=== PATIENT | male | born 1955 | race Caucasian/White ===

== ENCOUNTER 2016-02-25 13:13 | Outpatient (RCR) | payer MEDICARE ==
--- OUTSIDE RECORDS SUMMARY | 2016-01-15 11:14 | XMS REPORT | Continuity of Care Document ---
Author Author [facility] Organization [facility] Address Unknown Phone Unavailable Care Team Providers Care Php Mysql Developer Name Role Phone Génesis Bg PCP [phone] Source Comments Some departments are not documenting in the electronic medical record. If you do not see the information that you expected, contact Release of Information in the Health Information Management department at [phone] for further assistance in locating additional records.[facility] Active Allergies and Adverse Reactions Allergen Noted Date Severity Reactions Comments Adhesive 09/19/2007 Medium RASH Allergic to adhesive from transdermal pain patches Pcn 09/19/2007 Medium HIVES Current Medications Prescription Sig. Disp. Refills Start End Date Status Date NORVASC 10 mg tablet Take 10 mg by mouth Active Daily. atenolol (TENORMIN) 100 Take 100 mg by mouth Active mg tablet Twice Daily. lisinopril (PRINIVIL, Take 40 mg by mouth twice Active ZESTRIL) 40 mg tablet daily. LASIX 20 mg tablet Take 20 mg by mouth daily Active as needed. glimepiride (AMARYL) 4 mg Take 4 mg by mouth twice Active tablet daily. lenalidomide (REVLIMID) Take 2.5 mg by mouth Active 2.5 mg capsule daily. Take at the same time every day. cyanocobalamin(+) Take 500 mcg by mouth Active (VITAMIN B-12) 500 mcg daily. tablet pyridoxine (vitamin B6) Take 100 mg by mouth Active (VITAMIN B-6) 50 mg daily. tablet atorvastatin (LIPITOR) 20 Take 20 mg by mouth at Active mg tablet bedtime daily. duloxetine DR (CYMBALTA) Take 30 mg by mouth at Active 30 mg capsule bedtime daily. duloxetine DR (CYMBALTA) Take 60 mg by mouth Active 60 mg capsule daily. allopurinol (ZYLOPRIM) Take 300 mg by mouth at Active 300 mg tablet bedtime daily. Take with food. pregabalin (LYRICA) 150 Take 150 mg by mouth Active mg capsule three times daily. liraglutide(+) (VICTOZA Inject 1.8 mg into Active 2-PAVITHRA) 0.6 mg/0.1 mL (18 area(s) as directed mg/3 mL) pnij daily. traMADol (ULTRAM) 50 mg Take 50 mg by mouth every Active tablet 6 hours as needed for Pain. buPROPion XL (WELLBUTRIN Take 150 mg by mouth at Active XL) 150 mg tablet bedtime daily. Do not crush or chew. cetirizine (ZYRTEC) 10 mg Take 10 mg by mouth every Active tablet morning. vitamins, multiple tablet Take 1 Tab by mouth Active daily. Lactobacillus rhamnosus Take 1 Cap by mouth as Active GG (LACTOBACILLUS directed daily. RHAMNOSUS (GG)) 15 billion cell cpSP oxyCODONE/acetaminophen Take 1-2 Tabs by mouth 40 Tab 0 11/26/19 Active (PERCOCET; ENDOCET; every 4 hours as needed 16 ROXICET) 5/325 mg tablet for Pain Earliest Fill Date: 11/26/15 milk of magnesia (CONC) Take 10 mL by mouth twice 400 mL 0 11/26/19 Active 2,400 mg/10 mL oral daily. Indications: 16 suspension CONSTIPATION senna/docusate Take 1 Tab by mouth twice 60 Tab 0 11/26/19 Active (SENOKOT-S) 8.6/50 mg daily. Indications: 16 tablet CONSTIPATION ciprofloxacin HCl (CIPRO) Take 1 Tab by mouth twice 6 Tab 0 12/02/19 Active 500 mg tablet daily. Start taking on 16 12/02/2015 ondansetron hcl (ZOFRAN) Take 1 Tab by mouth every 30 Tab 0 11/26/19 Active 8 mg tablet 8 hours as needed for 16 Nausea or Vomiting. cephalexin (KEFLEX) 500 Take 1 Cap by mouth twice 42 Cap 0 11/26/19 12/17/19 mg capsule daily for 21 days. 16 16 enoxaparin (LOVENOX) 40 Inject 0.4 mL under the 12 mL 0 11/26/19 mg injection syringe skin daily for 30 days. 16 16 Active Problems Problem Noted Date S/P ileal conduit (HCC) 12/03/2015 Overview: Robotic Radical Cystoprostatectomy w/ Ileal Conduit -- 11/18/2015; Dr. Bruno. Bladder cancer 05/11/2015 Overview: TURBT -- 05/11/2015; cT1, high grade; muscle not involved; Dr. Montgomery. Bladder bx -- 06/29/2015; No evidence of malignancy; Dr. Montgomery. BCG x 6; 07/21/2015 -- 09/01/2015. TURBT -- 10/05/2015; cT1, high grade; muscle not involved; Dr. Montgomery. Robotic Radical Cystoprostatectomy w/ Ileal Conduit -- 11/18/2015; Dr. Bruno. pyTa N0 Mx, Margins Negative. L ast Assessment & Plan: Stents removed today w/o difficulty. RTC 1 mo w/ BMP prior. History of CVA (cerebrovascular accident) 10/23/2007 Overview: Hemorrhagic strokes x 7; 2004 - 2009. Multiple myeloma (HCC) 09/21/2007 Overview: Managed by Tyler Ortega MD (Oncology; [place], [place]). Tobacco use Last Assessment & Plan: Provided tobacco cessation info on AVS. 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 No prior kidney stone surgery. Most Recent Encounters Date Type Specialty Providers Description 12/10/2015 Telephone Urology Yesy Mendez APRN-NP Home Health Nurse Orders 12/04/2015 Telephone Urology Yesy Mendez APRN-NP General Question 12/03/2015 Office Visit Urology Zhao Jean PA-C Bladder cancer ( Primary Dx); S/P ileal conduit (HCC) 12/03/2015 [facility] Greyson Bruno, Malignant neoplasm of Encounter bladder, unspecified 11/26/2015 Documentation Oncology Jessica Abrams 11/18/2015 [facility] Greyson Bruno, Bladder cancer (HCC) - Encounter 11/26/2015 11/18/2015 Surgery Greyson Bruno, ROBOTIC ASSISTED MD CYSTECTOMY WITH ILEAL CONDUIT AND PELVIC LYMPH NODE DISSECTION 11/11/2015 Telephone Urology Greyson Bruno, Follow-up Phone Call 10/30/2015 Telephone Urology Greyson Bruno, Follow-up Phone Call 10/29/2015 PAC Office Anesthesiology Greyson Bruno, Bladder mass (Primary Visit MD Dx); Encounter for preadmission testing 10/29/2015 [facility] Zhao Jean PA-C Malignant neoplasm of Encounter overlapping sites of bladder 10/29/2015 [facility] Radiology Zhao Jean PA-C Encounter 10/29/2015 Clinical Oncology Tito Rasheed, MD Support Jessica Abrams 10/29/2015 Office Visit Urology Greyson Bruno, Bladder cancer (Primary MD Dx); History of CVA (cerebrovascular accident); Type 2 diabetes mellitus with diabetic polyneuropathy, without long-term current use of insulin (HCC); 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); Essential hypertension; Hyperlipidemia, unspecified hyperlipidemia type; Tobacco use 10/29/2015 Anesthesia Blossom Stallworth APRN-FACILITY SECURITY OFFICER Event 10/29/2015 Prep for Case Urology Zhao Jean PA-C 10/29/2015 Screening Form 10/29/2015 Ancillary Urology Greyson Bruno, Bladder cancer (Primary Orders MD Dx); Tobacco use 10/26/2015 Documentation Oncology Jessica Abrams 10/21/2015 Telephone Oncology Greyson Bruno, Navigation Assessment 10/20/2015 Documentation Oncology Jessica Abrams Social History Tobacco Use Types Packs/Day Years Used Date Current Every Day Smoker 1 50 Started: 03/13/1965 Smokeless Tobacco: Former User Comments: quit at least15 years ago (chewing tobacco) Alcohol Use Drinks/Week oz/Week Comments No 0 Standard 0.0 drinks or equivalent Last Filed Vital Signs Vital Sign Reading Time Taken Blood Pressure 113/58 12/03/2015 9:26 AM CDT Pulse 66 12/03/2015 9:26 AM CDT Temperature 36.6 C (97.9 F) 11/26/2015 7:52 AM CDT Respiratory Rate - - Height 1.829 m (6') 12/03/2015 9:26 AM CDT Weight 96.798 kg (213 lb 6.4 oz) 12/03/2015 9:26 AM CDT Body Mass Index 28.94 12/03/2015 9:26 AM CDT Oxygen Saturation 98% 11/26/2015 7:52 AM CDT Plan of Care Health Maintenance Due Date Last Done Comments Hepatitis C Screening 1955 Physical (Comprehensive) 1960 Exam Pertussis Vaccine 1964 Tetanus Vaccine 1970 Dilated Eye Exam 08/27/1971 Foot Exam 08/27/1971 Hba1c 08/27/1971 Microalbumin 08/27/1971 Pneumonia Vaccine (Dm) 08/27/1971 Colorectal Cancer 08/27/2003 Screening Shingles Vaccine 2013 Influenza Vaccine 11/12/2015 Procedures from Last 3 Months Procedure Name Priority Date/Time Associated Diagnosis Comments PROCEDURES-SCAN 11/27/2015 Results for this 2:01 PM CDT procedure are in the results section. PROCEDURES-SCAN 11/27/2015 Results for this 2:01 PM CDT procedure are in the results section. CONSULT IV THERAPY TEAM Routine 11/25/2015 5:30 PM CDT CONSULT IV THERAPY TEAM Routine 11/23/2015 11:42 AM CDT ANESTHESIA ARTERIAL LINE Routine 11/18/2015 Results for this INSERTION 8:36 AM CDT procedure are in the results section. ROBOTIC ASSISTED 11/18/2015 Bladder cancer (HCC) CYSTECTOMY WITH ILEAL 7:45 AM CDT CONDUIT AND PELVIC LYMPH NODE DISSECTION Results from Last 3 Months BASIC METABOLIC PANEL (12/03/2015 9:08 AM)Only the most recent of 11 results within the time period is included. Component Value Range Sodium 137 137-147 MMOL/L Potassium 4.1 3.5-5.1 MMOL/L Chloride 107 98-110 MMOL/L CO2 24 21-30 MMOL/L Anion Gap 6 3-12 Glucose 128 (H) 70-100 MG/DL Blood Urea Nitrogen 7 7-25 MG/DL Creatinine 1.35 (H) 0.4-1.24 MG/DL Calcium 8.2 (L) 8.5-10.6 MG/DL eGFR Non 54 (L)Comment: >60 mL/min The eGFR is not validated for use in drug dosing adjustments. Continue to use estimated creatinine clearance per dosing reference text. Please contact the Clinical Pharmacist for questions. eGFR >60Comment: >60 mL/min The eGFR is not validated for use in drug dosing adjustments. Continue to use estimated creatinine clearance per dosing reference text. Please contact the Clinical Pharmacist for questions. Specimen Blood PROCEDURES-SCAN (11/27/2015 2:01 PM) Narrative Ordered by an unspecified provider. PROCEDURES-SCAN (11/27/2015 2:01 PM) Narrative Ordered by an unspecified provider. POC GLUCOSE (11/26/2015 8:03 AM)Only the most recent of 33 results within the time period is included. Component Value Range Glucose, POC 163 (H) 70-100 MG/DL CBC (11/26/2015 4:37 AM)Only the most recent of 10 results within the time period is included. Component Value Range White Blood Cells 6.6 4.5-11.0 K/UL RBC 3.26 (L) 4.4-5.5 M/UL Hemoglobin 10.9 (L) 13.5-16.5 GM/DL Hematocrit 32.6 (L) 40-50 % MCV 100.0 80-100 FL MCH 33.4 26-34 PG MCHC 33.4 32.0-36.0 G/DL RDW 16.6 (H) 11-15 % Platelet Count 180 150-400 K/UL MPV 8.6 7-11 FL Specimen Blood C DIFFICILE BY PCR (11/24/2015 7:35 PM) Component Value Range Battery Name C DIFFICILE PCR Specimen Description FECES Special Requests NONE C. Difficile Toxin B PCR POSITIVE-wait 14 days to repeat test Notified Phong/[id number] Report Status FINAL 11/25/2015 Specimen Feces CREATININE-FLUID (11/24/2015 12:18 PM)Only the most recent of 2 results within the time period is included. Component Value Range Creatinine,Fluid 1.27 MG/DL Specimen Fluid - Waldemar Drainage ABDOMEN AP ONLY (11/24/2015 8:54 AM)Only the most recent of 3 results within the time period is included. Impressions Persistent gaseous distention of large and small bowel loops. Approved by Courtney Burgos M.D. on 11/24/2015 10:33 AM By my electronic signature, I attest that I have personally reviewed the images for this examination and formulated the interpretations and opinions expressed in this report Finalized by Ofelia Davis M.D. on 11/24/2015 10:38 AM. Dictated by Courtney Burgos M.D. on 11/24/2015 8:56 AM. Narrative ABDOMEN AP ONLY CLINICAL HISTORY: 60-year-old male. Evaluate for ileus COMPARISON: Abdomen AP from prior day FINDINGS: Two AP supine views of the abdomen were obtained for interpretation. Surgical clips overlie the right upper quadrant. Ureteral stents remain in similar position. Surgical sutures are seen overlying the right hemiabdomen. Surgical drain is seen overlying the left pelvis. Persistent gaseous dilation of multiple loops of large and small bowel. Procedure Note Interface, Radiant Results - Tue Nov 24, 2015 10:41 AM CDT ABDOMEN AP ONLY CLINICAL HISTORY: 60-year-old male. Evaluate for ileus COMPARISON: Abdomen AP from prior day FINDINGS: Two AP supine views of the abdomen were obtained for interpretation. Surgical clips overlie the right upper quadrant. Ureteral stents remain in similar position. Surgical sutures are seen overlying the right hemiabdomen. Surgical drain is seen overlying the left pelvis. Persistent gaseous dilation of multiple loops of large and small bowel. IMPRESSION Persistent gaseous distention of large and small bowel loops. Approved by Courtney Burgos M.D. on 11/24/2015 10:33 AM By my electronic signature, I attest that I have personally reviewed the images for this examination and formulated the interpretations and opinions expressed in this report Finalized by Ofelia Davis M.D. on 11/24/2015 10:38 AM. Dictated by Courtney Burgos M.D. on 11/24/2015 8:56 AM. MAGNESIUM (11/23/2015 4:27 AM)Only the most recent of 2 results within the time period is included. Component Value Range Magnesium 2.0 1.6-2.6 MG/DL PATHOLOGY INTEROPERATIVE REPORT SCAN (11/19/2015 3:05 PM) Narrative Ordered by an unspecified provider. BLOOD GASES, ARTERIAL (11/18/2015 4:55 PM)Only the most recent of 4 results within the time period is included. Component Value Range pH-Arterial 7.32 (L) 7.35-7.45 pCO2-Arterial 43 35-45 MMHG pO2-Arterial 81 80-100 MMHG Base Deficit-Arterial 3.8 MMOL/L O2 Sat-Arterial 95.9 95-99 % Utkudyighjs-ZFK-Cca 21.2 21-28 MMOL/L Specimen Blood, arterial - Blood COMPREHENSIVE METABOLIC PANEL (11/18/2015 4:30 PM) Component Value Range Sodium 143 137-147 MMOL/L Potassium 4.0 3.5-5.1 MMOL/L Chloride 114 (H) 98-110 MMOL/L Glucose 136 (H) 70-100 MG/DL Blood Urea Nitrogen 19 7-25 MG/DL Creatinine 1.44 (H) 0.4-1.24 MG/DL Calcium 7.5 (L) 8.5-10.6 MG/DL Total Protein 5.8 (L) 6.0-8.0 G/DL Total Bilirubin 0.9 0.3-1.2 MG/DL Albumin 4.3 3.5-5.0 G/DL Alk Phosphatase 24 (L) 25-110 U/L AST (SGOT) 44 (H) 7-40 U/L CO2 23 21-30 MMOL/L ALT (SGPT) 47 7-56 U/L Anion Gap 6 3-12 eGFR Non 50 (L)Comment: >60 mL/min The eGFR is not validated for use in drug dosing adjustments. Continue to use estimated creatinine clearance per dosing reference text. Please contact the Clinical Pharmacist for questions. eGFR >60Comment: >60 mL/min The eGFR is not validated for use in drug dosing adjustments. Continue to use estimated creatinine clearance per dosing reference text. Please contact the Clinical Pharmacist for questions. Specimen Blood POC IONIZED CALCIUM (11/18/2015 12:49 PM)Only the most recent of 4 results within the time period is included. Component Value Range Ionized Calcium-POC 0.89 (L) 1.0-1.3 MMOL/L POC SODIUM (11/18/2015 12:49 PM)Only the most recent of 4 results within the time period is included. Component Value Range Sodium-POC 141 137-147 MMOL/L POC POTASSIUM (11/18/2015 12:49 PM)Only the most recent of 4 results within the time period is included. Component Value Range Potassium-POC 6.3 (HH) 3.5-5.1 MMOL/L POC HEMATOCRIT (11/18/2015 12:49 PM)Only the most recent of 4 results within the time period is included. Component Value Range Hemoglobin POC 9.9 (L) 13.5-16.5 GM/DL Hematocrit POC 29.0 (L) 40-50 % POC BLOOD GAS ARTERIAL (11/18/2015 12:49 PM)Only the most recent of 4 results within the time period is included. Component Value Range PH-ART-POC 7.27 (L) 7.35-7.45 OVO4-BWV-VTS 38 35-45 MMHG PO2-ART-POC 77 (L) 80-100 MMHG Base Def-ART-POC 9.0 MMOL/L O2 Sat-ART-POC 93.0 (L) 95-99 % Arlvnqiiidz-JTY-XNZ 17.6 (L) 21-28 MMOL/L HEMOGLOBIN & HEMATOCRIT (11/18/2015 12:16 PM) Component Value Range Hemoglobin 9.6 (L) 13.5-16.5 GM/DL Hematocrit 28.5 (L) 40-50 % SURGICAL PATHOLOGY (11/18/2015 9:09 AM) Component Value Range PATHOLOGY REPORT [facility] [email or web address] Joselito Adair MD, PhD, Director of Anatomic Pathology Department of Pathology and Laboratory Medicine [address] [place] [id number] Surgical Pathology Office: [phone] SURGICAL PATHOLOGY REPORT NAME: CATA BEE SURG PATH #: [id number] MR #: [id number] SPECIMEN CLASS: SR BILLING #: [id number] ALT ID #: LOCATION: DATE OF PROCEDURE: 11/18/2015 AGE: 60 SEX: M DATE RECEIVED: 11/18/2015 : 1955 TIME RECEIVED: 09:09 PHYSICIAN: GREYSON BRUNO MD DATE OF REPORT: 11/23/2015 COPY TO: DATE OF PRINTIN11/23/2015 ################################################## ###################### Final Diagnosis: A. Ureter, "left distal ureter", excision: There is no evidence of malignancy. B. Ureter, "right distal ureter", excision There is no evidence of malignancy. C. Bladder and prostate, radical cystoprostatectomy: Bladder: Non-invasive high-grade papillary urothelial carcinoma. See checklist. Focal ulceration, chronic inflammation, fibrosis, and foreign body giant cell reaction, consistent with therapy-related changes. Prostate: Focal foreign body giant cell reaction, chronic inflammation and necrosis, consisten t with therapy-related changes. There is no evidence of malignancy. D. Lymph nodes (1), "right external iliac lymph nodes", excision: There is no evidence of malignancy in one lymph node. (0/1) E. Lymph nodes (1), "right internal iliac lymph nodes", excision: There is no evidence of malignancy in one lymph node. (0/1) F. Lymph nodes (5), "right obturator lymph nodes", dissection: There is no evidence of malignancy in five lymph nodes. (0/5) G. Lymph nodes (1), "right common lymph nodes", excision: There is no evidence of malignancy in one lymph node. (0/1) H. Lymph nodes (6), "left external lymph nodes", dissection: There is no evidence of malignancy in six lymph nodes. (0/6) I. Fibroadipose tissue, "left internal lymph nodes", excision: No lymphoid tissue present. There is no evidence of malignancy. J. Lymph nodes (2), "left obturator lymph nodes", excision: There is no evidence of malignancy in two lymph nodes. (0/2) K. Lymph nodes (1), "left common lymph nodes", excision: There is no evidence of malignancy in one lymph node. (0/1) Comment: URINARY BLADDER: Radical cystoprostatectomy Specimen: Bladder, prostate Procedure: Radical cystoprostatectomy Tumor Site: Dome Tumor Size: 2.8 x 2.1 x 0.6 cm Tumor Type: Non invasive high grade papillary urothelial carcinoma Histologic Type: Urothelial (transitional cell) carcinoma Associated Epithelial Lesions: None identified Histologic Grade Urothelial carcinoma: High-grade Tumor Configuration: Papillary Microscopic Tumor Extension: Noninvasive papillary carcinoma Margins Margins uninvolved by invasive carcinoma/carcinoma in situ/noninvasive high-grade urothelial carcinom a Distance of carcinoma from closest margin: 8.4 cm Specify margin: Right ureteral margin Lymph-Vascular Invasion: Not identified Pathologic Staging (pTNM) pyTa N0 Mn/a 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 Pursuant to the Sponsorship Coordinator Program at the [facility] Pathology Department, selected slides from this case have been concurrently reviewed by the following pathologist: Dr. Abarca who agrees with the final diagnosis. Attestation: By this signature, I attest that I have personally formulated the final interpretation expressed in this report and that the above diagnosis is based upon my examination of the slides and/or other material indicated in this report. +++Electronically Signed Out By+++ ksw/11/19/2015 Interpreted by: Kieran Brewer MD Resident 11/23/2015 ################################################## ###################### Material Received: A: left distal ureter B: right distal ureter C: bladder and biopsy D: right external iliac lymph nodes E: right internal iliac lymph nodes F: right obturator lymph nodes G: right common lymph nodes H: left external lymph nodes I: left internal lymph nodes J: left obturator lymph nodes K: left common lymph nodes History: 60-year-old male with a clinical history of bladder cancer. Gross Description: A. Received fresh, labeled with the patient's name and "left distal ureter" is an unoriented, sauceda-white annular portion of soft tissue measuring 0.6 x 0.3 x 0.3 cm. The specimen is entirely submitted for frozen consultation with the remnant being placed in cassette [id number]. ([facility]) B. Received fresh, labeled with the patient's name and "right distal ureter" is an unoriented, sauceda-white, annular portion of soft tissue measuring 0.6 x 0.5 x 0.5 cm. The specimen is entirely submitted for frozen consultation with the remnant being placed in cassette [id number]. ([facility]) C. Fixative: Fresh Labeled: "Bladder and prostate" Bladder measurement of 10.2 x 8.7 x 2.8 cm Right ureter: 4.8 cm in length by 0.4 cm in diameter Left ureter: 4.3 cm in length by 0.3 cm in diameter External surface of bladder: Smooth Bladder tumor measurement: dome: Sauceda-pink and polypoid 2.8 x 2.1 x 0.6 cm in aggregate. Left posterior lateral wall: Red-pink and ulcerated 2.1 x 1.8 cm. Right posterior lateral: Sauced[place]-white and irregular 2.9 x 2.2 cm Bladder tumor location: There are three separate possible tumor areas located as follows: dome, right posterior lateral wall, and left posterior-lateral Bladder tumor depth of invasion: Dome grossly superficial. Left posterior lateral wall: Grossly appears superficial. Right posterior Lateral wall: Grossly appears superficial Bladder tumor: Dome mass does not Involve the right and left ureter. Left posterior lateral wall lesion: does not involve the right and left ureters. Right posterior lateral wall lesion: Does not involve the right and left ureter Bladder tumor dome mass: 4.8 cm from the left ureteral orifice and 4.1 cm from the right ureteral orifice. Left posterior lateral wall lesion: 1.6 cm from left ureteral orifice and 3.9 cm from right ureteral orifice. Right posterior lateral wall lesion: 1.6 cm from the left ureteral orifice and abuts the right ureteral orifice. Uninvolved bladder mucosa: Sauceda-pink and edematous The external surface deep to the mass is inked black. Prostate weight: 47 grams Prostate measurement: 4.8 x 4.1 x 3.7 cm Right seminal vesicle measurement: 4.4 x 1.5 x 1.1 cm Right vas deferens measurement: 6.8 cm in length and 0.6 cm in diameter Left seminal vesicle measurement: 4.4 x 0.9 x 0.9 cm Left vas deferens measurement: 8.9 cm in length and 0.6 cm in diameter External surface of prostate: [place]-sauceda and smooth. Prostate cut surface: Sauceda-white and gritty with an irregular area measuring 1.6 x 1.4 x 0.6 cm located in the left posterior lobe. The anterior prostate has multiple nodules ranging from 0.2 x 0.2 x 0.2 up to 0.4 x 0.4 x 0.3cm. The right lobe of the prostate is inked black and the left lobe is inked blue. A commercial representative section of the specimen is submitted for the Biospecimen Repository Core Facility. Safety Belt Installer sections of the specimen are submitted as follows: C1 Right and left ureteral margin (right ureter is inked black). C2 Right and left distal urethral margin (serially sectioned). C3 Right seminal vesicle and vas deferens margins. C4 Left seminal vesicle and vas deferens margins. C5-C6 Safety Belt Installer sections from right posterior prostate. C7-C8 Safety Belt Installer sections from left posterior prostate. C9 Safety Belt Installer sections from right anterior prostate. C10 Section from left anterior prostate. C11 Anterior bladder wall. C12 Left lateral bladder wall. C13 Right lateral bladder wall. C14 Bladder dome. C15 Posterior bladder wall. C16 Bladder trigone. C17 Right ureter to bladder mucosa. C18 Left ureter to bladder mucosa. [id number] sections of mass at dome. [id number] sections of right posterior lateral wall lesion. [id number] posterior lateral wall lesion, blocked out and entirely submitted. (ads) D. Received in formalin labeled patient's name and "right external iliac lymph nodes" is a 6.8 x 3.0 x 2.0 cm yellow-sauceda, irregular portion of adipose tissue. The specimen is palpated to reveal one possible lymph node measuring 2.0 x 1.0 x 0.6 cm. The entire specimen is submitted as follows: D1 One lymph node. D2-D5 Fibrous tissue with possible lymph nodes. (sld) E. Received in formalin labeled patient's name and "right internal iliac lymph nodes" is a 5.9 x 3.1 x 0.9 cm yellow-sauceda, irregular portion of adipose tissue. The specimen is palpated to reveal multiple possible lymph nodes ranging from 0.2 x 0.2 x 0.2 cm to 2.3 x 1.0 x 0.6 cm. The entire specimen is submitted in cassettes E1-E5. (sld) F. Received in formalin labeled with the patient's name and "right obturator lymph nodes" is a 5.5 x 4.0 x 1.9 cm yellow-sauceda, irregular portion of adipose tissue. The specimen is palpated to reveal multiple possible lymph nodes ranging from 0.2 x 0.2 x 0.2 cm to 1.0 x 0.6 x 0.4 cm. The entire specimen is submitted in cassettes F1-F5. (sld) G. Received in formalin labeled with the patient's name and "right common lymph nodes" is a 3.0 x 2.8 x 0.9 cm yellow-sauceda, irregular portion of adipose tissue. The specimen is palpated to reveal one possible lymph node measuring 0.3 x 0.3 x 0.3 cm. The entire specimen is submitted as follows: G1 One possible lymph node G2 Fibrous tissue with possible lymph nodes (sld) H. Received in formalin labeled with the patient's name and "left external iliac lymph nodes" is a 4.2 x 3.8 x 1.5 cm yellow-sauceda, irregular portion of adipose tissue. The specimen is palpated to reveal three possible lymph nodes measuring 0.3 x 0.3 x 0.2 cm each. The entire specimen is submitted as follows: H1 Three possible whole lymph nodes. H2-H4 Fibrous tissue with possible lymph nodes. (sld) I. Received in formalin labeled with the patient's name and "left internal iliac lymph nodes" is a 3.5 x 2.2 x 0.9 cm yellow-sauceda, irregular portion of adipose tissue. The specimen is palpated to reveal one possible lymph node measuring 0.4 x 0.4 x 0.3 cm. The entire specimen is submitted in cassette I1. (sld) J. Received in formalin labeled with the patient's name and "left obturator lymph nodes" is a 3.8 x 3.0 x 1.0 cm yellow-sauceda, irregular portion of adipose tissue. The specimen is palpated to reveal two possible lymph nodes measuring 1.2 x 1.0 x 0.3 cm and 2.0 x 0.8 x 0.4 cm. The entire specimen is submitted in cassettes J1 and J2. (sld) K. Received in formalin labeled with the patient's name and "left common lymph nodes" is a 2.5 x 1.2 x 0.4 cm yellow-sauceda, irregular portion of adipose tissue. The specimen is palpated to reveal one possible lymph node measuring 0.3 x 0.3 x 0.3 cm. The entire specimen is submitted in cassette K1. (d) paj/11/18/2015 Tai Montana MD Resident Intraoperative Consultation: A1FS, ureter, "left distal ureter", biopsy: Negative for malignancy. B1FS, ureter, "right distal ureter", biopsy: Negative for malignancy. Marquita Da Silva M.D. ANESTHESIA ARTERIAL LINE INSERTION (11/18/2015 8:36 AM) Rayshawn Hedrick MD 11/18/20158:36 AM Anesthesia Procedure: Arterial Line Placement A-LINE INSERTION Date/Time: 11/18/2015 8:00 AM Patient location: OR Indications: multiple ABGs and hemodynamic monitoring Staff Anesthesiologist: LISANDRO HEDRICK Arterial Line Procedure Patient sedated: yes (see MAR) Sedation type: general; Artery prepped with chlorhexidine; skin prep agent completely dried prior to procedure. Location: radial artery Technique: palpation and anatomical landmarks Needle gauge: 20 G Number of attempts: 1 Procedure Outcome Catheter secured with chlorhexidine patch applied Events: no complications noted during insertion Observation: pt tolerated well TYPE & CROSSMATCH (11/18/2015 7:00 AM) Component Value Range Units Ordered 4 Crossmatch Expires 11/21/2015 Record Check FOUND ABO/RH(D) O POS Antibody Screen NEG Electronic Crossmatch YES Unit Number [id number] Blood Component Type RBC,ADSOL,LEUKO REDUCED,IRRADIATED Unit Division 0 Status OF Unit REL FROM ALLOC Transfusion Status OK TO TRANSFUSE Crossmatch Result COMPATIBLE,ELECTRONIC Unit Number [id number] Blood Component Type RBC,ADSOL,LEUKO REDUCED,IRRADIATED Unit Division 0 Status OF Unit REL FROM ALLOC Transfusion Status OK TO TRANSFUSE Crossmatch Result COMPATIBLE,ELECTRONIC Unit Number [id number] Blood Component Type RBC,ADSOL,LEUKO REDUCED,IRRADIATED Unit Division 0 Status OF Unit REL FROM ALLOC Transfusion Status OK TO TRANSFUSE Crossmatch Result COMPATIBLE,ELECTRONIC Unit Number [id number] Blood Component Type RBC,ADSOL,LEUKO REDUCED,IRRADIATED Unit Division 0 Status OF Unit TRANSFUSED Transfusion Status OK TO TRANSFUSE Crossmatch Result COMPATIBLE,ELECTRONIC TYPE & SCREEN (NOT CROSSMATCH ELIGIBLE) (10/29/2015 12:46 PM) Component Value Range ABO/RH(D) O POS Antibody Screen NEG Blood Component Type RED CELL GROUP Specimen Blood, venous - Blood CT ABD/PELV W CONTRAST (10/29/2015 12:26 PM) Impressions CHEST: 1. Upper lobe predominant emphysema. 2. No significant change in prominent posterior mediastinal lymph nodes and scattered pulmonary nodules since remote study in 2007. No suspicious pulmonary nodules to suggest pulmonary metastatic disease. ABDOMEN AND PELVIS: 1. Smooth, focal thickening of the right posterolateral bladder wall following transurethral resection of bladder tumor. Additional mild sites of smooth bladder wall thickening are noted at the left lateral bladder wall and dome. Recommend correlation with cystoscopy to evaluate for residual mass. 2. No abdominopelvic metastatic disease or adenopathy. 3. Small left renal hypodensity, which appears to de-enhance on delayed phase imaging. This is unchanged since 05/08/2015 though is concerning for small renal cell carcinoma.Continued attention on follow-up imaging is recommended. Approved by Parvez Marrero MD on 10/29/2015 4:21 PM By my electronic signature, I attest that I have personally reviewed the images for this examination and formulated the interpretations and opinions expressed in this report Finalized by Evelina Collazo M.D. on 10/29/2015 5:21 PM. Dictated by Parvez Marrero MD on 10/29/2015 1:[address] CHEST, ABDOMEN AND PELVIS Clinical Indication:Male, 60 years old. Bladder cancer Technique: Multiple contiguous axial images were obtained through the chest, abd omen and pelvis following the administration of IV contrast material. Post processing coronal and sagittal reconstruction images were made from the axial images. IV contrast: 65 mL Isovue 370. Bowel contrast:30 mL Gastroview Comparison: CT chest from September 17, [address] abdomen/pelvis from May 08, 2015. CHEST FINDINGS: Lower Neck: Unremarkable Axilla, Mediastinum and Jenifer: No axillary or hilar adenopathy identified. Mild mediastinal adenopathy unchanged from 2008. A commercial representative posterior mediastinal lymph node measures 1.7 x 1.3 cm (series 5, image 26). Heart and Great Vessels: The heart is normal in size with three-vessel coronary artery calcification. The thoracic aorta is normal in caliber. Airway, Lungs and Pleura: Central airways are patent. There is upper lobe predominant paraseptal emphysema. A few scattered small subcentimeter pulmonary nodules in both lungs are unchanged since prior remote study in 2007. A calcified granuloma is noted in the right upper lobe. No suspicious pulmonary nodules identified. No pleural effusion or pneumothorax. Chest Wall and Osseous Structures: No destructive osseous lesions identified. ABDOMEN AND PELVIS FINDINGS: Liver and Biliary system: The liver is normal in size. A few small hypodensities in both hepatic lobes are stable to minimally increased in size since 2008, likely representing small hepatic cysts. An additional 1 cm hypodensity in segment 6 (series 7, image 28) is stable since 05/08/2015 and likely represents an additional small cyst. Prior cholecystectomy. Hepatic and portal veins are patent. No bile duct dilatation. Spleen: The spleen is normal in size. Adrenal Glands and Kidneys: Adrenal glands are unremarkable. The kidneys are symmetric in size. No hydronephrosis. A small 1.0 cm hypodensity in the anterior left kidney is unchanged since 05/08/2015. This lesion appears to de- enhance on delayed phase imaging. Opacified portions of both renal collecting systems and ureters show no filling defect or mass. Pancreas and Retroperitoneum: Pancreas is unremarkable. No retroperitoneal lymphadenopathy identified. Aorta and Major Vessels: Abdominal aorta is normal in caliber with mild atherosclerotic plaque of the aortoiliac vessels. Bowel, Mesentery and Peritoneal space: Large and small loops of bowel are normal in caliber. No evidence of bowel obstruction. The appendix is normal. There is unchanged submucosal fatty deposition in the rectum. No free air or ascites. Pelvis: The bladder soft tissue mass noted on outside CT is no longer evident. There is asymmetric smooth thickening of the right posterolateral bladder wall ( series 11, image 83) with additional areas of smooth bladder wall thickening elsewhere, including the left lateral bladder and dome. The prostate and seminal vesicles are unremarkable. No pelvic adenopathy identified. Abdominal wall and Osseous Structures: Small bilateral fat-containing inguinal hernias are noted. No destructive osseous lesions identified. Procedure Note Interface, Radiant Results - [facility] Oct 29, 2015 5:[address] CHEST, ABDOMEN AND PELVIS Clinical Indication: Male, 60 years old. Bladder cancer Technique: Multiple contiguous axial images were obtained through the chest, abdomen and pelvis following the administration of IV contrast material. Post processing coronal and sagittal reconstruction images were made from the axial images. IV contrast: 65 mL Isovue 370. Bowel contrast: 30 mL Gastroview Comparison: CT chest from September 17, [address] abdomen/pelvis from May 08, 2015. CHEST FINDINGS: Lower Neck: Unremarkable Axilla, Mediastinum and Jenifer: No axillary or hilar adenopathy identified. Mild mediastinal adenopathy unchanged from 2007. A commercial representative posterior mediastinal lymph node measures 1.7 x 1.3 cm (series 5, image 26). Heart and Great Vessels: The heart is normal in size with three-vessel coronary artery calcification. The thoracic aorta is normal in caliber. Airway, Lungs and Pleura: Central airways are patent. There is upper lobe predominant paraseptal emphysema. A few scattered small subcentimeter pulmonary nodules in both lungs are unchanged since prior remote study in 2007. A calcified granuloma is noted in the right upper lobe. No suspicious pulmonary nodules identified. No pleural effusion or pneumothorax. Chest Wall and Osseous Structures: No destructive osseous lesions identified. ABDOMEN AND PELVIS FINDINGS: Liver and Biliary system: The liver is normal in size. A few small hypodensities in both hepatic lobes are stable to minimally increased in size since 2007, likely representing small hepatic cysts. An additional 1 cm hypodensity in segment 6 (series 7, image 28) is stable since 05/08/2015 and likely represents an additional small cyst. Prior cholecystectomy. Hepatic and portal veins are patent. No bile duct dilatation. Spleen: The spleen is normal in size. Adrenal Glands and Kidneys: Adrenal glands are unremarkable. The kidneys are symmetric in size. No hydronephrosis. A small 1.0 cm hypodensity in the anterior left kidney is unchanged since 05/08/2015. This lesion appears to de- enhance on delayed phase imaging. Opacified portions of both renal collecting systems and ureters show no filling defect or mass. Pancreas and Retroperitoneum: Pancreas is unremarkable. No retroperitoneal lymphadenopathy identified. Aorta and Major Vessels: Abdominal aorta is normal in caliber with mild atherosclerotic plaque of the aortoiliac vessels. Bowel, Mesentery and Peritoneal space: Large and small loops of bowel are normal in caliber. No evidence of bowel obstruction. The appendix is normal. There is unchanged submucosal fatty deposition in the rectum. No free air or ascites. Pelvis: The bladder soft tissue mass noted on outside CT is no longer evident. There is asymmetric smooth thickening of the right posterolateral bladder wall ( series 11, image 83) with additional areas of smooth bladder wall thickening elsewhere, including the left lateral bladder and dome. The prostate and seminal vesicles are unremarkable. No pelvic adenopathy identified. Abdominal wall and Osseous Structures: Small bilateral fat-containing inguinal hernias are noted. No destructive osseous lesions identified. IMPRESSION CHEST: 1. Upper lobe predominant emphysema. 2. No significant change in prominent posterior mediastinal lymph nodes and scattered pulmonary nodules since remote study in 2007. No suspicious pulmonary nodules to suggest pulmonary metastatic disease. ABDOMEN AND PELVIS: 1. Smooth, focal thickening of the right posterolateral bladder wall following transurethral resection of bladder tumor. Additional mild sites of smooth bladder wall thickening are noted at the left lateral bladder wall and dome. Recommend correlation with cystoscopy to evaluate for residual mass. 2. No abdominopelvic metastatic disease or adenopathy. 3. Small left renal hypodensity, which appears to de-enhance on delayed phase imaging. This is unchanged since 05/08/2015 though is concerning for small renal cell carcinoma. Continued attention on follow-up imaging is recommended. Approved by Parvez Marrero MD on 10/29/2015 4:21 PM By my electronic signature, I attest that I have personally reviewed the images for this examination and formulated the interpretations and opinions expressed in this report Finalized by Evelina Collazo M.D. on 10/29/2015 5:21 PM. Dictated by Parvez Marrero MD on 10/29/2015 1:[address] CHEST W CONTRAST (10/29/2015 12:26 PM) Impressions CHEST: 1. Upper lobe predominant emphysema. 2. No significant change in prominent posterior mediastinal lymph nodes and scattered pulmonary nodules since remote study in 2007. No suspicious pulmonary nodules to suggest pulmonary metastatic disease. ABDOMEN AND PELVIS: 1. Smooth, focal thickening of the right posterolateral bladder wall following transurethral resection of bladder tumor. Additional mild sites of smooth bladder wall thickening are noted at the left lateral bladder wall and dome. Recommend correlation with cystoscopy to evaluate for residual mass. 2. No abdominopelvic metastatic disease or adenopathy. 3. Small left renal hypodensity, which appears to de-enhance on delayed phase imaging. This is unchanged since 05/08/2015 though is concerning for small renal cell carcinoma.Continued attention on follow-up imaging is recommended. Approved by Parvez Marrero MD on 10/29/2015 4:21 PM By my electronic signature, I attest that I have personally reviewed the images for this examination and formulated the interpretations and opinions expressed in this report Finalized by Evelina Collazo M.D. on 10/29/2015 5:21 PM. Dictated by Parvez Marrero MD on 10/29/2015 1:[address] CHEST, ABDOMEN AND PELVIS Clinical Indication:Male, 60 years old. Bladder cancer Technique: Multiple contiguous axial images were obtained through the chest, abd omen and pelvis following the administration of IV contrast material. Post processing coronal and sagittal reconstruction images were made from the axial images. IV contrast: 65 mL Isovue 370. Bowel contrast:30 mL Gastroview Comparison: CT chest from September 17, [address] abdomen/pelvis from May 08, 2015. CHEST FINDINGS: Lower Neck: Unremarkable Axilla, Mediastinum and Jenifer: No axillary or hilar adenopathy identified. Mild mediastinal adenopathy unchanged from 2008. A commercial representative posterior mediastinal lymph node measures 1.7 x 1.3 cm (series 5, image 26). Heart and Great Vessels: The heart is normal in size with three-vessel coronary artery calcification. The thoracic aorta is normal in caliber. Airway, Lungs and Pleura: Central airways are patent. There is upper lobe predominant paraseptal emphysema. A few scattered small subcentimeter pulmonary nodules in both lungs are unchanged since prior remote study in 2007. A calcified granuloma is noted in the right upper lobe. No suspicious pulmonary nodules identified. No pleural effusion or pneumothorax. Chest Wall and Osseous Structures: No destructive osseous lesions identified. ABDOMEN AND PELVIS FINDINGS: Liver and Biliary system: The liver is normal in size. A few small hypodensities in both hepatic lobes are stable to minimally increased in size since 2008, likely representing small hepatic cysts. An additional 1 cm hypodensity in segment 6 (series 7, image 28) is stable since 05/08/2015 and likely represents an additional small cyst. Prior cholecystectomy. Hepatic and portal veins are patent. No bile duct dilatation. Spleen: The spleen is normal in size. Adrenal Glands and Kidneys: Adrenal glands are unremarkable. The kidneys are symmetric in size. No hydronephrosis. A small 1.0 cm hypodensity in the anterior left kidney is unchanged since 05/08/2015. This lesion appears to de- enhance on delayed phase imaging. Opacified portions of both renal collecting systems and ureters show no filling defect or mass. Pancreas and Retroperitoneum: Pancreas is unremarkable. No retroperitoneal lymphadenopathy identified. Aorta and Major Vessels: Abdominal aorta is normal in caliber with mild atherosclerotic plaque of the aortoiliac vessels. Bowel, Mesentery and Peritoneal space: Large and small loops of bowel are normal in caliber. No evidence of bowel obstruction. The appendix is normal. There is unchanged submucosal fatty deposition in the rectum. No free air or ascites. Pelvis: The bladder soft tissue mass noted on outside CT is no longer evident. There is asymmetric smooth thickening of the right posterolateral bladder wall ( series 11, image 83) with additional areas of smooth bladder wall thickening elsewhere, including the left lateral bladder and dome. The prostate and seminal vesicles are unremarkable. No pelvic adenopathy identified. Abdominal wall and Osseous Structures: Small bilateral fat-containing inguinal hernias are noted. No destructive osseous lesions identified. Procedure Note Interface, Radiant Results - [facility] Oct 29, 2015 5:[address] CHEST, ABDOMEN AND PELVIS Clinical Indication: Male, 60 years old. Bladder cancer Technique: Multiple contiguous axial images were obtained through the chest, abdomen and pelvis following the administration of IV contrast material. Post processing coronal and sagittal reconstruction images were made from the axial images. IV contrast: 65 mL Isovue 370. Bowel contrast: 30 mL Gastroview Comparison: CT chest from September 17, [address] abdomen/pelvis from May 08, 2015. CHEST FINDINGS: Lower Neck: Unremarkable Axilla, Mediastinum and Jenifer: No axillary or hilar adenopathy identified. Mild mediastinal adenopathy unchanged from 2008. A commercial representative posterior mediastinal lymph node measures 1.7 x 1.3 cm (series 5, image 26). Heart and Great Vessels: The heart is normal in size with three-vessel coronary artery calcification. The thoracic aorta is normal in caliber. Airway, Lungs and Pleura: Central airways are patent. There is upper lobe predominant paraseptal emphysema. A few scattered small subcentimeter pulmonary nodules in both lungs are unchanged since prior remote study in 2007. A calcified granuloma is noted in the right upper lobe. No suspicious pulmonary nodules identified. No pleural effusion or pneumothorax. Chest Wall and Osseous Structures: No destructive osseous lesions identified. ABDOMEN AND PELVIS FINDINGS: Liver and Biliary system: The liver is normal in size. A few small hypodensities in both hepatic lobes are stable to minimally increased in size since 2007, likely representing small hepatic cysts. An additional 1 cm hypodensity in segment 6 (series 7, image 28) is stable since 05/08/2015 and likely represents an additional small cyst. Prior cholecystectomy. Hepatic and portal veins are patent. No bile duct dilatation. Spleen: The spleen is normal in size. Adrenal Glands and Kidneys: Adrenal glands are unremarkable. The kidneys are symmetric in size. No hydronephrosis. A small 1.0 cm hypodensity in the anterior left kidney is unchanged since 05/08/2015. This lesion appears to de- enhance on delayed phase imaging. Opacified portions of both renal collecting systems and ureters show no filling defect or mass. Pancreas and Retroperitoneum: Pancreas is unremarkable. No retroperitoneal lymphadenopathy identified. Aorta and Major Vessels: Abdominal aorta is normal in caliber with mild atherosclerotic plaque of the aortoiliac vessels. Bowel, Mesentery and Peritoneal space: Large and small loops of bowel are normal in caliber. No evidence of bowel obstruction. The appendix is normal. There is unchanged submucosal fatty deposition in the rectum. No free air or ascites. Pelvis: The bladder soft tissue mass noted on outside CT is no longer evident. There is asymmetric smooth thickening of the right posterolateral bladder wall ( series 11, image 83) with additional areas of smooth bladder wall thickening elsewhere, including the left lateral bladder and dome. The prostate and seminal vesicles are unremarkable. No pelvic adenopathy identified. Abdominal wall and Osseous Structures: Small bilateral fat-containing inguinal hernias are noted. No destructive osseous lesions identified. IMPRESSION CHEST: 1. Upper lobe predominant emphysema. 2. No significant change in prominent posterior mediastinal lymph nodes and scattered pulmonary nodules since remote study in 2007. No suspicious pulmonary nodules to suggest pulmonary metastatic disease. ABDOMEN AND PELVIS: 1. Smooth, focal thickening of the right posterolateral bladder wall following transurethral resection of bladder tumor. Additional mild sites of smooth bladder wall thickening are noted at the left lateral bladder wall and dome. Recommend correlation with cystoscopy to evaluate for residual mass. 2. No abdominopelvic metastatic disease or adenopathy. 3. Small left renal hypodensity, which appears to de-enhance on delayed phase imaging. This is unchanged since 05/08/2015 though is concerning for small renal cell carcinoma. Continued attention on follow-up imaging is recommended. Approved by Parvez Marrero MD on 10/29/2015 4:21 PM By my electronic signature, I attest that I have personally reviewed the images for this examination and formulated the interpretations and opinions expressed in this report Finalized by Evelina Collazo M.D. on 10/29/2015 5:21 PM. Dictated by Parvez Marrero MD on 10/29/2015 1:07 PM. POC CREATININE, RAD (10/29/2015 11:16 AM) Component Value Range Creatinine, POC 1.8 (H) 0.4-1.24 MG/DL
[2016-01-15 11:31] LABS: BASOPHILS # (AUTO) 0.1 10^3/uL (0.0-0.1); BASOPHILS % (AUTO) 1 % (0-10); EOSINOPHILS # (AUTO) 0.4 10^3/uL (0.0-0.3); EOSINOPHILS % (AUTO) 5 % (0-10); LYMPHOCYTES # (AUTO) 2.2 X 10^3 (1.0-4.0); LYMPHOCYTES % (AUTO) 28 % (12-44); MEAN CORPUSCULAR HEMOGLOBIN 33 PG (25-34); MEAN CORPUSCULAR HGB CONC 33 G/DL (32-36); MEAN CORPUSCULAR VOLUME 101 FL (80-99); MONOCYTES # (AUTO) 1.2 X 10^3 (0.0-1.0); MONOCYTES % (AUTO) 15 % (0-12); NEUTROPHILS % (AUTO) 51 % (42-75); PLATELET COUNT 260 10^3/uL (130-400); RED BLOOD COUNT 3.83 10^6/uL (4.35-5.85); RED CELL DISTRIBUTION WIDTH 14.7 % (10.0-14.5); WHITE BLOOD COUNT 7.9 10^3/uL (4.3-11.0)
[2016-01-15 11:49] LABS: ALBUMIN 4.2 G/DL (3.2-4.5); BILIRUBIN,TOTAL 0.5 MG/DL (0.1-1.0); CALCIUM 8.9 MG/DL (8.5-10.1); CREATININE SERUM 2.23 MG/DL (0.60-1.30); POTASSIUM 4.4 MMOL/L (3.6-5.0); TOTAL PROTEIN 7.1 G/DL (6.4-8.2)
[~2016-02-25 13:13] MED LIST: ALLO300T2 PO; ALLP100T PO; AML5T PO; AMLO10TA2 PO; AMT50T PO; ASP81CT; ASP81CT PO; ATEN100T PO; ATN50T PO; ATOR20TA66 PO; BUPR100T6 PO; CLOP75TA PO; CYAN50008 PO; DULO30CA48 PO; DULO60CA58 PO; DULO60CA6 PO; FURO40TA4 PO; GBPN600T; GLIM4TAB PO; LENA2.5C PO; LIRA0.6P3 SQ; LISI40TA PO; LRT10T; LRT10T PO; LSNP20T PO; MNTL10T PO; MTF500T PO; MULT1CAP27 PO; NS IV 1000 ML (CANCER CTR) 1,000 ML ONE; ONDA8TAB13 PO; PREG100C22 PO; PREG150C PO; PRV20T PO; PYRI100T2 PO; SERT100T8 PO; SERT50TA PO; TRAM50TA2 PO; WRF5T
[2016-02-25 13:42] LABS: BASOPHILS # (AUTO) 0.1 10^3/uL (0.0-0.1); BASOPHILS % (AUTO) 1 % (0-10); EOSINOPHILS # (AUTO) 0.2 10^3/uL (0.0-0.3); EOSINOPHILS % (AUTO) 3 % (0-10); LYMPHOCYTES # (AUTO) 1.5 X 10^3 (1.0-4.0); LYMPHOCYTES % (AUTO) 30 % (12-44); MEAN CORPUSCULAR HEMOGLOBIN 33 PG (25-34); MEAN CORPUSCULAR HGB CONC 33 G/DL (32-36); MEAN CORPUSCULAR VOLUME 100 FL (80-99); MEAN PLATELET VOLUME 9.6 FL (7.4-10.4); MONOCYTES # (AUTO) 0.8 X 10^3 (0.0-1.0); MONOCYTES % (AUTO) 16 % (0-12); NEUTROPHILS # (AUTO) 2.5 X 10^3 (1.8-7.8); NEUTROPHILS % (AUTO) 50 % (42-75); PLATELET COUNT 218 10^3/uL (130-400); RED BLOOD COUNT 3.91 10^6/uL (4.35-5.85); RED CELL DISTRIBUTION WIDTH 15.1 % (10.0-14.5); WHITE BLOOD COUNT 4.9 10^3/uL (4.3-11.0)
[2016-02-25 14:17] LABS: ALBUMIN 4.1 G/DL (3.2-4.5); BILIRUBIN,TOTAL 0.6 MG/DL (0.1-1.0); CALCIUM 9.2 MG/DL (8.5-10.1); CREATININE SERUM 1.66 MG/DL (0.60-1.30); POTASSIUM 4.2 MMOL/L (3.6-5.0); TOTAL PROTEIN 7.1 G/DL (6.4-8.2)
[2016-02-25 22:45] LABS: LIGHT CHAIN KAPPA SERUM QUANT 59.43 mg/L (3.30-19.40); LIGHT CHAIN LAMBDA SERUM QUANT 25.24 mg/L (5.71-26.30)
== END 2016-04-14 | disposition home or self-care (01) ==
LOC: ONC 13:13
PROVIDERS: ATTEND Internal Medicine Hematology & Oncology
DX: C90.00 Multiple myeloma not having achieved remission (principal); E11.9 Type 2 diabetes mellitus without complications; Z79.899 Other long term (current) drug therapy; Z79.82 Long term (current) use of aspirin
CPT/HCPCS: 36415; 80053; 82232; 82784; 83615; 83883; 85025; 96360; 96361; 99213

== ENCOUNTER 2016-05-16 10:03 | Outpatient (RCR) | payer MEDICARE ==
[~2016-05-16 10:03] MED LIST changes: -NS IV 1000 ML (CANCER CTR) 1,000 ML ONE
--- OUTSIDE RECORDS SUMMARY | 2016-05-16 10:07 | XMS REPORT | Continuity of Care Document ---
Author Author [facility] Organization [facility] Address Unknown Phone Unavailable Care Team Providers Care [place] Worker Name Role Phone Génesis Bg PCP [phone] Source Comments Some departments are not documenting in the electronic medical record. If you do not see the information that you expected, contact Release of Information in the Health Information Management department at [phone] for further assistance in locating additional records.[facility] Active Allergies and Adverse Reactions Allergen Noted [...] as needed for 16 Nausea or Vomiting. Active Problems Problem Noted Date S/P ileal [...] Overview: Managed by Tyler Ortega MD (Oncology; [place], [place]). Tobacco use Last Assessment & Plan: Provided tobacco cessation info on AVS. 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 No prior kidney stone surgery. Social History Tobacco Use Types Packs/Day Years [...] 08/27/2003 Screening Shingles Vaccine 2013 Influenza Vaccine 11/11/2016 Results from Last 3 Months Not on file
[2016-05-16 10:26] LABS: BASOPHILS # (AUTO) 0.1 10^3/uL (0.0-0.1); BASOPHILS % (AUTO) 1 % (0-10); EOSINOPHILS # (AUTO) 0.3 10^3/uL (0.0-0.3); EOSINOPHILS % (AUTO) 4 % (0-10); LYMPHOCYTES # (AUTO) 1.7 X 10^3 (1.0-4.0); LYMPHOCYTES % (AUTO) 25 % (12-44); MEAN CORPUSCULAR HEMOGLOBIN 33 PG (25-34); MEAN CORPUSCULAR HGB CONC 33 G/DL (32-36); MEAN CORPUSCULAR VOLUME 101 FL (80-99); MEAN PLATELET VOLUME 9.1 FL (7.4-10.4); MONOCYTES # (AUTO) 0.8 X 10^3 (0.0-1.0); MONOCYTES % (AUTO) 11 % (0-12); NEUTROPHILS % (AUTO) 59 % (42-75); PLATELET COUNT 285 10^3/uL (130-400); RED CELL DISTRIBUTION WIDTH 14.7 % (10.0-14.5); WHITE BLOOD COUNT 6.8 10^3/uL (4.3-11.0)
[2016-05-16 11:13] LABS: ALBUMIN 3.6 G/DL (3.2-4.5); BILIRUBIN,TOTAL 0.5 MG/DL (0.1-1.0); CALCIUM 9.1 MG/DL (8.5-10.1); CREATININE SERUM 1.96 MG/DL (0.60-1.30); POTASSIUM 4.5 MMOL/L (3.6-5.0); TOTAL PROTEIN 6.6 G/DL (6.4-8.2)
[2016-05-17 02:54] LABS: LIGHT CHAIN KAPPA SERUM QUANT 70.41 mg/L (3.30-19.40); LIGHT CHAIN LAMBDA SERUM QUANT 29.76 mg/L (5.71-26.30)
== END 2016-08-14 | disposition home or self-care (01) ==
LOC: ONC 10:03
PROVIDERS: ATTEND Internal Medicine Hematology & Oncology
DX: C90.00 Multiple myeloma not having achieved remission (principal); E11.9 Type 2 diabetes mellitus without complications; Z79.899 Other long term (current) drug therapy; Z79.82 Long term (current) use of aspirin
CPT/HCPCS: 36415; 80053; 82784; 83883; 85025; 99213

== ENCOUNTER 2016-09-30 09:17 | Outpatient (RCR) | payer MEDICARE ==
[2016-09-14 13:40] LABS: BASOPHILS # (AUTO) 0.1 10^3/uL (0.0-0.1); BASOPHILS % (AUTO) 2 % (0-10); EOSINOPHILS # (AUTO) 0.2 10^3/uL (0.0-0.3); EOSINOPHILS % (AUTO) 3 % (0-10); LYMPHOCYTES # (AUTO) 1.4 X 10^3 (1.0-4.0); LYMPHOCYTES % (AUTO) 27 % (12-44); MEAN CORPUSCULAR HEMOGLOBIN 34 PG (25-34); MEAN CORPUSCULAR HGB CONC 32 G/DL (32-36); MEAN CORPUSCULAR VOLUME 105 FL (80-99); MEAN PLATELET VOLUME 9.1 FL (7.4-10.4); MONOCYTES # (AUTO) 0.8 X 10^3 (0.0-1.0); MONOCYTES % (AUTO) 15 % (0-12); NEUTROPHILS # (AUTO) 2.8 X 10^3 (1.8-7.8); NEUTROPHILS % (AUTO) 53 % (42-75); PLATELET COUNT 211 10^3/uL (130-400); RED BLOOD COUNT 3.01 10^6/uL (4.35-5.85); RED CELL DISTRIBUTION WIDTH 15.9 % (10.0-14.5); RETICULOCYTE % 1.96 % (0.50-2.40); WHITE BLOOD COUNT 5.3 10^3/uL (4.3-11.0)
[2016-09-14 14:10] LABS: ALBUMIN 3.7 GM/DL (3.2-4.5); BILIRUBIN,TOTAL 0.5 MG/DL (0.1-1.0); CALCIUM 8.8 MG/DL (8.5-10.1); CREATININE SERUM 2.61 MG/DL (0.60-1.30); POTASSIUM 4.3 MMOL/L (3.6-5.0); TOTAL PROTEIN 6.7 GM/DL (6.4-8.2)
[2016-09-14 14:30] LABS: BAND NEUTROPHILS 3 %; LYMPHOCYTES % (MANUAL) 27 %; NEUTROPHILS % (MANUAL) 49 %
[2016-09-14 14:31] LABS: ANISOCYTOSIS SLIGHT; BASOPHILS % (MANUAL) 2 %; EOSINOPHILS % (MANUAL) 6 %
[2016-09-15 03:28] LABS: LIGHT CHAIN KAPPA SERUM QUANT 77.15 mg/L (3.30-19.40); LIGHT CHAIN LAMBDA SERUM QUANT 33.67 mg/L (5.71-26.30)
== END 2016-12-10 | disposition home or self-care (01) ==
LOC: ONC 09:17
PROVIDERS: ATTEND Internal Medicine Hematology & Oncology
DX: C90.00 Multiple myeloma not having achieved remission (principal); E11.9 Type 2 diabetes mellitus without complications; Z79.899 Other long term (current) drug therapy; Z79.82 Long term (current) use of aspirin
CPT/HCPCS: 36415; 38221; 80053; 82232; 82784; 83883; 85007; 85027; 85045; 88184; 88185; 88305; 88311; 88313; 99213

== ENCOUNTER 2016-12-21 13:05 | Outpatient (RCR) | payer MEDICARE ==
[2016-12-21 13:28] LABS: PEP REPORT SEE PATH REPORT
[2016-12-21 13:29] LABS: BASOPHILS # (AUTO) 0.1 10^3/uL (0.0-0.1); BASOPHILS % (AUTO) 1 % (0-10); EOSINOPHILS # (AUTO) 0.2 10^3/uL (0.0-0.3); EOSINOPHILS % (AUTO) 3 % (0-10); LYMPHOCYTES # (AUTO) 1.6 X 10^3 (1.0-4.0); LYMPHOCYTES % (AUTO) 24 % (12-44); MEAN CORPUSCULAR HEMOGLOBIN 33 PG (25-34); MEAN CORPUSCULAR HGB CONC 32 G/DL (32-36); MEAN CORPUSCULAR VOLUME 102 FL (80-99); MEAN PLATELET VOLUME 9.7 FL (7.4-10.4); MONOCYTES # (AUTO) 0.7 X 10^3 (0.0-1.0); MONOCYTES % (AUTO) 11 % (0-12); NEUTROPHILS # (AUTO) 4.2 X 10^3 (1.8-7.8); NEUTROPHILS % (AUTO) 61 % (42-75); PLATELET COUNT 233 10^3/uL (130-400); RED BLOOD COUNT 3.75 10^6/uL (4.35-5.85); RED CELL DISTRIBUTION WIDTH 14.9 % (10.0-14.5); WHITE BLOOD COUNT 6.8 10^3/uL (4.3-11.0)
[2016-12-21 14:03] LABS: BILIRUBIN,TOTAL 0.5 MG/DL (0.1-1.0); CALCIUM 9.2 MG/DL (8.5-10.1); CREATININE SERUM 2.17 MG/DL (0.60-1.30); POTASSIUM 3.9 MMOL/L (3.6-5.0); TOTAL PROTEIN 7.9 GM/DL (6.4-8.2)
[2016-12-22 02:14] LABS: IMMUNOGLOBULIN IGA 184 mg/dL (71-263); IMMUNOGLOBULIN IGG 1142 mg/dL (672-1680)
[2016-12-22 03:05] LABS: LIGHT CHAIN KAPPA SERUM QUANT 102.49 mg/L (3.30-19.40)
[2016-12-22 16:54] LABS: IMMUNOGLOBULIN IGM 44 mg/dL (47-209)
[2016-12-26 08:17] LABS: CLIN PATHOLOGY REPORT FOOTNOTE
[2016-12-26 08:18] LABS: SERUM PROTEIN ELEC DETAIL L-17-0013618
[2016-12-26 08:22] LABS: IMMUNOFIX PATH REPORT NUMBER Complete (Complete)
[2017-01-19] MEDS ORDERED: PREG75CA PO (08:01)
[2017-01-19] MEDS ORDERED: BUPR150T7 PO (08:01)
[2017-01-19] MEDS ORDERED: AMLO5TAB2 PO (08:01)
[2017-01-19] MEDS ORDERED: ONDA8TAB12 PO (08:08)
[2017-01-19] MEDS ORDERED: MULT-35 PO (08:08)
[2017-01-19] MEDS ORDERED: HYDR-3812 PO (08:08)
[2017-01-19] MEDS ORDERED: ASPI-999 PO (17:49)
[2017-01-25] MEDS ORDERED: ASPI-999 PO (14:02)
[2017-01-25] MEDS ORDERED: CETI10TA20 PO (14:02)
[2017-01-25] MEDS ORDERED: [UNRECOGNIZED DRUG - CODE] PO (14:02)
[2017-01-25] MEDS ORDERED: POTA10CA43 PO (14:02)
[2017-01-25] MEDS ORDERED: FURO20TA4 PO (14:02)
[2017-01-27] MEDS ORDERED: TICA90TA PO (10:50)
[2017-01-27] MEDS ORDERED: LISI10TA2 PO (10:50)
[2017-01-27] MEDS ORDERED: ATOR80TA76 PO (10:50)
== END 2017-02-23 15:14 | disposition home or self-care (01) ==
LOC: ONC 13:05
PROVIDERS: ATTEND Internal Medicine Hematology & Oncology
DX: C90.00 Multiple myeloma not having achieved remission (principal); C67.8 Malignant neoplasm of overlapping sites of bladder; E11.22 Type 2 diabetes mellitus with diabetic chronic kidney disease; I12.9 Hypertensive chronic kidney disease with stage 1 through stage 4 chronic kidney disease, or unspecified chronic kidney disease; N18.3 Chronic kidney disease, stage 3 (moderate); E78.00 Pure hypercholesterolemia, unspecified; Z79.899 Other long term (current) drug therapy; Z79.82 Long term (current) use of aspirin; Z72.0 Tobacco use
CPT/HCPCS: 36415; 80053; 82232; 82784; 83883; 84155; 84165; 85025; 86334; 99213

== ENCOUNTER → 2016-12-21 | Outpatient (CLI) | payer MEDICARE | LOC: LAB 13:25 | PROVIDERS: ATTEND Internal Medicine | DX: R73.01 Impaired fasting glucose (principal) | CPT/HCPCS: 36415; 83036 ==

== ENCOUNTER → 2017-02-22 | Outpatient (CLI) | payer MEDICARE ==
[~2017-02-22] MED LIST changes: +AMLO5TAB2 PO; +ASPI-999 PO; +ATOR80TA76 PO; +BUPR150T7 PO; +CETI10TA20 PO; +FURO20TA4 PO; +HYDR-3812 PO; +LISI10TA2 PO; +MULT-35 PO; +ONDA8TAB12 PO; +POTA10CA43 PO; +PREG75CA PO; +TICA90TA PO; +[UNRECOGNIZED DRUG - CODE] PO
--- NOTE | 2017-02-22 09:41 | Diagnostic Imaging Report ---
PROCEDURE: US Carotid Duplex Bilateral. TECHNIQUE: Multiple real-time grayscale images were obtained over the carotid arteries in various projections bilaterally. Additional duplex Doppler and color Doppler images were also obtained. INDICATION: Diabetes. [place]. CVA. FINDINGS: There is atherosclerotic plaque seen at the carotid bifurcation bilaterally. The internal, external and common carotid arteries on both sides are patent with color flow demonstrated. The vertebral artery on both sides is patent with antegrade flow. Peak systolic velocities in the right ICA are 63, 71 and 57 cm/s and on the left 116, 119 and 81 cm/s. ICA/CCA ratios are up to 0.9 on the right and 1.1 on the left. IMPRESSION: Atherosclerotic plaque of the carotid bifurcation is seen bilaterally with estimated underlying stenosis less than 50% bilaterally. Dictated by: Dictated on workstation # [id number]
--- NOTE | 2017-02-22 09:54 | Diagnostic Imaging Report ---
EXAMINATION: Ultrasound of the abdominal aorta. INDICATION: Screening for abdominal aortic aneurysm. History of peripheral artery disease and coronary artery disease. FINDINGS: The proximal abdominal aorta is 2.8 cm, mid abdominal aorta is 1.8 cm, and distally is 1.7 cm. The right common iliac artery is 1.1 and the left common iliac artery is 1.1 cm. Color flow is demonstrated. IMPRESSION: Mild ectasia of the proximal abdominal aorta with no significant aneurysmal dilatation. Dictated by: Dictated on workstation # [id number]
--- NOTE | 2017-02-22 15:01 | Diagnostic Imaging Report ---
EXAMINATION: Upper and lower extremity pressure measurements of ankle/brachial index and pulse volume recording at the ankle. INDICATION: Claudication FINDINGS: The ankle/brachial index on the right side is 1.1, (1.1 PT, and .97 DP) and on the left is 1.2 (1.2 PT, and 1.1 DP). Pulse volume recording waveforms no significant abnormality. IMPRESSION: Normal JC, bilaterally. Dictated by: Dictated on workstation # [id number]
--- NOTE | 2017-02-22 16:17 | Diagnostic Imaging Report ---
PROCEDURE: US Bilateral lower extremity arterial. TECHNIQUE: Multiple real-time grayscale images are obtained through both lower extremity arterial systems with color Doppler imaging and color Doppler spectral analysis. INDICATION: Diabetes. Smoker. CVA. FINDINGS: In the left lower extremity, the grayscale images demonstrate minimal plaque with patency and color flow demonstrated in the common femoral, superficial femoral, popliteal, and dorsalis pedis and posterior tibial arteries bilaterally. There is predominantly triphasic waveforms in the left lower extremity with biphasic waveform and slightly diminished flow velocity of 28 cm/s in the dorsalis pedis artery. Right lower extremity demonstrates no significant plaque burden on grayscale images. Color Doppler demonstrates patency of the vessels from the common femoral to the dorsalis pedis and posterior tibial arteries with normal range of velocities and triphasic waveforms seen throughout except biphasic waveform in the dorsalis pedis. IMPRESSION: Mild to moderate disease is suggested in the dorsalis pedis and/or anterior tibial arteries bilaterally. No ultrasound evidence of high-grade stenosis seen. Dictated by: Dictated on workstation # [id number]
== END ==
LOC: RAD 08:35
PROVIDERS: ATTEND Internal Medicine Interventional Cardiology
DX: I65.23 Occlusion and stenosis of bilateral carotid arteries (principal); I77.811 Abdominal aortic ectasia; I25.10 Atherosclerotic heart disease of native coronary artery without angina pectoris; E11.9 Type 2 diabetes mellitus without complications; I25.2 Old myocardial infarction; Z86.73 Personal history of transient ischemic attack (TIA), and cerebral infarction without residual deficits; F17.200 Nicotine dependence, unspecified, uncomplicated
CPT/HCPCS: 76775; 93880; 93922; 93925

== ENCOUNTER 2017-02-27 10:34 | Emergency (ER) | payer MEDICARE ==
[~2017-02-27] VITALS: Ht 182.9 cm; Wt 92.8 kg
--- OUTSIDE RECORDS SUMMARY | 2017-02-27 10:43 | XMS REPORT | Clinical Summary ---
Author Author [facility] Organization [facility] Address Unknown Phone Unavailable Care Team Providers Care Funeral Planning Counselor Name Role Phone PCP Unavailable Source Comments Some departments are not documenting in the electronic medical record. If you do not see the information that you expected, contact Release of Information in the Health Information Management department at [phone] for further assistance in locating additional records.[facility] Allergies Active Allergy Reactions Severity Noted Date Comments Adhesive RASH Medium 09/19/2007 Allergic to adhesive from transdermal pain patches Penicillins HIVES Medium 09/19/2007 Current Medications Prescription Sig. Disp. Refills Start [...] 2,400 mg/10 mL oral daily. Indications: 16 suspensionIndications: CONSTIPATION CONSTIPATION senna/docusate Take 1 Tab by mouth twice 60 Tab 0 11/26/19 Active (SENOKOT-S) 8.6/50 mg daily. Indications: 16 tabletIndications: CONSTIPATION CONSTIPATION ciprofloxacin HCl (CIPRO) Take 1 Tab [...] Overview: Managed by Tyler Ortega MD (Oncology; [place], [place]). Tobacco use Last Assessment & Plan: Provided tobacco cessation info on AVS. 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 No prior kidney stone surgery. Family History Relation Name Status Comments Social History Tobacco Use Types Packs/Day Years Used Date Current Every Day Smoker 1 50 Started: 03/13/1965 Smokeless Tobacco: Former User Comments: quit at least15 years ago (chewing tobacco) Alcohol Use Drinks/Week oz/Week Comments No 0 Standard 0.0 drinks or equivalent Sex Assigned at Date Recorded Not on file Last Filed Vital Signs Vital Sign Reading Time Taken Blood Pressure 113/58 12/03/2015 9:26 AM CDT Pulse 66 12/03/2015 9:26 AM CDT Temperature 36.6 C (97.9 F) 11/26/2015 7:52 AM CDT Respiratory Rate - - Oxygen Saturation 98% 11/26/2015 7:52 AM CDT Inhaled Oxygen - - Concentration Weight 96.8 kg (213 lb 6.4 oz) 12/03/2015 9:26 AM CDT Height 182.9 cm (6') 12/03/2015 9:26 AM CDT Body Mass Index 28.94 12/03/2015 9:26 AM CDT Plan of Treatment Health Maintenance Due Date Last Done Comments HEPATITIS C SCREENING 1953 PHYSICAL (COMPREHENSIVE) 1960 EXAM PERTUSSIS VACCINE 1964 TETANUS VACCINE 1970 DILATED EYE EXAM 08/27/1971 FOOT EXAM 08/27/1971 HBA1C 08/27/1971 MICROALBUMIN 08/27/1971 PNEUMONIA VACCINE (DM) 08/27/1971 COLORECTAL CANCER 08/27/2003 SCREENING SHINGLES VACCINE 2013 INFLUENZA VACCINE 10/11/2016 Implants Implanted Type Area Public Safety Officer Device Expiration Model / Identifier Date Serial / Lot Set Stent 75cm 7fr Manager Image .038in COOK:DIAG and [id number] / 5mm Pigtail Curve Ureteral INTERV:UROLOGIC NA / Implanted: Qty: 1 on 11/18/2015 by [id number] Frantz Bruno MD Barrier Adhesion 3x5in Procedure [id number] 02/09/2018 0 / Pack Bioresorbable Membrane NA / Implanted: Qty: 1 on 11/18/2015 by [id number] Frantz Bruno MD Results Not on filefrom Last 3 Months
--- OUTSIDE RECORDS SUMMARY | 2017-02-27 10:46 | XMS REPORT ---
Author Author Yady Capps Organization [facility] Address [address] [place], [place] [id number] Care Team Providers Care Consumer Services Consultant Name Role Phone Yady Capps PCP Yady Capps PreferredProvider Allergies and Adverse Reactions Name Reaction Notes PENICILLINS swelling tramadol large hives Plan of Treatment Planned Activity Comments Planned Date Planned Time Plan/Goal Flu Vaccine, 3yrs & older, Quadrivalent - [facility] 02/03/2015 12:00 AM .Lipid Panel 05/19/2015 12:00 AM Hemoglobin A1C 05/19/2015 12:00 AM Culture + susceptibility 05/28/2015 12:00 AM URINALYSIS ROUTINE C&S IF IND 05/25/2015 12:00 AM Lipid profile 08/14/2015 12:00 AM TESTOSTERONE FREE & TOTAL 09/23/2015 12:00 AM BMP 07/20/2016 12:00 AM Hemoglobin A1c measurement 12/20/2016 12:00 AM Hemoglobin A1C 12/20/2016 12:00 AM Chest x-ray, PA and lateral 01/18/2017 12:00 AM Stool culture 01/18/2017 12:00 AM Clostridium difficile 01/18/2017 12:00 AM Hematuria 05/08/2015 12:00 AM Ehrlichia Panel 04/05/2013 12:00 AM Lyme Antibody Total 04/05/2013 12:00 AM Injection,Subcutaneous/Intramuscul 10/22/2014 12:00 AM Hemoglobin A1C 10/22/2014 12:00 AM Microalbumin measurement 10/22/2014 12:00 AM Medications Active Name Start Date Estimated Completion Date SIG Comments Vitamin B-6 100 mg oral tablet take 1 tablet by oral route 2 times a day Revlimid 5 mg oral capsule take 1 capsule (5 mg) by oral route once daily hydrochlorothiazide 12.5 mg oral tablet 10/24/2013 take 1 tablet (12.5 mg) by oral route once daily Cymbalta 30 mg oral capsule,delayed release(DR/EC) 10/24/2013 take 1 capsule by oral route daily glimepiride 2 mg oral tablet 10/24/2013 take 1 tablet by oral route 2 times a day promethazine 25 mg oral tablet 11/19/2013 1 UP TO FOUR TIMES A DAY NEEDED FOR NAUSEA TABLET(S) PO Zoloft 100 mg oral tablet 01/09/2014 1 (ONE) TABLET AT BED TIME atorvastatin 20 mg oral tablet 02/03/2014 TAKE 1 TABLET BY MOUTH EVERY NIGHT AT BEDTIME hydrochlorothiazide 12.5 mg oral tablet 02/09/2014 TAKE 1 TABLET (12.5 MG ) BY ORAL ROUTE ONCE DAILY hydrochlorothiazide 12.5 mg oral tablet 03/19/2014 TAKE 1 TABLET (12.5 MG) BY ORAL ROUTE ONCE DAILY duloxetine 30 mg oral capsule,delayed release(DR/EC) 03/24/2014 TAKE 1 CAPSULE BY MOUTH EVERY DAY EMLA 2.5-2.5 % topical cream 04/28/2014 APPLY TO AFFECTED AREA(S) BY TOPICAL ROUTE 2 TIMES A DAY NEEDED FOR 30 DAYS EMLA 2.5-2.5 % topical cream 05/14/2014 APPLY TO AFFECTED AREA(S) BY TOPICAL ROUTE 2 TIMES A DAY NEEDED FOR 30 DAYS glimepiride 2 mg oral tablet 05/26/2014 TAKE 1 TABLET BY ORAL ROUTE 2 TIMES A DAY EMLA 2.5-2.5 % topical cream 05/26/2014 APPLY TO AFFECTED AREA(S) BY TOPICAL ROUTE 2 TIMES A DAY NEEDED FOR 30 DAYS vitamin B99-nunmc acid 500-400 mcg oral tablet take 1 tablet by oral route 2 times a day promethazine 25 mg oral tablet 10/27/2014 1 UP TO FOUR TIMES A DAY NEEDED FOR NAUSEA TABLET(S) PO albuterol sulfate 2.5 mg /3 mL (0.083 %) inhalation solution for nebulization 03/26/2015 inhale 3 milliliters (2.5 mg) by nebulization route 4 times per day EMLA 2.5-2.5 % topical cream 06/24/2015 APPLY TO AFFECTED AREA(S) BY TOPICAL ROUTE 2 TIMES A DAY NEEDED FOR 30 DAYS lisinopril 40 mg oral tablet 10/15/2015 TAKE 2 TABLETS BY MOUTH DAILY duloxetine 30 mg oral capsule,delayed release(DR/EC) 11/30/2015 TAKE 1 CAPSULE BY MOUTH EVERY MORNING WITH 60MG CAPSULE oxycodone-acetaminophen 5-325 mg oral tablet take 1 - 2 tablets by oral route every 4-6 hours as needed cephalexin 500 mg oral capsule take 1 capsule (500 mg) by oral route every 12 hours metronidazole 500 mg oral tablet take 1 tablet (500 mg) by oral route 3 times per day senna 8.6 mg oral tablet take 1 tablets by oral route once daily as needed for constipation cetirizine 10 mg oral tablet take 1 tablet (10 mg) by oral route once daily enoxaparin 40 mg/0.4 mL subcutaneous syringe inject 0.4 milliliter (40 mg) by subcutaneous route once daily Probiotic Acidophilus Beads 2 billion cell oral capsule take 1 capsule by oral route daily multivitamin oral tablet take 1 tablet by oral route daily Ultra-Light Rollator miscellaneous misc 12/15/2015 use as directed, DX: multiplemyloma triamcinolone acetonide 0.1 % topical cream 05/12/2016 apply a thin layer to the affected area(s) by topical route 2 times per day Zyrtec 10 mg oral tablet 09/14/2016 03/13/2017 take 1 tablet (10 mg) by oral route once daily for 30 days atorvastatin 20 mg oral tablet 10/10/2016 TAKE 1 TABLET BY MOUTH EVERY NIGHT AT BEDTIME allopurinol 300 mg oral tablet 10/17/2016 TAKE 1 TABLET BY MOUTH EVERY NIGHT AT BEDTIME bupropion HCl 150 mg oral tablet extended release 12 hr 10/18/2016 04/16/2017 take 1 tablet (150 mg) by oral route once daily for 30 days Lasix 20 mg oral tablet 10/24/2016 02/21/2017 take 1 tablet (20 mg) by oral route once daily PRN potassium chloride 10 mEq oral capsule, extended release 10/24/20162016 take 1 capsule (10 meq) by oral route once daily when taking lasix atenolol 100 mg oral tablet 11/16/2016 TAKE 1 TABLET BY MOUTH TWICE DAILY Lidocaine-Prilocaine Cream 11/28/2016 Apply to the feet twice daily as needed Lyrica 75 mg oral capsule 12/05/2016 04/04/2017 take 1 capsule by oral route 2 times a day for 30 days duloxetine 60 mg oral capsule,delayed release(/EC) 01/09/2017 TAKE 1 CAPSULE BY MOUTH EVERY DAY amlodipine 5 mg oral tablet 01/16/2017 take 1 tablet (5 mg) by oral route once daily for 30 days Cipro 500 mg oral tablet 02/09/2017 take 1 tablet (500 mg) by oral route every 12 hours for 10 days Name Start Date Expiration Date SIG Comments Norvasc 10 mg oral tablet 12/01/2009 11/26/2010 take 1 tablet (10 mg) by oral route daily for 30 days Zithromax Z-Desean 250 mg oral tablet 02/02/2010 02/07/2010 Take 2 tablets the first day (500 mg) followed by 1 tablet (250 mg) days 2-5. for 5 days furosemide 20 mg oral tablet 07/12/2010 08/11/2010 TAKE 1 TABLET BY MOUTH DAILY NEEDED doxycycline hyclate 100 mg oral tablet 10/07/2010 10/14/2010 take 1 tablet ( 100 mg) by oral route 2 times per day for 7 days Levaquin 750 mg oral tablet 02/01/2011 02/11/2011 take 1 tablet (750 mg) by oral route once daily for 10 days metformin 500 mg oral tablet 04/07/2011 05/07/2011 TAKE 1 TABLET BY MOUTH TWICE DAILY Levaquin 750 mg oral tablet 04/26/2011 05/03/2011 take 1 tablet (750 mg) by oral route once daily for 7 days amlodipine 10 mg oral tablet 06/13/2011 07/13/2011 TAKE 1 TABLET BY MOUTH DAILY Plavix 75 mg oral tablet 06/13/2011 07/13/2011 TAKE 1 TABLET BY MOUTH DAILY clopidogrel 75 mg oral tablet 08/15/2011 09/14/2011 TAKE 1 TABLET BY MOUTH DAILY doxycycline hyclate 100 mg oral tablet 09/16/2011 09/23/2011 take 1 tablet ( 100 mg) by oral route 2 times per day for 7 days Singulair 10 mg oral tablet 10/13/2011 11/12/2011 TAKE 1 TABLET BY MOUTH EVERY DAY amitriptyline 50 mg oral tablet 12/07/2011 01/06/2012 TAKE 1 TABLET BY MOUTH DAILY Cipro 500 mg oral tablet 03/20/2013 03/27/2013 take 1 tablet (500 mg) by oral route 2 times per day for 7 days Levaquin 750 mg oral tablet 03/26/2013 04/02/2013 take 1 tablet (750 mg) by oral route once daily for 7 days Lomotil 2.5-0.025 mg oral tablet 06/25/2013 07/25/2013 take 2 tablets by oral route 2 times per week as needed Zithromax Z-Desean 250 mg oral tablet 06/26/2013 07/01/2013 take 2 tablets (500 mg) by oral route once daily for 1 day then 1 tablet (250 mg) by oral route once daily for 4 days lisinopril 40 mg oral tablet 07/20/2013 07/15/2014 TAKE 2 TABLETS BY MOUTH DAILY Zithromax Z-Desean 250 mg oral tablet 08/01/2013 08/06/2013 take 2 tablets (500 mg) by oral route once daily for 1 day then 1 tablet (250 mg) by oral route once daily for 4 days nystatin 100,000 unit/mL oral suspension 08/01/2013 08/08/2013 take 4 milliliters (400,000 unit) by oral route 4 times per day for 7 days Cymbalta 60 mg oral capsule,delayed release(DR/EC) 10/24/2013 01/22/2014 take 1 capsule (60 mg) by oral route once daily for 30 days cyclobenzaprine 10 mg oral tablet 10/24/2013 take 1/2 tablet at HS Lipitor 20 mg oral tablet 11/05/2013 02/03/2014 take 1 tablet (20 mg) by oral route once daily at bedtime for 30 days EMLA 2.5-2.5 % topical cream 04/03/2014 06/02/2014 apply to affected area(s) by topical route 2 times a day as needed for 30 days Flonase 50 mcg/actuation nasal spray,suspension 04/03/2014 08/01/2014 inhale 1 spray (50 mcg) in each nostril by intranasal route 2 times per day for 30 days Lasix 40 mg oral tablet 10/22/2014 02/19/2015 take 1 tablet by oral route daily as needed for 30 days Cipro 250 mg oral tablet 10/29/2014 11/05/2014 take 1 tablet (250 mg) by oral route every 12 hours for 7 days Bactrim DS 800-160 mg oral tablet 01/01/2015 01/08/2015 take 1 tablet by oral route every 12 hours for 7 days promethazine 25 mg oral tablet 02/04/2015 04/05/2015 1 UP TO FOUR TIMES A DAY NEEDED FOR NAUSEA TABLET(S) PO for 10 days Zithromax Z-Desean 250 mg oral tablet 03/17/2015 03/22/2015 take 2 tablets (500 mg ) by oral route once daily for 1 day then 1 tablet (250 mg) by oral route once daily for 4 days BD Ultra-Fine Birgit Pen [place] 32 gauge x 32" miscellaneous needle 201510/03/2016 use as directed for 90 days glimepiride 4 mg oral tablet 10/26/2015 07/22/2016 TAKE 1 TABLET BY MOUTH TWICE DAILY erythromycin 500 mg oral tablet 04/06/2016 04/13/2016 take 1 tablet (500 mg) by oral route every 12 hours for 7 days Zofran (as hydrochloride) 8 mg oral tablet 06/01/2016 09/29/2016 take 1 tablet (8 mg) by oral route every 8 hours PRN for 30 days indomethacin 50 mg oral capsule 09/19/2016 10/03/2016 take 1 capsule (50 mg) by oral route 2 times per day with food for 7 days erythromycin 500 mg oral tablet 10/25/2016 11/01/2016 take 1 tablet (500 mg) by oral route every 12 hours for 7 days levofloxacin 750 mg oral tablet 01/18/2017 01/23/2017 take 1 tablet (750 mg) by oral route once daily for 5 days Discontinued Name Start Date Discontinued Date SIG Comments Zoloft 50 mg oral tablet 07/01/2010 take 1 tablet (50 mg) by oral route once daily On cymbalta aspirin 81 mg oral tablet 04/26/2013 take 1 tablet (81 mg) by oral route once daily Multivitamin Oral Tablet 07/21/2015 take 1 tablet by oral route once daily with food loratadine 10 mg oral tablet 06/30/2009 04/26/2013 take 1 tablet (10 mg) by oral route once daily for 30 days meloxicam 15 mg oral tablet 09/10/2009 06/27/2011 take 1 tablet (15 mg) by oral route once daily Norvasc 2.5 mg oral tablet 10/22/2009 11/18/2009 take 1 tablet (2.5 mg) by oral route once daily for 30 days niacin 500 mg oral tablet 01/01/2010 06/27/2011 take 1 tablet by oral route once a day (at bedtime) Colace 100 mg oral capsule 05/04/2010 05/22/2012 take 1 capsule (100 mg) by oral route 2 times per day as needed mupirocin 2 % topical ointment 08/24/2010 06/27/2011 apply a small amount to the affected area by topical route 3 times per day triamcinolone acetonide 0.1 % topical cream 09/23/2010 04/26/2013 apply a thin layer to the affected area(s) by topical route 2 times per day morphine 15 mg oral tablet 04/26/2013 Tessalon 200 mg oral capsule 06/22/2011 05/22/2012 take 1 capsule (200 mg) by oral route 3 times per day as needed Zithromax Z-Desean 250 mg oral tablet 06/22/2011 06/27/2011 take 2 tablets (500 mg) by oral route once daily for 1 day then 1 tablet (250 mg) by oral route once daily for 4 days Flexeril 10 mg oral tablet 04/26/2013 take 1 tablet (10 mg) by oral route 3 times per day Tessalon Perles 100 mg oral capsule 03/21/2013 04/26/2013 take 1 capsule (100 mg) by oral route 3 times per day pravastatin 20 mg oral tablet 07/20/2013 09/13/2013 TAKE 1 TABLET BY MOUTH EVERY EVENING allopurinol 100 mg oral tablet 07/20/2013 07/02/2014 TAKE 1 TABLET BY MOUTH DAILY Vitamin B-12 1,000 mcg oral tablet extended release 07/02/2014 take 1 tablet by oral route 2 times a day Levaquin 500 mg oral tablet 09/13/2013 10/24/2013 take 1 tablet by oral route once a day for 7 days meloxicam 15 mg oral tablet 09/17/2013 10/02/2013 take 1 tablet (15 mg) by oral route once daily Zorvolex 35 mg oral capsule 10/01/2013 10/10/2013 take 1 capsule (35 mg) by oral route 3 times per day diclofenac sodium 75 mg oral tablet,delayed release (DR/EC) 10/24/20132014 take 1 tablet (75 mg) by oral route 2 times per day Cymbalta 60 mg oral capsule,delayed release(DR/EC) 11/18/2013 10/22/2014 TAKE 1 CAPSULE (60 MG) BY ORAL ROUTE ONCE DAILY FOR 30 DAYS Zithromax Z-Desean 250 mg oral tablet 11/19/2013 12/09/2013 Take 2 tablets the first day (500 mg) followed by 1 tablet (250 mg) days 2-5. for 5 days Sudafed 12 Hour 120 mg oral tablet extended release 11/29/2013 10/22/2014 take 1 tablet (120 mg) by oral route every 12 hours as needed Lomotil 2.5-0.025 mg oral tablet 11/29/2013 07/02/2014 2 tablets after 1st loose stool then 1 tablet after each loose stool Viagra 100 mg oral tablet 12/09/2013 12/09/2013 take 1 tablet (100 mg) by oral route once daily as needed approximately 1 hour before sexual activity voucher for free trial offer Cialis 20 mg oral tablet 12/09/2013 12/09/2013 take 1 tablet (20 mg) by oral route once daily Viagra 100 mg oral tablet 12/09/2013 10/22/2014 take 1 tablet (100 mg) by oral route once daily as needed approximately 1 hour before sexual activity baclofen 20 mg oral tablet 12/31/2013 07/02/2014 take 1 tablet (20 mg) by oral route 4 times per day aspirin 325 mg oral tablet 07/21/2015 take 1 tablet (325 mg) by oral route once daily off from bladder cancer Lyrica 100 mg oral capsule 04/03/2014 02/03/2015 take 1 capsule by oral route 3 times a day Zoloft 100 mg oral tablet 04/08/2014 07/02/2014 1 (ONE) TABLET AT BED TIME hydrochlorothiazide 12.5 mg oral tablet 04/16/2014 10/22/2014 TAKE 1 TABLET ( 12.5 MG) BY ORAL ROUTE ONCE DAILY hydrochlorothiazide 12.5 mg oral capsule 04/17/2014 10/22/2014 TAKE 1 CAPSULE BY MOUTH EVERY DAY Cymbalta 30 mg oral capsule,delayed release(DR/EC) 05/12/2014 02/03/2015 1 ( ONE) CAPSULE IN THE MORNING WITH THE 60MG CAPSULE duloxetine 30 mg oral capsule,delayed release(DR/EC) 06/10/2014 07/02/2014 TAKE 1 CAPSULE BY MOUTH EVERY MORNING WITH 60MG CAPSULE promethazine 25 mg oral tablet 06/26/2014 10/22/2014 1 UP TO FOUR TIMES A DAY NEEDED FOR NAUSEA TABLET(S) PO Sudafed 12 Hour 120 mg oral tablet extended release 10/29/2014 12/04/2015 take 1 tablet (120 mg) by oral route every 12 hours Symbicort 160-4.5 mcg/actuation inhalation HFA aerosol inhaler 01/01/201512/2015 inhale 1 puff by inhalation route 2 times a day sertraline 100 mg oral tablet 04/07/2015 07/21/2015 take 1 tablet (100 mg) by oral route once daily for 30 days Singulair 10 mg oral tablet 07/17/2015 12/04/2015 take 1 tablet (10 mg) by oral route once daily in the evening Tylenol-Codeine #3 300-30 mg oral tablet 12/04/2015 take 1 tablet by oral route every 6 hours as needed Victoza 3-Desean 0.6 mg/0.1 mL (18 mg/3 mL) subcutaneous pen injector 12/07/2015 12/20/2016 start with 0.6mg daily x7 days, then 1.2mg daily x7 days, then inject 0.3 milliliter (1.8 mg) by subcutaneous route once daily Victoza 3-Desean 0.6 mg/0.1 mL (18 mg/3 mL) subcutaneous pen injector 12/07/2015 12/20/2016 start with 0.6mg daily x7 days, then 1.2mg daily x7 days, then inject 0.3 milliliter (1.8 mg) by subcutaneous route once daily A1C improved with multiple myeloma treatment and removed Victoza therapy. Restart if needed. 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 Depression Active 05/19/2015 Malignant neoplasm of urinary bladder, unspecified site Active 05/19/2015 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 07/02/2015 Urgency of micturition Active 07/21/2015 Bladder cancer Active 07/21/2015 Bladder carcinoma Active 08/04/2015 Bladder carcinoma Active 08/04/2015 Bladder carcinoma Active 08/04/2015 Benign fibroma of prostate Active 08/25/2015 Bladder malignancy Active 09/01/2015 Carcinoma of bladder Active 10/15/2015 Multiple myeloma Active 01/04/2016 Vital Signs Date Time BP-Sys(mm[Hg] BP-Afua(mm[Hg]) HR(bpm) RR(rpm) Temp WT HT HC BMI BSA BMI Percentile O2 Sat(%) 02/08/2017 11:19:00 AM 122 mmHg 74 mmHg 75 bpm 18 rpm 96.5 F 213.5 lbs 72 in 28.96 kg/m2 2.22 m2 98 % 01/18/2017 2:44:00 PM 138 mmHg 86 mmHg 71 bpm 18 rpm 98.3 F 219.25 lbs 72 in 29.7353 kg/m 2.2477 m 100 % 12/20/2016 2:24:00 PM 142 mmHg 80 mmHg 68 bpm 16 rpm 97.1 F 218.375 lbs 72 in 29.62 kg/m2 2.24 m2 100 % 10/25/2016 3:40:00 PM 130 mmHg 70 mmHg 70 bpm 16 rpm 97.1 F 216.125 lbs 72 in 29.3115 kg/m 2.2316 m 98 % 09/19/2016 3:33:00 PM 118 mmHg 70 mmHg 73 bpm 16 rpm 98 F 212.25 lbs 72 in 28.79 kg/m2 2.21 m2 99 % 06/01/2016 9:08:00 AM 100 mmHg 66 mmHg 65 bpm 16 rpm 97.2 F 209.5 lbs 72 in 28.413 kg/m 2.1971 m 99 % 05/12/2016 1:12:00 PM 132 mmHg 74 mmHg 92 bpm 18 rpm 96.9 F 204.25 lbs 72 in 27.70 kg/m2 2.17 m2 99 % 04/20/2016 1:49:00 PM 142 mmHg 82 mmHg 114 bpm 18 rpm 97.9 F 204.25 lbs 72 in 27.701 kg/m 2.1694 m 96 % 04/06/2016 9:13:00 AM 148 mmHg 98 mmHg 120 bpm 18 rpm 97.6 F 204.375 lbs 72 in 27.72 kg/m2 2.17 m2 100 % 02/08/2016 1:41:00 PM 130 mmHg 76 mmHg 70 bpm 16 rpm 97.9 F 203.5 lbs 72 in 27.5993 kg/m 2.1654 m 100 % 01/07/2016 1:52:00 PM 102 mmHg 68 mmHg 138 bpm 18 rpm 97.6 F 201.125 lbs 72 in 27.28 kg/m2 2.15 m2 100 % 12/04/2015 11:27:00 AM 110 mmHg 60 mmHg 72 bpm 16 rpm 97.7 F 217.25 lbs 72 in 29.4641 kg/m 2.2374 m 99 % 10/15/2015 11:32:00 AM 136 mmHg 90 mmHg 76 bpm 17 rpm 97.4 F 223 lbs 72 in 30.24 kg/m2 2.27 m2 98 % 09/23/2015 9:32:00 AM 128 mmHg 80 mmHg 76 bpm 16 rpm 97.6 F 223.375 lbs 72 in 30.2948 kg/m 2.2687 m 97 % 08/25/2015 11:15:00 AM 128 mmHg 78 mmHg 60 bpm 18 rpm 97.8 F 222 lbs 72 in 30.11 kg/m2 2.26 m2 99 % 08/04/2015 10:28:00 AM 148 mmHg 82 mmHg 77 bpm 18 rpm 96.6 F 222.375 lbs 72 in 30.1592 kg/m 2.2636 m 98 % 07/21/2015 9:08:00 AM 138 mmHg 70 mmHg 66 bpm 16 rpm 97 F 226.375 lbs 72 in 30.70 kg/m2 2.28 m2 98 % 07/17/2015 9:50:00 AM 128 mmHg 76 mmHg 66 bpm 96.7 F 224 lbs 72 in 30.3795 kg/m 2.2719 m 95 % 07/02/2015 10:03:00 AM 120 mmHg 68 mmHg 63 bpm 18 rpm 97.8 F 229 lbs 72 in 31.06 kg/m2 2.30 m2 96 % 05/28/2015 9:48:00 AM 222 lbs 72 in 30.1083 kg/m 2.2617 m 05/19/2015 10:41:00 AM 134 mmHg 72 mmHg 85 bpm 18 rpm 97.4 F 222 lbs 72 in 30.11 kg/m2 2.26 m2 100 % 05/08/2015 11:16:00 AM 225 lbs 72 in 30.5152 kg/m 2.277 m 05/08/2015 8:30:00 AM 120 mmHg 60 mmHg 76 bpm 16 rpm 96.7 F 225 lbs 72 in 30.52 kg/m2 2.28 m2 98 % 03/23/2015 2:12:00 PM 132 mmHg 64 mmHg 78 bpm 18 rpm 96.2 F 225 lbs 72 in 30.5152 kg/m 2.277 m 99 % 03/17/2015 10:59:00 AM 126 mmHg 68 mmHg 81 bpm 18 rpm 97.4 F 228 lbs 72 in 30.92 kg/m2 2.29 m2 96 % 03/04/2015 1:09:00 PM 138 mmHg 86 mmHg 67 bpm 98 F 229.375 lbs 72 in 31.1085 kg/m 2.299 m 99 % 02/03/2015 1:47:00 PM 126 mmHg 86 mmHg 90 bpm 97.9 F 226.375 lbs 72 in 30.70 kg/m2 2.28 m2 99 % 01/01/2015 3:08:00 PM 134 mmHg 74 mmHg 77 bpm 18 rpm 97.4 F 230.25 lbs 72 in 31.2272 kg/m 2.3034 m 97 % 12/19/2014 9:46:00 AM 138 mmHg 82 mmHg 67 bpm 16 rpm 97.3 F 232 lbs 72 in 31.46 kg/m2 2.31 m2 11/11/2014 11:18:00 AM 138 mmHg 74 mmHg 60 bpm 20 rpm 98 F 235.312 lbs 72 in 31.9138 kg/m 2.3286 m 10/29/2014 2:31:00 PM 128 mmHg 82 mmHg 73 bpm 20 rpm 98.2 F 234 lbs 72 in 31.74 kg/m2 2.32 m2 96 % 10/22/2014 3:29:00 PM 130 mmHg 78 mmHg 115 bpm 98.1 F 233.5 lbs 72 in 31.668 kg/m 2.3196 m 96 % 07/02/2014 11:09:00 AM 120 mmHg 80 mmHg 67 bpm 97 F 225.25 lbs 72 in 30.55 kg/m2 2.28 m2 99 % 04/03/2014 1:48:00 PM 110 mmHg 60 mmHg 73 bpm 18 rpm 98.3 F 234 lbs 72 in 31.7358 kg/m 2.3221 m 98 % 01/02/2014 3:23:00 PM 138 mmHg 82 mmHg 72 bpm 18 rpm 97.7 F 234.375 lbs 72 in 31.79 kg/m2 2.32 m2 100 % 12/31/2013 10:07:00 AM 130 mmHg 80 mmHg 67 bpm 22 rpm 96.7 F 248 lbs 72 in 33.6345 kg/m 2.3905 m 96 % 12/18/2013 1:57:00 PM 100 mmHg 70 mmHg 73 bpm 16 rpm 97.1 F 227 lbs 72 in 30.79 kg/m2 2.29 m2 98 % 12/09/2013 11:31:00 AM 126 mmHg 66 mmHg 69 bpm 18 rpm 97.1 F 227.5 lbs 72 in 30.8542 kg/m 2.2896 m 98 % 11/29/2013 9:30:00 AM 132 mmHg 72 mmHg 69 bpm 18 rpm 97.3 F 223.375 lbs 72 in 30.29 kg/m2 2.27 m2 99 % 11/19/2013 11:34:00 AM 100 mmHg 68 mmHg 64 bpm 18 rpm 96.9 F 227 lbs 72 in 30.7864 kg/m 2.2871 m 98 % 10/24/2013 10:10:00 AM 132 mmHg 66 mmHg 64 bpm 18 rpm 96.2 F 225.375 lbs 72 in 30.57 kg/m2 2.28 m2 100 % 10/01/2013 3:58:00 PM 124 mmHg 66 mmHg 62 bpm 18 rpm 98.6 F 229.5 lbs 72 in 31.1255 kg/m 2.2996 m 98 % 09/17/2013 10:50:00 AM 132 mmHg 68 mmHg 70 bpm 18 rpm 97.3 F 227 lbs 72 in 30.79 kg/m2 2.29 m2 100 % 09/13/2013 1:58:00 PM 130 mmHg 76 mmHg 80 bpm 20 rpm 98 F 228 lbs 72 in 30.922 kg/m 2.2921 m 96 % 09/11/2013 2:23:00 PM 143 mmHg 80 mmHg 65 bpm 20 rpm 97.8 F 228 lbs 72 in 30.92 kg/m2 2.29 m2 08/28/2013 2:19:00 PM 128 mmHg 72 mmHg 69 bpm 18 rpm 98.2 F 225 lbs 72 in 30.5152 kg/m 2.277 m 08/01/2013 1:52:00 PM 128 mmHg 68 mmHg 68 bpm 18 rpm 98.7 F 227.125 lbs 72 in 30.80 kg/m2 2.29 m2 98 % 07/24/2013 10:37:00 AM 160 mmHg 80 mmHg 123 bpm 18 rpm 97 F 227 lbs 72 in 30.7864 kg/m 2.2871 m 98 % 06/26/2013 11:15:00 AM 118 mmHg 70 mmHg 69 bpm 20 rpm 97 F 226.2 lbs 72 in 30.68 kg/m2 2.28 m2 97 % 04/26/2013 9:51:00 AM 140 mmHg 75 mmHg 89 bpm 18 rpm 97.8 F 226 lbs 72 in 30.6508 kg/m 2.282 m 97 % 03/26/2013 2:28:00 PM 138 mmHg 78 mmHg 66 bpm 18 rpm 96.8 F 226.25 lbs 72 in 30.68 kg/m2 2.28 m2 99 % 03/20/2013 6:41:00 PM 112 mmHg 74 mmHg 71 bpm 20 rpm 96.7 F 226.5 lbs 72 in 30.7186 kg/m 2.2845 m 97 % 05/29/2012 10:17:00 AM 130 mmHg 80 mmHg 65 bpm 18 rpm 96 F 220 lbs 72 in 29.84 kg/m2 2.25 m2 100 % 05/22/2012 10:15:00 AM 140 mmHg 80 mmHg 68 bpm 18 rpm 97 F 220.375 lbs 72 in 29.8879 kg/m 2.2534 m 100 % 09/16/2011 10:41:00 AM 138 mmHg 70 mmHg 93 bpm 18 rpm 100.7 F 227.125 lbs 96 % 06/27/2011 2:04:00 PM 122 mmHg 82 mmHg 75 bpm 16 rpm 97.2 F 231 lbs 94 % 06/22/2011 2:26:00 PM 132 mmHg 68 mmHg 77 bpm 18 rpm 96.9 F 229.125 lbs 72 in 31.07 kg/m2 2.30 m2 04/26/2011 11:10:00 AM 128 mmHg 77 mmHg 76 bpm 18 rpm 96.8 F 232.5 lbs 72 in 31.5323 kg/m 2.3146 m 04/05/2011 8:48:00 AM 130 mmHg 70 mmHg 84 bpm 16 rpm 96.6 F 226.375 lbs 97 % 03/23/2011 9:56:00 AM 130 mmHg 82 mmHg 76 bpm 16 rpm 96.6 F 229 lbs 97 % 02/01/2011 8:39:00 AM 132 mmHg 80 mmHg 72 bpm 16 rpm 97.3 F 228.25 lbs 98 % 12/15/2010 10:18:00 AM 128 mmHg 80 mmHg 67 bpm 16 rpm 97.7 F 229.125 lbs 72 in 31.0746 kg/m 2.2977 m 98 % 11/10/2010 10:33:00 AM 122 mmHg 80 mmHg 78 bpm 16 rpm 97.5 F 225 lbs 98 % 10/07/2010 3:00:00 PM 112 mmHg 78 mmHg 73 bpm 97.3 F 228.125 lbs 98 % 09/23/2010 9:55:00 AM 124 mmHg 76 mmHg 76 bpm 16 rpm 96.5 F 229 lbs 72 in 31.06 kg/m2 2.30 m2 97 % 09/09/2010 8:21:00 AM 130 mmHg 80 mmHg 72 bpm 16 rpm 96.4 F 228 lbs 99 % 09/01/2010 8:13:00 AM 128 mmHg 74 mmHg 72 bpm 16 rpm 96.3 F 224.375 lbs 08/24/2010 11:23:00 AM 138 mmHg 84 mmHg 68 bpm 20 rpm 97.4 F 230.125 lbs 07/01/2010 10:02:00 AM 148 mmHg 88 mmHg 72 bpm 18 rpm 97.8 F 226.5 lbs 05/04/2010 9:31:00 AM 130 mmHg 80 mmHg 88 bpm 16 rpm 97.6 F 226 lbs 04/05/2010 11:08:00 AM 130 mmHg 84 mmHg 134 bpm 20 rpm 98.7 F 222.125 lbs 96 % 02/02/2010 2:50:00 PM 128 mmHg 84 mmHg 74 bpm 16 rpm 97.1 F 01/12/2010 9:03:00 AM 122 mmHg 78 mmHg 01/01/2010 8:46:00 AM 110 mmHg 65 mmHg 73 bpm 97.2 F 217 lbs 99 % 12/15/2009 8:46:00 AM 135 mmHg 80 mmHg 78 bpm 96.1 F 224.375 lbs 12/10/2009 3:20:00 PM 135 mmHg 80 mmHg 12/01/2009 1:50:00 PM 144 mmHg 94 mmHg 11/18/2009 3:29:00 PM 168 mmHg 88 mmHg 80 bpm 16 rpm 97.3 F 219.5 lbs 10/22/2009 9:07:00 AM 122 mmHg 80 mmHg 80 bpm 16 rpm 96.9 F 220.5 lbs 09/10/2009 9:19:00 AM 140 mmHg 90 mmHg 80 bpm 16 rpm 218.25 lbs 07/28/2009 2:23:00 PM 134 mmHg 82 mmHg 80 bpm 16 rpm 97.5 F 06/30/2009 9:45:00 AM 144 mmHg 82 mmHg 80 bpm 18 rpm 97.5 F 226 lbs 72 in 30.65 kg/m2 2.28 m2 Social History Name Description Comments associates degree Denies illicit substance abuse Active but no formal exercise disabeled Did not serve in [employer] Lives with spouse Tobacco Current every day smoker History of Procedures Date Ordered Description Order Status 01/01/2015 12:00 AM GLYCOSYLATED HEMOGLOBIN TEST Reviewed 01/01/2015 12:00 AM ASSAY OF TOTAL TESTOSTERONE Reviewed 01/01/2015 12:00 AM Depo-Testosterone, Up to 100 Mg [facility]# 0023-7339-26 Reviewed 12/19/2014 12:00 AM MRI JOINT UPR EXTREM W/O DYE Reviewed 02/03/2015 12:00 AM THER/PROPH/DIAG INJ SC/IM Reviewed 02/03/2015 12:00 AM Depo-Testosterone 200 Mg [facility]#2079-1416-06 [facility] Medicare Reviewed 02/03/2015 12:00 AM IM ADM PRQ ID SUBQ/IM NJXS 1 VACCINE Reviewed 03/04/2015 12:00 AM THER/PROPH/DIAG INJ SC/IM Reviewed 03/04/2015 12:00 AM Depo-Testosterone 200 Mg [facility]#[id number] [facility] Medicare Reviewed 03/17/2015 12:00 AM Decadron, Per 1 Mg [facility]# [address]-26 Reviewed 03/17/2015 12:00 AM Depo-Medrol 40mg Reviewed 03/23/2015 12:00 AM COMPLETE CBC W/AUTO DIFF WBC Reviewed 03/23/2015 12:00 AM COMPREHEN METABOLIC PANEL Reviewed 03/23/2015 12:00 AM INFLUENZA A/B AG EIA Reviewed 03/23/2015 12:00 AM HETEROPHILE ANTIBODY SCREEN Reviewed 03/23/2015 12:00 AM CHEST X-RAY 2VW FRONTAL&LATL Reviewed 05/08/2015 12:00 AM ASSAY OF PSA TOTAL Reviewed 05/08/2015 12:00 AM URNLS DIP STICK/TABLET RGNT AUTO W/O MICROSCOPY Reviewed 05/08/2015 12:00 AM COMPLETE CBC W/AUTO DIFF WBC Reviewed 05/08/2015 12:00 AM COMPREHEN METABOLIC PANEL Reviewed 05/08/2015 12:[address] ABD & PELV 1/> REGNS Reviewed 05/19/2015 12:00 AM Depo-Testosterone, Up to 100 Mg [place]# 0400-1127-27 Reviewed 05/25/2015 12:00 AM URNLS DIP STICK/TABLET RGNT AUTO W/O MICROSCOPY Reviewed 06/18/2015 12:00 AM Depo-Testosterone, Up to 100 Mg ND# 0601-8296-05 Reviewed 07/17/2015 12:00 AM Depo-Testosterone, Up to 100 Mg [facility]# 4513-2214-07 Reviewed 08/14/2015 12:00 AM COMPLETE CBC W/AUTO DIFF WBC Returned 08/14/2015 12:00 AM COMPREHEN METABOLIC PANEL Returned 08/14/2015 12:00 AM GLYCOSYLATED HEMOGLOBIN TEST Returned 03/21/2011 12:00 AM COMPLETE CBC W/AUTO DIFF WBC Reviewed 03/21/2011 12:00 AM COMPREHEN METABOLIC PANEL Reviewed 03/21/2011 12:00 AM LIPID PANEL Reviewed 03/21/2011 12:00 AM GLYCOSYLATED HEMOGLOBIN TEST Reviewed 03/23/2011 12:00 AM COMPREHEN METABOLIC PANEL Reviewed 03/23/2011 12:00 AM LIPID PANEL Reviewed 03/23/2011 12:00 AM GLYCOSYLATED HEMOGLOBIN TEST Reviewed 03/23/2011 12:00 AM COMPLETE CBC W/AUTO DIFF WBC Reviewed 03/23/2011 12:00 AM ASSAY OF BLOOD/URIC ACID Reviewed 09/15/2015 12:00 AM COMPLETE CBC W/AUTO DIFF WBC Returned 09/15/2015 12:00 AM COMPREHEN METABOLIC PANEL Returned 09/15/2015 12:00 AM GLYCOSYLATED HEMOGLOBIN TEST Returned 09/15/2015 12:00 AM LIPID PANEL Returned 01/15/2016 12:00 AM PNEUMOCOCCAL VACC 23 JONI IM Reviewed 01/15/2016 12:00 AM [facility] MEDICARE - flu vaccine administration Reviewed 01/15/2016 12:00 AM [facility] MEDIC[facility] - pneumonia vaccine administration Reviewed 01/15/2016 12:00 AM INFLUENZA VACCINE QUADRIVALENT 3 YRS PLUS IM Reviewed 06/27/2011 12:00 AM LIPID PANEL Reviewed 06/27/2011 12:00 AM GLYCOSYLATED HEMOGLOBIN TEST Reviewed 04/20/2016 12:00 AM METABOLIC PANEL TOTAL CA Reviewed 04/20/2016 12:00 AM COMPLETE CBC W/AUTO DIFF WBC Reviewed 04/20/2016 12:00 AM GLYCOSYLATED HEMOGLOBIN TEST Reviewed 04/20/2016 12:00 AM ELECTROCARDIOGRAM TRACING Reviewed 04/21/2016 12:00 AM MRI BRAIN STEM W/O & W/DYE Reviewed 09/16/2011 12:00 AM LIPID PANEL Reviewed 09/16/2011 12:00 AM GLYCOSYLATED HEMOGLOBIN TEST Reviewed 09/19/2016 12:00 AM X-RAY EXAM L-S SPINE 2/3 VWS Returned 02/08/2017 12:00 AM COMPLETE CBC W/AUTO DIFF WBC Returned 02/08/2017 12:00 AM COMPREHEN METABOLIC PANEL Returned 02/08/2017 12:00 AM URINALYSIS AUTO W/SCOPE Returned 01/18/2017 12:00 AM COMPLETE CBC W/AUTO DIFF WBC Returned 01/18/2017 12:00 AM COMPREHEN METABOLIC PANEL Returned 01/18/2017 12:00 AM ELECTROCARDIOGRAM COMPLETE Reviewed 01/18/2017 12:00 AM ASSAY OF TROPONIN QUANT Returned 01/18/2017 12:00 AM C-REACTIVE PROTEIN Returned 01/18/2017 12:00 AM DETECT AGENT NOS DNA AMP Returned 05/22/2012 12:00 AM EXC TR-EXT B9+SABINA 0.6-1 CM Reviewed 05/22/2012 12:00 AM EXC FACE-MM B9+SABINA 0.6-1 CM Reviewed 05/22/2012 12:00 AM EXC F/E/E/N/L MAL+MRG 0.6-1 Reviewed 03/20/2013 12:00 AM THER/PROPH/DIAG INJ SC/IM Reviewed 03/20/2013 12:00 AM Decadron, Per 1 Mg [facility]# [address]-49 Reviewed 03/20/2013 12:00 AM Depo-Medrol, Per 80 Mg [facility]#6741-4465-38 Reviewed 04/05/2013 12:00 AM RMSF Ab IgG Reviewed 04/05/2013 12:00 AM RICKETTSIA ANTIBODY Reviewed 04/05/2013 12:00 AM Invalid Code Reviewed 04/05/2013 12:00 AM Invalid Code Reviewed 04/26/2013 12:00 AM COMPLETE CBC W/AUTO DIFF WBC Reviewed 04/26/2013 12:00 AM COMPREHEN METABOLIC PANEL Reviewed 04/26/2013 12:00 AM LIPID PANEL Reviewed 04/26/2013 12:00 AM GLYCOSYLATED HEMOGLOBIN TEST Reviewed 04/26/2013 12:00 AM VITAMIN B-12 Reviewed 04/26/2013 12:00 AM ASSAY THYROID STIM HORMONE Reviewed 09/10/2009 12:00 AM COMPREHEN METABOLIC PANEL Reviewed 09/10/2009 12:00 AM LIPID PANEL Reviewed 09/10/2009 12:00 AM GLYCOSYLATED HEMOGLOBIN TEST Reviewed 09/10/2009 12:00 AM ASSAY THYROID STIM HORMONE Reviewed 09/10/2009 12:00 AM COMPLETE CBC W/AUTO DIFF WBC Reviewed 09/29/2009 12:00 AM IMMUNOTHERAPY INJECTIONS Reviewed 10/08/2009 12:00 AM IMMUNOTHERAPY INJECTIONS Reviewed 10/13/2009 12:00 AM IMMUNOTHERAPY INJECTIONS Reviewed 10/22/2009 12:00 AM IMMUNOTHERAPY INJECTIONS Reviewed 11/13/2009 12:00 AM IMMUNOTHERAPY INJECTIONS Reviewed 11/18/2009 12:00 AM IMMUNOTHERAPY INJECTIONS Reviewed 11/26/2009 12:00 AM IMMUNOTHERAPY INJECTIONS Reviewed 12/01/2009 12:00 AM Blood Pressure Check-no charge Reviewed 12/01/2009 12:00 AM IMMUNOTHERAPY INJECTIONS Reviewed 12/10/2009 12:00 AM Blood Pressure Check-no charge Reviewed 12/10/2009 12:00 AM IMMUNOTHERAPY INJECTIONS Reviewed 12/15/2009 12:00 AM COMPREHEN METABOLIC PANEL Reviewed 12/15/2009 12:00 AM LIPID PANEL Reviewed 12/15/2009 12:00 AM GLYCOSYLATED HEMOGLOBIN TEST Reviewed 12/15/2009 12:00 AM COMPLETE CBC W/AUTO DIFF WBC Reviewed 12/15/2009 12:00 AM ASSAY OF BLOOD/URIC ACID Reviewed 12/15/2009 12:00 AM IMMUNOTHERAPY ONE INJECTION Reviewed 12/29/2009 12:00 AM IMMUNOTHERAPY INJECTIONS Reviewed 01/05/2010 12:00 AM IMMUNOTHERAPY 2/> INJECTIONS Reviewed 01/12/2010 12:00 AM IMMUNOTHERAPY ONE INJECTION Reviewed 02/02/2010 12:00 AM IMMUNOTHERAPY INJECTIONS Reviewed 01/26/2010 12:00 AM IMMUNOTHERAPY INJECTIONS Reviewed 01/21/2010 12:00 AM IMMUNOTHERAPY INJECTIONS Reviewed 02/11/2010 12:00 AM IMMUNOTHERAPY INJECTIONS Reviewed 12/22/2009 12:00 AM IMMUNOTHERAPY INJECTIONS Reviewed 02/16/2010 12:00 AM IMMUNOTHERAPY INJECTIONS Reviewed 03/02/2010 12:00 AM IMMUNOTHERAPY INJECTIONS Reviewed 09/17/2013 12:00 AM RADIOLOGIC EXAMINATION KNEE 1/2 VIEWS Reviewed 03/24/2010 12:00 AM IMMUNOTHERAPY 2/> INJECTIONS Reviewed 10/24/2013 12:00 AM COMPLETE CBC W/AUTO DIFF WBC Reviewed 10/24/2013 12:00 AM COMPREHEN METABOLIC PANEL Reviewed 10/24/2013 12:00 AM LIPID PANEL Reviewed 10/24/2013 12:00 AM GLYCOSYLATED HEMOGLOBIN TEST Reviewed 10/24/2013 12:00 AM ASSAY OF PSA TOTAL Reviewed 10/24/2013 12:00 AM MICROALBUMIN QUANTITATIVE Reviewed 12/23/2013 12:00 AM LIPID PANEL Reviewed 12/23/2013 12:00 AM HEPATIC FUNCTION PANEL Reviewed 12/09/2013 12:00 AM ASSAY OF TOTAL TESTOSTERONE Reviewed 12/18/2013 12:00 AM Depo-Testosterone 200 Mg [facility]#7627-6482-35 [facility] Medicare Reviewed 12/31/2013 12:00 AM THER/PROPH/DIAG INJ SC/IM Reviewed 12/31/2013 12:00 AM Toradol 60 Mg [facility]#4515-3266-10 Reviewed 01/17/2014 12:00 AM THER/PROPH/DIAG INJ SC/IM Reviewed 01/17/2014 12:00 AM IMMUNIZATION ADMIN Reviewed 01/17/2014 12:00 AM Depo-Testosterone 200 Mg [facility]#6937-2675-03 Reviewed 04/03/2014 12:00 AM LIPID PANEL Reviewed 04/03/2014 12:00 AM GLYCOSYLATED HEMOGLOBIN TEST Reviewed 04/03/2014 12:00 AM ASSAY THYROID STIM HORMONE Reviewed 07/01/2010 12:00 AM COMPREHEN METABOLIC PANEL Reviewed 07/01/2010 12:00 AM LIPID PANEL Reviewed 07/01/2010 12:00 AM GLYCOSYLATED HEMOGLOBIN TEST Reviewed 07/01/2010 12:00 AM COMPLETE CBC W/AUTO DIFF WBC Reviewed 03/26/2014 12:00 AM Depo-Testosterone 200 Mg [facility]#2499-6127-34 [facility] Medicare Reviewed 09/09/2010 12:00 AM ASSAY OF BLOOD/URIC ACID Reviewed 09/17/2010 12:00 AM COMPLETE CBC W/AUTO DIFF WBC Reviewed 09/17/2010 12:00 AM COMPREHEN METABOLIC PANEL Reviewed 09/17/2010 12:00 AM LIPID PANEL Reviewed 09/17/2010 12:00 AM GLYCOSYLATED HEMOGLOBIN TEST Reviewed 09/23/2010 12:00 AM ASSAY OF BLOOD/URIC ACID Reviewed 09/23/2010 12:00 AM COMPREHEN METABOLIC PANEL Reviewed 09/23/2010 12:00 AM LIPID PANEL Reviewed 09/23/2010 12:00 AM GLYCOSYLATED HEMOGLOBIN TEST Reviewed 09/23/2010 12:00 AM COMPLETE CBC W/AUTO DIFF WBC Reviewed 10/22/2014 12:00 AM Depo-Testosterone 200 Mg [facility]#2646-7149-40 [facility] Medicare Reviewed Results Summary Date and Description Results 09/11/2009 9:36 AM TRIGLYCERIDES 200.0 mg/dLCHOLESTEROL 221.0 mg/dLHDL 32.0 mg/ dLTOT CHOL/HDL 6.9 LDL (CALC) 149.0 mg/dLTSH 0.930 uIU/mLGLYCOHEMOGLOBIN A1C 6.50 %WBC 10.5 RBC 4.92 HGB 16.40 g/dLHCT 48.30 %MCV 98.0 fLMCH 33.30 pgMCHC 34.0 g/dLRDW SD 49 RDW CV 13.70 %MPV 10.20 fLPLT 194 NRBC# 0.00 NRBC% 0.0 %NEUT 71.30 %%LYMP 16.40 %%MONO 11.0 %%EOS 1.0 %%BASO 0.30 %#NEUT 7.51 #LYMP 1.73 # MONO 1.16 #EOS 0.11 #BASO 0.03 MANUAL DIFF NOT IND GLUCOSE 133.0 mg/dLSODIUM 137.0 mmol/LPOTASSIUM 4.30 mmol/LCHLORIDE 107.0 mmol/LCO2 22.0 mmol/LBUN 12.0 mg /dLCREATININE 1.10 mg/dLSGOT/AST 34.0 IU/LSGPT/ALT 53.0 IU/LALK PHOS 66.0 IU/ LTOTAL PROTEIN 7.60 g/dLALBUMIN 4.50 g/dLTOTAL BILI 0.60 mg/dLCALCIUM 9.0 mg/ dLAGE 54 GFR NonAA 69 GFR AA 84 eGFR >60 mL/min/1.73 m2eGFR AA* >60 12/18/2009 9:15 AM TRIGLYCERIDES 237.0 mg/dLCHOLESTEROL 160.0 mg/dLHDL 32.0 mg/ dLTOT CHOL/HDL 5.0 LDL (CALC) 81.0 mg/dLURIC ACID 6.1 mg/dLGLYCOHEMOGLOBIN A1C 6.30 %WBC 9.6 RBC 4.74 HGB 15.50 g/dLHCT 46.10 %MCV 97.0 fLMCH 32.70 pgMCHC 33.60 g/dLRDW SD 48 RDW CV 13.30 %MPV 10.40 fLPLT 179 NRBC# 0.00 NRBC% 0.0 % NEUT 68.90 %%LYMP 20.60 %%MONO 8.90 %%EOS 1.30 %%BASO 0.30 %#NEUT 6.58 #LYMP 1.97 #MONO 0.85 #EOS 0.12 #BASO 0.03 MANUAL DIFF NOT IND GLUCOSE 129.0 mg/ dLSODIUM 137.0 mmol/LPOTASSIUM 4.60 mmol/LCHLORIDE 107.0 mmol/LCO2 22.0 mmol/ LBUN 10.0 mg/dLCREATININE 1.0 mg/dLSGOT/AST 28.0 IU/LSGPT/ALT 35.0 IU/LALK PHOS 55.0 IU/LTOTAL PROTEIN 6.90 g/dLALBUMIN 4.30 g/dLTOTAL BILI 0.40 mg/dLCALCIUM 8.90 mg/dLAGE 54 GFR NonAA 77 GFR AA 93 eGFR >60 mL/min/1.73 m2eGFR AA* >60 07/02/2010 8:26 AM TRIGLYCERIDES 182.0 mg/dLCHOLESTEROL 147.0 mg/dLHDL 35.0 mg/ dLTOT CHOL/HDL 4.2 LDL (CALC) 76.0 mg/dLGLYCOHEMOGLOBIN A1C 6.90 %WBC 5.9 RBC 4.48 HGB 14.90 g/dLHCT 44.0 %MCV 98.0 [facility] 33.30 [facility] g/dLRDW SD 53 RDW CV 14.90 %MPV 10.60 fLPLT 203 NRBC# 0.00 NRBC% 0.0 %NEUT 57.20 %%LYMP 22.80 %%MONO 14.30 %%EOS 4.20 %%BASO 1.50 %#NEUT 3.39 #LYMP 1.35 #MONO 0.85 #EOS 0.25 #BASO 0.09 MANUAL DIFF NOT IND GLUCOSE 116.0 mg/dLSODIUM 135.0 mmol/LPOTASSIUM 4.0 mmol/LCHLORIDE 103.0 mmol/LCO2 22.0 mmol/LBUN 10.0 mg/dLCREATININE 0.90 mg/ dLSGOT/AST 30.0 IU/LSGPT/ALT 52.0 IU/LALK PHOS 60.0 IU/LTOTAL PROTEIN 6.70 g/ dLALBUMIN 4.40 g/dLTOTAL BILI 0.50 mg/dLCALCIUM 8.90 mg/dLAGE 54 GFR NonAA 87 GFR AA 105 eGFR >60 mL/min/1.73 m2eGFR AA* >60 09/09/2010 8:47 AM URIC ACID 4.4 mg/dL 09/17/2010 8:00 AM TRIGLYCERIDES 272.0 mg/dLCHOLESTEROL 147.0 mg/dLHDL 36.0 mg/ dLTOT CHOL/HDL 4.1 LDL (CALC) 57.0 mg/dLGLYCOHEMOGLOBIN A1C 6.0 %WBC 6.5 RBC 4.28 HGB 14.60 g/dLHCT 44.0 %MCV 103.0 fLMCH 34.10 pgMCHC 33.20 g/dLRDW SD 51 RDW CV 13.50 %MPV 10.50 fLPLT 172 NRBC# 0.00 NRBC% 0.0 %NEUT 58.0 %%LYMP 25.40 % %MONO 13.50 %%EOS 2.50 %%BASO 0.60 %#NEUT 3.79 #LYMP 1.66 #MONO 0.88 #EOS 0.16 # BASO 0.04 MANUAL DIFF NOT IND GLUCOSE 126.0 mg/dLSODIUM 136.0 mmol/LPOTASSIUM 4.40 mmol/LCHLORIDE 104.0 mmol/LCO2 23.0 mmol/LBUN 11.0 mg/dLCREATININE 1.0 mg/ dLSGOT/AST 32.0 IU/LSGPT/ALT 58.0 IU/LALK PHOS 51.0 IU/LTOTAL PROTEIN 7.10 g/ dLALBUMIN 4.20 g/dLTOTAL BILI 0.40 mg/dLCALCIUM 9.50 mg/dLAGE 55 GFR NonAA 77 GFR AA 93 eGFR >60 mL/min/1.73 m2eGFR AA* >60 03/22/2011 9:15 AM TRIGLYCERIDES 204.0 mg/dLCHOLESTEROL 130.0 mg/dLHDL 33.0 mg/ dLTOT CHOL/HDL 3.9 LDL (CALC) 56.0 mg/dLGLUCOSE 130.0 mg/dLSODIUM 139.0 mmol/ LPOTASSIUM 4.20 mmol/LCHLORIDE 107.0 mmol/LCO2 25.0 mmol/LBUN 12.0 mg/ dLCREATININE 1.10 mg/dLSGOT/AST 34.0 IU/LSGPT/ALT 67.0 IU/LALK PHOS 49.0 IU/ LTOTAL PROTEIN 6.80 g/dLALBUMIN 4.40 g/dLTOTAL BILI 0.40 mg/dLCALCIUM 8.60 mg/ dLAGE 55 GFR NonAA 69 GFR AA 84 eGFR >60 mL/min/1.73 m2eGFR AA* >60 WBC 4.9 RBC 4.35 HGB 14.80 g/dLHCT 43.90 %MCV 101.0 fLMCH 34.0 pgMCHC 33.70 g/dLRDW SD 51 RDW CV 13.60 %MPV 10.10 fLPLT 160 NRBC# 0.00 NRBC% 0.0 %NEUT 55.70 %%LYMP 31.30 %%MONO 9.60 %%EOS 2.40 %%BASO 1.0 %#NEUT 2.74 #LYMP 1.54 #MONO 0.47 #EOS 0.12 # BASO 0.05 MANUAL DIFF NOT IND GLYCOHEMOGLOBIN A1C 6.80 % 11/01/2013 8:40 AM WBC 4.7 RBC 3.76 HGB 13.80 g/dLHCT 40.70 %MCV 108.0 fLMCH 36.70 pgMCHC 33.90 g/dLRDW SD 62 RDW CV 15.60 %MPV 11.0 fLPLT 157 NRBC# 0.00 NRBC% 0.0 %NEUT 51.80 %%LYMP 32.90 %%MONO 11.20 %%EOS 3.0 %%BASO 1.10 %#NEUT 2.41 #LYMP 1.53 #MONO 0.52 #EOS 0.14 #BASO 0.05 MANUAL DIFF NOT IND PSA TOTAL 0.690 ng/mLHGB A1C 6.10 %Est Avg Glucose 128.4 mg/dLMICROALBUMIN UR 35.0 ug/ mLGLUCOSE 110.0 mg/dLSODIUM 143.0 mmol/LPOTASSIUM 4.70 mmol/LCHLORIDE 108.0 mmol /LCO2 23.0 mmol/LBUN 16.0 mg/dLCREATININE 1.50 mg/dLSGOT/AST 32.0 IU/LSGPT/ALT 49.0 IU/LALK PHOS 45.0 IU/LTOTAL PROTEIN 7.40 g/dLALBUMIN 4.20 g/dLTOTAL BILI 0.50 mg/dLCALCIUM 9.20 mg/dLAGE 58 GFR NonAA 48 GFR AA 58 eGFR 48 eGFR AA* 58 TRIGLYCERIDES 194.0 mg/dLCHOLESTEROL 145.0 mg/dLHDL 31.0 mg/dLTOT CHOL/HDL 4.7 LDL (CALC) 75.0 mg/dL 12/09/2013 12:22 PM TESTOSTERONE 287.0 ng/dL 01/01/2015 4:20 PM TESTOSTERONE 432.0 ng/dLHemoglobin A1c 8.20 %Estim. Avg Glu (eAG) 189 03/23/2015 2:36 PM MONO TEST NEGATIVE INFLUENZA A & B NO INFLUENZA A OR B DETECTED GLUCOSE 179.0 mg/dLSODIUM 141.0 mmol/LPOTASSIUM 3.30 mmol/LCHLORIDE 106.0 mmol/LCO2 25.0 mmol/LBUN 13.0 mg/dLCREATININE 1.40 mg/dLSGOT/AST 26.0 IU/ LSGPT/ALT 51.0 IU/LALK PHOS 62.0 IU/LTOTAL PROTEIN 7.0 g/dLALBUMIN 4.10 g/ dLTOTAL BILI 0.50 mg/dLCALCIUM 9.30 mg/dLAGE 59 GFR NonAA 52 GFR AA 63 eGFR 52 eGFR AA* >60 WBC 8.3 RBC 4.58 HGB 15.90 g/dLHCT 46.80 %MCV 102.0 fLMCH 34.70 pgMCHC 34.0 g/dLRDW SD 55 RDW CV 14.80 %MPV 10.30 fLPLT 226 NRBC# 0.00 NRBC% 0.0 %NEUT 69.30 %%LYMP 15.60 %%MONO 12.20 %%EOS 2.30 %%BASO 0.60 %#NEUT 5.76 # LYMP 1.30 #MONO 1.01 #EOS 0.19 #BASO 0.05 MANUAL DIFF NOT IND 05/08/2015 9:16 AM WBC 9.0 RBC 4.05 HGB 14.0 g/dLHCT 42.20 %MCV 104.0 fLMCH 34.60 pgMCHC 33.20 g/dLRDW SD 56 RDW CV 14.70 %MPV 10.10 fLPLT 215 NRBC# 0.00 NRBC% 0.0 %NEUT 62.80 %%LYMP 23.20 %%MONO 11.30 %%EOS 2.0 %%BASO 0.70 %#NEUT 5.64 #LYMP 2.09 #MONO 1.02 #EOS 0.18 #BASO 0.06 MANUAL DIFF NOT IND GLUCOSE 140.0 mg/dLSODIUM 138.0 mmol/LPOTASSIUM 4.10 mmol/LCHLORIDE 108.0 mmol/LCO2 20.0 mmol/LBUN 14.0 mg/dLCREATININE 1.40 mg/dLSGOT/AST 33.0 IU/LSGPT/ALT 52.0 IU /LALK PHOS 59.0 IU/LTOTAL PROTEIN 6.70 g/dLALBUMIN 4.40 g/dLTOTAL BILI 0.50 mg/ dLCALCIUM 9.0 mg/dLAGE 59 GFR NonAA 52 GFR AA 63 eGFR 52 eGFR AA* >60 COLOR DARK RED APPEARANCE TURBID SPEC GRAV 1.025 pH 6.0 PROTEIN >=300 GLUCOSE NEGATIVE mg/dLKETONE NEGATIVE BILIRUBIN NEGATIVE BLOOD LARGE NITRITE NEGATIVE [place]UK SCREEN TRACE MICRO INDICATED? SEE BELOW WBC/HPF 5-10 RBC/HPF TNTC CASTS/ LPF NEGATIVE /LPFCRYSTALS NEGATIVE MUCOUS THRDS NEGATIVE BACTERIA NEGATIVE EPITH CELLS NEGATIVE /HPFTRICHOMONAS NEGATIVE YEAST NEGATIVE CULT SET UP? YES 05/08/2015 12:35 PM PSA TOTAL 0.70 ng/mL 04/20/2016 3:10 PM WBC 6.0 RBC 3.70 HGB 12.40 g/dLHCT 37.80 %MCV 102.0 fLMCH 33.50 pgMCHC 32.80 g/dLRDW SD 54 RDW CV 14.40 %MPV 9.0 fLPLT 192 NRBC# 0.00 NRBC % 0.0 %NEUT 60.60 %%LYMP 19.80 %%MONO 12.10 %%EOS 5.50 %%BASO 1.70 %#NEUT 3.65 # LYMP 1.19 #MONO 0.73 #EOS 0.33 #BASO 0.10 MANUAL DIFF NOT IND HGB A1C 5.60 %Est Avg Glucose 114.0 mg/dLGLUCOSE 134.0 mg/dLSODIUM 140.0 mmol/LPOTASSIUM 3.50 mmol /LCHLORIDE 110.0 mmol/LCO2 21.0 mmol/LBUN 12.0 mg/dLCREATININE 1.60 mg/ dLCALCIUM 9.20 mg/dLAGE 60 GFR NonAA 44 GFR AA 53 eGFR 44 eGFR AA* 53 History Of Immunizations Name Date Admin Mfg Name Mf Code Trade Name Lot# Route Inj Vis Given Vis Pub CVX Influenza 01/15/2016 sanofi pasteur PMC Fluzone [id number] Intramuscular Right Deltoid 01/15/2016 10/17/2014 141 Pneumococcal 01/15/2016 [employer] MSD Pneumovax 23 [id number] Intramuscular Left Deltoid 01/15/2016 07/04/2014 33 History of Past Illness Name Date of Onset Comments Hypertension Diabetes Mellitus, Type II stroke Multiple Myeloma, in remission Arthritis unspecified Essential Hypertension Jun 30 2009 9:57AM Diabetes Mellitus, Type II Jun 30 2009 9:57AM Osteoarthritis Jun 30 2009 9:57AM Low Back Pain Jun 30 2009 9:57AM Multiple Myeloma Jun 30 2009 9:57AM Hyperlipidemia Essential Hypertension Jul 29 2009 11:38AM Diabetes Mellitus, Type II Jul 29 2009 11:38AM Osteoarthritis Jul 29 2009 11:38AM Multiple Myeloma Jul 29 2009 11:38AM Rhinitis, Allergic Jul 29 2009 11:38AM Essential Hypertension Sep 10 2009 9:20AM Diabetes Mellitus, Type II Sep 10 2009 9:20AM Osteoarthritis Sep 10 2009 9:20AM Multiple Myeloma Sep 10 2009 9:20AM Rhinitis, Allergic Sep 10 2009 9:20AM Allergic rhinitis; due to pollen Sep 29 2009 11:23AM Allergic rhinitis; due to other allergen Sep 29 2009 11:23AM Allergic rhinitis; due to pollen Oct 08 2009 3:55PM Allergic rhinitis; due to other allergen Oct 08 2009 3:55PM Allergic rhinitis; due to pollen Oct 13 2009 11:38AM Allergic rhinitis; due to other allergen Oct 13 2009 11:38AM History of CVA or TIA Oct 22 2009 9:10AM Allergic rhinitis; due to pollen Oct 22 2009 9:10AM Allergic rhinitis; due to other allergen Oct 22 2009 9:10AM Allergic rhinitis; due to pollen Nov 13 2009 10:14AM Allergic rhinitis; due to other allergen Nov 13 2009 10:14AM Essential Hypertension Nov 18 2009 3:31PM Diabetes Mellitus, Type II Nov 18 2009 3:31PM Osteoarthritis Nov 18 2009 3:31PM Multiple Myeloma Nov 18 2009 3:31PM Rhinitis, Allergic Nov 18 2009 3:31PM Allergic rhinitis; due to pollen Nov 18 2009 4:26PM Allergic rhinitis; due to other allergen Nov 18 2009 4:26PM Edema Nov 18 2009 3:31PM Allergic rhinitis; due to pollen Nov 26 2009 3:43PM Allergic rhinitis; due to other allergen Nov 26 2009 3:43PM Actinic keratoses 09/01/2013 Nevus 09/01/2013 Hypertension, Benign Essential Dec 01 2009 1:51PM Allergic rhinitis; due to pollen Dec 01 2009 1:54PM Allergic rhinitis; due to other allergen Dec 01 2009 1:54PM Osteoarthritis 10/24/2013 Hypertension, Benign Essential Dec 10 2009 3:27PM Allergic rhinitis; due to pollen Dec 10 2009 3:27PM Allergic rhinitis; due to other allergen Dec 10 2009 3:27PM Depression 10/24/2013 Leg swelling 10/24/2013 Essential Hypertension Dec 15 2009 8:52AM Diabetes Mellitus, Type II Dec 15 2009 8:52AM Osteoarthritis Dec 15 2009 8:52AM Multiple Myeloma Dec 15 2009 8:52AM Rhinitis, Allergic Dec 15 2009 8:52AM Edema Dec 15 2009 8:52AM Gout Dec 15 2009 8:52AM Hypotestosteronemia 12/20/2013 Allergic rhinitis; due to pollen Dec 29 2009 10:23AM Allergic rhinitis; due to other allergen Dec 29 2009 10:23AM Essential Hypertension Jan 01 2010 8:49AM Diabetes Mellitus, Type II Jan 01 2010 8:49AM Osteoarthritis Jan 01 2010 8:49AM Multiple Myeloma Jan 01 2010 8:49AM Rhinitis, Allergic Jan 01 2010 8:49AM Edema Jan 01 2010 8:49AM Gout Jan 01 2010 8:49AM Ingrown Nail Jan 01 2010 8:49AM Allergic rhinitis; due to pollen Jan 05 2010 1:18PM Allergic rhinitis; due to other allergen Jan 05 2010 1:18PM Allergic rhinitis; due to pollen Jan 12 2010 9:05AM Allergic rhinitis; due to other allergen Jan 12 2010 9:05AM Hypertension, Benign Essential Jan 12 2010 9:05AM Allergic rhinitis; due to other allergen Feb 02 2010 2:50PM Upper Respiratory Infections Feb 02 2010 2:50PM Allergic rhinitis; due to pollen Feb 08 2010 4:16PM Allergic rhinitis; due to other allergen Feb 08 2010 4:16PM Allergic rhinitis; due to pollen Feb 08 2010 4:20PM Allergic rhinitis; due to other allergen Feb 08 2010 4:20PM Allergic rhinitis; due to pollen Feb 11 2010 8:56AM Allergic rhinitis; due to other allergen Feb 11 2010 8:56AM Allergic rhinitis; due to pollen Feb 11 2010 10:24AM Allergic rhinitis; due to other allergen Feb 11 2010 10:24AM Allergic rhinitis; due to pollen Feb 16 2010 9:48AM Allergic rhinitis; due to other allergen Feb 16 2010 9:48AM Allergic rhinitis; due to pollen Mar 02 2010 9:04AM Allergic rhinitis; due to other allergen Mar 02 2010 9:04AM Allergic rhinitis; due to pollen Mar 24 2010 1:13PM Allergic rhinitis; due to other allergen Mar 24 2010 1:13PM Colon cancer screening 11/12/2014 Allergic rhinitis; due to other allergen Apr 05 2010 11:08AM Sinusitis, Acute Apr 05 2010 11:08AM Diabetic peripheral neuropathy 01/05/2015 Hypertension 01/05/2015 Osteoarthritis 01/05/2015 Allergic rhinitis; due to other allergen May 04 2010 9:33AM Multiple Myeloma May 04 2010 9:33AM Adenofibromatous hypertrophy of prostate 05/14/2015 Depression 05/19/2015 Malignant neoplasm of urinary bladder, unspecified site 05/19/2015 Malignant neoplasm of dome of urinary bladder 07/02/2015 Urgency of micturition 07/21/2015 Bladder cancer 07/21/2015 Bladder carcinoma 08/04/2015 Benign fibroma of prostate 08/25/2015 Bladder malignancy 09/01/2015 Carcinoma of bladder 10/15/2015 Essential Hypertension Jul 01 2010 10:06AM Diabetes Mellitus, Type II Jul 01 2010 10:06AM Osteoarthritis Jul 01 2010 10:06AM Multiple Myeloma Jul 01 2010 10:06AM Rhinitis, Allergic Jul 01 2010 10:06AM Edema Jul 01 2010 10:06AM Gout Jul 01 2010 10:06AM Multiple myeloma 01/04/2016 Rash of Skin Aug 24 2010 11:24AM Maxillary Sinusitis, Acute Sep 01 2010 8:12AM Essential Hypertension Sep 09 2010 8:20AM Diabetes Mellitus, Type II Sep 09 2010 8:20AM Osteoarthritis Sep 09 2010 8:20AM Multiple Myeloma Sep 09 2010 8:20AM Rhinitis, Allergic Sep 09 2010 8:20AM Edema Sep 09 2010 8:20AM Gout Sep 09 2010 8:20AM Hypertension Sep 17 2010 9:00AM Diabetes Mellitus, Type II Sep 17 2010 9:00AM Hyperlipidemia Sep 17 2010 9:00AM Essential Hypertension Sep 23 2010 9:54AM Diabetes Mellitus, Type II Sep 23 2010 9:54AM Osteoarthritis Sep 23 2010 9:54AM Multiple Myeloma Sep 23 2010 9:54AM Rhinitis, Allergic Sep 23 2010 9:54AM Edema Sep 23 2010 9:54AM Gout Sep 23 2010 9:54AM Hyperlipidemia Sep 23 2010 9:54AM Allergic rhinitis; due to other allergen Oct 07 2010 3:02PM Sinusitis, Acute Oct 07 2010 3:02PM Essential Hypertension Nov 10 2010 10:32AM Diabetes Mellitus, Type II Nov 10 2010 10:32AM Hyperlipidemia Nov 10 2010 10:32AM Osteoarthritis Nov 10 2010 10:32AM Multiple Myeloma Nov 10 2010 10:32AM Rhinitis, Allergic Nov 10 2010 10:32AM Edema Nov 10 2010 10:32AM Gout Nov 10 2010 10:32AM Essential Hypertension Dec 15 2010 10:16AM Diabetes Mellitus, Type II Dec 15 2010 10:16AM Hyperlipidemia Dec 15 2010 10:16AM Osteoarthritis Dec 15 2010 10:16AM Multiple Myeloma Dec 15 2010 10:16AM Rhinitis, Allergic Dec 15 2010 10:16AM Edema Dec 15 2010 10:16AM Gout Dec 15 2010 10:16AM Allergic rhinitis; due to other allergen Feb 01 2011 8:36AM Sinusitis, Acute Feb 01 2011 8:36AM Hypertension Mar 21 2011 4:30PM Diabetes Mellitus, Type II Mar 21 2011 4:30PM Hyperlipidemia Mar 21 2011 4:30PM Essential Hypertension Mar 23 2011 10:00AM Diabetes Mellitus, Type II Mar 23 2011 10:00AM Hyperlipidemia Mar 23 2011 10:00AM Osteoarthritis Mar 23 2011 10:00AM Multiple Myeloma Mar 23 2011 10:00AM Rhinitis, Allergic Mar 23 2011 10:00AM Edema Mar 23 2011 10:00AM Gout Mar 23 2011 10:00AM Essential Hypertension Apr 05 2011 8:50AM Diabetes Mellitus, Type II Apr 05 2011 8:50AM Hyperlipidemia Apr 05 2011 8:50AM Osteoarthritis Apr 05 2011 8:50AM Multiple Myeloma Apr 05 2011 8:50AM Rhinitis, Allergic Apr 05 2011 8:50AM Edema Apr 05 2011 8:50AM Gout Apr 05 2011 8:50AM Allergic rhinitis; due to other allergen Apr 26 2011 11:15AM Sinusitis, Acute Apr 26 2011 11:15AM Upper Respiratory Infections Jun 22 2011 2:29PM Essential Hypertension Jun 27 2011 2:08PM Diabetes Mellitus, Type II Jun 27 2011 2:08PM Hyperlipidemia Jun 27 2011 2:08PM Osteoarthritis Jun 27 2011 2:08PM Multiple Myeloma Jun 27 2011 2:08PM Rhinitis, Allergic Jun 27 2011 2:08PM Edema Jun 27 2011 2:08PM Gout Jun 27 2011 2:08PM Essential Hypertension Sep 16 2011 10:43AM Diabetes Mellitus, Type II Sep 16 2011 10:43AM Hyperlipidemia Sep 16 2011 10:43AM Osteoarthritis Sep 16 2011 10:43AM Multiple Myeloma Sep 16 2011 10:43AM Rhinitis, Allergic Sep 16 2011 10:43AM Edema Sep 16 2011 10:43AM Gout Sep 16 2011 10:43AM Bronchitis, Acute Sep 16 2011 10:43AM Postoperative Follow-up May 29 2012 10:22AM Benign Neoplasm Of Skin Of Face May 22 2012 10:22AM Benign Neoplasm Of Skin Of Trunk May 22 2012 10:22AM Basal Cell Carcinoma of Skin May 22 2012 10:22AM Sinusitis Mar 20 2013 6:44PM Upper Respiratory Infections Mar 26 2013 2:30PM Fatigue Apr 05 2013 1:04PM Diabetes Mellitus, Type II Apr 26 2013 10:04AM Hypertension Apr 26 2013 10:04AM Hyperlipidemia Apr 26 2013 10:04AM Polyneuropathy Apr 26 2013 10:04AM Tinnitus Apr 26 2013 10:04AM Malignant Neoplasm, Personal History of Apr 26 2013 10:04AM Sinusitis, Acute Jun 26 2013 11:18AM Gastroenteritis, Viral Jun 26 2013 11:18AM Upper Respiratory Infections Aug 01 2013 1:54PM Candidiasis Of Mouth Aug 01 2013 1:54PM Actinic keratoses Aug 30 2013 12:55PM Nevus Aug 30 2013 12:55PM Bronchitis, Acute Sep 13 2013 2:00PM Acute maxillary sinusitis Sep 13 2013 2:00PM Knee pain, acute, right Sep 17 2013 10:52AM Osteoarthritis Sep 17 2013 10:52AM Osteoarthritis Oct 01 2013 4:01PM Knee pain, right Oct 01 2013 4:01PM Prostate cancer screening Oct 24 2013 10:12AM Diabetes Mellitus, Type II Oct 24 2013 10:12AM Hypertension Oct 24 2013 10:12AM Osteoarthritis Oct 24 2013 10:12AM Hyperlipidemia Oct 24 2013 10:12AM Muscle pain Oct 24 2013 10:12AM Depression Oct 24 2013 10:12AM Leg swelling Oct 24 2013 10:12AM Hyperlipidemia Nov 19 2013 11:50AM [facility] medication use Nov 19 2013 11:50AM Sinusitis, Acute Nov 19 2013 11:39AM Abdominal Pain Nov 29 2013 9:33AM Upper Respiratory Infections Nov 29 2013 9:33AM Diarrhea Nov 29 2013 9:33AM Fatigue Dec 09 2013 11:34AM Erectile dysfunction Dec 09 2013 11:34AM Hypotestosteronemia Dec 18 2013 2:00PM Diabetes Mellitus, Type II Jul 24 2013 10:42AM Hypertension Jul 24 2013 10:42AM Hyperlipidemia Jul 24 2013 10:42AM Cerebrovascular disease Jul 24 2013 10:42AM Back Pain Jan 02 2014 3:27PM Actinic keratoses Jan 02 2014 3:27PM Depression Jan 02 2014 3:27PM Hypotestosteronemia Jan 02 2014 3:27PM Leg swelling Jan 02 2014 3:27PM stroke Jan 02 2014 3:27PM Hyperlipidemia Jan 02 2014 3:27PM Disturbance, sleep Jan 02 2014 3:27PM Hand paresthesia Jan 02 2014 3:27PM Lumbar pain Dec 31 2013 10:09AM Low testosterone Feb 04 2014 10:42AM Diabetes Mellitus, Type II Apr 03 2014 1:50PM Fatigue Apr 03 2014 1:50PM Hypotestosteronemia Apr 03 2014 1:50PM stroke Apr 03 2014 1:50PM Hyperlipidemia Apr 03 2014 1:50PM Multiple myeloma Apr 03 2014 1:50PM Neuropathy Apr 03 2014 1:50PM Hypotestosteronemia May 01 2014 11:35AM Diabetes Mellitus, Type II Oct 22 2014 3:33PM Hypotestosteronemia Oct 22 2014 4:07PM Lymphedema Oct 22 2014 3:33PM Actinic keratoses Oct 22 2014 3:33PM Depression Oct 22 2014 3:33PM Hypotestosteronemia Oct 22 2014 3:33PM Leg swelling Oct 22 2014 3:33PM Nevus Oct 22 2014 3:33PM Osteoarthritis Oct 22 2014 3:33PM stroke Oct 22 2014 3:33PM Hypertension Oct 22 2014 3:33PM Hyperlipidemia Oct 22 2014 3:33PM Diabetes Mellitus, Type II Oct 22 2014 3:33PM Abdominal Pain Oct 29 2014 2:33PM Upper Respiratory Infections Oct 29 2014 2:33PM Headache Oct 29 2014 2:33PM Colon Cancer Screening Nov 11 2014 12:14PM Left shoulder pain Dec 19 2014 9:52AM Impingement syndrome of left shoulder Dec 19 2014 9:52AM Rotator cuff impingement syndrome, left Dec 19 2014 9:52AM Diabetes Mellitus, Type II Jan 01 2015 3:10PM Androgen deficiency Jan 01 2015 3:10PM Diabetic peripheral neuropathy Jan 01 2015 3:10PM Depression Jan 01 2015 3:10PM Osteoarthritis Jan 01 2015 3:10PM Hypertension Jan 01 2015 3:10PM Acute URI Jan 01 2015 3:10PM Hypotestosteronemia Feb 03 2015 2:32PM Flu Vaccine Feb 03 2015 2:35PM Hypotestosteronemia Mar 04 2015 2:04PM Diabetes Mellitus, Type II Feb 03 2015 1:51PM Fatigue Feb 03 2015 1:51PM Mood disturbance Feb 03 2015 1:51PM Grief reaction Feb 03 2015 1:51PM Acute bronchitis, unspecified organism Mar 17 2015 11:01AM Acute bronchitis, unspecified organism Mar 23 2015 2:14PM Cough Mar 23 2015 2:14PM Weakness Mar 23 2015 2:14PM Recurrent and persistent hematuria May 08 2015 8:32AM Hematuria May 08 2015 11:04AM BPH (benign prostatic hypertrophy) May 08 2015 11:04AM Screening for prostate cancer May 08 2015 11:04AM Diabetes Mellitus, Type II Mar 04 2015 1:10PM Hypertension Mar 04 2015 1:10PM Bladder mass May 08 2015 8:32AM Bladder malignancy May 14 2015 8:56AM Adenofibromatous hypertrophy of prostate May 14 2015 8:56AM Hypertension May 19 2015 10:47AM Hyperlipidemia May 19 2015 10:47AM Type 2 diabetes mellitus with other specified complication May 19 2015 10: 47AM Depression May 19 2015 10:47AM Osteoarthritis May 19 2015 10:47AM Malignant neoplasm of urinary bladder, unspecified site May 19 2015 10:47AM UTI (urinary tract infection) May 25 2015 1:25PM UTI (urinary tract infection) May 28 2015 10:52AM Testosterone deficiency Jun 18 2015 11:13AM Malignant neoplasm of dome of urinary bladder Jul 02 2015 1:36PM Adenofibromatous hypertrophy of prostate Jul 02 2015 1:36PM Allergic rhinitis, unspecified allergic rhinitis type Jul 17 2015 9:55AM Testosterone deficiency Jul 17 2015 9:55AM Bladder cancer Jul 21 2015 11:56AM Urgency of micturition Jul 21 2015 11:56AM Diabetes Mellitus, Type II Jul 21 2015 9:14AM Recurrent major depressive disorder, in partial remission Jul 21 2015 9:14AM Medication monitoring encounter Jul 21 2015 9:14AM Malignant neoplasm of urinary bladder, unspecified site Jul 21 2015 9:14AM Skin cancer Jul 21 2015 9:14AM Bladder cancer Jul 29 2015 3:51PM Adenofibromatous hypertrophy of prostate Jul 29 2015 3:51PM Bladder carcinoma Aug 04 2015 11:13AM Adenofibromatous hypertrophy of prostate Aug 04 2015 11:13AM Bladder carcinoma Aug 12 2015 9:40AM Adenofibromatous hypertrophy of prostate Aug 12 2015 9:40AM Diabetes Mellitus, Type II Aug 14 2015 8:47AM Hypertension Aug 14 2015 8:47AM Hyperlipidemia, unspecified Aug 14 2015 8:47AM Bladder cancer Aug 25 2015 11:55AM Benign fibroma of prostate Aug 25 2015 11:55AM Bladder malignancy Sep 01 2015 12:41PM Adenofibromatous hypertrophy of prostate Sep 01 2015 12:41PM Diabetes Mellitus, Type II Sep 15 2015 8:22AM Hypertension Sep 15 2015 8:22AM Hyperlipidemia, unspecified Sep 15 2015 8:22AM Testosterone deficiency Sep 23 2015 9:38AM Carcinoma of bladder Oct 15 2015 11:35AM Adenofibromatous hypertrophy of prostate Oct 15 2015 11:35AM Diabetes Mellitus, Type II Sep 23 2015 9:38AM Fatigue Sep 23 2015 9:38AM Bladder cancer Sep 23 2015 9:38AM Skin cancer Sep 23 2015 9:38AM Multiple myeloma Sep 23 2015 9:38AM Hyperlipidemia, Mixed Dec 04 2015 11:29AM Hypertension Dec 04 2015 11:29AM Bladder cancer Dec 04 2015 11:29AM Diabetic peripheral neuropathy Dec 04 2015 11:29AM Hypotestosteronemia Dec 04 2015 11:29AM Leg swelling Dec 04 2015 11:29AM Hyperlipidemia Dec 04 2015 11:29AM Multiple myeloma Dec 04 2015 11:29AM Flu Vaccine Jan 15 2016 8:58AM Pneumonia vaccine Jan 15 2016 8:58AM Diabetes Mellitus, Type II Jan 07 2016 1:59PM Multiple myeloma Jan 07 2016 1:59PM Bladder cancer Jan 07 2016 1:59PM SVT (supraventricular tachycardia) Jan 07 2016 1:59PM Type 2 diabetes mellitus with diabetic neuropathy, unspecified Jan 07 2016 1: 59PM Bladder carcinoma Feb 08 2016 1:45PM Multiple myeloma Feb 08 2016 1:45PM Generalized weakness Feb 08 2016 1:45PM Skin lesion Feb 08 2016 1:45PM Type 2 diabetes mellitus with diabetic nephropathy Apr 20 2016 1:52PM Acute intractable headache, unspecified headache type Apr 20 2016 1:52PM Dizziness Apr 20 2016 1:52PM Visual changes Apr 20 2016 1:52PM Osteoarthritis Apr 06 2016 9:17AM Sinusitis, Acute Apr 06 2016 9:17AM Multiple myeloma Apr 06 2016 9:17AM Sinus tachycardia Apr 06 2016 9:17AM Dermatitis May 12 2016 1:14PM Viral gastritis Jun 01 2016 9:12AM Generalized weakness Jun 01 2016 9:12AM Hypertension Jul 20 2016 11:32AM Degenerative disc disease, lumbar Sep 19 2016 3:38PM Diabetes Mellitus, Type II Sep 19 2016 3:38PM Sinus infection Oct 25 2016 3:42PM Hypertension Dec 20 2016 2:28PM Elevated fasting glucose Dec 20 2016 2:28PM Multiple myeloma Dec 20 2016 2:28PM Diabetes Mellitus, Type II Dec 20 2016 4:15PM Diarrhea Jan 18 2017 2:46PM Chills Jan 18 2017 2:46PM Chest pain Jan 18 2017 2:46PM DEBRA (acute kidney injury) Feb 08 2017 11:22AM Polyuria Feb 08 2017 11:22AM Payers Insurance Name Company Name Plan Name Plan Number Policy Number Policy Group Number Start Date Medicare RHC Medicare RHC [id number] N/A Medicare Part A Medicare - Lab/Xray [id number] N/A Medicare Part B Medicare [place] [id number] January2006 [place] [facility] Medical Assistance Prog [id number] Tuesday, June 30, 2009 Medicare Part A Medicare Part A [id number] N/A History of Encounters Visit Date Visit Type Provider 02/08/2017 Office visit Yady Capps MD 01/18/2017 Office visit Yady Capps MD 12/20/2016 Office visit Yady Capps MD 10/25/2016 Office visit aYdy Capps MD 09/19/2016 Office visit Yady Capps MD 06/01/2016 Office visit Yady Capps MD 05/12/2016 Office visit Ewa Gan APRN 04/20/2016 Office visit Ewa Gan APRN 04/20/2016 [facility] Lamont Hannon MD 04/06/2016 Office visit Yady Capps MD 02/08/2016 Office visit Yady Capps MD 01/15/2016 Nurse visit Yady Capps MD 01/07/2016 Office visit Yady Capps MD 12/23/2015 [facility] Pablo Vergara MD 12/04/2015 Office visit Yady Capps MD 10/15/2015 Office visit Davion Montgomery MD 10/05/2015 Hospital V Jennifer Montgomery MD 09/23/2015 Office visit Yady Capps MD 09/01/2015 Procedures V Jennifer Montgomery MD 08/25/2015 Procedures Davion Montgomery MD 08/12/2015 Procedures V Jennifer Montgomery MD 08/04/2015 Procedures V Jennifer Montgomery MD 07/29/2015 Procedures V Jennifer Montgomery MD 07/21/2015 Procedures V Jennifer Montgomery MD 07/21/2015 Office visit Yady Capps MD 07/17/2015 Office visit Ewa Gan SCIENT[employer] A[employer]AIRS MANAGER 07/02/2015 Office visit Davion Montgomery MD 06/29/2015 Hospital Davion Montgomery MD 06/18/2015 Nurse visit Ewa Gan SCIENTIFIC AFFAIRS MANAGER 05/28/2015 Office visit Davion Montgomery MD 05/19/2015 Office visit Ewa Gan SCIENTIFIC AFFAIRS MANAGER 05/14/2015 Office visit Davion Montgomery MD 05/11/2015 [facility] Davion Montgomery MD 05/08/2015 Office visit Davion Montgomery MD 05/08/2015 Office visit Martir Stout SCIENTIFIC AFFAIRS MANAGER 05/08/2015 [facility] Davion Montgomery MD 05/07/2015 [facility] Lamont Hannon MD 03/23/2015 Office visit Ewa Gan SCIENTIFIC AFFAIRS MANAGER 03/17/2015 Office visit Ewa Gan SCIENTIFIC AFFAIRS MANAGER 03/04/2015 Office visit Yady Capps MD 02/03/2015 Office visit Yady Capps MD 01/01/2015 Office visit Ewa Gan SCIENTIFIC AFFAIRS MANAGER 12/19/2014 Office visit William Melgoza DO 11/24/2014 [facility] William Melgoza DO 11/11/2014 Office visit William Melgoza DO 10/29/2014 Office visit Ewa Gan SCIENTIFIC AFFAIRS MANAGER 10/22/2014 Office visit Yady Capps MD 07/02/2014 Voided Yady Capps MD 04/03/2014 Office visit Yady Capps MD 03/26/2014 Nurse visit Ewa Gan SCIENTIFIC AFFAIRS MANAGER 02/21/2014 Hospital Lamont Hannon MD 01/17/2014 Nurse visit Martir Stout SCIENTIFIC AFFAIRS MANAGER 01/02/2014 Office visit Yady Capps MD 12/31/2013 Office visit Martir Stout SCIENTIFIC AFFAIRS MANAGER 12/18/2013 Office visit Martir Stout SCIENTIFIC AFFAIRS MANAGER 12/09/2013 Office visit Ewa Gan SCIENTIFIC AFFAIRS MANAGER 11/29/2013 Office visit Ewa Gan SCIENTIFIC AFFAIRS MANAGER 11/19/2013 Office visit Yady Capps MD 10/24/2013 Office visit Ewa Gan SCIENTIFIC AFFAIRS MANAGER 10/01/2013 Office visit Ewa Gan SCIENTIFIC AFFAIRS MANAGER 09/17/2013 Office visit Ewa Gan SCIENTIFIC AFFAIRS MANAGER 09/13/2013 Office visit Irma Pérez SCIENTIFIC AFFAIRS MANAGER 09/11/2013 Procedures William Bouman DO 08/28/2013 Procedures William Bouman DO 08/01/2013 Office visit Ewa Gan SCIENTIFIC AFFAIRS MANAGER 07/24/2013 Office visit Yady Capps MD 06/26/2013 Office visit Alana Hernandez SCIENTIFIC AFFAIRS MANAGER 04/26/2013 Office visit Yady Capps MD 03/26/2013 Office visit Ewa Malik SCIENTIFIC AFFAIRS MANAGER 03/20/2013 Office visit Martir Argelia SCIENTIFIC AFFAIRS MANAGER 05/29/2012 Office visit Familia Spence MD 05/22/2012 Office visit Familia Spence MD 09/16/2011 Office visit Virginie Shane MD 06/27/2011 Office visit Virginie Shane MD 06/22/2011 Office visit Ewa Gan SCIENTIFIC AFFAIRS MANAGER 04/26/2011 Office visit Virginie Shane MD 04/05/2011 Office visit Virginie Shane MD 03/23/2011 Office visit Virginie Shane MD 02/01/2011 Office visit Virginie Shane MD 12/15/2010 Office visit Virginie Shane MD 11/10/2010 Office visit Virginie Shane MD 11/08/2010 [facility] Lamont Hannon MD 10/07/2010 Office visit Virginie Shane MD 09/23/2010 Office visit Virginie Shane MD 09/09/2010 Office visit Virginie Shane MD 09/01/2010 Office visit Evelina DICKEY 08/24/2010 Office visit Virginie Shane MD 07/01/2010 Office visit Virginie Shane MD 05/04/2010 Office visit Virginie Shane MD 04/05/2010 Office visit Virginie Shane MD 03/24/2010 Nurse visit Leonor Dudley RN 03/02/2010 Nurse visit Virginie Shane MD 02/23/2010 Voided Virginie Shane MD 02/16/2010 Nurse visit Virginie Shane MD 02/11/2010 Nurse visit Virginie Shane MD 02/02/2010 Office visit Virginie Shane MD 01/26/2010 Nurse visit Virginie Shane MD 01/21/2010 Nurse visit Virginie Shane MD 01/12/2010 Nurse visit Virginie Shane MD 01/05/2010 Nurse visit Virginie Shane MD 01/01/2010 Office visit Virginie Shane MD 12/29/2009 Nurse visit Virginie Shane MD 12/22/2009 Nurse visit Virginie Shane MD 12/15/2009 Office visit Virginie Shane MD 12/10/2009 Nurse visit Austin Kingsley MD 12/01/2009 Nurse visit Virginie Shane MD 11/26/2009 Nurse visit Virginie Shane MD 11/18/2009 Office visit Virginie Shane MD 11/13/2009 Nurse visit Virginie Shane MD 10/22/2009 Office visit Nedra ZACARIAS 10/13/2009 Nurse visit Virginie Shane MD 10/08/2009 Nurse visit Virginie Shane MD 10/08/2009 [facility] Jhony French MD 10/07/2009 [facility] Eddie Lewis PA-C 10/06/2009 Laboratory Jhony French MD 09/29/2009 Nurse visit Virginie Shane MD 09/10/2009 Office visit Virginie Shane MD 07/28/2009 Office visit Virginie Shane MD 06/30/2009 Office visit Virginie Shane MD
--- NOTE | 2017-02-27 11:14 | ED GU-Male ---
General Chief Complaint: -Male Stated Complaint: URINATING BLOOD Source: patient Exam Limitations: no limitations History of Present Illness Time seen by provider: 11:12 Initial Comments To ER with reports of blood from the penis. He noticed this upon awakening this morning. He had a complete cystectomy and prostatectomy at the [facility] about a year ago for bladder cancer. He now has a urostomy bag. He does not urinate through the penis. He did have a STEMI here last month and is now on several anticoagulants. He is also wearing a life vest. He denies pain fevers or chills. Timing/Duration: this morning Associated Symptoms: dysuria Allergies and Home Medications Allergies Coded Allergies: Penicillins (Verified Allergy, Severe, THROAT SWELLS SHUT, 01/19/17) codeine (Verified Allergy, Intermediate, ITCHING, 01/19/17) tramadol (Verified Allergy, Intermediate, HIVES, 01/19/17) adhesive (Unverified Allergy, Unknown, RASH, 01/19/17) Home Medications Allopurinol 300 Mg Tablet, 300 MG PO HS, (Reported) Aspirin 81 Mg Tab.chew, 81 MG PO DAILY, (Reported) Atenolol 100 Mg Tablet, 100 MG PO BID, (Reported) Atorvastatin Calcium 80 Mg Tablet, 80 MG PO HS for 90 Days, #90 Ref 3 Prescribed by: Bg PEREZ on 01/27/17 1050 Bupropion HCl 150 Mg Tab.er.24h, 150 MG PO HS, (Reported) Cetirizine HCl 10 Mg Tablet, 10 MG PO DAILY, (Reported) Cyanocobalamin (Vitamin B-12) 2,000 Mcg Tablet.er, 2,000 MCG PO DAILY, (Reported ) Duloxetine HCl 60 Mg Capsule.dr, 60 MG PO DAILY, (Reported) Furosemide 20 Mg Tablet, 20 MG PO DAILY PRN for SWELLING, (Reported) Glimepiride 4 Mg Tablet, 4 MG PO BID, (Reported) Hydrocodone/Acetaminophen 1 Each Tablet, 1 TAB PO Q6H PRN for PAIN-MODERATE, ( Reported) Lenalidomide 2.5 Mg Capsule, 2.5 MG PO DAILY, (Reported) Lisinopril 10 Mg Tablet, 10 MG PO DAILY for 90 Days, #90 Ref 3 Prescribed by: Bg PEREZ on 01/27/17 1050 Multivitamin 1 Each Tablet, 1 TAB PO DAILY, (Reported) Ondansetron HCl 8 Mg Tablet, 8 MG PO TID PRN for NAUSEA/VOMITING-1ST LINE, ( Reported) Potassium Chloride 10 Meq Capsule.er, 10 MEQ PO DAILY PRN for WHEN TAKING FUROSEMIDE, (Reported) Pregabalin 75 Mg Capsule, 75 MG PO BID, (Reported) Pyridoxine HCl 100 Mg Tablet, 100 MG PO BID, (Reported) Ticagrelor 90 Mg Tablet, 90 MG PO BID for 90 Days, #180 Ref 3 Prescribed by: Bg PEREZ on 01/27/17 1050 Constitutional: see HPI EENTM: see HPI Respiratory: no symptoms reported Cardiovascular: no symptoms reported Genitourinary: see HPI, hematuria Skin: no symptoms reported Psychiatric/Neurological: No Symptoms Reported Endocrine: No Symptoms Reported Past Ffriias-Gjsfrq-Ceoxlh Hx Patient Social History Type Used: Cigarettes 2nd Hand Smoke Exposure: Yes Recent Foreign Travel: No Contact w/Someone Who Travel: No Recent Hopitalizations: Yes (LAST WEEK) Immunizations Up To Date Date of Pneumonia Vaccine: Dec 20, 2010 Date of Influenza Vaccine: Dec 20, 2016 Seasonal Allergies Seasonal Allergies: Yes Surgeries History of Surgeries: Yes (lap lillian, collarbone fx, neuroma's removed from both feet, knee scop) Surgeries: Orthopedic, Renal Respiratory History of Respiratory Disorde: Yes Cardiovascular History of Cardiac Disorders: Yes Cardiac Disorders: Coronary Artery Disease, High Cholesterol, Hypertension Neurological History of Neurological Disord: Yes Neurological Disorders: Stroke Reproductive System Hx Reproductive Disorders: No Sexually Transmitted Disease: No Genitourinary History of Genitourinary Disor: Yes (bladder cancer s/p resection with anteior bladder bag) Genitourinary Disorders: Renal Failure Gastrointestinal History of Gastrointestinal Di: No Musculoskeletal History of Musculoskeletal Dis: Yes Musculoskeletal Disorders: Arthritis Endocrine History of Endocrine Disorders: Yes Endocrine Disorders: Diabetes, Non-Insulin dep HEENT History of HEENT Disorders: No Cancer History of Cancer: Yes (multiple myeloma) Cancer: Bladder, Skin Psychosocial History of Psychiatric Problem: No Integumentary History of Skin or Integumenta: Yes (skin lesion) Blood Transfusions History of Blood Disorders: Yes Family Medical History Significant Family History: Heart Disease, CAD Over 55 Years Old Physical Exam Vital Signs Vital Sign - Last 12Hours 02/27/17 11:08 Temp 96.8 Pulse 66 Resp 20 B/P (MAP) 103/61 (75) Pulse Ox 100 O2 Delivery Room Air Capillary Refill : General Appearance: WD/WN, no apparent distress HEENT: PERRL/EOMI, normal ENT inspection Neck: non-tender, full range of motion Respiratory: normal breath sounds, no respiratory distress, no accessory muscle use Gastrointestinal: normal bowel sounds, non tender, soft Male: normal genitalia (left knee), other (there is dark blood coming from the urethral meatus. There is no evidence of injury to the penile shaft. He denies tenderness to palpation or any pain in the genitals.) Extremities: normal range of motion, non-tender Neurologic/Psychiatric: alert, normal mood/affect, oriented x 3 Skin: normal color, warm/dry Progress/Results/Core Measures Suspected Sepsis SIRS Temperature: Pulse: Respiratory Rate: Laboratory Tests 02/27/17 11:20: White Blood Count 6.7 Blood Pressure / Mean: Laboratory Tests 02/27/17 11:20: Creatinine 3.54H, Platelet Count 253, Total Bilirubin 0.9 Results/Orders Lab Results Laboratory Tests Test 02/27/17 11:20 Range/Units White Blood Count 6.7 4.3-11.0 10^3/uL Red Blood Count 3.69 L 4.35-5.85 10^6/uL Hemoglobin 12.4 L 13.3-17.7 G/DL Hematocrit 37 L 40-54 % Mean Corpuscular Volume 100 H 80-99 FL Mean Corpuscular Hemoglobin 34 25-34 PG Mean Corpuscular Hemoglobin Concent 34 32-36 G/DL Red Cell Distribution Width 16.0 H 10.0-14.5 % Platelet Count 253 130-400 10^3/uL Mean Platelet Volume 10.4 7.4-10.4 FL Neutrophils (%) (Auto) 57 42-75 % Lymphocytes (%) (Auto) 28 12-44 % Monocytes (%) (Auto) 10 0-12 % Eosinophils (%) (Auto) 4 0-10 % Basophils (%) (Auto) 2 0-10 % Neutrophils # (Auto) 3.8 1.8-7.8 X 10^3 Lymphocytes # (Auto) 1.8 1.0-4.0 X 10^3 Monocytes # (Auto) 0.7 0.0-1.0 X 10^3 Eosinophils # (Auto) 0.2 0.0-0.3 10^3/uL Basophils # (Auto) 0.1 0.0-0.1 10^3/uL Sodium Level 139 135-145 MMOL/L Potassium Level 4.0 3.6-5.0 MMOL/L Chloride Level 104 98-107 MMOL/L Carbon Dioxide Level 26 21-32 MMOL/L Anion Gap 9 5-14 MMOL/L Blood Urea Nitrogen 35 H 7-18 MG/DL Creatinine 3.54 H 0.60-1.30 MG/DL Estimat Glomerular Filtration Rate 18 BUN/Creatinine Ratio 10 Glucose Level 84 70-105 MG/DL Calcium Level 9.4 8.5-10.1 MG/DL Total Bilirubin 0.9 0.1-1.0 MG/DL Aspartate Amino Transf (AST/SGOT) 22 5-34 U/L Alanine Aminotransferase (ALT/SGPT) 31 0-55 U/L Alkaline Phosphatase 73 40-136 U/L Total Protein 8.4 H 6.4-8.2 GM/DL Albumin 4.4 3.2-4.5 GM/DL My Orders Orders - RACHEL ROMAN APRN Comprehensive Metabolic Panel (02/27/17 11:11) Saline Lock/Iv-Start (02/27/17 11:11) Ct Abdomen/Pelvis Wo (02/27/17 11:22) Cbc With Automated Diff (02/27/17 11:31) Ns Iv 500 Ml (Sodium Chloride 0.9%) (02/27/17 12:00) Vital Signs/I&O Vital Sign - Last 12Hours 02/27/17 11:08 Temp 96.8 Pulse 66 Resp 20 B/P (MAP) 103/61 (75) Pulse Ox 100 O2 Delivery Room Air Capillary Refill : Diagnostic Imaging Diagonstic Imaging: Xray Comments NAME: CATA SNELL [facility] REC#: [id number] PT STATUS: REG ER : 1955 PHYSICIAN: RACHEL ROMAN APRN ADMIT DATE: 02/27/17/ER Draft Date of Exam:02/27/17 CT ABDOMEN/PELVIS WO PROCEDURE: CT abdomen and pelvis without contrast. TECHNIQUE: Multiple contiguous axial images were obtained through the abdomen and pelvis without the use of intravenous contrast. INDICATION: Hematuria. History of bladder cancer. FINDINGS: The lung bases appear clear. The liver demonstrates hypodense lesions up to 1.6 cm in the dome and up to 1.1 cm in the inferior aspect of the right hepatic lobe presumably related to cysts. Cholecystectomy clips are seen. The spleen, the pancreas, and the adrenal glands appear unremarkable. There is moderate renal parenchymal atrophy on the left side and moderate hydroureteronephrosis on the left. 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 There is no obstructive stone identified. The abdominal aorta is normal in caliber. No para-aortic significantly enlarged lymph node is seen. No significant free fluid or fluid collection in the abdomen or pelvis is noted. Surgical clips and sutures are seen related to the ileostomy and anastomosis in the ileum. Moderate amounts of fecal material in the colon are noted. In the pelvis, there is evidence of prior radical cystectomy with no soft tissue mass identified. The osseous structures appear grossly unremarkable. IMPRESSION: 1. There is moderate hydroureteronephrosis on the left side and moderate renal parenchymal atrophy. No obstructive stone is seen. The findings could relate to stricture near the ureteric anastomosis with the ileal conduit. 2. Hypodense lesions in the liver are probably related to cysts. Dictated on workstation # [id number] Dict: 02/27/17 1210 Trans: 02/27/17 1223 [id number] Interpreted by: SERGIO BECK MD Electronically signed by: Departure Communication (Admissions) Progress Notes I spoke with Dr. Hamilton. He recommends antibiotics. He will see the patient in follow-up. He recommends the patient go up to [facility] to make sure there is no cancer in the urethra. Impression Impression: Primary Impression: Blood per penis Additional Impression: CKD (chronic kidney disease) stage 4, GFR 15-29 ml/min Disposition: 01 HOME, SELF-CARE Condition: Stable Departure-Patient Inst. Decision time for Depature: 12:34 Referrals: BRIANA RHODES MD (PCP) Primary Care Physician DOMENICO HAMILTON MD Patient Instructions: NO INSTRUCTIONS GIVEN Add. Discharge Instructions: 1. You should make a follow-up appointment with the [facility] urology department to make sure that there is no cancer in the urethra that could be causing this blood coming from the penis. Take the antibiotics as directed. Return to ER for any concerns. All discharge instructions reviewed with patient and/or family. Voiced understanding. Scripts Cefdinir (Cefdinir) 300 Mg Capsule 300 MG PO DAILY, #7 CAP Prov: RACHEL ROMAN APRN 02/27/17 Copy Copies To 1: DOMENICO HAMILTON MD, PETER J APRN Feb 27, 2017 11:14
[2017-02-27 11:36] LABS: BASOPHILS # (AUTO) 0.1 10^3/uL (0.0-0.1); BASOPHILS % (AUTO) 2 % (0-10); EOSINOPHILS # (AUTO) 0.2 10^3/uL (0.0-0.3); EOSINOPHILS % (AUTO) 4 % (0-10); LYMPHOCYTES # (AUTO) 1.8 X 10^3 (1.0-4.0); LYMPHOCYTES % (AUTO) 28 % (12-44); MEAN CORPUSCULAR HEMOGLOBIN 34 PG (25-34); MEAN CORPUSCULAR HGB CONC 34 G/DL (32-36); MEAN CORPUSCULAR VOLUME 100 FL (80-99); MEAN PLATELET VOLUME 10.4 FL (7.4-10.4); MONOCYTES # (AUTO) 0.7 X 10^3 (0.0-1.0); MONOCYTES % (AUTO) 10 % (0-12); NEUTROPHILS # (AUTO) 3.8 X 10^3 (1.8-7.8); NEUTROPHILS % (AUTO) 57 % (42-75); PLATELET COUNT 253 10^3/uL (130-400); RED BLOOD COUNT 3.69 10^6/uL (4.35-5.85); WHITE BLOOD COUNT 6.7 10^3/uL (4.3-11.0)
[2017-02-27 11:48] LABS: ALBUMIN 4.4 GM/DL (3.2-4.5); BILIRUBIN,TOTAL 0.9 MG/DL (0.1-1.0); CALCIUM 9.4 MG/DL (8.5-10.1); CREATININE SERUM 3.54 MG/DL (0.60-1.30); TOTAL PROTEIN 8.4 GM/DL (6.4-8.2)
[2017-02-27] MEDS ORDERED: NS IV 500 ML 500 ML IV SCH (12:00)
--- NOTE | 2017-02-27 12:23 | Diagnostic Imaging Report ---
PROCEDURE: CT abdomen and pelvis without contrast. TECHNIQUE: Multiple contiguous axial images were obtained through the abdomen and pelvis without the use of intravenous contrast. INDICATION: Hematuria. History of bladder cancer. FINDINGS: The lung bases appear clear. The liver demonstrates hypodense lesions up to 1.6 cm in the dome and up to 1.1 cm in the inferior aspect of the right hepatic lobe presumably related to cysts. Cholecystectomy clips are seen. The spleen, the pancreas, and the adrenal glands appear unremarkable. There is moderate renal parenchymal atrophy on the left side and moderate hydroureteronephrosis on the left. 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 There is no obstructive stone identified. The abdominal aorta is normal in caliber. No para-aortic significantly enlarged lymph node is seen. No significant free fluid or fluid collection in the abdomen or pelvis is noted. Surgical clips and sutures are seen related to the ileostomy and anastomosis in the ileum. Moderate amounts of fecal material in the colon are noted. In the pelvis, there is evidence of prior radical cystectomy with no soft tissue mass identified. The osseous structures appear grossly unremarkable. IMPRESSION: 1. There is moderate hydroureteronephrosis on the left side and moderate renal parenchymal atrophy. No obstructive stone is seen. The findings could relate to stricture near the ureteric anastomosis with the ileal conduit. 2. Hypodense lesions in the liver are probably related to cysts. Dictated by: Dictated on workstation # [id number]
[2017-02-27] MEDS ORDERED: CEFD300C3 PO (12:35)
[2017-02-27 12:46] VITALS: BP 105/61
--- OUTSIDE RECORDS SUMMARY | 2017-02-27 12:54 | XMS REPORT | Continuity of Care Document ---
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 (mass/volume) < ng/ mL <0.30 Myoglobin, serum - 01/18/17 22:05 Myoglobin, serum 106.1 ng/mL 10.0-92.0 Serum or plasma troponin i.cardiac measurement (mass/volume) - 01/19/17 04:05 Serum or plasma troponin i.cardiac measurement (mass/volume) < ng/ mL <0.30 Lipid 1996 panel - 01/19/17 04:05 Serum or plasma triglyceride measurement (mass/volume) 160 mg/dL <150 Serum or plasma cholesterol measurement (mass/volume) 94 mg/dL < 200 Serum or plasma cholesterol in HDL measurement (mass/volume) 30 mg/ dL 40-60 Cholesterol in LDL [mass/volume] in serum or plasma by direct assay 38 mg/dL 1-129 Serum or plasma cholesterol in VLDL measurement (mass/volume) 32 mg/ dL 5-40 Whole blood basic metabolic panel - 01/19/17 04:05 Serum or plasma sodium measurement (moles/volume) 138 mmol/L 135-145 Serum or plasma potassium measurement (moles/volume) 4.2 mmol/L 3.6-5.0 Serum or plasma chloride measurement (moles/volume) 108 mmol/L 98-107 Carbon dioxide 20 mmol/L 21-32 Serum or plasma anion gap determination (moles/volume) 10 mmol/L 5-14 Serum or plasma urea nitrogen measurement (mass/volume) 19 mg/dL 7-18 Serum or plasma creatinine measurement (mass/volume) 2.14 mg/dL 0.60-1.30 Serum or plasma urea nitrogen/creatinine mass ratio 9 NRG Serum or plasma creatinine measurement with calculation of estimated glomerular filtration rate 31 NRG Serum or plasma glucose measurement (mass/volume) 114 mg/dL 70-105 Serum or plasma calcium measurement (mass/volume) 8.7 mg/dL 8.5-10.1 PT panel in platelet poor plasma by coagulation assay - 01/24/17 18:06 Prothrombin time (PT) in platelet poor plasma by coagulation assay 13.0 s 12.2-14.7 INR in platelet poor plasma or blood by coagulation assay 1.0 0.8-1.4 Activated partial thromboplastin time (aPTT) in platelet poor plasma bycoagulation assay - 01/24/17 18:06 Activated partial thromboplastin time (aPTT) in platelet poor plasma bycoagulation assay 26 s 24-35 Comprehensive metabolic panel - 01/24/17 18:06 Serum or plasma sodium measurement (moles/volume) 137 mmol/L 135-145 Serum or plasma potassium measurement (moles/volume) 4.6 mmol/L 3.6-5.0 Serum or plasma chloride measurement (moles/volume) 108 mmol/L 98-107 Carbon dioxide 22 mmol/L -32 Serum or plasma anion gap determination (moles/volume) 7 mmol/L 5-14 Serum or plasma urea nitrogen measurement (mass/volume) 18 mg/dL 7-18 Serum or plasma creatinine measurement (mass/volume) 2.10 mg/dL 0.60-1.30 Serum or plasma urea nitrogen/creatinine mass ratio 9 NRG Serum or plasma creatinine measurement with calculation of estimated glomerular filtration rate 32 NRG Serum or plasma glucose measurement (mass/volume) 142 mg/dL 70-105 Serum or plasma calcium measurement (mass/volume) 9.1 mg/dL 8.5-10.1 Serum or plasma total bilirubin measurement (mass/volume) 0.5 mg/dL 0.1-1.0 Serum or plasma alkaline phosphatase measurement (enzymatic activity/volume) 67 U/L 40-136 Serum or plasma aspartate aminotransferase measurement (enzymatic activity/ volume) 22 U/L 5-34 Serum or plasma alanine aminotransferase measurement (enzymatic activity/volume ) 31 U/L 0-55 Serum or plasma protein measurement (mass/volume) 7.0 g/dL 6.4-8.2 Serum or plasma albumin measurement (mass/volume) 3.7 g/dL 3.2-4.5 Magnesium - 01/24/17 18:06 Magnesium 1.9 mg/dL 1.8-2.4 Serum or plasma troponin i.cardiac measurement (mass/volume) - 01/24/17 18:06 Serum or plasma troponin i.cardiac measurement (mass/volume) < ng/ mL <0.30 Myoglobin, serum - 01/24/17 18:06 Myoglobin, serum 94.6 ng/mL 10.0-92.0 Complete blood count (CBC) with automated white blood cell (WBC) differential - 01/24/17 18:06 Blood leukocytes automated count (number/volume) 8.5 10*3/uL 4.3-11.0 Blood erythrocytes automated count (number/volume) 3.66 10*6/uL 4.35-5.85 Venous blood hemoglobin measurement (mass/volume) 12.1 g/dL 13.3-17.7 Blood hematocrit (volume fraction) 37 % 40-54 Automated erythrocyte mean corpuscular volume 102 [foz_us] 80-99 Automated erythrocyte mean corpuscular hemoglobin (mass per erythrocyte) 33 pg 25-34 Automated erythrocyte mean corpuscular hemoglobin concentration measurement ( mass/volume) 33 g/dL 32-36 Automated erythrocyte distribution width ratio 15.2 % 10.0-14.5 Automated blood platelet count (count/volume) 255 10*3/uL 130-400 Automated blood platelet mean volume measurement 10.0 [foz_us] 7.4-10.4 Automated blood neutrophils/100 leukocytes 54 % 42-75 Automated blood lymphocytes/100 leukocytes 28 % 12-44 Blood monocytes/100 leukocytes 15 % 0-12 Automated blood eosinophils/100 leukocytes 3 % 0-10 Automated blood basophils/100 leukocytes 1 % 0-10 Blood neutrophils automated count (number/volume) 4.6 10*3 1.8-7.8 Blood lymphocytes automated count (number/volume) 2.4 10*3 1.0-4.0 Blood monocytes automated count (number/volume) 1.3 10*3 0.0-1.0 Automated eosinophil count 0.2 10*3/uL 0.0-0.3 Automated blood basophil count (count/volume) 0.1 10*3/uL 0.0-0.1 Complete blood count (CBC) with automated white blood cell (WBC) differential - 01/25/17 04:45 Blood leukocytes automated count (number/volume) 7.6 10*3/uL 4.3-11.0 Blood erythrocytes automated count (number/volume) 3.66 10*6/uL 4.35-5.85 Venous blood hemoglobin measurement (mass/volume) 11.5 g/dL 13.3-17.7 Blood hematocrit (volume fraction) 34 % 40-54 Automated erythrocyte mean corpuscular volume 94 [foz_us] 80-99 Automated erythrocyte mean corpuscular hemoglobin (mass per erythrocyte) 31 pg 25-34 Automated erythrocyte mean corpuscular hemoglobin concentration measurement ( mass/volume) 33 g/dL 32-36 Automated erythrocyte distribution width ratio 15.1 % 10.0-14.5 Automated blood platelet count (count/volume) 280 10*3/uL 130-400 Automated blood platelet mean volume measurement 9.6 [foz_us] 7.4-10.4 Automated blood neutrophils/100 leukocytes 68 % 42-75 Automated blood lymphocytes/100 leukocytes 22 % 12-44 Blood monocytes/100 leukocytes 10 % 0-12 Automated blood eosinophils/100 leukocytes 0 % 0-10 Automated blood basophils/100 leukocytes 0 % 0-10 Blood neutrophils automated count (number/volume) 5.2 10*3 1.8-7.8 Blood lymphocytes automated count (number/volume) 1.7 10*3 1.0-4.0 Blood monocytes automated count (number/volume) 0.7 10*3 0.0-1.0 Automated eosinophil count 0.0 10*3/uL 0.0-0.3 Automated blood basophil count (count/volume) 0.0 10*3/uL 0.0-0.1 Whole blood basic metabolic panel - 01/25/17 04:45 Serum or plasma sodium measurement (moles/volume) 138 mmol/L 135-145 Serum or plasma potassium measurement (moles/volume) 3.3 mmol/L 3.6-5.0 Serum or plasma chloride measurement (moles/volume) 107 mmol/L 98-107 Carbon dioxide 23 mmol/L 21-32 Serum or plasma anion gap determination (moles/volume) 8 mmol/L 5-14 Serum or plasma urea nitrogen measurement (mass/volume) 7 mg/dL 7-18 Serum or plasma creatinine measurement (mass/volume) 0.63 mg/dL 0.60-1.30 Serum or plasma urea nitrogen/creatinine mass ratio 11 NRG Serum or plasma creatinine measurement with calculation of estimated glomerular filtration rate > NRG Serum or plasma glucose measurement (mass/volume) 92 mg/dL 70-105 Serum or plasma calcium measurement (mass/volume) 8.0 mg/dL 8.5-10.1 Serum or plasma phosphate measurement (mass/volume) - 01/25/17 04:45 Serum or plasma phosphate measurement (mass/volume) 2.1 mg/dL 2.3-4.7 Magnesium - 01/25/17 04:45 Magnesium 1.7 mg/dL 1.8-2.4 Serum or plasma troponin i.cardiac measurement (mass/volume) - 01/25/17 04:45 Serum or plasma troponin i.cardiac measurement (mass/volume) < ng/ mL <0.30 Lipid 1996 panel - 01/25/17 04:45 Serum or plasma triglyceride measurement (mass/volume) 88 mg/dL <150 Serum or plasma cholesterol measurement (mass/volume) 95 mg/dL < 200 Serum or plasma cholesterol in HDL measurement (mass/volume) 34 mg/ dL 40-60 Cholesterol in LDL [mass/volume] in serum or plasma by direct assay 33 mg/dL 1-129 Serum or plasma cholesterol in VLDL measurement (mass/volume) 18 mg/ dL 5-40 Serum or plasma troponin i.cardiac measurement (mass/volume) - 01/25/17 13:48 Serum or plasma troponin i.cardiac measurement (mass/volume) 376.78 ng/mL <0.30 Complete blood count (CBC) with automated white blood cell (WBC) differential - 01/26/17 04:15 Blood leukocytes automated count (number/volume) 7.2 10*3/uL 4.3-11.0 Blood erythrocytes automated count (number/volume) 3.32 10*6/uL 4.35-5.85 Venous blood hemoglobin measurement (mass/volume) 11.1 g/dL 13.3-17.7 Blood hematocrit (volume fraction) 34 % 40-54 Automated erythrocyte mean corpuscular volume 102 [foz_us] 80-99 Automated erythrocyte mean corpuscular hemoglobin (mass per erythrocyte) 33 pg 25-34 Automated erythrocyte mean corpuscular hemoglobin concentration measurement ( mass/volume) 33 g/dL 32-36 Automated erythrocyte distribution width ratio 16.0 % 10.0-14.5 Automated blood platelet count (count/volume) 181 10*3/uL 130-400 Automated blood platelet mean volume measurement 10.3 [foz_us] 7.4-10.4 Automated blood neutrophils/100 leukocytes 60 % 42-75 Automated blood lymphocytes/100 leukocytes 23 % 12-44 Blood monocytes/100 leukocytes 15 % 0-12 Automated blood eosinophils/100 leukocytes 1 % 0-10 Automated blood basophils/100 leukocytes 1 % 0-10 Blood neutrophils automated count (number/volume) 4.3 10*3 1.8-7.8 Blood lymphocytes automated count (number/volume) 1.7 10*3 1.0-4.0 Blood monocytes automated count (number/volume) 1.1 10*3 0.0-1.0 Automated eosinophil count 0.1 10*3/uL 0.0-0.3 Automated blood basophil count (count/volume) 0.1 10*3/uL 0.0-0.1 Whole blood basic metabolic panel - 01/26/17 04:15 Serum or plasma sodium measurement (moles/volume) 138 mmol/L 135-145 Serum or plasma potassium measurement (moles/volume) 4.5 mmol/L 3.6-5.0 Serum or plasma chloride measurement (moles/volume) 109 mmol/L 98-107 Carbon dioxide 20 mmol/L 21-32 Serum or plasma anion gap determination (moles/volume) 9 mmol/L 5-14 Serum or plasma urea nitrogen measurement (mass/volume) 24 mg/dL 7-18 Serum or plasma creatinine measurement (mass/volume) 2.18 mg/dL 0.60-1.30 Serum or plasma urea nitrogen/creatinine mass ratio 11 NRG Serum or plasma creatinine measurement with calculation of estimated glomerular filtration rate 31 NRG Serum or plasma glucose measurement (mass/volume) 110 mg/dL 70-105 Serum or plasma calcium measurement (mass/volume) 8.5 mg/dL 8.5-10.1 Serum or plasma phosphate measurement (mass/volume) - 01/26/17 04:15 Serum or plasma phosphate measurement (mass/volume) 2.2 mg/dL 2.3-4.7 Magnesium - 01/26/17 04:15 Magnesium 1.8 mg/dL 1.8-2.4 Serum or plasma lithium measurement (moles/volume) - 01/26/17 04:15 BNP level 437.5 pg/mL <100.0 Complete blood count (CBC) with automated white blood cell (WBC) differential - 01/27/17 04:35 Blood leukocytes automated count (number/volume) 6.1 10*3/uL 4.3-11.0 Blood erythrocytes automated count (number/volume) 3.09 10*6/uL 4.35-5.85 Venous blood hemoglobin measurement (mass/volume) 10.3 g/dL 13.3-17.7 Blood hematocrit (volume fraction) 32 % 40-54 Automated erythrocyte mean corpuscular volume 104 [foz_us] 80-99 Automated erythrocyte mean corpuscular hemoglobin (mass per erythrocyte) 33 pg 25-34 Automated erythrocyte mean corpuscular hemoglobin concentration measurement ( mass/volume) 32 g/dL 32-36 Automated erythrocyte distribution width ratio 16.1 % 10.0-14.5 Automated blood platelet count (count/volume) 194 10*3/uL 130-400 Automated blood platelet mean volume measurement 10.4 [foz_us] 7.4-10.4 Automated blood neutrophils/100 leukocytes 62 % 42-75 Automated blood lymphocytes/100 leukocytes 18 % 12-44 Blood monocytes/100 leukocytes 18 % 0-12 Automated blood eosinophils/100 leukocytes 2 % 0-10 Automated blood basophils/100 leukocytes 1 % 0-10 Blood neutrophils automated count (number/volume) 3.8 10*3 1.8-7.8 Blood lymphocytes automated count (number/volume) 1.1 10*3 1.0-4.0 Blood monocytes automated count (number/volume) 1.1 10*3 0.0-1.0 Automated eosinophil count 0.1 10*3/uL 0.0-0.3 Automated blood basophil count (count/volume) 0.0 10*3/uL 0.0-0.1 Whole blood basic metabolic panel - 11/17/17 04:35 Serum or plasma sodium measurement (moles/volume) 138 mmol/L 135-145 Serum or plasma potassium measurement (moles/volume) 3.8 mmol/L 3.6-5.0 Serum or plasma chloride measurement (moles/volume) 110 mmol/L 98-107 Carbon dioxide 18 mmol/L 21-32 Serum or plasma anion gap determination (moles/volume) 10 mmol/L 5-14 Serum or plasma urea nitrogen measurement (mass/volume) 21 mg/dL 7-18 Serum or plasma creatinine measurement (mass/volume) 2.09 mg/dL 0.60-1.30 Serum or plasma urea nitrogen/creatinine mass ratio 10 NRG Serum or plasma creatinine measurement with calculation of estimated glomerular filtration rate 32 NRG Serum or plasma glucose measurement (mass/volume) 111 mg/dL 70-105 Serum or plasma calcium measurement (mass/volume) 8.3 mg/dL 8.5-10.1 Serum or plasma phosphate measurement (mass/volume) - 01/27/17 04:35 Serum or plasma phosphate measurement (mass/volume) 2.3 mg/dL 2.3-4.7 Magnesium - 01/27/17 04:35 Magnesium 1.8 mg/dL 1.8-2.4 Blood manual differential performed detection - 01/27/17 04:35 Blood monocytes/100 leukocytes 19 % NRG Manual blood segmented neutrophils/100 leukocytes 57 % NRG Blood band neutrophils/100 leukocytes 4 % NRG Manual blood lymphocytes/100 leukocytes 17 % NRG Manual eosinophils/100 leukocytes in nose 2 % NRG Manual blood basophils/100 leukocytes 1 % NRG Blood anisocytosis detection by light microscopy SLIGHT NRG Blood macrocytes detection by light microscopy SLIGHT NRG Encounters ACCT No. Visit Date/Time Discharge Status Pt. Type Provider Facility Loc./Unit Complaint [id number] 09/02/2011 14:26:00 09/02/2011 23:59:59 CLS Outpatient [id number] 09/02/2011 14:26:00 09/02/2011 23:59:59 CLS Outpatient [id number] 12/21/2016 13:05:00 02/23/2017 15:14:00 DIS Outpatient CHRISTIANE GARCIA [facility] [id number] 02/22/2017 08:35:00 02/22/2017 23:59:59 CLS Outpatient Bg PEREZ MD [facility] RAD E11.9 DIABETES MELLITUS [id number] 01/24/2017 18:26:00 01/27/2017 13:09:00 DIS Outpatient Bg PEREZ MD [facility] ICU STEMI [id number] 01/18/2017 23:00:00 01/19/2017 18:41:00 DIS Inpatient ASAEL OLIVEIRA DO [facility] ICU CHEST PAIN,NAUSEA [id number] 12/21/2016 13:25:00 12/21/2016 23:59:59 CLS Outpatient BRIANA RHODES MD [facility] LAB R73.01 [id number] 09/30/2016 09:17:00 12/10/2016 00:01:00 DIS Outpatient CHRISTIANE GARCIA N [facility] ONC [id number] 05/16/2016 10:03:00 08/14/2016 00:01:00 DIS Outpatient JOSE, BOBAN N [facility] ONC [id number] 02/25/2016 13:13:00 04/14/2016 00:01:00 DIS Outpatient JOSE, BOBAN N [facility] ONC [id number] 02/09/2016 14:41:00 02/09/2016 23:59:59 CLS Outpatient JOSE BOBAN N [facility] HH BLADDER CANCER [id number] 02/02/2016 15:00:00 02/02/2016 23:59:59 CLS Outpatient JOSE, BOBAN N [facility] HH BLADDER CANCER [id number] 01/26/2016 17:19:00 01/26/2016 23:59:59 CLS Outpatient JOSE, BOBAN N [facility] BLADDER CANCER [id number] 01/20/2016 14:54:00 01/20/2016 23:59:59 CLS Outpatient CHRISTIANE GARCIA N [facility] BLADDER CANCER [id number] 01/05/2016 12:52:00 01/05/2016 23:59:59 CLS Outpatient BRIANA RHODES MD [facility] BLADDER CANCER, UTI, PANCYTOPENIA [id number] 11/30/2015 11:03:00 12/18/2015 16:05:00 DIS Outpatient CHRISTIANE GARCIA [facility] ONC [id number] 08/17/2015 13:17:00 11/15/2015 00:01:00 DIS Outpatient CHRISTIANE GARCIA [facility] ONC [id number] 11/03/2015 11:13:00 11/03/2015 23:59:59 CLS Outpatient ALESHIA MINER FACC, DEVIKA MONREAL CCDS [facility] CARD SHORTNESS OF BREATH, HYPERTENSION [id number] 2015 05:50:00 2015 10:55:00 DIS Outpatient PEPPER CHRISTIAN MD [facility] MULTIPLE LESIONS [id number] 08/24/2015 05:54:00 08/24/2015 08:41:00 DIS Outpatient PEPPER CHRISTIAN MD [facility] PREOP MULTIPLE LESIONS [id number] 08/17/2015 09:59:00 08/17/2015 23:59:59 CLS Outpatient BRIANA RHODES MD [facility] LAB [id number] 08/17/2015 09:56:00 08/17/2015 23:59:59 CLS Outpatient BLESSING NOLAN [facility] ONC [id number] 07/06/2015 10:00:00 07/06/2015 15:15:00 [facility] [id number] 06/26/2015 12:12:00 06/26/2015 12:40:00 DIS Outpatient PEPPER CHRISTIAN MD [facility] PREOP SKIN LESION RIGHT HAND [id number] 06/01/2015 10:05:00 06/01/2015 23:59:59 CLS Outpatient LBESSING NOLAN [facility] ONC [id number] 12/29/2014 12:57:00 03/29/2015 00:01:00 DIS Outpatient CHRISTIANE GARCIA [facility] ONC [id number] 11/10/2014 13:00:00 12/10/2014 00:01:00 DIS Outpatient CHRISTIANE GARCIA [facility] ONC OV [id number] 09/17/2014 10:09:00 10/19/2014 00:01:00 DIS Outpatient CHRISTIANE GARCIA [facility] ONC OV [id number] 10/02/2014 14:07:00 10/02/2014 23:59:59 CLS Outpatient NOLANBLESSING Judd S [employer] [facility] ONC [id number] 04/22/2014 14:05:00 04/28/2014 00:01:00 DIS Outpatient CHRISTIANE GARCIA Hao [facility] ONC OV [id number] 04/22/2014 13:00:00 04/22/2014 23:59:59 CLS Outpatient NOLANBLESSING S [employer] [facility] ONC [id number] 01/28/2014 14:30:00 01/28/2014 23:59:59 CLS Outpatient MARLY NOLANAH S [employer] [facility] ONC [id number] 10/28/2013 13:50:00 12/29/2013 00:01:00 DIS Outpatient CHRISTIANE GARCIA [facility] ONC OV [id number] 07/15/2013 09:48:00 07/15/2013 00:01:00 DIS Outpatient CHRISTIANE GARCIA [facility] ONC OV [id number] 04/16/2013 12:33:00 04/16/2013 23:59:59 CLS Outpatient NOLAN, HILAH S [employer] [facility] ONC [id number] 01/22/2013 13:04:00 01/22/2013 23:59:59 CLS Outpatient NOLAN, HILAH S [employer] [facility] ONC [id number] 12/17/2012 14:30:00 12/30/2012 00:01:00 DIS Outpatient CHRISTIANE GARCIA Hao [facility] PAR PORT FLUSH/LABS/TX [id number] 10/15/2012 13:04:00 11/14/2012 00:01:00 DIS Outpatient CHRISTIANE GARCIA [facility] ONC OV [id number] 08/16/2012 13:13:00 08/16/2012 23:59:59 CLS Outpatient BLESSING NOLAN [facility] ONC [id number] 02/24/2017 15:15:00 PEN Preadmit MARC HUSTON MD [facility] ONC [id number] 12/12/2013 00:00:00 Document Registration [id number] 06/21/2012 13:21:00 Document Registration [id number] 05/17/2012 12:46:00 Document Registration [id number] 03/08/2012 12:59:00 Document Registration [id number] 02/13/2012 13:57:00 Document Registration [id number] 01/12/2012 13:26:00 Document Registration [id number] 12/21/2011 05:57:00 Document Registration [id number] 12/15/2011 15:00:00 Document Registration [id number] 12/12/2011 13:31:00 Document Registration [id number] 11/28/2011 12:28:00 Document Registration [id number] 10/13/2011 10:52:00 Document Registration [id number] 08/18/2011 11:04:00 Document Registration [id number] 06/02/2011 12:57:00 Document Registration [id number] 05/02/2011 12:17:00 Document Registration [id number] 03/03/2011 10:45:00 Document Registration [id number] 02/11/2011 13:46:00 Document Registration [id number] 11/01/2010 12:54:00 Document Registration [id number] 07/08/2010 10:55:00 Document Registration [id number] 06/03/2010 13:09:00 Document Registration [id number] 02/18/2010 13:14:00 Document Registration [id number] 02/15/2010 10:55:00 Document Registration [id number] 01/20/2010 09:05:00 Document Registration [id number] 10/13/2009 10:47:00 Document Registration [id number] 09/28/2009 13:02:00 Document Registration [id number] 08/13/2009 13:02:00 Document Registration [id number] 07/13/2009 10:16:00 Document Registration [id number] 04/01/2009 10:03:00 Document Registration [id number] 12/31/2008 08:59:00 Document Registration [id number] 10/20/2008 09:54:00 Document Registration [id number] 07/03/2007 10:19:00 Document Registration [id number] 06/26/2007 09:06:00 Document Registration [id number] 02/08/2017 12:09:19 02/08/2017 23:59:59 CLS Outpatient RiddelBriana [id number] 01/18/2017 15:37:46 01/18/2017 23:59:59 CLS Outpatient RiddelBriana [id number] 12/20/2016 15:20:04 12/20/2016 23:59:59 CLS Outpatient Riddel Briana [id number] 10/25/2016 16:25:27 10/25/2016 23:59:59 CLS Outpatient Riddel Briana [id number] 09/19/2016 16:00:20 09/19/2016 23:59:59 CLS Outpatient RidBriana wallace [id number] 06/14/2016 11:03:14 06/14/2016 23:59:59 CLS Outpatient ParvezLamont judd [id number] 06/01/2016 09:59:13 06/01/2016 23:59:59 CLS Outpatient Riddel Briana [id number] 05/12/2016 13:55:22 05/12/2016 23:59:59 CLS Outpatient Malik Ewa [id number] 04/20/2016 14:39:17 04/20/2016 23:59:59 CLS Outpatient Malik Ewa [id number] 04/06/2016 09:45:26 04/06/2016 23:59:59 CLS Outpatient RiddelMichaelBriana [id number] 02/08/2016 14:14:06 02/08/2016 23:59:59 CLS Outpatient RiddelMichaelBriana [id number] 01/07/2016 14:21:15 01/07/2016 23:59:59 CLS Outpatient Riddel, Briana [id number] 01/06/2016 12:53:44 01/06/2016 23:59:59 CLS Outpatient Pablo Vergara [id number] 12/04/2015 12:00:37 12/04/2015 23:59:59 CLS Outpatient Briana Rhodes [id number] 10/21/2015 17:59:41 10/21/2015 23:59:59 CLS Outpatient Valentina, V S [id number] 10/15/2015 12:22:18 10/15/2015 23:59:59 CLS Outpatient Valentina, V S [id number] 09/23/2015 10:14:47 09/23/2015 23:59:59 CLS Outpatient Carmelo Briana [id number] 06/10/2015 15:29:09 06/10/2015 23:59:59 CLS Outpatient Lamont Hannon [id number] 05/28/2015 10:32:34 05/28/2015 23:59:59 CLS Outpatient Valentina, V S [id number] 05/19/2015 14:23:44 05/19/2015 23:59:59 CLS Outpatient Valentina, V S [id number] 05/19/2015 11:38:25 05/19/2015 23:59:59 CLS Outpatient WalkerEwa [id number] 05/14/2015 09:27:40 05/14/2015 23:59:59 CLS Outpatient Valentina, V S [id number] 05/12/2015 02:44:43 05/12/2015 23:59:59 CLS Outpatient Valentina, V S [id number] 05/08/2015 12:02:08 05/08/2015 23:59:59 CLS Outpatient Valentina, V S [id number] 05/08/2015 09:08:38 05/08/2015 23:59:59 CLS Outpatient Martir Stout [id number] 03/23/2015 15:08:10 03/23/2015 23:59:59 CLS Outpatient Ewa Gan [id number] 03/17/2015 11:53:01 03/17/2015 23:59:59 CLS Outpatient Ewa Gan [id number] 03/04/2015 13:53:23 03/04/2015 23:59:59 CLS Outpatient Carmelo Briana [id number] 02/03/2015 14:32:53 02/03/2015 23:59:59 CLS Outpatient Ridrodrigo Briana [id number] 01/01/2015 16:01:52 01/01/2015 23:59:59 CLS Outpatient Ewa Gan [id number] 12/19/2014 10:29:11 12/19/2014 23:59:59 CLS Outpatient William Melgoza [id number] 11/26/2014 06:35:32 11/26/2014 23:59:59 CLS Outpatient William Melgoza [id number] 11/11/2014 11:33:43 11/11/2014 23:59:59 CLS Outpatient BoWilliam thomas [id number] 10/29/2014 15:11:22 10/29/2014 23:59:59 CLS Outpatient WalkerEwa [id number] 10/22/2014 16:06:42 10/22/2014 23:59:59 CLS Outpatient RiddelBriana [id number] 07/02/2014 12:00:24 07/02/2014 23:59:59 CLS Outpatient RiddelBriana [id number] 04/15/2014 17:17:40 04/15/2014 23:59:59 CLS Outpatient Lamont Hannon [id number] 03/26/2014 10:27:43 03/26/2014 23:59:59 CLS Outpatient Malik Ewa [id number] 01/17/2014 11:01:07 01/17/2014 23:59:59 CLS Outpatient Martir Stout [id number] 01/02/2014 16:19:39 01/02/2014 23:59:59 CLS Outpatient Ridrodrigo Briana [id number] 12/31/2013 10:50:43 12/31/2013 23:59:59 CLS Outpatient Martir Stout [id number] 12/18/2013 14:26:57 12/18/2013 23:59:59 CLS Outpatient Martir Stout [id number] 12/09/2013 12:26:10 12/09/2013 23:59:59 CLS Outpatient Walker, Ewa [id number] 11/29/2013 10:27:29 11/29/2013 23:59:59 CLS Outpatient Walker, Ewa [id number] 11/19/2013 12:29:00 11/19/2013 23:59:59 CLS Outpatient Riddel Briana [id number] 10/24/2013 10:50:59 10/24/2013 23:59:59 CLS Outpatient Walker, Ewa [id number] 10/01/2013 16:50:01 10/01/2013 23:59:59 CLS Outpatient Ewa Gan [id number] 09/17/2013 11:43:02 09/17/2013 23:59:59 CLS Outpatient Ewa Gan [id number] 09/13/2013 14:54:03 09/13/2013 23:59:59 CLS Outpatient Irma Pérez [id number] 09/11/2013 14:51:56 09/11/2013 23:59:59 CLS Outpatient William Melgoza [id number] 08/28/2013 14:28:32 08/28/2013 23:59:59 CLS Outpatient William Melgoza [id number] 08/01/2013 14:47:21 08/01/2013 23:59:59 CLS Outpatient Ewa Gan [id number] 07/24/2013 11:11:19 07/24/2013 23:59:59 CLS Outpatient Briana Rhodes [id number] 06/26/2013 12:05:23 06/26/2013 23:59:59 CLS Outpatient Alana Hernandez [id number] 04/26/2013 10:03:06 04/26/2013 23:59:59 CLS Outpatient Briana Rhodes [id number] 03/26/2013 15:19:22 03/26/2013 23:59:59 CLS Outpatient Ewa Gan [id number] 03/20/2013 19:35:38 03/20/2013 23:59:59 CLS Outpatient Martir Stout
== END 2017-02-27 12:46 | disposition home or self-care (01) ==
LOC: EDUNIT# 10:34 → ER 10:36
DX: R31.9 Hematuria, unspecified (principal); E11.22 Type 2 diabetes mellitus with diabetic chronic kidney disease; N18.4 Chronic kidney disease, stage 4 (severe); I10 Essential (primary) hypertension; E78.00 Pure hypercholesterolemia, unspecified; I25.10 Atherosclerotic heart disease of native coronary artery without angina pectoris; I25.2 Old myocardial infarction; Z86.73 Personal history of transient ischemic attack (TIA), and cerebral infarction without residual deficits; Z85.51 Personal history of malignant neoplasm of bladder; Z85.828 Personal history of other malignant neoplasm of skin; Z77.22 Contact with and (suspected) exposure to environmental tobacco smoke (acute) (chronic); Z79.82 Long term (current) use of aspirin; Z79.01 Long term (current) use of anticoagulants; Z90.6 Acquired absence of other parts of urinary tract; Z90.79 Acquired absence of other genital organ(s); Z93.6 Other artificial openings of urinary tract status; Z82.49 Family history of ischemic heart disease and other diseases of the circulatory system
CPT/HCPCS: 36415; 74176; 80053; 85025; 96360

== ENCOUNTER 2017-03-21 13:43 | Outpatient (RCR) | payer MEDICARE ==
[~2017-03-21 13:43] MED LIST changes: +ACHD5005 PO; +CEFD300C3 PO; -HYDR-3812 PO
[2017-03-21 13:55] LABS: BASOPHILS # (AUTO) 0.1 10^3/uL (0.0-0.1); BASOPHILS % (AUTO) 1 % (0-10); EOSINOPHILS # (AUTO) 0.2 10^3/uL (0.0-0.3); EOSINOPHILS % (AUTO) 4 % (0-10); HEMATOCRIT 33 % (40-54); LYMPHOCYTES # (AUTO) 0.9 X 10^3 (1.0-4.0); LYMPHOCYTES % (AUTO) 23 % (12-44); MEAN CORPUSCULAR HEMOGLOBIN 34 PG (25-34); MEAN CORPUSCULAR HGB CONC 33 G/DL (32-36); MEAN CORPUSCULAR VOLUME 103 FL (80-99); MEAN PLATELET VOLUME 10.2 FL (7.4-10.4); MONOCYTES # (AUTO) 0.4 X 10^3 (0.0-1.0); MONOCYTES % (AUTO) 10 % (0-12); NEUTROPHILS # (AUTO) 2.4 X 10^3 (1.8-7.8); NEUTROPHILS % (AUTO) 62 % (42-75); PLATELET COUNT 165 10^3/uL (130-400); RED BLOOD COUNT 3.21 10^6/uL (4.35-5.85); RED CELL DISTRIBUTION WIDTH 16.3 % (10.0-14.5); WHITE BLOOD COUNT 3.9 10^3/uL (4.3-11.0)
[2017-03-21 14:20] LABS: ALBUMIN 3.9 GM/DL (3.2-4.5); BILIRUBIN,TOTAL 0.8 MG/DL (0.1-1.0); CALCIUM 8.8 MG/DL (8.5-10.1); CREATININE SERUM 2.81 MG/DL (0.60-1.30); POTASSIUM 4.3 MMOL/L (3.6-5.0)
== END 2017-06-19 | disposition home or self-care (01) ==
LOC: ONC 13:43
PROVIDERS: ATTEND Internal Medicine Hematology & Oncology
DX: C90.00 Multiple myeloma not having achieved remission (principal); C67.8 Malignant neoplasm of overlapping sites of bladder; E11.22 Type 2 diabetes mellitus with diabetic chronic kidney disease; I12.9 Hypertensive chronic kidney disease with stage 1 through stage 4 chronic kidney disease, or unspecified chronic kidney disease; N18.3 Chronic kidney disease, stage 3 (moderate); E78.00 Pure hypercholesterolemia, unspecified; Z79.899 Other long term (current) drug therapy; Z79.82 Long term (current) use of aspirin; Z72.0 Tobacco use
CPT/HCPCS: 36415; 80053; 82232; 82784; 83883; 85025; 99213

== ENCOUNTER → 2017-04-18 | Outpatient (CLI) | payer MEDICARE ==
--- NOTE | 2017-04-18 13:17 | Diagnostic Imaging Report ---
EXAMINATION: Bilateral renal ultrasound. INDICATION: Chronic kidney disease. FINDINGS: There are no previous renal ultrasound examinations available for comparison. The recent CT abdomen/pelvis exam performed on 02/27/2017 did note moderate hydroureteronephrosis of the left collecting system and moderate left renal parenchymal atrophy. There is no obstructive calculus identified to account for the dilatation of the left collecting system, but the possibility that there was a stricture near the ureteric anastomosis with the ileal conduit was raised. On this study, there is persistent dilatation of the left collecting system and left ureter. The left kidney itself is small measuring 6.3 x 3.9 x 3.9 cm. There is no evidence for a solid or cystic mass associated with the left kidney. The renal cortex is normal in echogenicity but somewhat thinned. The right kidney measures 10.7 x 4.8 x 4.7 cm. There is no evidence for a solid renal mass or hydronephrosis of the right kidney. The renal cortex is normal in thickness and echogenicity. The CT exam did reveal that the urinary bladder was surgically absent. IMPRESSION: 1. There is persistent dilatation of the left ureter and left renal pelvis. The left kidney is also atrophic. 2. The right kidney is normal in size and there is no evidence for a solid renal mass or for an acute abnormality of the right kidney. 3. The urinary bladder is surgically absent. Dictated by: Dictated on workstation # [id number]
== END ==
LOC: RAD 11:43
PROVIDERS: ATTEND Internal Medicine Nephrology
DX: N18.4 Chronic kidney disease, stage 4 (severe) (principal); N28.82 Megaloureter; N26.1 Atrophy of kidney (terminal); Z90.6 Acquired absence of other parts of urinary tract
CPT/HCPCS: 76770

== ENCOUNTER → 2017-07-18 | Outpatient (CLI) | payer MEDICARE ==
[2017-07-18 12:56] LABS: BILIRUBIN,URINE NEGATIVE (NEGATIVE); COLOR,URINE YELLOW; GLUCOSE, URINE (UA) NEGATIVE (NEGATIVE); KETONES,URINE NEGATIVE (NEGATIVE); LEUKOCYTE ESTERASE ,URINE 3+ (NEGATIVE); NITRITE,URINE POSITIVE (NEGATIVE); PH,URINE 7 (5-9); PROTEIN,URINE 1+ (NEGATIVE); UROBILINOGEN,URINE NORMAL (NORMAL)
[2017-07-18 12:58] LABS: BASOPHILS % (AUTO) 1 % (0-10); EOSINOPHILS # (AUTO) 0.2 10^3/uL (0.0-0.3); EOSINOPHILS % (AUTO) 4 % (0-10); HEMATOCRIT 35 % (40-54); HEMOGLOBIN 11.2 G/DL (13.3-17.7); LYMPHOCYTES % (AUTO) 23 % (12-44); MEAN CORPUSCULAR HEMOGLOBIN 35 PG (25-34); MEAN CORPUSCULAR HGB CONC 33 G/DL (32-36); MEAN CORPUSCULAR VOLUME 107 FL (80-99); MEAN PLATELET VOLUME 10.2 FL (7.4-10.4); MONOCYTES # (AUTO) 0.6 X 10^3 (0.0-1.0); MONOCYTES % (AUTO) 14 % (0-12); NEUTROPHILS # (AUTO) 2.3 X 10^3 (1.8-7.8); NEUTROPHILS % (AUTO) 57 % (42-75); PLATELET COUNT 208 10^3/uL (130-400); RED BLOOD COUNT 3.22 10^6/uL (4.35-5.85); RED CELL DISTRIBUTION WIDTH 15.1 % (10.0-14.5); WHITE BLOOD COUNT 4.1 10^3/uL (4.3-11.0)
[2017-07-18 13:14] LABS: BACTERIA,URINE LARGE /HPF; CLARITY,URINE SLIGHTLY CLOUDY; WBC,URINE TNTC /HPF
[2017-07-18 13:18] LABS: ALBUMIN 3.8 GM/DL (3.2-4.5); CALCIUM 8.4 MG/DL (8.5-10.1); CREATININE SERUM 2.06 MG/DL (0.60-1.30); MAGNESIUM 1.8 MG/DL (1.8-2.4); PHOSPHORUS 2.3 MG/DL (2.3-4.7); POTASSIUM 3.4 MMOL/L (3.6-5.0); URIC ACID 6.4 MG/DL (2.6-7.2)
== END ==
LOC: LAB 12:12
PROVIDERS: ATTEND Internal Medicine Nephrology
DX: D64.9 Anemia, unspecified (principal); N18.3 Chronic kidney disease, stage 3 (moderate); M10.9 Gout, unspecified; R82.90 Unspecified abnormal findings in urine
CPT/HCPCS: 36415; 80069; 81000; 82306; 82570; 82607; 82728; 82746; 83540; 83735; 83970; 84156; 84550; 85025; 87077; 87088; 87186

== ENCOUNTER 2017-09-21 09:01 | Outpatient (RCR) | payer MEDICARE ==
[~2017-09-21 09:01] MED LIST changes: -AMLO10TA2 PO; +AMLO10TA6 PO; -AMLO5TAB2 PO; +AMLO5TAB7 PO
[2017-09-21 09:21] LABS: BASOPHILS % (AUTO) 0 % (0-10); EOSINOPHILS # (AUTO) 0.1 10^3/uL (0.0-0.3); EOSINOPHILS % (AUTO) 2 % (0-10); HEMATOCRIT 32 % (40-54); HEMOGLOBIN 10.2 G/DL (13.3-17.7); LYMPHOCYTES # (AUTO) 0.9 X 10^3 (1.0-4.0); LYMPHOCYTES % (AUTO) 19 % (12-44); MEAN CORPUSCULAR HEMOGLOBIN 34 PG (25-34); MEAN CORPUSCULAR HGB CONC 32 G/DL (32-36); MEAN CORPUSCULAR VOLUME 107 FL (80-99); MEAN PLATELET VOLUME 10.7 FL (7.4-10.4); MONOCYTES # (AUTO) 0.5 X 10^3 (0.0-1.0); MONOCYTES % (AUTO) 11 % (0-12); NEUTROPHILS # (AUTO) 3.1 X 10^3 (1.8-7.8); NEUTROPHILS % (AUTO) 67 % (42-75); PLATELET COUNT 162 10^3/uL (130-400); RED BLOOD COUNT 2.99 10^6/uL (4.35-5.85); RED CELL DISTRIBUTION WIDTH 16.9 % (10.0-14.5); WHITE BLOOD COUNT 4.6 10^3/uL (4.3-11.0)
[2017-09-21 09:47] LABS: ALBUMIN 3.5 GM/DL (3.2-4.5); BILIRUBIN,TOTAL 0.7 MG/DL (0.1-1.0); CALCIUM 8.3 MG/DL (8.5-10.1); CREATININE SERUM 2.03 MG/DL (0.60-1.30); POTASSIUM 3.9 MMOL/L (3.6-5.0); TOTAL PROTEIN 6.6 GM/DL (6.4-8.2)
[2017-09-26 11:07] LABS: IMMUNOFIX PATH REPORT NUMBER Complete (Complete)
[2017-11-17] MEDS ORDERED: CLIN300C11 PO (11:19)
== END 2017-10-10 | disposition home or self-care (01) ==
LOC: ONC 09:01
PROVIDERS: ATTEND Internal Medicine Hematology & Oncology
DX: C90.00 Multiple myeloma not having achieved remission (principal); C67.8 Malignant neoplasm of overlapping sites of bladder; E11.22 Type 2 diabetes mellitus with diabetic chronic kidney disease; I12.9 Hypertensive chronic kidney disease with stage 1 through stage 4 chronic kidney disease, or unspecified chronic kidney disease; N18.3 Chronic kidney disease, stage 3 (moderate); E78.00 Pure hypercholesterolemia, unspecified; Z79.899 Other long term (current) drug therapy; Z79.82 Long term (current) use of aspirin; Z72.0 Tobacco use
CPT/HCPCS: 36415; 80053; 82232; 82607; 82746; 82784; 83883; 84155; 84165; 85025; 86334; 99213

== ENCOUNTER → 2017-10-17 | Outpatient (CLI) | payer MEDICARE ==
[~2017-10-17] MED LIST changes: +AMLO10TA2 PO; -AMLO10TA6 PO; +AMLO5TAB2 PO; -AMLO5TAB7 PO
== END ==
LOC: CARD 12:07
PROVIDERS: ATTEND Internal Medicine Interventional Cardiology
DX: I25.10 Atherosclerotic heart disease of native coronary artery without angina pectoris (principal); I50.22 Chronic systolic (congestive) heart failure; I42.9 Cardiomyopathy, unspecified; N18.3 Chronic kidney disease, stage 3 (moderate); E11.22 Type 2 diabetes mellitus with diabetic chronic kidney disease; E66.9 Obesity, unspecified

== ENCOUNTER 2017-11-16 08:15 | Day surgery (SDC) | payer MEDICARE ==
[~2017-11-16] VITALS: Ht 182.9 cm; Wt 89.8 kg
[2017-11-16] VITALS (12 sets, daily range): BP systolic 122–147; BP diastolic 70–89
[~2017-11-16 08:15] MED LIST changes: -AMLO10TA2 PO; +AMLO10TA6 PO; -AMLO5TAB2 PO; +AMLO5TAB7 PO
[2017-11-16] MEDS ORDERED: VANCOMYCIN 1000 MG/VIAL ONE (08:20)
[2017-11-16] MEDS ORDERED: NS IV 1000 ML 2,000 ML ONE (08:20)
[2017-11-16] MEDS ORDERED: LIDOCAINE 1% INJ 20 ML 20 ML VIAL ONE (08:20)
[2017-11-16] MEDS ORDERED: NS (IVPB) 250 ML ONE (08:20)
[2017-11-16] MEDS ORDERED: HEParin 1000 UNIT/ML (10ML VIAL) FOR BOLUS ONE (08:21)
[2017-11-16] MEDS ORDERED: NS IV 1000 ML 1,000 ML IV SCH ×2 (08:27→12:09)
[2017-11-16 08:50] LABS: HEMOGLOBIN 11.9 G/DL (13.3-17.7); RED BLOOD COUNT 3.39 10^6/uL (4.35-5.85); RED CELL DISTRIBUTION WIDTH 15.9 % (10.0-14.5); WHITE BLOOD COUNT 4.8 10^3/uL (4.3-11.0)
[2017-11-16] MEDS ORDERED: MIDAZOLAM 5 MG/5 ML (VERSED) VIAL ONE ×2 (09:02→10:57)
[2017-11-16] MEDS ORDERED: fentaNYL INJECTION 100 MCG/2 ML AMP ONE (09:02)
[2017-11-16] MEDS ORDERED: TICA90TA PO (09:05)
[2017-11-16] MEDS ORDERED: FURO40TA4 PO (09:05)
[2017-11-16] MEDS ORDERED: ATOR80TA64 PO (09:05)
[2017-11-16] MEDS ORDERED: LENA2.5C PO (09:05)
[2017-11-16] MEDS ORDERED: CYAN100088 PO (09:05)
[2017-11-16] MEDS ORDERED: ATEN50TA PO (09:05)
[2017-11-16 09:09] LABS: ALBUMIN 4.1 GM/DL (3.2-4.5); BILIRUBIN,TOTAL 0.9 MG/DL (0.1-1.0); CALCIUM 9.1 MG/DL (8.5-10.1); CREATININE SERUM 2.06 MG/DL (0.60-1.30); POTASSIUM 4.2 MMOL/L (3.6-5.0); TOTAL PROTEIN 7.6 GM/DL (6.4-8.2)
--- OUTSIDE RECORDS SUMMARY | 2017-11-16 10:05 | XMS REPORT | Clinical Summary ---
Author Author [facility] Organization [facility] Address Unknown Phone Unavailable Care Team Providers Care Logistics Analytics Manager Name Role Phone MireilleBryan monahan Unavailable Osvaldo Daigle MD Unavailable Ian Martins MD Unavailable Radu Devine MD Unavailable Luis Montgomery MD Unavailable Jessica Abrams Unavailable Unavailable Frantz Bruno MD Unavailable Zhao Jean PA-C Unavailable Yady Capps MD PCP Jordyn Allen RN Unavailable Unavailable Source Comments Some departments are not documenting in the electronic medical record. If you do not see the information that you expected, contact Release of Information in the Health Information Management department at [phone] for further assistance in locating additional records.[facility] Allergies Active Allergy Reactions Severity Noted [...] mL oral daily. Indications: 16 suspensionIndications: CONSTIPATION constipation senna/docusate Take 1 Tab by mouth twice 60 Tab 0 11/26/19 Active (SENOKOT-S) 8.6/50 mg daily. Indications: 16 tabletIndications: CONSTIPATION constipation ciprofloxacin HCl (CIPRO) Take 1 Tab by [...] Overview: Managed by Tyler Ortega MD (Oncology; [place], [place]). Tobacco use Last Assessment & Plan: Provided tobacco cessation info on AVS. 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 No prior kidney stone surgery. Encounters Date Type Specialty Care Team Description 09/20/2017 Telephone Oncology Elana Mejia BMT Follow-up (10 year (10/10)) from Last 3 Months Family History Relation Name Status Comments Social [...] PHYSICAL (COMPREHENSIVE) 1960 EXAM PERTUSSIS VACCINE 1964 HIV SCREENING 1968 TETANUS VACCINE 1970 DILATED EYE EXAM 08/27/1971 FOOT EXAM 08/27/1971 HBA1C 08/27/1971 PNEUMONIA VACCINE (DM) 08/27/1971 COLORECTAL CANCER 08/27/2003 SCREENING SHINGLES RECOMBINANT 08/27/2003 VACCINE (1 of 2) INFLUENZA VACCINE 12/11/2017 Implants Implanted Type Area Anchor Operator Device Expiration Model / Identifier Date Serial / Lot Set Stent 75cm 7fr Tile Molder .038in COOK:DIAG and [id number] / 5mm Pigtail Curve Ureteral INTERV:UROLOGIC NA / Implanted: Qty: 1 on 11/18/2015 by [id number] Frantz Bruno MD Barrier Adhesion 3x5in Procedure [id number] 02/09/2018 0 / Pack Bioresorbable Membrane NA / Implanted: Qty: 1 on 11/18/2015 by [id number] Frantz Bruno MD Results Not on filefrom Last 3 Months
--- OUTSIDE RECORDS SUMMARY | 2017-11-16 10:05 | XMS REPORT | Encounter Summary ---
Author Author [facility] Organization [facility] Address Unknown Phone Unavailable Care Team Providers Care High Pressure Firer Name Role Phone MireilleBryan monahan Unavailable Osvaldo Daigle MD Unavailable Ian Martins MD Unavailable Radu Devine MD Unavailable Luis Montgomery MD Unavailable Jessica Abrams Unavailable Unavailable Frantz Bruno MD Unavailable Zhao Jean PA-C Unavailable Yady Capps MD PCP Jordyn Allen RN Unavailable Unavailable Reason for Visit * Reason Comments BMT Follow-up 10 year (10/10) Encounter Details Date Type Department Care Team Description 09/20/2017 Telephone [facility] Elana Mejia BMT Follow-up (10 year [facility] - BMT Exam (10/10)) [facility] [id number] [place] [id number] Social History Tobacco Use Types Packs/Day Years Used Date Current Every Day Smoker 1 50 Started: 03/13/1965 Smokeless Tobacco: Former User Comments: quit at least15 years ago (chewing tobacco) Alcohol Use Drinks/Week oz/Week Comments No 0 Standard 0.0 drinks or equivalent Sex Assigned at Date Recorded Not on file as of this encounter Functional Status Functional Status Response Date of Assessment Does the patient have a hearing impairment: No 11/19/2015 as of this encounter Miscellaneous Notes * Telephone Encounter - Elana Mejia - 09/20/2017 3:51 PM CDT 09/20/2017 3:51 PM FARRUKH - [phone] per recording # no longer in service 09/20/2017 3:52 PM FARRUKH - [phone] per recording # no longer in service no obit 09/20/2017 3:54 PM FARRUKH - [phone] - gentleman said his name is David he does not know Woody or Lázaro 09/20/2017 3:56 PM FARRUKH - mailed letter 11/08/2017 3:53 PM JAM - records requested in this encounter Plan of Treatment Not on fileas of this encounter Visit Diagnoses Not on filein this encounter
[2017-11-16] MEDS ORDERED: BACITRACIN INJECTION 50,000 UNIT, SODIUM CHLORIDE 0.9% IRRIGATIO 500 ML IR ONE ×2 (10:15)
--- NOTE | 2017-11-16 10:18 | Cardiac Procedure Note-CS/ASA ---
Pre-Procedure Note Pre-Op Procedure Note H&P Reviewed The H&P was reviewed, patient examined and no changes noted. Date H&P Reviewed: Nov 16, 2017 Time H&P Reviewed: 10:17 Conscious Sedation Pre-Proced Time Reviewed: 10:17 ASA Class: 3 Airway Mallampati Classification: (chitina appropriate class) I. II. III, IV Lungs Heart ASA score ASA 1: a normal healthy patient ASA 2: a patient with a mild systemic disease (mid diabetes, controlled hypertension, obesity ASA 3: a patient with a severe systemic disease that limits activity (angina , COPD, prior Myocardial infarction) ASA 4: a patient with an incapacitating disease that is a constant threat to life (CHF, renal failure) ASA 5: a moribund patient not expected to survive 24 hrs. (ruptured aneurysm) ASA 6: a declared brain patient whose organs are being harvested. For emergent operations, add the letter E after the classification Grade 1 Sedation Plan: Analgesia, Amnesia, Plan communicated to team members, Discussed options with patient/fam, Discussed risks with patient/fam Note The patient is an appropriate candidate to undergo the planned procedure, sedation, and anesthesia. The patient immediately re-assessed prior to indication. Bg PEREZ MD Nov 16, 2017 10:18 am
[2017-11-16] MEDS ORDERED: FURO20TA4 PO (10:20)
[2017-11-16] MEDS ORDERED: NF-GLIP2.5 PO (10:20)
[2017-11-16] MEDS ORDERED: POTA-51 PO (10:20)
--- OUTSIDE RECORDS SUMMARY | 2017-11-16 10:31 | XMS REPORT ---
Author Author Ewa Gan Organization [facility] Address [address] [place], [place] [id number] Care Team Providers Care Core Inspector Name Role Phone Ewa Gan PCP Yady Capps PreferredProvider Allergies and Adverse Reactions Name Reaction Notes PENICILLINS swelling tramadol large hives Plan of Treatment Planned Activity Comments Planned Date Planned Time Plan/Goal Flu Vaccine, 3yrs & older, Quadrivalent - C Medicare 02/03/2015 12:00 AM .Lipid Panel 05/19/2015 [...] take 1 capsule by oral route daily promethazine 25 mg oral tablet 11/19/2013 1 [...] (12.5 MG) BY ORAL ROUTE ONCE DAILY EMLA 2.5-2.5 % topical cream 04/28/2014 APPLY TO AFFECTED AREA(S) BY TOPICAL ROUTE 2 TIMES A DAY NEEDED FOR 30 DAYS EMLA 2.5-2.5 % topical cream 05/14/2014 APPLY TO AFFECTED AREA(S) BY TOPICAL ROUTE 2 TIMES A DAY NEEDED FOR 30 DAYS EMLA 2.5-2.5 % topical cream 05/26/2014 APPLY TO AFFECTED AREA(S) BY TOPICAL ROUTE 2 TIMES A DAY NEEDED FOR 30 DAYS vitamin D69-rjpmb acid 500-400 mcg oral tablet take 1 [...] 10/15/2015 TAKE 2 TABLETS BY MOUTH DAILY oxycodone-acetaminophen 5-325 mg oral tablet take 1 [...] route once daily as needed for constipation enoxaparin 40 mg/0.4 mL subcutaneous syringe inject [...] by topical route 2 times per day atorvastatin 20 mg oral tablet 10/10/2016 TAKE 1 TABLET BY MOUTH EVERY NIGHT AT BEDTIME allopurinol 300 mg oral tablet 10/17/2016 TAKE 1 TABLET BY MOUTH EVERY NIGHT AT BEDTIME atenolol 100 mg oral tablet 11/16/2016 TAKE 1 TABLET BY MOUTH TWICE DAILY Lidocaine-Prilocaine Cream 11/28/2016 Apply to the feet twice daily as needed duloxetine 60 mg oral capsule,delayed release(DR/EC) 01/09/2017 TAKE 1 CAPSULE BY MOUTH EVERY DAY amlodipine 5 mg oral tablet 01/16/2017 take 1 tablet (5 mg) by oral route once daily for 30 days glimepiride 4 mg oral tablet 03/30/2017 TAKE 1 TABLET BY MOUTH TWICE DAILY Trueresult Blood Glucose Strips 04/05/2017 03/31/2018 test 1x daily, Dx: E11.9 cetirizine 10 mg oral tablet 04/18/2017 take 1 tablet (10 mg) by oral route once daily for 30 days bupropion HCl 150 mg oral tablet extended release 12 hr 05/16/2017 take 1 tablet (150 mg) by oral route once daily for 30 days Name Start Date Expiration Date SIG [...] for 4 days BD Ultra-Fine Birgit Pen [place] 32 gauge x 5/32" miscellaneous needle 201510/03/2016 use as directed for 90 days erythromycin 500 mg oral tablet 04/06/2016 04/13/2016 take 1 tablet (500 mg) by oral route every 12 hours for 7 days Zofran (as hydrochloride) 8 mg oral tablet 06/01/2016 09/29/2016 take 1 tablet (8 mg) by oral route every 8 hours PRN for 30 days Zyrtec 10 mg oral tablet 09/14/2016 03/13/2017 take 1 tablet (10 mg) by oral route once daily for 30 days indomethacin 50 mg oral capsule 09/19/2016 10/03/2016 take 1 capsule (50 mg) by oral route 2 times per day with food for 7 days Lasix 20 mg oral tablet 10/24/2016 02/21/2017 take 1 tablet (20 mg) by oral route once daily PRN potassium chloride 10 mEq oral capsule, extended release 10/24/20162016 take 1 capsule (10 meq) by oral route once daily when taking lasix erythromycin 500 mg oral tablet 10/25/2016 11/01/2016 take 1 tablet (500 mg) by oral route every 12 hours for 7 days Lyrica 75 mg oral capsule 12/05/2016 04/04/2017 take 1 capsule by oral route 2 times a day for 30 days levofloxacin 750 mg oral tablet 01/18/2017 [...] route once daily off from bladder cancer duloxetine 30 mg oral capsule,delayed release(DR/EC) 03/24/2014 TAKE 1 CAPSULE BY MOUTH EVERY DAY Lyrica 100 mg oral capsule 04/03/2014 02/03/2015 [...] oral route every 6 hours as needed duloxetine 30 mg oral capsule,delayed release(DR/EC) 11/30/2015 05/16/2017 TAKE 1 CAPSULE BY MOUTH EVERY MORNING WITH 60MG CAPSULE Victoza 3-Desean 0.6 mg/0.1 mL (18 mg/3 [...] and removed Victoza therapy. Restart if needed. Cipro 500 mg oral tablet 02/09/2017 05/16/2017 take 1 tablet (500 mg) by oral route every 12 hours for 10 days Problem List Description Status Onset Multiple Myeloma, [...] HC BMI BSA BMI Percentile O2 Sat(%) 05/16/2017 1:06:00 PM 110 mmHg 68 mmHg 67 bpm 18 rpm 96.7 F 218.5 lbs 72 in 29.63 kg/m2 2.24 m2 99 % 02/08/2017 11:19:00 AM 122 mmHg 74 mmHg 75 bpm 18 rpm 96.5 F 213.5 lbs 72 in 28.9555 kg/m 2.218 m 98 % 01/18/2017 2:44:00 PM 138 mmHg 86 mmHg 71 bpm 18 rpm 98.3 F 219.25 lbs 72 in 29.74 kg/m2 2.25 m2 100 % 12/20/2016 2:24:00 PM 142 mmHg 80 mmHg 68 bpm 16 rpm 97.1 F 218.375 lbs 72 in 29.6167 kg/m 2.2432 m 100 % 10/25/2016 3:40:00 PM 130 mmHg 70 mmHg 70 bpm 16 rpm 97.1 F 216.125 lbs 72 in 29.31 kg/m2 2.23 m2 98 % 09/19/2016 3:33:00 PM 118 mmHg 70 mmHg 73 bpm 16 rpm 98 F 212.25 lbs 72 in 28.786 kg/m 2.2115 m 99 % 06/01/2016 9:08:00 AM 100 mmHg 66 mmHg 65 bpm 16 rpm 97.2 F 209.5 lbs 72 in 28.41 kg/m2 2.20 m2 99 % 05/12/2016 1:12:00 PM 132 mmHg 74 mmHg 92 bpm 18 rpm 96.9 F 204.25 lbs 72 in 27.701 kg/m 2.1694 m 99 % 04/20/2016 1:49:00 PM 142 mmHg 82 mmHg 114 bpm 18 rpm 97.9 F 204.25 lbs 72 in 27.70 kg/m2 2.17 m2 96 % 04/06/2016 9:13:00 AM 148 mmHg 98 mmHg 120 bpm 18 rpm 97.6 F 204.375 lbs 72 in 27.7179 kg/m 2.1701 m 100 % 02/08/2016 1:41:00 PM 130 mmHg 76 mmHg 70 bpm 16 rpm 97.9 F 203.5 lbs 72 in 27.60 kg/m2 2.17 m2 100 % 01/07/2016 1:52:00 PM 102 mmHg 68 mmHg 138 bpm 18 rpm 97.6 F 201.125 lbs 72 in 27.2772 kg/m 2.1528 m 100 % 12/04/2015 11:27:00 AM 110 mmHg 60 mmHg 72 bpm 16 rpm 97.7 F 217.25 lbs 72 in 29.46 kg/m2 2.24 m2 99 % 10/15/2015 11:32:00 AM 136 mmHg 90 mmHg 76 bpm 17 rpm 97.4 F 223 lbs 72 in 30.2439 kg/m 2.2668 m 98 % 09/23/2015 9:32:00 AM 128 mmHg 80 mmHg 76 bpm 16 rpm 97.6 F 223.375 lbs 72 in 30.29 kg/m2 2.27 m2 97 % 08/25/2015 11:15:00 AM 128 mmHg 78 mmHg 60 bpm 18 rpm 97.8 F 222 lbs 72 in 30.1083 kg/m 2.2617 m 99 % 08/04/2015 10:28:00 AM 148 mmHg 82 mmHg 77 bpm 18 rpm 96.6 F 222.375 lbs 72 in 30.16 kg/m2 2.26 m2 98 % 07/21/2015 9:08:00 AM 138 mmHg 70 mmHg 66 bpm 16 rpm 97 F 226.375 lbs 72 in 30.7017 kg/m 2.2839 m 98 % 07/17/2015 9:50:00 AM 128 mmHg 76 mmHg 66 bpm 96.7 F 224 lbs 72 in 30.38 kg/m2 2.27 m2 95 % 07/02/2015 10:03:00 AM 120 mmHg 68 mmHg 63 bpm 18 rpm 97.8 F 229 lbs 72 in 31.0577 kg/m 2.2971 m 96 % 05/28/2015 9:48:00 AM 222 lbs 72 in 30.11 kg/m2 2.26 m2 05/19/2015 10:41:00 AM 134 mmHg 72 mmHg 85 bpm 18 rpm 97.4 F 222 lbs 72 in 30.1083 kg/m 2.2617 m 100 % 05/08/2015 11:16:00 AM 225 lbs 72 in 30.52 kg/m2 2.28 m2 05/08/2015 8:30:00 AM 120 mmHg 60 mmHg 76 bpm 16 rpm 96.7 F 225 lbs 72 in 30.5152 kg/m 2.277 m 98 % 03/23/2015 2:12:00 PM 132 mmHg 64 mmHg 78 bpm 18 rpm 96.2 F 225 lbs 72 in 30.52 kg/m2 2.28 m2 99 % 03/17/2015 10:59:00 AM 126 mmHg 68 mmHg 81 bpm 18 rpm 97.4 F 228 lbs 72 in 30.922 kg/m 2.2921 m 96 % 03/04/2015 1:09:00 PM 138 mmHg 86 mmHg 67 bpm 98 F 229.375 lbs 72 in 31.11 kg/m2 2.30 m2 99 % 02/03/2015 1:47:00 PM 126 mmHg 86 mmHg 90 bpm 97.9 F 226.375 lbs 72 in 30.7017 kg/m 2.2839 m 99 % 01/01/2015 3:08:00 PM 134 mmHg 74 mmHg 77 bpm 18 rpm 97.4 F 230.25 lbs 72 in 31.23 kg/m2 2.30 m2 97 % 12/19/2014 9:46:00 AM 138 mmHg 82 mmHg 67 bpm 16 rpm 97.3 F 232 lbs 72 in 31.4645 kg/m 2.3121 m 11/11/2014 11:18:00 AM 138 mmHg 74 mmHg 60 bpm 20 rpm 98 F 235.312 lbs 72 in 31.91 kg/m2 2.33 m2 10/29/2014 2:31:00 PM 128 mmHg 82 mmHg 73 bpm 20 rpm 98.2 F 234 lbs 72 in 31.7358 kg/m 2.3221 m 96 % 10/22/2014 3:29:00 PM 130 mmHg 78 mmHg 115 bpm 98.1 F 233.5 lbs 72 in 31.67 kg/m2 2.32 m2 96 % 07/02/2014 11:09:00 AM 120 mmHg 80 mmHg 67 bpm 97 F 225.25 lbs 72 in 30.5491 kg/m 2.2782 m 99 % 04/03/2014 1:48:00 PM 110 mmHg 60 mmHg 73 bpm 18 rpm 98.3 F 234 lbs 72 in 31.74 kg/m2 2.32 m2 98 % 01/02/2014 3:23:00 PM 138 mmHg 82 mmHg 72 bpm 18 rpm 97.7 F 234.375 lbs 72 in 31.7866 kg/m 2.3239 m 100 % 12/31/2013 10:07:00 AM 130 mmHg 80 mmHg 67 bpm 22 rpm 96.7 F 248 lbs 72 in 33.63 kg/m2 2.39 m2 96 % 12/18/2013 1:57:00 PM 100 mmHg 70 mmHg 73 bpm 16 rpm 97.1 F 227 lbs 72 in 30.7864 kg/m 2.2871 m 98 % 12/09/2013 11:31:00 AM 126 mmHg 66 mmHg 69 bpm 18 rpm 97.1 F 227.5 lbs 72 in 30.85 kg/m2 2.29 m2 98 % 11/29/2013 9:30:00 AM 132 mmHg 72 mmHg 69 bpm 18 rpm 97.3 F 223.375 lbs 72 in 30.2948 kg/m 2.2687 m 99 % 11/19/2013 11:34:00 AM 100 mmHg 68 mmHg 64 bpm 18 rpm 96.9 F 227 lbs 72 in 30.79 kg/m2 2.29 m2 98 % 10/24/2013 10:10:00 AM 132 mmHg 66 mmHg 64 bpm 18 rpm 96.2 F 225.375 lbs 72 in 30.566 kg/m 2.2789 m 100 % 10/01/2013 3:58:00 PM 124 mmHg 66 mmHg 62 bpm 18 rpm 98.6 F 229.5 lbs 72 in 31.13 kg/m2 2.30 m2 98 % 09/17/2013 10:50:00 AM 132 mmHg 68 mmHg 70 bpm 18 rpm 97.3 F 227 lbs 72 in 30.7864 kg/m 2.2871 m 100 % 09/13/2013 1:58:00 PM 130 mmHg 76 mmHg 80 bpm 20 rpm 98 F 228 lbs 72 in 30.92 kg/m2 2.29 m2 96 % 09/11/2013 2:23:00 PM 143 mmHg 80 mmHg 65 bpm 20 rpm 97.8 F 228 lbs 72 in 30.922 kg/m 2.2921 m 08/28/2013 2:19:00 PM 128 mmHg 72 mmHg 69 bpm 18 rpm 98.2 F 225 lbs 72 in 30.52 kg/m2 2.28 m2 08/01/2013 1:52:00 PM 128 mmHg 68 mmHg 68 bpm 18 rpm 98.7 F 227.125 lbs 72 in 30.8034 kg/m 2.2877 m 98 % 07/24/2013 10:37:00 AM 160 mmHg 80 mmHg 123 bpm 18 rpm 97 F 227 lbs 72 in 30.79 kg/m2 2.29 m2 98 % 06/26/2013 11:15:00 AM 118 mmHg 70 mmHg 69 bpm 20 rpm 97 F 226.2 lbs 72 in 30.6779 kg/m 2.283 m 97 % 04/26/2013 9:51:00 AM 140 mmHg 75 mmHg 89 bpm 18 rpm 97.8 F 226 lbs 72 in 30.65 kg/m2 2.28 m2 97 % 03/26/2013 2:28:00 PM 138 mmHg 78 mmHg 66 bpm 18 rpm 96.8 F 226.25 lbs 72 in 30.6847 kg/m 2.2833 m 99 % 03/20/2013 6:41:00 PM 112 mmHg 74 mmHg 71 bpm 20 rpm 96.7 F 226.5 lbs 72 in 30.72 kg/m2 2.28 m2 97 % 05/29/2012 10:17:00 AM 130 mmHg 80 mmHg 65 bpm 18 rpm 96 F 220 lbs 72 in 29.8371 kg/m 2.2515 m 100 % 05/22/2012 10:15:00 AM 140 mmHg 80 mmHg 68 bpm 18 rpm 97 F 220.375 lbs 72 in 29.89 kg/m2 2.25 m2 100 % 09/16/2011 10:41:00 AM 138 mmHg 70 mmHg 93 bpm 18 rpm 100.7 F 227.125 lbs 96 % 06/27/2011 2:04:00 PM 122 mmHg 82 mmHg 75 bpm 16 rpm 97.2 F 231 lbs 94 % 06/22/2011 2:26:00 PM 132 mmHg 68 mmHg 77 bpm 18 rpm 96.9 F 229.125 lbs 72 in 31.0746 kg/m 2.2977 m 04/26/2011 11:10:00 AM 128 mmHg 77 mmHg 76 bpm 18 rpm 96.8 F 232.5 lbs 72 in 31.53 kg/m2 2.31 m2 04/05/2011 8:48:00 AM 130 mmHg 70 mmHg [...] rpm 97.7 F 229.125 lbs 72 in 31.07 kg/m2 2.30 m2 98 % 11/10/2010 10:33:00 AM 122 mmHg 80 mmHg 78 bpm 16 rpm 97.5 F 225 lbs 98 % 10/07/2010 3:00:00 PM 112 mmHg 78 mmHg 73 bpm 97.3 F 228.125 lbs 98 % 09/23/2010 9:55:00 AM 124 mmHg 76 mmHg 76 bpm 16 rpm 96.5 F 229 lbs 72 in 31.0577 kg/m 2.2971 m 97 % 09/09/2010 8:21:00 AM 130 mmHg [...] formal exercise disabeled Did not serve in Children Lives with spouse Tobacco Current every day smoker History of Procedures Date Ordered Description Order Status 01/01/2015 12:00 AM GLYCOSYLATED HEMOGLOBIN TEST Reviewed 01/01/2015 12:00 AM ASSAY OF TOTAL TESTOSTERONE Reviewed 01/01/2015 12:00 AM Depo-Testosterone, Up to 100 Mg [facility]# 3507-0373-72 Reviewed 12/19/2014 12:00 AM MRI JOINT UPR EXTREM W/O DYE Reviewed 02/03/2015 12:00 AM THER/PROPH/DIAG INJ SC/IM Reviewed 02/03/2015 12:00 AM Depo-Testosterone 200 Mg [facility]#5682-8003-03 RHC Medicare Reviewed 02/03/2015 12:00 AM IM ADM PRQ ID SUBQ/IM NJXS 1 VACCINE Reviewed 03/04/2015 12:00 AM THER/PROPH/DIAG INJ SC/IM Reviewed 03/04/2015 12:00 AM Depo-Testosterone 200 Mg [facility]#7284-1170-63 RHC Medicare Reviewed 03/17/2015 12:00 AM Decadron, Per 1 Mg [facility]# [address]-84 Reviewed 03/17/2015 12:00 AM Depo-Medrol 40mg Reviewed [...] AM Depo-Testosterone, Up to 100 Mg [facility]# 6574-0146-40 Reviewed 05/25/2015 12:00 AM URNLS DIP STICK/TABLET RGNT AUTO W/O MICROSCOPY Reviewed 06/18/2015 12:00 AM Depo-Testosterone, Up to 100 Mg [facility]# 3343-1229-76 Reviewed 07/17/2015 12:00 AM Depo-Testosterone, Up to 100 Mg [facility]# 5769-0789-13 Reviewed 08/14/2015 12:00 AM COMPLETE CBC W/AUTO [...] 23 JONI IM Reviewed 01/15/2016 12:00 AM [facility] MEDIC[facility] - flu vaccine administration Reviewed 01/15/2016 12:00 AM [facility] MEDIC[facility] - pneumonia vaccine administration Reviewed [...] X-RAY EXAM L-S SPINE 2/3 VWS Returned 01/18/2017 12:00 AM COMPLETE CBC W/AUTO DIFF WBC Returned 01/18/2017 12:00 AM COMPREHEN METABOLIC PANEL Returned 01/18/2017 12:00 AM ELECTROCARDIOGRAM COMPLETE Reviewed 01/18/2017 12:00 AM ASSAY OF TROPONIN QUANT Returned 01/18/2017 12:00 AM C-REACTIVE PROTEIN Returned 01/18/2017 12:00 AM DETECT AGENT NOS DNA AMP Returned 02/08/2017 12:00 AM COMPLETE CBC W/AUTO DIFF WBC Returned 02/08/2017 12:00 AM COMPREHEN METABOLIC PANEL Returned 02/08/2017 12:00 AM URINALYSIS AUTO W/SCOPE Returned 05/16/2017 12:00 AM INFLUENZA A/B AG EIA Returned 05/16/2017 12:00 AM CHEST X-RAY 2VW FRONTAL&LATL Returned 05/22/2012 12:00 AM EXC TR-EXT B9+SABINA 0.6-1 CM Reviewed 05/22/2012 12:00 AM EXC FACE-MM B9+SABINA 0.6-1 CM Reviewed 05/22/2012 12:00 AM EXC F/E/E/N/L MAL+MRG 0.6-1 Reviewed 03/20/2013 12:00 AM THER/PROPH/DIAG INJ SC/IM Reviewed 03/20/2013 12:00 AM Decadron, Per 1 Mg [facility]# [address]-24 Reviewed 03/20/2013 12:00 AM Depo-Medrol, Per 80 Mg [facility]#0975-8353-82 Reviewed 04/05/2013 12:00 AM RMSF Ab IgG [...] Reviewed 12/18/2013 12:00 AM Depo-Testosterone 200 Mg [facility]#4631-5692-78 [facility] Medicare Reviewed 12/31/2013 12:00 AM THER/PROPH/DIAG INJ SC/IM Reviewed 12/31/2013 12:00 AM Toradol 60 Mg [facility]#5680-0281-23 Reviewed 01/17/2014 12:00 AM THER/PROPH/DIAG INJ SC/IM Reviewed 01/17/2014 12:00 AM IMMUNIZATION ADMIN Reviewed 01/17/2014 12:00 AM Depo-Testosterone 200 Mg [facility]#3152-1852-02 Reviewed 04/03/2014 12:00 AM LIPID PANEL Reviewed 04/03/2014 12:00 AM GLYCOSYLATED HEMOGLOBIN TEST Reviewed 04/03/2014 12:00 AM ASSAY THYROID STIM HORMONE Reviewed 07/01/2010 12:00 AM COMPREHEN METABOLIC PANEL Reviewed 07/01/2010 12:00 AM LIPID PANEL Reviewed 07/01/2010 12:00 AM GLYCOSYLATED HEMOGLOBIN TEST Reviewed 07/01/2010 12:00 AM COMPLETE CBC W/AUTO DIFF WBC Reviewed 03/26/2014 12:00 AM Depo-Testosterone 200 Mg [facility]#2859-6847-12 RHC Medicare Reviewed 09/09/2010 12:00 AM ASSAY [...] Reviewed 10/22/2014 12:00 AM Depo-Testosterone 200 Mg [facility]#7641-0322-41 RHC Medicare Reviewed Results Summary Date and [...] 4.48 HGB 14.90 g/dLHCT 44.0 %MCV 98.0 fLMCH 33.30 pgMCHC 33.90 g/dLRDW SD 53 RDW CV 14.90 [...] Of Immunizations Name Date Admin Mfg Name Mfg Code Trade Name Lot# Route Inj Vis Given Vis Pub CVX Influenza 01/15/2016 sanofi pasteur PMC Fluzone [id number] Intramuscular Right Deltoid 01/15/2016 10/17/2014 141 Pneumococcal 01/15/2016 [employer] 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 Nov 19 2013 11:50AM Sinusitis, [...] 2017 11:22AM Polyuria Feb 08 2017 11:22AM CAD Feb 08 2017 11:22AM Acute upper respiratory infection May 16 2017 1:07PM Cough May 16 2017 1:07PM Fever in other diseases May 16 2017 1:07PM Payers Insurance Name Company Name Plan Name Plan Number Policy Number Policy Group Number Start Date Medicare RHC Medicare RHC [id number] N/A Medicare Part A Medicare - Lab/Xray [id number] N/A Medicare Part B Medicare Of [place] [id number] January2006 [place] [employer] [place] [employer] [place] [id number] Tuesday, June 30, 2009 Medicare Part A Medicare Part A [id number] N/A History of Encounters Visit Date Visit Type Provider 05/16/2017 Office visit Ewa Gan APRN 02/08/2017 Office visit Yady Capps MD 01/18/2017 Office visit Yady Capps MD 01/18/2017 [facility] Nissa Hannon MD 12/20/2016 Office visit Yady Capps MD 10/25/2016 Office visit Yady Capps MD 09/19/2016 Office visit Yady Capps MD 06/01/2016 Office visit Yady Capps MD 05/12/2016 Office visit Ewa Gan DOOR TO DOOR SALESMAN 04/20/2016 Office visit Ewa Gan DOOR TO DOOR SALESMAN 04/20/2016 [facility] Lamont Hannon MD 04/06/2016 Office visit Yady Capps MD 02/08/2016 Office visit Yady Capps MD 01/15/2016 Nurse visit Yady Capps MD 01/07/2016 Office visit Yady Capps MD 12/23/2015 [facility] Pablo Vergara MD 12/04/2015 Office visit Yady Capps MD 10/15/2015 Office visit Davion Montgomery MD 10/05/2015 Hospital V Jennifer Montgomery MD 09/23/2015 Office visit Yady Capps MD 09/01/2015 Procedures V Jennifer Montgomery MD 08/25/2015 Procedures V Jennifer Montgomery MD 08/12/2015 Procedures V Jennifer Montgomery MD 08/04/2015 Procedures V Jennifer Montgomery MD 07/29/2015 Procedures V Jennifer Montgomery MD 07/21/2015 Procedures V Jennifer Montgomery MD 07/21/2015 Office visit Yady Capps MD 07/17/2015 Office visit Ewa Gan DOOR TO DOOR SALESMAN 07/02/2015 Office visit Davion Montgomery MD 06/29/2015 Hospital Davion Montgomery MD 06/18/2015 Nurse visit Ewa Gan DOOR TO DOOR SALESMAN 05/28/2015 Office visit Davion Montgomery MD 05/19/2015 Office visit Ewa Gan DOOR TO DOOR SALESMAN 05/14/2015 Office visit Davion Montgomery MD 05/11/2015 [facility] Davion Montgomery MD 05/08/2015 Office visit Davion Montgomery MD 05/08/2015 Office visit Martir Stout DOOR TO DOOR SALESMAN 05/08/2015 Hospital Davion Montgomery MD 05/07/2015 [facility] Lamont Hannon MD 03/23/2015 Office visit Ewa Gan DOOR TO DOOR SALESMAN 03/17/2015 Office visit Ewa Gan DOOR TO DOOR SALESMAN 03/04/2015 Office visit Yady Capps MD 02/03/2015 Office visit Yady Capps MD 01/01/2015 Office visit Ewa Gan DOOR TO DOOR SALESMAN 12/19/2014 Office visit William Melgoza DO 11/24/2014 [facility] William Melgoza DO 11/11/2014 Office visit William Melgoza DO 10/29/2014 Office visit Ewa Gan DOOR TO DOOR SALESMAN 10/22/2014 Office visit Yady Capps MD 07/02/2014 Voided Yady Capps MD 04/03/2014 Office visit Yady Capps MD 03/26/2014 Nurse visit Ewa Gan DOOR TO DOOR SALESMAN 02/21/2014 Hospital Lamont Hannon MD 01/17/2014 Nurse visit Martir Stout DOOR TO DOOR SALESMAN 01/02/2014 Office visit Yady Capps MD 12/31/2013 Office visit Martir Stout DOOR TO DOOR SALESMAN 12/18/2013 Office visit Martir Stout DOOR TO DOOR SALESMAN 12/09/2013 Office visit Ewa Gan DOOR TO DOOR SALESMAN 11/29/2013 Office visit Ewa Gan DOOR TO DOOR SALESMAN 11/19/2013 Office visit Yady Capps MD 10/24/2013 Office visit Ewa Gan DOOR TO DOOR SALESMAN 10/01/2013 Office visit Ewa Gan DOOR TO DOOR SALESMAN 09/17/2013 Office visit Ewa Gan DOOR TO DOOR SALESMAN 09/13/2013 Office visit Irma Pérez DOOR TO DOOR SALESMAN 09/11/2013 Procedures William Bouman DO 08/28/2013 Procedures William Bouman DO 08/01/2013 Office visit Ewa Gan DOOR TO DOOR SALESMAN 07/24/2013 Office visit Yady Capps MD 06/26/2013 Office visit Alana Hernandez DOOR TO DOOR SALESMAN 04/26/2013 Office visit Yady Capps MD 03/26/2013 Office visit Ewa Gan DOOR TO DOOR SALESMAN 03/20/2013 Office visit Martir Stout DOOR TO DOOR SALESMAN 05/29/2012 Office visit Familia Spence MD 05/22/2012 Office visit Familia Spence MD 09/16/2011 Office visit Virginie Shane MD 06/27/2011 Office visit Virginie Shane MD 06/22/2011 Office visit Ewa Gan DOOR TO DOOR SALESMAN 04/26/2011 Office visit Virginie Shane MD 04/05/2011 Office visit Virginie Shane MD 03/23/2011 Office visit Virginie Shane MD 02/01/2011 Office visit Virginie Shane MD 12/15/2010 Office visit Virginie Shane MD 11/10/2010 Office visit Virginie Shane MD 11/08/2010 Hospital Lamont Hannon MD 10/07/2010 Office visit [...] 10/08/2009 Nurse visit Virginie Shane MD 10/08/2009 [facility] Jhony French MD 10/07/2009 [facility] Eddie Lewis PA-C 10/06/2009 Laboratory Jhony French MD 09/29/2009 Nurse visit Virginie Shane MD 09/10/2009 Office visit Virginie Shane MD 07/28/2009 Office visit Virginie Shane MD 06/30/2009 Office visit Virginie Shane MD
--- OUTSIDE RECORDS SUMMARY | 2017-11-16 10:56 | XMS REPORT ---
Author Author Ewa Gan Organization [facility] Address [address] [place], [place] [address] Care Team Providers Care Field Seismologist Name Role Phone Ewa Gan PCP Yady [...] 12:00 AM Clostridium difficile 01/18/2017 12:00 AM Hemoglobin A1C 06/20/2017 12:00 AM TSH 06/20/2017 12:00 AM VITAMIN D (25 HYDROXY) 06/20/2017 12:00 AM Chest x-ray, PA and lateral 06/20/2017 12:00 AM CBC With Auto Differential 09/12/2017 12:00 AM CMP (comprehensive metabolic panel) 09/12/2017 12:00 AM Hematuria 05/08/2015 12:00 AM Ehrlichia [...] (12.5 MG) BY ORAL ROUTE ONCE DAILY vitamin I17-vleix acid 500-400 mcg oral tablet take 1 tablet by oral route 2 times a day promethazine 25 mg oral tablet 10/27/2014 1 UP TO FOUR TIMES A DAY NEEDED FOR NAUSEA TABLET(S) PO oxycodone-acetaminophen 5-325 mg oral tablet take 1 [...] route once daily as needed for constipation Probiotic Acidophilus Beads 2 billion cell oral [...] to the feet twice daily as needed amlodipine 5 mg oral tablet 01/16/2017 take [...] oral route once daily for 30 days Lyrica 75 mg oral capsule 05/17/2017 09/14/2017 take 1 capsule by oral route 2 times a day for 30 days permethrin 5 % topical cream 05/18/2017 apply (thoroughly massage into skin from head to soles of feet) by topical route once leave on for 8-14 hr, then remove by thorough washing lidocaine-prilocaine 2.5-2.5 % topical cream 06/21/2017 12/18/2017 apply to affected area(s) by topical route 2 times a day as needed for 30 days Brilinta 60 mg oral tablet take 1 tablet (60 mg) by oral route 2 times per day for 30 days Nebulizer and Accessories 07/11/2017 machine, Dx: J44.9 albuterol sulfate 2.5 mg /3 mL (0.083 %) inhalation solution for nebulization 07/25/2017 09/23/2017 inhale 3 milliliters (2.5 mg) by nebulization route 4 times per day for 30 days duloxetine 60 mg oral capsule,delayed release(DR/EC) 08/14/2017 TAKE 1 CAPSULE BY MOUTH EVERY DAY potassium chloride 10 mEq oral capsule, extended release 08/14/2017 09/13/2017 take 1 capsule (10 meq) by oral route once daily when taking lasix Name Start Date Expiration Date SIG Comments [...] once daily at bedtime for 30 days Flonase 50 mcg/actuation nasal [...] for 4 days BD Ultra-Fine Birgit Pen [place] 32 gauge x 5/32" miscellaneous needle 201510/03/2016 [...] mg) by oral route once daily PRN erythromycin 500 mg oral tablet 10/25/2016 11/01/2016 [...] needed approximately 1 hour before sexual activity Cialis 20 mg oral tablet 12/09/2013 12/09/2013 [...] oral route every 6 hours as needed lisinopril 40 mg oral tablet 10/15/2015 06/20/2017 TAKE 2 TABLETS BY MOUTH DAILY duloxetine 30 mg oral capsule,delayed release(DR/EC) 11/30/2015 05/16/2017 TAKE 1 CAPSULE BY MOUTH EVERY MORNING WITH 60MG CAPSULE enoxaparin 40 mg/0.4 mL subcutaneous syringe 06/20/2017 inject 0.4 milliliter (40 mg) by subcutaneous route once daily Victoza [...] HC BMI BSA BMI Percentile O2 Sat(%) 09/12/2017 1:50:00 PM 128 mmHg 68 mmHg 65 bpm 18 rpm 98.1 F 192 lbs 72 in 26.0396 kg/m 2.1034 m 99 % 06/20/2017 10:18:00 AM 124 mmHg 68 mmHg 67 bpm 18 rpm 98 F 208.25 lbs 72 in 28.24 kg/m2 2.19 m2 100 % 05/16/2017 1:06:00 PM 110 mmHg 68 mmHg 67 bpm 18 rpm 96.7 F 218.5 lbs 72 in 29.6336 kg/m 2.2438 m 99 % 02/08/2017 11:19:00 AM 122 mmHg [...] AM 222 lbs 72 in 30.11 kg/m2 2.2617 m 05/19/2015 10:41:00 AM 134 mmHg [...] rpm 97.5 F 226 lbs 72 in 30.6508 kg/m 2.282 m Social History Name Description Comments associates degree Denies illicit substance abuse Active but no formal exercise disabeled Did not serve in Children Lives with spouse Tobacco Current every day smoker History of Procedures Date Ordered Description Order Status 01/01/2015 12:00 AM GLYCOSYLATED HEMOGLOBIN TEST Reviewed 01/01/2015 12:00 AM ASSAY OF TOTAL TESTOSTERONE Reviewed 01/01/2015 12:00 AM Depo-Testosterone, Up to 100 Mg [facility]# 9207-3995-26 Reviewed 12/19/2014 12:00 AM MRI JOINT UPR EXTREM W/O DYE Reviewed 02/03/2015 12:00 AM THER/PROPH/DIAG INJ SC/IM Reviewed 02/03/2015 12:00 AM Depo-Testosterone 200 Mg [facility]#7198-6139-60 RHC Medicare Reviewed 02/03/2015 12:00 AM IM ADM PRQ ID SUBQ/IM NJXS 1 VACCINE Reviewed 03/04/2015 12:00 AM THER/PROPH/DIAG INJ SC/IM Reviewed 03/04/2015 12:00 AM Depo-Testosterone 200 Mg [facility]#6093-4549-64 RHC Medicare Reviewed 03/17/2015 12:00 AM Decadron, Per 1 Mg [facility]# [address]-94 Reviewed 03/17/2015 12:00 AM Depo-Medrol 40mg Reviewed [...] 12:00 AM Depo-Testosterone, Up to 100 Mg [facility]# 0940-5500-32 Reviewed 05/25/2015 12:00 AM URNLS DIP STICK/TABLET RGNT AUTO W/O MICROSCOPY Reviewed 06/18/2015 12:00 AM Depo-Testosterone, Up to 100 Mg [facility]# 9846-9975-21 Reviewed 07/17/2015 12:00 AM Depo-Testosterone, Up to 100 Mg [facility]# 3767-6488-56 Reviewed 08/14/2015 12:00 AM COMPLETE CBC W/AUTO [...] 23 JONI IM Reviewed 01/15/2016 12:00 AM RHC MEDICARE - flu vaccine administration Reviewed 01/15/2016 12:00 AM [facility] MEDICARE - pneumonia vaccine administration Reviewed [...] 03/20/2013 12:00 AM Decadron, Per 1 Mg [facility]# [address]-26 Reviewed 03/20/2013 12:00 AM Depo-Medrol, Per 80 Mg [facility]#5697-6574-93 Reviewed 04/05/2013 12:00 AM RMSF Ab IgG [...] Reviewed 12/18/2013 12:00 AM Depo-Testosterone 200 Mg [facility]#9801-7719-19 [facility] Medicare Reviewed 12/31/2013 12:00 AM THER/PROPH/DIAG INJ SC/IM Reviewed 12/31/2013 12:00 AM Toradol 60 Mg [facility]#3214-2709-02 Reviewed 01/17/2014 12:00 AM THER/PROPH/DIAG INJ SC/IM Reviewed 01/17/2014 12:00 AM IMMUNIZATION ADMIN Reviewed 01/17/2014 12:00 AM Depo-Testosterone 200 Mg [facility]#2644-2543-42 Reviewed 04/03/2014 12:00 AM LIPID PANEL Reviewed 04/03/2014 12:00 AM GLYCOSYLATED HEMOGLOBIN TEST Reviewed 04/03/2014 12:00 AM ASSAY THYROID STIM HORMONE Reviewed 07/01/2010 12:00 AM COMPREHEN METABOLIC PANEL Reviewed 07/01/2010 12:00 AM LIPID PANEL Reviewed 07/01/2010 12:00 AM GLYCOSYLATED HEMOGLOBIN TEST Reviewed 07/01/2010 12:00 AM COMPLETE CBC W/AUTO DIFF WBC Reviewed 03/26/2014 12:00 AM Depo-Testosterone 200 Mg [facility]#7872-0417-20 [facility] Medicare Reviewed 09/09/2010 12:00 AM ASSAY OF [...] Reviewed 10/22/2014 12:00 AM Depo-Testosterone 200 Mg [facility]#1073-5647-00 RHC Medicare Reviewed Results Summary Date and Description Results 06/30/2009 9:59 AM Colonoscopy-Women and Men over 50 Declined 09/11/2009 9:36 AM TRIGLYCERIDES 200.0 mg/dLCHOLESTEROL 221.0 [...] Pub CVX Influenza 01/15/2016 sanofi pasteur PMC FLUZONE [id number] Intramuscular Right Deltoid 01/15/2016 10/17/2014 141 Pneumococcal 01/15/2016 [employer]ck [employer] 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 medication use Nov 19 2013 11:50AM Sinusitis, [...] in other diseases May 16 2017 1:07PM Cough Jun 20 2017 10:25AM Odynophagia Jun 20 2017 10:25AM Viral upper respiratory illness Jun 20 2017 10:25AM Multiple myeloma Jun 20 2017 10:25AM Malignant neoplasm of bladder Jun 20 2017 10:25AM Type 2 diabetes mellitus with diabetic chronic kidney disease Sep 12 2017 1: 52PM Chronic kidney disease, stage 3 (moderate) Sep 12 2017 1:52PM Carcinoma of bladder Sep 12 2017 1:52PM Essential hypertension Sep 12 2017 1:52PM Payers Insurance Name Company Name Plan Name Plan Number Policy Number Policy Group Number Start Date Medicare RHC Medicare RHC [id number] N/A Medicare Part A Medicare - Lab/Xray [id number] N/A Medicare Part B Medicare Of [place] [id number] January2006 [place] Medical Assistance [facility] Pro [id number] Tuesday, June 30, 2009 Medicare Part A Medicare Part A [id number] N/A History of Encounters Visit Date Visit Type Provider 09/12/2017 Office visit Eaw Gan GROUND WIRER 06/20/2017 Office visit Yady Capps MD 05/16/2017 Office visit Ewa Gan GROUND WIRER 02/08/2017 Office visit Yady Capps MD 01/18/2017 Office visit Yady Capps MD 01/18/2017 [facility] Lamont Hannon MD 12/20/2016 Office visit Yady Capps MD 10/25/2016 Office visit Yady Capps MD 09/19/2016 Office visit Yady Capps MD 06/01/2016 Office visit Yady Capps MD 05/12/2016 Office visit Ewa Gan GROUND WIRER 04/20/2016 Office visit Ewa Gan GROUND WIRER 04/20/2016 [facility] Lamont Hannon MD 04/06/2016 Office visit Yady Capps MD 02/08/2016 Office visit Yady Capps MD 01/15/2016 Nurse visit Yady Capps MD 01/07/2016 Office visit Yady Capps MD 12/23/2015 [facility] Pablo Vergara MD 12/04/2015 Office visit Yady Capps MD 10/15/2015 Office visit Davion Montgomery MD 10/05/2015 Hospital Davion Montgomery MD 09/23/2015 Office visit Yady Capps MD 09/01/2015 Procedures Davion Montgomery MD 08/25/2015 Procedures Davion Montgomery MD 08/12/2015 Procedures Davion Montgomery MD 08/04/2015 Procedures Davion Montgomery MD 07/29/2015 Procedures Davion Montgomery MD 07/21/2015 Procedures V Jennifer Montgomery MD 07/21/2015 Office visit Yady Capps MD 07/17/2015 Office visit Ewa Gan GROUND WIRER 07/02/2015 Office visit Davion Montgomery MD 06/29/2015 Hospital Davion Montgomery MD 06/18/2015 Nurse visit Ewa Gan GROUND WIRER 05/28/2015 Office visit Davion Montgomery MD 05/19/2015 Office visit Ewa Gan GROUND WIRER 05/14/2015 Office visit Davion Montgomery MD 05/11/2015 Hospital Davion Montgomery MD 05/08/2015 Office visit Davion Montgomery MD 05/08/2015 Office visit Martir Stout GROUND WIRER 05/08/2015 Hospital Davion Montgomery MD 05/07/2015 [facility] Lamont Hannon MD 03/23/2015 Office visit Ewa Gan GROUND WIRER 03/17/2015 Office visit Ewa Gan GROUND WIRER 03/04/2015 Office visit Yady Capps MD 02/03/2015 Office visit Yady Capps MD 01/01/2015 Office visit Ewa Gan GROUND WIRER 12/19/2014 Office visit William Melgoza DO 11/24/2014 [facility] William Bouman DO 11/11/2014 Office visit William Melgoza DO 10/29/2014 Office visit Eaw Gan GROUND WIRER 10/22/2014 Office visit Yady Capps MD 07/02/2014 Voided Yady Capps MD 04/03/2014 Office visit Yady Capps MD 03/26/2014 Nurse visit Ewa Gan GROUND WIRER 02/21/2014 [facility] Lamont Hannon MD 01/17/2014 Nurse visit Martir Stout GROUND WIRER 01/02/2014 Office visit Yady Capps MD 12/31/2013 Office visit Martir Stout GROUND WIRER 12/18/2013 Office visit Martir Stout GROUND WIRER 12/09/2013 Office visit Ewa Gan GROUND WIRER 11/29/2013 Office visit Ewa Gan GROUND WIRER 11/19/2013 Office visit Yady Capps MD 10/24/2013 Office visit Ewa Gan GROUND WIRER 10/01/2013 Office visit Ewa Gan GROUND WIRER 09/17/2013 Office visit Ewa Gan GROUND WIRER 09/13/2013 Office visit Irma Pérez GROUND WIRER 09/11/2013 Procedures William Bomartha DO 08/28/2013 Procedures William Bouman DO 08/01/2013 Office visit Ewa Gan GROUND WIRER 07/24/2013 Office visit Yady Capps MD 06/26/2013 Office visit Alana Hernandez GROUND WIRER 04/26/2013 Office visit Yady Capps MD 03/26/2013 Office visit Ewa Gan GROUND WIRER 03/20/2013 Office visit Martir Stout GROUND WIRER 05/29/2012 Office visit Familia Spence MD 05/22/2012 Office visit Familia Spence MD 09/16/2011 Office visit Virginie Shane MD 06/27/2011 Office visit Virginie Shane MD 06/22/2011 Office visit Ewa Gan GROUND WIRER 04/26/2011 Office visit Virginie Shane MD 04/05/2011 Office visit Virginie Shane MD 03/23/2011 Office visit Virginie Shane MD 02/01/2011 Office visit Virginie Shane MD 12/15/2010 Office visit Virginie Shane MD 11/10/2010 Office visit Virginie Shane MD 11/08/2010 [facility] Nissa Hannon MD 10/07/2010 Office visit Virginie Shane [...] 10/08/2009 Nurse visit Virginie Shane MD 10/08/2009 [facility] Jhony French MD 10/07/2009 [facility] Eddie Lewis PA-C 10/06/2009 Laboratory Jhony French MD 09/29/2009 Nurse visit Virginie Shane MD 09/10/2009 Office visit Virginie Shane MD 07/28/2009 Office visit Virginie Shane MD 06/30/2009 Office visit Virginie Shane MD
--- OUTSIDE RECORDS SUMMARY | 2017-11-16 11:17 | XMS REPORT ---
Author Author Yady Capps Organization [facility] Address [address] [place], [place] [address] Care Team Providers Care Mechanical Designer Name Role Phone Yady Capps PCP Yady [...] x-ray, PA and lateral 06/20/2017 12:00 AM Hematuria 05/08/2015 12:00 AM Ehrlichia [...] MG) BY ORAL ROUTE ONCE DAILY vitamin Q69-xlsrk acid 500-400 mcg oral tablet take 1 [...] by oral route daily Ultra-Light Rollator miscellaneous [facility] 12/15/2015 use as directed, DX: multiplemyloma triamcinolone [...] 8-14 hr, then remove by thorough washing albuterol sulfate 2.5 mg /3 mL (0.083 %) inhalation solution for nebulization 06/21/2017 08/20/2017 inhale 3 milliliters (2.5 mg) by nebulization route 4 times per day for 30 days lidocaine-prilocaine 2.5-2.5 % topical cream 06/21/2017 12/18/2017 apply to affected area(s) by topical route 2 times a day as needed for 30 days Brilinta 60 mg oral tablet take 1 tablet (60 mg) by oral route 2 times per day for 30 days Nebulizer and Accessories 07/11/2017 machine, Dx: J44.9 duloxetine 60 mg oral capsule,delayed release(DR/EC) 07/14/2017 TAKE 1 CAPSULE BY MOUTH EVERY DAY Name Start Date Expiration Date SIG Comments [...] for 4 days BD Ultra-Fine Birgit Pen [place] 32 gauge x 5/32" miscellaneous needle 201510/03/2016 [...] 3 times per day as needed Zithromax Z-Deesan 250 mg oral tablet 06/22/2011 06/27/2011 take [...] ROUTE ONCE DAILY FOR 30 DAYS Zithromax Z-Edsean 250 mg oral tablet 11/19/2013 12/09/2013 Take [...] HC BMI BSA BMI Percentile O2 Sat(%) 06/20/2017 10:18:00 AM 124 mmHg 68 mmHg 67 bpm 18 rpm 98 F 208.25 lbs 72 in 28.2435 kg/m 2.1906 m 100 % 05/16/2017 1:06:00 PM 110 mmHg [...] 12:00 AM Depo-Testosterone, Up to 100 Mg [facility]# 2642-6908-42 Reviewed 12/19/2014 12:00 AM MRI JOINT UPR EXTREM W/O DYE Reviewed 02/03/2015 12:00 AM THER/PROPH/DIAG INJ SC/IM Reviewed 02/03/2015 12:00 AM Depo-Testosterone 200 Mg [facility]#2122-2949-85 RHC Medicare Reviewed 02/03/2015 12:00 AM IM ADM PRQ ID SUBQ/IM NJXS 1 VACCINE Reviewed 03/04/2015 12:00 AM THER/PROPH/DIAG INJ SC/IM Reviewed 03/04/2015 12:00 AM Depo-Testosterone 200 Mg [facility]#3351-2976-87 RHC Medicare Reviewed 03/17/2015 12:00 AM Decadron, Per 1 Mg [facility]# [address]-14 Reviewed 03/17/2015 12:00 AM Depo-Medrol 40mg Reviewed [...] 12:00 AM Depo-Testosterone, Up to 100 Mg [facility]# 1520-3724-83 Reviewed 05/25/2015 12:00 AM URNLS DIP STICK/TABLET RGNT AUTO W/O MICROSCOPY Reviewed 06/18/2015 12:00 AM Depo-Testosterone, Up to 100 Mg [facility]# 1742-0460-44 Reviewed 07/17/2015 12:00 AM Depo-Testosterone, Up to 100 Mg [facility]# 8265-1071-59 Reviewed 08/14/2015 12:00 AM COMPLETE CBC W/AUTO [...] 23 JONI IM Reviewed 01/15/2016 12:[address] [facility] MEDICARE - flu vaccine administration Reviewed 01/15/2016 12:[address] [facility] MEDICARE - pneumonia vaccine administration [...] 03/20/2013 12:00 AM Decadron, Per 1 Mg [facility]# [address]-63 Reviewed 03/20/2013 12:00 AM Depo-Medrol, Per 80 Mg [facility]#5102-3615-41 Reviewed 04/05/2013 12:00 AM RMSF Ab IgG [...] Reviewed 12/18/2013 12:00 AM Depo-Testosterone 200 Mg [facility]#2121-6500-66 RHC Medicare Reviewed 12/31/2013 12:00 AM THER/PROPH/DIAG INJ SC/IM Reviewed 12/31/2013 12:00 AM Toradol 60 Mg [facility]#7824-5860-63 Reviewed 01/17/2014 12:00 AM THER/PROPH/DIAG INJ SC/IM Reviewed 01/17/2014 12:00 AM IMMUNIZATION ADMIN Reviewed 01/17/2014 12:00 AM Depo-Testosterone 200 Mg [facility]#4621-2491-04 Reviewed 04/03/2014 12:00 AM LIPID PANEL Reviewed 04/03/2014 12:00 AM GLYCOSYLATED HEMOGLOBIN TEST Reviewed 04/03/2014 12:00 AM ASSAY THYROID STIM HORMONE Reviewed 07/01/2010 12:00 AM COMPREHEN METABOLIC PANEL Reviewed 07/01/2010 12:00 AM LIPID PANEL Reviewed 07/01/2010 12:00 AM GLYCOSYLATED HEMOGLOBIN TEST Reviewed 07/01/2010 12:00 AM COMPLETE CBC W/AUTO DIFF WBC Reviewed 03/26/2014 12:00 AM Depo-Testosterone 200 Mg [facility]#2327-7144-21 [facility] Medicare Reviewed 09/09/2010 12:00 AM [...] Reviewed 10/22/2014 12:00 AM Depo-Testosterone 200 Mg [facility]#2719-2553-44 RHC Medicare Reviewed Results Summary Date and [...] CVX Influenza 01/15/2016 sanofi pasteur PMC FLUZONE [id number] Intramuscular Right Deltoid 01/15/2016 10/17/2014 141 Pneumococcal 01/15/2016 [employer]ck [employer] 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 [id number] N/A Medicare Part A Medicare - Lab/Xray [id number] N/A Medicare Part B Medicare Of [place] [id number] January2006 [place] Medical [place] Program [place] Prog [id number] Tuesday, June 30, 2009 Medicare Part A Medicare Part A [id number] N/A History of Encounters Visit Date Visit Type Provider 06/20/2017 Office visit Yady Capps MD 05/16/2017 Office visit Ewa Gan FUEL YARD OPERATOR 02/08/2017 Office visit Yady Capps MD 01/18/2017 Office visit Yady Capps MD 01/18/2017 Hospital Lamont Hannon MD 12/20/2016 Office visit Yady Capps MD 10/25/2016 Office visit Yady Capps MD 09/19/2016 Office visit Yady Capps MD 06/01/2016 Office visit Yady Capps MD 05/12/2016 Office visit Ewa Gan FUEL YARD OPERATOR 04/20/2016 Office visit Ewa Gan FUEL YARD OPERATOR 04/20/2016 [facility] Lamont Hannon MD 04/06/2016 Office visit Yady Capps MD 02/08/2016 Office visit Yady Capps MD 01/15/2016 Nurse visit Yady Capps MD 01/07/2016 Office visit Yady Capps MD 12/23/2015 [facility] Pablo Vergara MD 12/04/2015 Office visit Yady Capps MD 10/15/2015 Office visit Davion Montgomery MD 10/05/2015 [facility] V Jennifer Montgomery MD 09/23/2015 Office visit Yady Capps MD 09/01/2015 Procedures Davion Montgomery MD 08/25/2015 Procedures V Jennifer Montgomery MD 08/12/2015 Procedures Davion Montgomery MD 08/04/2015 Procedures Davion Montgomery MD 07/29/2015 Procedures Davion Montgomery MD 07/21/2015 Procedures Davion Montgomery MD 07/21/2015 Office visit Yady Capps MD 07/17/2015 Office visit Ewa Gan FUEL YARD OPERATOR 07/02/2015 Office visit Davion Montgomery MD 06/29/2015 Hospital Davion Montgomery MD 06/18/2015 Nurse visit Ewa Gan FUEL YARD OPERATOR 05/28/2015 Office visit Davion Montgomery MD 05/19/2015 Office visit Ewa Gan FUEL YARD OPERATOR 05/14/2015 Office visit Davion Montgomery MD 05/11/2015 Hospital Davion Montgomery MD 05/08/2015 Office visit Davion Montgomery MD 05/08/2015 Office visit Martir Stout FUEL YARD OPERATOR 05/08/2015 Hospital Davion Montgomery MD 05/07/2015 [facility] Lamont Hannon MD 03/23/2015 Office visit Ewa Gan FUEL YARD OPERATOR 03/17/2015 Office visit Ewa Gan FUEL YARD OPERATOR 03/04/2015 Office visit Yady Capps MD 02/03/2015 Office visit Yady Capps MD 01/01/2015 Office visit Ewa Gan FUEL YARD OPERATOR 12/19/2014 Office visit William Bouman DO 11/24/2014 Hospital William Bouman DO 11/11/2014 Office visit William Bouman DO 10/29/2014 Office visit Ewa Gan FUEL YARD OPERATOR 10/22/2014 Office visit Yady Capps MD 07/02/2014 Voided Yady Capps MD 04/03/2014 Office visit Yady Capps MD 03/26/2014 Nurse visit Ewa Gan FUEL YARD OPERATOR 02/21/2014 Hospital Lamont Hannon MD 01/17/2014 Nurse visit Martir Stout FUEL YARD OPERATOR 01/02/2014 Office visit Yady Capps MD 12/31/2013 Office visit Martir Stout FUEL YARD OPERATOR 12/18/2013 Office visit Martir Stout FUEL YARD OPERATOR 12/09/2013 Office visit Ewa Gan FUEL YARD OPERATOR 11/29/2013 Office visit Ewa Gan FUEL YARD OPERATOR 11/19/2013 Office visit Yady Capps MD 10/24/2013 Office visit Ewa Gan FUEL YARD OPERATOR 10/01/2013 Office visit Ewa Gan FUEL YARD OPERATOR 09/17/2013 Office visit Ewa Gan FUEL YARD OPERATOR 09/13/2013 Office visit Irma Pérez FUEL YARD OPERATOR 09/11/2013 Procedures William Melgoza DO 08/28/2013 Procedures William Bouman DO 08/01/2013 Office visit Ewa Gan FUEL YARD OPERATOR 07/24/2013 Office visit Yady Capps MD 06/26/2013 Office visit Alana Hernandez FUEL YARD OPERATOR 04/26/2013 Office visit Yady Capps MD 03/26/2013 Office visit Ewa Gan FUEL YARD OPERATOR 03/20/2013 Office visit Martir Stout FUEL YARD OPERATOR 05/29/2012 Office visit Familia Spence MD 05/22/2012 Office visit Familia Spence MD 09/16/2011 Office visit Virginie Shane MD 06/27/2011 Office visit Virginie Shane MD 06/22/2011 Office visit Ewa Gan FUEL YARD OPERATOR 04/26/2011 Office visit Virginie Shane MD 04/05/2011 Office visit Virginie Shane MD 03/23/2011 Office visit Virginie Shane MD 02/01/2011 Office visit Virginei Shane MD 12/15/2010 Office visit Virginie Shane MD 11/10/2010 Office visit Virginie Shane MD 11/08/2010 Hospital Lamont Hannon MD 10/07/2010 Office visit Virginie Shane MD 09/23/2010 Office visit Virginie Shane MD 09/09/2010 Office visit Virginie Shane MD 09/01/2010 Office visit Evelina DICKEY 08/24/2010 Office visit Virginie Shane MD 07/01/2010 Office visit Virginie hSane MD 05/04/2010 Office visit Virginie Shane MD [...] 10/08/2009 Nurse visit Virginie Shane MD 10/08/2009 Hospital Jhony French MD 10/07/2009 [facility] Eddie Lewis PA-C 10/06/2009 Laboratory Jhony French MD 09/29/2009 Nurse visit Virginie Shane MD 09/10/2009 Office visit Virginie Shane MD 07/28/2009 Office visit Virginie Shane MD 06/30/2009 Office visit Virginie Shane MD
[2017-11-16] MEDS ORDERED: proPOfol 200 MG/20 ML (DIPRIVAN) VIAL IV ONE (11:29)
[2017-11-16] MEDS ORDERED: NEO/POLY/BAC (NEOSPORIN) OINT 15 GM TUBE ONE (11:59)
--- OUTSIDE RECORDS SUMMARY | 2017-11-16 12:02 | XMS REPORT ---
Author Author Yady Capps Organization [facility] Address [address] [place], [place] [id number] Care Team Providers Care Fire Prevention Officer Name Role Phone Yady Capps PCP Yady [...] A DAY NEEDED FOR 30 DAYS vitamin L54-nvnxf acid 500-400 mcg oral tablet take 1 [...] oral route once daily for 30 days atenolol 100 mg oral tablet 11/16/2016 TAKE [...] for 4 days BD Ultra-Fine Birgit Pen Hewitt 32 gauge x 32" miscellaneous needle 201510/03/2016 [...] formal exercise disabeled Did not serve in [employer] Lives with spouse Tobacco Current every day smoker History of Procedures Date Ordered Description Order Status 01/01/2015 12:00 AM GLYCOSYLATED HEMOGLOBIN TEST Reviewed 01/01/2015 12:00 AM ASSAY OF TOTAL TESTOSTERONE Reviewed 01/01/2015 12:00 AM Depo-Testosterone, Up to 100 Mg [facility]# 9430-8559-20 Reviewed 12/19/2014 12:00 AM MRI JOINT UPR EXTREM W/O DYE Reviewed 02/03/2015 12:00 AM THER/PROPH/DIAG INJ SC/IM Reviewed 02/03/2015 12:00 AM Depo-Testosterone 200 Mg [facility]#9502-7614-10 RHC Medicare Reviewed 02/03/2015 12:00 AM IM ADM PRQ ID SUBQ/IM NJXS 1 VACCINE Reviewed 03/04/2015 12:00 AM THER/PROPH/DIAG INJ SC/IM Reviewed 03/04/2015 12:00 AM Depo-Testosterone 200 Mg [facility]#3439-2920-64 RHC Medicare Reviewed 03/17/2015 12:00 AM Decadron, Per 1 Mg [facility]# [address]-40 Reviewed 03/17/2015 12:00 AM Depo-Medrol 40mg Reviewed [...] AM Depo-Testosterone, Up to 100 Mg ND# 7422-4458-08 Reviewed 05/25/2015 12:00 AM URNLS DIP STICK/TABLET RGNT AUTO W/O MICROSCOPY Reviewed 06/18/2015 12:00 AM Depo-Testosterone, Up to 100 Mg ND# 4696-7721-19 Reviewed 07/17/2015 12:00 AM Depo-Testosterone, Up to 100 Mg NDC# 6036-4293-04 Reviewed 08/14/2015 12:00 AM COMPLETE CBC W/AUTO [...] 23 JONI IM Reviewed 01/15/2016 12:00 AM [facility] MEDICARE - flu vaccine administration Reviewed 01/15/2016 12:00 AM [facility] MEDICARE - pneumonia vaccine administration Reviewed [...] 02/08/2017 12:00 AM URINALYSIS AUTO W/SCOPE Returned 05/22/2012 12:00 AM EXC TR-EXT B9+SABINA 0.6-1 CM Reviewed 05/22/2012 12:00 AM EXC FACE-MM B9+SABINA 0.6-1 CM Reviewed 05/22/2012 12:00 AM EXC F/E/E/N/L MAL+MRG 0.6-1 Reviewed 03/20/2013 12:00 AM THER/PROPH/DIAG INJ SC/IM Reviewed 03/20/2013 12:00 AM Decadron, Per 1 Mg [facility]# [address]-91 Reviewed 03/20/2013 12:00 AM Depo-Medrol, Per 80 Mg [facility]#3360-0421-16 Reviewed 04/05/2013 12:00 AM RMSF Ab IgG [...] Reviewed 12/18/2013 12:00 AM Depo-Testosterone 200 Mg [facility]#9152-8966-08 [facility] Medicare Reviewed 12/31/2013 12:00 AM THER/PROPH/DIAG INJ SC/IM Reviewed 12/31/2013 12:00 AM Toradol 60 Mg [facility]#7187-9166-28 Reviewed 01/17/2014 12:00 AM THER/PROPH/DIAG INJ SC/IM Reviewed 01/17/2014 12:00 AM IMMUNIZATION ADMIN Reviewed 01/17/2014 12:00 AM Depo-Testosterone 200 Mg [facility]#4037-3623-86 Reviewed 04/03/2014 12:00 AM LIPID PANEL Reviewed 04/03/2014 12:00 AM GLYCOSYLATED HEMOGLOBIN TEST Reviewed 04/03/2014 12:00 AM ASSAY THYROID STIM HORMONE Reviewed 07/01/2010 12:00 AM COMPREHEN METABOLIC PANEL Reviewed 07/01/2010 12:00 AM LIPID PANEL Reviewed 07/01/2010 12:00 AM GLYCOSYLATED HEMOGLOBIN TEST Reviewed 07/01/2010 12:00 AM COMPLETE CBC W/AUTO DIFF WBC Reviewed 03/26/2014 12:00 AM Depo-Testosterone 200 Mg [facility]#9760-7557-68 RHC Medicare Reviewed 09/09/2010 12:00 AM ASSAY [...] Reviewed 10/22/2014 12:00 AM Depo-Testosterone 200 Mg [facility]#7900-9916-00 RHC Medicare Reviewed Results Summary Date and [...] 4.48 HGB 14.90 g/dLHCT 44.0 %MCV 98.0 [facility] 33.30 [facility] 33.[facility] g/dLRDW SD 53 RDW CV 14.90 [...] CVX Influenza 01/15/2016 sanofi pasteur PMC Fluzone [id number] Intramuscular Right Deltoid 01/15/2016 10/17/2014 141 Pneumococcal 01/15/2016 Merck & Co., Inc. MSD Pneumovax 23 [id number] Intramuscular Left Deltoid 01/15/2016 07/04/2014 33 History [...] 2013 10:12AM Hyperlipidemia Nov 19 2013 11:50AM halfway medication use Nov 19 2013 11:50AM Sinusitis, [...] 2017 11:22AM CAD Feb 08 2017 11:22AM Payers Insurance Name Company Name Plan Name Plan Number Policy Number Policy Group Number Start Date Medicare RHC Medicare RHC [id number] N/A Medicare Part A Medicare - Lab/Xray [id number] N/A Medicare Part B Medicare Of [place] [id number] January2006 [place] Medical Assistance [facility] Medical Assistance Prog [id number] Tuesday, June 30, 2009 Medicare Part A Medicare Part A [id number] N/A History of Encounters Visit Date Visit Type Provider 02/08/2017 Office visit Yady Capps MD 01/18/2017 Office visit Yady Capps MD 01/18/2017 [facility] Lamont Hannon MD 12/20/2016 Office visit Yady Capps MD 10/25/2016 Office visit Yady Capps MD 09/19/2016 Office visit Yady Capps MD 06/01/2016 Office visit Yady Capps MD 05/12/2016 Office visit Ewa Gan APRN 04/20/2016 Office visit Ewa Gan APRN 04/20/2016 [facility] Lamont Hannno MD 04/06/2016 Office visit Yady Capps MD 02/08/2016 Office visit Yady Capps MD 01/15/2016 Nurse visit Yady Capps MD 01/07/2016 Office visit Yady Capps MD 12/23/2015 [facility] Pablo Vergara MD 12/04/2015 Office visit [...] Capps MD 07/17/2015 Office visit Ewa Gan RN CHRONIC 07/02/2015 Office visit Davion Montgomery MD 06/29/2015 Hospital Davion Montgomery MD 06/18/2015 Nurse visit Ewa Gan RN CHRONIC 05/28/2015 Office visit Davion Montgomery MD 05/19/2015 Office visit Ewa Gan RN CHRONIC 05/14/2015 Office visit Davion Montgomery MD 05/11/2015 [facility] Davion Montgomery MD 05/08/2015 Office visit Davion Montgomery MD 05/08/2015 Office visit Martir Stout RN CHRONIC 05/08/2015 [facility] Davion Montgomery MD 05/07/2015 [facility] Lamont Hannon MD 03/23/2015 Office visit Ewa Gan RN CHRONIC 03/17/2015 Office visit Ewa Gan RN CHRONIC 03/04/2015 Office visit Yady Capps MD 02/03/2015 Office visit Yady Capps MD 01/01/2015 Office visit Ewa Gan RN CHRONIC 12/19/2014 Office visit William Melgoza DO 11/24/2014 [facility] William Melgoza DO 11/11/2014 Office visit William Melgoza DO 10/29/2014 Office visit Ewa Gan RN CHRONIC 10/22/2014 Office visit Yady Capps MD 07/02/2014 Voided Yady Capps MD 04/03/2014 Office visit Yady Capps MD 03/26/2014 Nurse visit Ewa Gan RN CHRONIC 02/21/2014 [facility] Lamont Hannon MD 01/17/2014 Nurse visit Martir Stout RN CHRONIC 01/02/2014 Office visit aYdy Capps MD 12/31/2013 Office visit Martir Stout RN CHRONIC 12/18/2013 Office visit Martir Stout RN CHRONIC 12/09/2013 Office visit Ewa Gan RN CHRONIC 11/29/2013 Office visit Ewa Gan RN CHRONIC 11/19/2013 Office visit Yady Capps MD 10/24/2013 Office visit Ewa Gan RN CHRONIC 10/01/2013 Office visit Ewa Gan RN CHRONIC 09/17/2013 Office visit Ewa Gan RN CHRONIC 09/13/2013 Office visit Irma Pérez RN CHRONIC 09/11/2013 Procedures William Bouman DO 08/28/2013 Procedures William Bouman DO 08/01/2013 Office visit Ewa Gan RN CHRONIC 07/24/2013 Office visit Yady Capps MD 06/26/2013 Office visit Alana Hernandez RN CHRONIC 04/26/2013 Office visit Yady Capps MD 03/26/2013 Office visit Ewa Gan RN CHRONIC 03/20/2013 Office visit Martir Stout RN CHRONIC 05/29/2012 Office visit Familia Spence MD 05/22/2012 Office visit Familia Spence MD 09/16/2011 Office visit Virginie Shane MD 06/27/2011 Office visit Virginie Shane MD 06/22/2011 Office visit Ewa Gan RN CHRONIC 04/26/2011 Office visit Virginie Shane MD 04/05/2011 Office visit Virginie Shane MD 03/23/2011 Office visit Virginie Shane MD 02/01/2011 Office visit Virginie Shane MD 12/15/2010 Office visit Virginie Shane MD 11/10/2010 Office visit Virginie Shane MD 11/08/2010 [facility] Nissa Hannon MD 10/07/2010 Office visit Virginie [...] MD 10/08/2009 Hospital Jhony French MD 10/07/2009 [facility] Eddie Lewis PA-C 10/06/2009 Laboratory Jhony French MD 09/29/2009 Nurse visit Virginie Shane MD 09/10/2009 Office visit Virginie Shane MD 07/28/2009 Office visit Virginie Shane MD 06/30/2009 Office visit Virginie Shane MD
--- NOTE | 2017-11-16 12:12 | Anesthesia-Procedure Note ---
Procedures/Interventions Procedure Start/Stop/Diagnosis Date of Procedure: Nov 16, 2017 Start Time: 11:50 Referring Physician: Carolin Preprocedural Diagnosis: Ischemic Cardiomyopathy Brief History Called to warehouse general laborer for sedation of patient Dr. Coe needed AICD DFT's. Pt was sedated already by warehouse general laborer RN with Fent and Versed and was sleeping. Chart review and brief hx obtained. All monitors applied and O2 per NC was flowing at 4lop with ETCO2 present. ASA 3 Pt was given a total of 35mg propofol. DFT's completed with complication, pt remained SV with no complaints. VSS. Report to warehouse general laborer RN and left in her care. Stop Time: 12:03 Postprocedural Diagnosis: Ischemic Cardiomyopathy SANDEEP LANIER CRNA Nov 16, 2017 12:12
[2017-11-16] MEDS ORDERED: PATIENT MAY USE OWN MEDS, ALL PO SCH (12:15)
--- NOTE | 2017-11-16 12:17 | Single Chamber ICD Implant ---
Single Chamber ICD Implant DATE OF SERVICE: 11/16/2017 SINGLE CHAMBER ICD IMPLANTATION CARDIAC OFFENDER EMPLOYMENT SPECIALIST: Aviva Coe MD INDICATION: Severe LV systolic dysfunction. NYHA class II heart failure, on optimal medical therapy for more than 3 months. PREOPERATIVE DIAGNOSES: Severe LV systolic dysfunction. NYHA class II heart failure, on optimal medical therapy for more than 3 months. POSTOPERATIVE DIAGNOSES: Successful single-chamber ICD implantation. HISTORY: This is a 62-year-old gentleman with history of MD and PCI to LAD and RCA in January 2017. EF < 30 percent therefore lifevest was placed. Patient was started on optimal medical therapy which was goal directed. The patient was on YOKASTA inhibitor, beta salvatore, aspirin, statin, Brilinta, Lasix, Aldactone. Repeat echocardiogram was supposed to be done in April 2017 however the patient was noncompliant with a lifevest and did not have an echocardiogram done. However he continued medical therapy. Echocardiogram done in October 2017 showed an EF of 25-30 percent. ICD implantation is recommended. PROCEDURE PERFORMED: 1. Single-chamber ICD implantation. 2. DFT testing. COMPLICATIONS: None. ESTIMATED BLOOD LOSS: 20 mL. SPECIMENS: None. ANESTHESIA: Conscious sedation. ORAL ANTICOAGULATION: None. FLUOROSCOPY TIME: 3.7 minutes. FLUOROSCOPY DOSE: 35 MGy. CONTRAST DOSE: 0 PROCEDURE DETAILS: After all the questions were answered, an informed consent was taken. All the risks and complication were explained in detail. The patient was brought to the EP lab. The patient's right and left chest was prepped and draped in the usual sterile fashion. A 2-inch horizontal incision was made 1 cm below the clavicle and dissection carried down to the pectoralis fascia. IV antibiotics were administered prior to first incision. Under fluoroscopic guidance, access was gained in the axillary vein and a regular J-wire was placed. We then introduced a sheath into the axillary vein. A ICD lead was inserted. This is a single-coiled ICD lead. The RV lead was inserted across the tricuspid valve to an apical septal portion of the RV. The lead position was checked in JUSTINE and WILLIAMSON view. The screw was deployed and lead connected to the professional programmer analyst. Good sensing and pacing thresholds were obtained. Diaphragmatic pacing was ruled out. The lead was secured with 2-0 Vicryl nonabsorbable sutures. The lead was secured to the underlying muscle and fascia. We then took an ICD generator and the lead was connected to the device in a hermetic fashion. The device and it was placed in the pocket. Aggressive irrigation with normal saline solution was done. Interrogation of the device revealed good integrity of the leads and connection. The wound was closed using 2 layers. The first layer was an interrupted 2-0 Vicryl. The second layer was an uninterrupted 4-0 Vicryl suture. Half inch Steri-Strips and a small dressing was then applied to the wound. DFT testing was done with anesthesia support. The induction mechanism was a T- shock. The first T-shock was at 290 milliseconds. Sustained ventricular fibrillation which was treated with 25 J from the device. Device was programmed as VVI 40 and 2 zones. The first zone is a VT zone at 188 bpm and second is a VF zone at 222 BPM. Patient tolerated procedure well and did not have any complications. DEVICE INFORMATION: Intica 7 VR-T DX Biotronik. Reference number [id number]. Serial number [id number]. PID 93. INTRAOPERATIVE DEVICE TESTING: P-wave sensing 3.2 mV. RV sensing 14 mV. Impedance 505 ohms. Threshold 0.9 V at 0.4 ms. DEVICE INTERROGATION IMMEDIATELY POSTOP: P-wave 3.0 mV. R wave 11.7 mV. Impedance 581 ohms. Threshold 0.9 V at 0.4 ms. HV impedance 82 ohms. PLAN: The patient will be observed for 23 hours. We will continue with two more dosages of IV antibiotics. We will check a chest x-ray and interrogate the device in the morning. An EKG will be done as well. If everything checks out, the patient will be discharged tomorrow. Aviva Coe MD, [facility], CCDS Cardiac Electrophysiology Bg COE MD Nov 16, 2017 12:17 pm
--- NOTE | 2017-11-16 12:50 | Diagnostic Imaging Report ---
EXAMINATION: Erect AP chest at 1:21 p.m. INDICATION: Post ICD. FINDINGS: In the interval since the prior exam of 01/27/2017, a left-sided defibrillator device has been inserted. The lead seems to be in good position. There is no pneumothorax identified. The overall appearance of the chest has not changed significantly otherwise. The heart is at the upper limits of normal in size but stable when compared to the prior study. The central pulmonary vascularity remains prominent. However, the Samy B lines in both lung bases noted on the prior study have resolved. There still could be an element of mild pulmonary congestion present, however. Clinical followup is recommended. There is no consolidated pneumonia identified, and there is no sign of a pleural effusion. The mediastinum is not widened. The osseous structures are intact. The orthopedic fixation wire overlying the right clavicle seen previously is again evident. IMPRESSION: 1. There has been interval insertion of a left-sided defibrillator device without apparent complication. 2. The pulmonary congestion noted on the prior exam has diminished. There may still be an element of mild pulmonary congestion present, however. Clinical followup is recommended. Dictated by: Dictated on workstation # [id number]
--- OUTSIDE RECORDS SUMMARY | 2017-11-16 13:17 | XMS REPORT ---
Author Author Ewa Gan Organization [facility] Address [address] [place], [place] [id number] Care Team Providers Care Possum Trapper Name Role Phone Ewa Gan PCP Yady [...] A DAY NEEDED FOR 30 DAYS vitamin I45-wgsnh acid 500-400 mcg oral tablet take 1 [...] for 4 days BD Ultra-Fine Birgit Pen Hallam 32 gauge x 5/32" miscellaneous needle 201510/03/2016 [...] 12:00 AM Depo-Testosterone, Up to 100 Mg [facility]# 2664-1450-94 Reviewed 12/19/2014 12:00 AM MRI JOINT UPR EXTREM W/O DYE Reviewed 02/03/2015 12:00 AM THER/PROPH/DIAG INJ SC/IM Reviewed 02/03/2015 12:00 AM Depo-Testosterone 200 Mg [facility]#7684-9443-58 RHC Medicare Reviewed 02/03/2015 12:00 AM IM ADM PRQ ID SUBQ/IM NJXS 1 VACCINE Reviewed 03/04/2015 12:00 AM THER/PROPH/DIAG INJ SC/IM Reviewed 03/04/2015 12:00 AM Depo-Testosterone 200 Mg [facility]#3817-2516-06 RHC Medicare Reviewed 03/17/2015 12:00 AM Decadron, Per 1 Mg [facility]# [address]-44 Reviewed 03/17/2015 12:00 AM Depo-Medrol 40mg Reviewed [...] AM Depo-Testosterone, Up to 100 Mg NDC# 3858-5807-40 Reviewed 05/25/2015 12:00 AM URNLS DIP STICK/TABLET RGNT AUTO W/O MICROSCOPY Reviewed 06/18/2015 12:00 AM Depo-Testosterone, Up to 100 Mg NDC# 1428-0560-82 Reviewed 07/17/2015 12:00 AM Depo-Testosterone, Up to 100 Mg NDC# 9439-5897-72 Reviewed 08/14/2015 12:00 AM COMPLETE CBC W/AUTO [...] 23 JONI IM Reviewed 01/15/2016 12:00 AM [facility] MEDICARE - flu vaccine administration Reviewed 01/15/2016 12:00 AM [facility] MEDICARE - pneumonia vaccine administration Reviewed 01/15/2016 [...] 03/20/2013 12:00 AM Decadron, Per 1 Mg [facility]# [address]-32 Reviewed 03/20/2013 12:00 AM Depo-Medrol, Per 80 Mg [facility]#5507-2848-28 Reviewed 04/05/2013 12:00 AM RMSF Ab IgG [...] Reviewed 12/18/2013 12:00 AM Depo-Testosterone 200 Mg [facility]#9987-5373-97 [facility] Medicare Reviewed 12/31/2013 12:00 AM THER/PROPH/DIAG INJ SC/IM Reviewed 12/31/2013 12:00 AM Toradol 60 Mg [facility]#3713-6561-32 Reviewed 01/17/2014 12:00 AM THER/PROPH/DIAG INJ SC/IM Reviewed 01/17/2014 12:00 AM IMMUNIZATION ADMIN Reviewed 01/17/2014 12:00 AM Depo-Testosterone 200 Mg [facility]#8456-7000-16 Reviewed 04/03/2014 12:00 AM LIPID PANEL Reviewed 04/03/2014 12:00 AM GLYCOSYLATED HEMOGLOBIN TEST Reviewed 04/03/2014 12:00 AM ASSAY THYROID STIM HORMONE Reviewed 07/01/2010 12:00 AM COMPREHEN METABOLIC PANEL Reviewed 07/01/2010 12:00 AM LIPID PANEL Reviewed 07/01/2010 12:00 AM GLYCOSYLATED HEMOGLOBIN TEST Reviewed 07/01/2010 12:00 AM COMPLETE CBC W/AUTO DIFF WBC Reviewed 03/26/2014 12:00 AM Depo-Testosterone 200 Mg [facility]#3513-6139-43 RHC Medicare Reviewed 09/09/2010 12:00 AM ASSAY [...] Reviewed 10/22/2014 12:00 AM Depo-Testosterone 200 Mg [facility]#2579-4670-24 RHC Medicare Reviewed Results Summary Date and [...] CVX Influenza 01/15/2016 sanofi pasteur PMC Fluzone [id number] Intramuscular Right Deltoid 01/15/2016 10/17/2014 141 Pneumococcal 01/15/2016 Merck & Co., Inc. MSD Pneumovax 23 [id number] Intramuscular Left Deltoid 01/15/2016 07/04/2014 33 History [...] 2013 10:12AM Hyperlipidemia Nov 19 2013 11:50AM terminal make up operator medication use Nov 19 2013 11:50AM Sinusitis, [...] Number Start Date Medicare RHC Medicare RHC [id number] N/A Medicare Part A Medicare - Lab/Xray [id number] N/A Medicare Part B Medicare Of [place] [id number] January2006 [place] Medical Assistance Program [place] Medical Assistance Prog [id number] Tuesday, June 30, 2009 Medicare Part A Medicare Part A [id number] N/A History of Encounters Visit Date Visit Type Provider 05/16/2017 Office visit Ewa Gan APRN 02/08/2017 Office visit Yady Capps MD 01/18/2017 Office visit Yady Capps MD 01/18/2017 [facility] Nissa Hannon MD 12/20/2016 Office visit Yady Capps MD 10/25/2016 Office visit Yady Capps MD 09/19/2016 Office visit Yady Capps MD 06/01/2016 Office visit Yady Capps MD 05/12/2016 Office visit Ewa Gan SEED PRODUCTION FIELD SUPERVISOR 04/20/2016 Office visit Ewa Gan SEED PRODUCTION FIELD SUPERVISOR 04/20/2016 [facility] Lamont Hannon MD 04/06/2016 Office visit Yady Capps MD 02/08/2016 Office visit Yady Capps MD 01/15/2016 Nurse visit Yady Capps MD 01/07/2016 Office visit Yady Capps MD 12/23/2015 [facility] Pablo Vergara MD 12/04/2015 Office visit Yady [...] Capps MD 07/17/2015 Office visit Ewa Gan SEED PRODUCTION FIELD SUPERVISOR 07/02/2015 Office visit Davion Montgomery MD 06/29/2015 Hospital Davion Montgomery MD 06/18/2015 Nurse visit Ewa Gan SEED PRODUCTION FIELD SUPERVISOR 05/28/2015 Office visit Davion Montgomery MD 05/19/2015 Office visit Ewa Gan SEED PRODUCTION FIELD SUPERVISOR 05/14/2015 Office visit Davion Montgomery MD 05/11/2015 [facility] Davion Montgomery MD 05/08/2015 Office visit Davion Montgomery MD 05/08/2015 Office visit Martir Stout SEED PRODUCTION FIELD SUPERVISOR 05/08/2015 Hospital Davion Montgomery MD 05/07/2015 [facility] Lamont Hannon MD 03/23/2015 Office visit Ewa Gan SEED PRODUCTION FIELD SUPERVISOR 03/17/2015 Office visit Ewa Gan SEED PRODUCTION FIELD SUPERVISOR 03/04/2015 Office visit Yady Capps MD 02/03/2015 Office visit Yady Capps MD 01/01/2015 Office visit Ewa Gan SEED PRODUCTION FIELD SUPERVISOR 12/19/2014 Office visit William Melgoza DO 11/24/2014 [facility] William Melgoza DO 11/11/2014 Office visit William Melgoza DO 10/29/2014 Office visit Ewa Gan SEED PRODUCTION FIELD SUPERVISOR 10/22/2014 Office visit Yady Capps MD 07/02/2014 Voided Yady Capps MD 04/03/2014 Office visit Yady Capps MD 03/26/2014 Nurse visit Ewa Gan SEED PRODUCTION FIELD SUPERVISOR 02/21/2014 Hospital Lamont Hannon MD 01/17/2014 Nurse visit Martir Stout SEED PRODUCTION FIELD SUPERVISOR 01/02/2014 Office visit Yady Capps MD 12/31/2013 Office visit Martir Stout SEED PRODUCTION FIELD SUPERVISOR 12/18/2013 Office visit Martir Stout SEED PRODUCTION FIELD SUPERVISOR 12/09/2013 Office visit Ewa Gan SEED PRODUCTION FIELD SUPERVISOR 11/29/2013 Office visit Ewa Gan SEED PRODUCTION FIELD SUPERVISOR 11/19/2013 Office visit Yady Capps MD 10/24/2013 Office visit Ewa Gan SEED PRODUCTION FIELD SUPERVISOR 10/01/2013 Office visit Ewa Gan SEED PRODUCTION FIELD SUPERVISOR 09/17/2013 Office visit Ewa Gan SEED PRODUCTION FIELD SUPERVISOR 09/13/2013 Office visit Irma Pérez SEED PRODUCTION FIELD SUPERVISOR 09/11/2013 Procedures William Bouman DO 08/28/2013 Procedures William Bouman DO 08/01/2013 Office visit Ewa Gan SEED PRODUCTION FIELD SUPERVISOR 07/24/2013 Office visit Yady Capps MD 06/26/2013 Office visit Alana Hernandez SEED PRODUCTION FIELD SUPERVISOR 04/26/2013 Office visit Yady Capps MD 03/26/2013 Office visit Ewa Gan SEED PRODUCTION FIELD SUPERVISOR 03/20/2013 Office visit Martir Stout SEED PRODUCTION FIELD SUPERVISOR 05/29/2012 Office visit Familia Spence MD 05/22/2012 Office visit Familia Spence MD 09/16/2011 Office visit Virginie Shane MD 06/27/2011 Office visit Virginie Shane MD 06/22/2011 Office visit Ewa Gan SEED PRODUCTION FIELD SUPERVISOR 04/26/2011 Office visit Virginie Shane MD 04/05/2011 [...] 10/08/2009 Nurse visit Virginie Shane MD 10/08/2009 [facility] Jhony French MD 10/07/2009 [facility] Eddie Lewis PA-C 10/06/2009 Laboratory Jhony French MD 09/29/2009 Nurse visit Virginie Shane MD 09/10/2009 Office visit Virginie Shane MD 07/28/2009 Office visit Virginie Shane MD 06/30/2009 Office visit Virginie Shane MD
--- OUTSIDE RECORDS SUMMARY | 2017-11-16 13:18 | XMS REPORT ---
Author Author MILADY KUMAR Organization [facility] [place] Address [address] [place] [address] Care Team Providers Care Dumper Operator Name Role Phone MILADY KUMAR Unavailable PROBLEMS Type Condition ICD9-CM Code [id number] Code Onset Dates Condition Status SNOMED Code Problem Severe episode of recurrent major depressive disorder, without psychotic features F33.2 Active [id number] ALLERGIES No Information ENCOUNTERS Encounter Location Date Diagnosis [facility] G[address] [id number] [place] [address] Jun [facility] [place] [address] [address] Jun, Severe episode of recurrent major depressive disorder, without psychotic features F33.2 [facility] [place] [address], [place] [address] Jun, Severe episode of recurrent major depressive disorder, without psychotic features F33.2 [facility] [place] [address], [place] [address] Jun, [facility] [place] [id number], [place] [address] Jun, [facility] [place] [id number], [place] [address] Apr, [facility] [place] [id number] [address] Jan, [facility] [place] [id number] [place] [address] Jan, [facility] [place] [id number], [place] [address] Jan, [facility] [place] [id number] [place] [address] [place] [address] Oct, [facility] [place] [address], [place] [address] Aug, [facility] [place] [address], [place] [address] Aug, [facility] [place] [id number], [place] [address] May, [facility] [place] [id number], [place] [address] May, [facility] [place] [id number] [place] [address] Apr, [facility] [place] [id number], [place] [address] Apr, [facility] [place] [id number], [place] [address] Mar, [facility] [place] [id number], [place] [address] Jan, [facility] [place] [id number], [place] [address] Dec, [facility] [place] [address], [place] [address] Dec, [facility] [place] [id number], [place] [address] Dec, [facility] [place] [id number], [place] [address] Nov, [facility] [place] [id number], [place] [address] Feb, [facility] [place] [id number], [place] [address] Feb, IMMUNIZATIONS No Known Immunizations SOCIAL HISTORY Never Assessed REASON FOR VISIT BH intake, Depression. PLAN OF CARE Activity Details Follow Up next available Reason:depression VITAL SIGNS MEDICATIONS Medication Instructions Dosage Frequency Start Date End Date Duration Status Lisinopril 40 mg 2 Tablet by Oral route 1 time per day Apr, Not-Taking Fish Oil by Oral route Apr, Not-Taking Multiple Vitamins 1 Tablet by Oral route 1 time per day Apr, Not-Taking Singulair 10 mg 1 Tablet by Oral route 1 time per day Apr, Not-Taking Cymbalta 60 mg 1 capsule by Oral route 1 time per day Jan, Active Lyrica 100 mg 1 Tablet by Oral route 1 time per day Apr, Active Aspirin 81 mg 1 Tablet by Oral route 1 time per day Apr, Active sertraline 50 mg 1 Tablet by Oral route 1 time per day Please contact [facility] for appt Apr, Not-Taking Loratadine 10 mg 1 Tablet by Oral route 1 time per day Apr, Not-Taking amitriptyline 25 mg 1.5 Tablet by Oral route 1 time per day Aug, Not-Taking Revlimid 5 mg 1 Capsule by Oral route 1 time per day Apr, Active metformin 500 mg/5 mL 1 Tablet by Oral route 2 times per day Apr, Not-Taking pravastatin 20 mg 1 Tablet by Oral route 1 time per day Apr, Active Plavix 75 mg 1 Tablet by Oral route 1 time per day Apr, Not-Taking Allopurinol 100 mg 1 Tablet by Oral route 1 time per day Apr, Active RESULTS No Results PROCEDURES Procedure Date Ordered Result Body Site [facility] VISIT MENTAL HEALTH NEW PT June 19, 2017 Psych diagnostic evaluation, new patient June 19, 2017 INSTRUCTIONS MEDICATIONS ADMINISTERED No Known Medications
--- OUTSIDE RECORDS SUMMARY | 2017-11-16 13:18 | XMS REPORT ---
Author Author MILADY KUMAR Organization [facility] Address [address] [place] [address] Care Team Providers Care Epic Manager Name Role Phone MILADY KUMAR Unavailable PROBLEMS Type Condition ICD9-CM Code [id number] Code Onset Dates Condition Status SNOMED Code Problem Severe episode of recurrent major depressive disorder, without psychotic features F33.2 Active [id number] ALLERGIES No Information ENCOUNTERS Encounter Location Date Diagnosis [facility] [address] [id number] [place] [address] Jun [facility] [address], [place] [address] Jun, Severe episode of recurrent major depressive disorder, without psychotic features F33.2 [facility] [address], [place] [address] Jun, Severe episode of recurrent major depressive disorder, without psychotic features F33.2 [facility] [address], [place] [address] Jun, [facility] [address], [place] [address] Jun, [facility] [address], [place] [address] Apr, [facility] [address], [place] [address] Jan, [facility] [id number] [place] [address] Jan, [facility] [address], [place] [address] Jan, [facility] [id number], [place] [address] Oct, [facility] [address], [place] [address] Aug, [facility] [address], [place] [address] Aug, [facility] [address], [place] [address] May, [facility] [address], [place] [address] May, [facility] [id number] [place] [address] Apr, [facility] [address], [place] [address] Apr, [facility] [address], [place] [address] Mar, [facility] [address], [place] [address] Jan, [facility] [address], [place] [address] Dec, [facility] [address], [place] [address] Dec, [facility] [address], [place] [address] Dec, [facility] [address], [place] [address] Nov, [facility] [address], [place] [address] Feb, [facility] [address], [place] [address] Feb, IMMUNIZATIONS No Known Immunizations SOCIAL HISTORY Never Assessed REASON FOR VISIT consultation PLAN OF CARE VITAL SIGNS MEDICATIONS Unknown Medications RESULTS No Results PROCEDURES No Known procedures INSTRUCTIONS MEDICATIONS ADMINISTERED No Known Medications
--- OUTSIDE RECORDS SUMMARY | 2017-11-16 13:18 | XMS REPORT ---
Author Author MILADY KUMAR Organization [facility] Address [address] [place] [address] Care Team Providers Care Serology Technician Name Role Phone MILADY KUMAR Unavailable PROBLEMS Type Condition ICD9-CM Code [id number] Code Onset Dates Condition Status SNOMED Code Problem Severe episode of recurrent major depressive disorder, without psychotic features F33.2 Active [id number] ALLERGIES No Information ENCOUNTERS Encounter Location Date Diagnosis [facility] G[address] [id number] [place] [address] Jun [facility] [address], [place] [address] Jun, Severe episode of recurrent major depressive disorder, without psychotic features F33.2 [facility] [address], [place] [address] Jun, Severe episode of recurrent major depressive disorder, without psychotic features F33.2 [facility] [address], [place] [address] Jun, [facility] [address], [place] [address] Jun, [facility] [address], [place] [address] Apr, [facility] [address], [place] [address] Jan, [facility] [id number] [place] [address] Jan, [facility] [address], [place] [address] Jan, [facility] [id number] [place] [address] [place] [address] Oct, [facility] [address], [place] [address] Aug, [facility] [address], [place] [address] Aug, [facility] [address], [place] [address] May, [facility] [address], [place] [address] May, [facility] [id number] [place] [address] Apr, [facility] [id number], [place] [address] Apr, [facility] [address], [place] [address] Mar, [facility] [address], [place] [address] Jan, [facility] [address], [place] [address] Dec, [facility] [address], [place] [address] Dec, [facility] [address], [place] [address] Dec, [facility] [address], [place] [address] Nov, [facility] [address], [place] [address] Feb, [facility] [address], [place] [address] Feb, IMMUNIZATIONS No Known Immunizations SOCIAL HISTORY Never Assessed REASON FOR VISIT BH f/u, Depression. PLAN OF CARE Activity Details Follow Up Next available Reason:depression VITAL SIGNS MEDICATIONS Unknown Medications RESULTS No Results PROCEDURES Procedure Date Ordered Result Body Site [facility] VISIT MENTAL HEALTH ESTAB PT July 03, 2017 Psychotherapy, patient &/family, 45 minutes, established patient July 03, 2017 INSTRUCTIONS MEDICATIONS ADMINISTERED No Known Medications
[2017-11-16] MEDS ORDERED: VANCOMYCIN INJECTION 1,500 MG in NS IV 500 ML 500 ML IV SCH (21:00)
[2017-11-17] VITALS: BP 138/80
[2017-11-17 03:44] LABS: HEMOGLOBIN 10.3 G/DL (13.3-17.7); MEAN PLATELET VOLUME 10.3 FL (7.4-10.4); RED BLOOD COUNT 3.03 10^6/uL (4.35-5.85); RED CELL DISTRIBUTION WIDTH 15.9 % (10.0-14.5); WHITE BLOOD COUNT 3.8 10^3/uL (4.3-11.0)
[2017-11-17 03:59] LABS: ALBUMIN 3.4 GM/DL (3.2-4.5); BILIRUBIN,TOTAL 0.8 MG/DL (0.1-1.0); CALCIUM 8.4 MG/DL (8.5-10.1); CREATININE SERUM 1.7 MG/DL (0.60-1.30); POTASSIUM 3.9 MMOL/L (3.6-5.0); TOTAL PROTEIN 6.1 GM/DL (6.4-8.2)
[2017-11-17 04:00] VITALS: BP 135/83
[2017-11-17 08:35] VITALS: BP 128/70
--- NOTE | 2017-11-17 11:14 | Cardiology Discharge Summary ---
Diagnosis/Chief Complaint Date of Admission 11/16/2017 Date of Discharge 11/17/2017 Admission Diagnosis Ischemic cardiomyopathy Final/Discharge Diagnosis Successful single-chamber ICD implantation Chief Complaint/HPI Chief Complaint/HPI This is a 62-year-old gentleman with history of WI and PCI to LAD and RCA in January 2017. EF < 30 percent therefore lifevest was placed. Patient was started on optimal medical therapy which was goal directed. The patient was on YOKASTA inhibitor, beta salvatore, aspirin, statin, Brilinta, Lasix, Aldactone. Repeat echocardiogram was supposed to be done in April 2017 however the patient was noncompliant with a lifevest and did not have an echocardiogram done. However he continued medical therapy. Echocardiogram done in October 2017 showed an EF of 25-30 percent. ICD implantation is recommended. Discharge Summary Procedures Single chamber ICD implantation Discharge Physical Examination Mild bruising noted left upper chest. No evidence of hematoma or infection. Normal cardiovascular and respiratory examination Hospital Course Unremarkable. Normal device interrogation this morning. EKG normal. Radiology Reviewed Chest x-ray showed no pneumothorax Discussion & Recommendations Discussion Discussed at length with the patient. Discharge instructions took over 30 minutes to complete. All discharge instructions were discussed at length with the patient including medications. Follow up appt.: Dr. Coe in 7-10 days. Dicharge Diet: Cardiac Diet Activity as Tolerated: Yes Home Medications Reviewed patient Home Medication Reconciliation performed by pharmacy medication reconciliations hotel maintenance technician and/or nursing. Patients Allergies have been reviewed. Discharge Home Medications: Reviewed and agree with Discharge Medication list on patient's Discharge Instruction sheet Condition at discharge Stable. Instructions to patient/family Discussed with the patient. Bg COE MD Nov 17, 2017 11:14 am
[2017-11-17] MEDS ORDERED: CLIN300C11 PO (11:19)
--- NOTE | 2017-11-17 11:20 | Discharge Inst-Post Device ---
Discharge Inst-Post Device Follow up/Plan Dr Coe in 7-10 days. Heart Healthy Diet Do not lift arm on side of device placement above head for 4 weeks. Do not push and pull heavy objects for 4 weeks. Activity as tolerated. Leave dressing on until follow up at the office. Bg COE MD Nov 17, 2017 11:20 am
[2017-11-17 12:52] VITALS: BP 128/70
== END 2017-11-17 12:52 | disposition home or self-care (01) ==
LOC: CATH 08:15 → ICU 12:30 → CATH 11-17 12:52
PROVIDERS: ATTEND Internal Medicine Interventional Cardiology
DX: I25.5 Ischemic cardiomyopathy (principal); I25.10 Atherosclerotic heart disease of native coronary artery without angina pectoris; I13.0 Hypertensive heart and chronic kidney disease with heart failure and stage 1 through stage 4 chronic kidney disease, or unspecified chronic kidney disease; I50.9 Heart failure, unspecified; N18.3 Chronic kidney disease, stage 3 (moderate); E11.22 Type 2 diabetes mellitus with diabetic chronic kidney disease; E78.5 Hyperlipidemia, unspecified; J44.9 Chronic obstructive pulmonary disease, unspecified; F17.210 Nicotine dependence, cigarettes, uncomplicated; I25.2 Old myocardial infarction; Z79.01 Long term (current) use of anticoagulants; Z79.82 Long term (current) use of aspirin; Z79.899 Other long term (current) drug therapy; Z86.73 Personal history of transient ischemic attack (TIA), and cerebral infarction without residual deficits; Z82.49 Family history of ischemic heart disease and other diseases of the circulatory system; Z95.5 Presence of coronary angioplasty implant and graft
CPT/HCPCS: 33249; 36415; 71045; 80053; 85027; 85610; 85730; 87081; 93005; 93641

== ENCOUNTER 2017-12-20 09:30 | Outpatient (RCR) | payer MEDICARE ==
[~2017-12-20 09:30] MED LIST changes: +ATEN50TA PO; +ATOR80TA64 PO; +CLIN300C11 PO; +CYAN100088 PO; +NF-GLIP2.5 PO; +POTA-51 PO
[2017-12-20 09:46] LABS: BASOPHILS # (AUTO) 0.1 10^3/uL (0.0-0.1); BASOPHILS % (AUTO) 1 % (0-10); EOSINOPHILS # (AUTO) 0.2 10^3/uL (0.0-0.3); EOSINOPHILS % (AUTO) 4 % (0-10); HEMATOCRIT 34 % (40-54); HEMOGLOBIN 10.7 G/DL (13.3-17.7); LYMPHOCYTES # (AUTO) 1.2 X 10^3 (1.0-4.0); LYMPHOCYTES % (AUTO) 24 % (12-44); MEAN CORPUSCULAR HEMOGLOBIN 34 PG (25-34); MEAN CORPUSCULAR HGB CONC 31 G/DL (32-36); MEAN CORPUSCULAR VOLUME 108 FL (80-99); MEAN PLATELET VOLUME 10.2 FL (7.4-10.4); MONOCYTES # (AUTO) 0.6 X 10^3 (0.0-1.0); MONOCYTES % (AUTO) 12 % (0-12); NEUTROPHILS # (AUTO) 2.9 X 10^3 (1.8-7.8); NEUTROPHILS % (AUTO) 59 % (42-75); PLATELET COUNT 214 10^3/uL (130-400); RED BLOOD COUNT 3.15 10^6/uL (4.35-5.85); RED CELL DISTRIBUTION WIDTH 16.4 % (10.0-14.5)
[2017-12-20 10:02] LABS: BILIRUBIN,TOTAL 0.7 MG/DL (0.1-1.0); CALCIUM 9.1 MG/DL (8.5-10.1); CREATININE SERUM 2.13 MG/DL (0.60-1.30); POTASSIUM 4.7 MMOL/L (3.6-5.0); TOTAL PROTEIN 7.3 GM/DL (6.4-8.2)
[2018-01-04] MEDS ORDERED: ALB0.5V IH (12:30)
[2018-01-05] MEDS ORDERED: PANT40TA2 PO (10:12)
[2018-01-05] MEDS ORDERED: TICA90TA PO (10:12)
[2018-01-05] MEDS ORDERED: PROC5TAB52 PO (10:13)
== END 2018-03-20 | disposition home or self-care (01) ==
LOC: ONC 09:30
PROVIDERS: ATTEND Internal Medicine Hematology & Oncology
DX: C90.00 Multiple myeloma not having achieved remission (principal); C67.8 Malignant neoplasm of overlapping sites of bladder; E11.22 Type 2 diabetes mellitus with diabetic chronic kidney disease; I12.9 Hypertensive chronic kidney disease with stage 1 through stage 4 chronic kidney disease, or unspecified chronic kidney disease; N18.3 Chronic kidney disease, stage 3 (moderate); E78.00 Pure hypercholesterolemia, unspecified; Z79.899 Other long term (current) drug therapy; Z79.82 Long term (current) use of aspirin; Z72.0 Tobacco use
CPT/HCPCS: 36415; 80053; 82232; 82784; 83883; 84155; 84165; 85025; 99213

== ENCOUNTER 2018-01-04 05:46 | Outpatient (CLI) | payer MEDICARE ==
[~2018-01-04] VITALS: Ht 182.9 cm; Wt 89.8 kg
[2018-01-04] MEDS ORDERED: ALB0.5V IH (12:30)
[2018-01-05] MEDS ORDERED: PANT40TA2 PO (10:12)
[2018-01-05] MEDS ORDERED: TICA90TA PO (10:12)
[2018-01-05] MEDS ORDERED: PROC5TAB52 PO (10:13)
== END 2018-01-04 12:42 | disposition home or self-care (01) ==
LOC: PREOP 05:46
PROVIDERS: ATTEND Surgery
DX: Z01.818 Encounter for other preprocedural examination (principal)

== ENCOUNTER 2018-01-05 09:07 | Day surgery (SDC) | payer MEDICARE ==
[~2018-01-05] VITALS: Ht 182.9 cm; Wt 89.8 kg
[~2018-01-05 09:07] MED LIST changes: +ALB0.5V IH
[2018-01-05 09:41] VITALS: BP 125/71
[2018-01-05] MEDS ORDERED: CLINDAMYCIN 600 MG/50 ML IVPB 50 ML IV ONE (09:45)
[2018-01-05] MEDS ORDERED: TICA90TA PO (10:12)
[2018-01-05] MEDS ORDERED: PANT40TA2 PO (10:12)
[2018-01-05] MEDS ORDERED: PROC5TAB52 PO (10:13)
[2018-01-05] MEDS ORDERED: LACTATED RINGERS 1,000 ML IV PRN ×2 (10:32→10:33)
--- NOTE | 2018-01-05 10:39 | Progress Note-Pre Operative ---
Pre-Operative Progress Note H&P Reviewed The H&P was reviewed, patient examined and no changes noted. Date Seen by Provider: Jan 05, 2018 Time Seen by Provider: 10:39 Date H&P Reviewed: Jan 05, 2018 Time H&P Reviewed: 10:39 Pre-Operative Diagnosis: left hand skin lesion MORIAH DEL ANGEL DO Jan 05, 2018 10:39
[2018-01-05] MEDS ORDERED: BUPIVACAINE 0.5% 30 ML (SENSORCAINE) VIAL ONE (11:06)
[2018-01-05] MEDS ORDERED: LIDOCAINE 1% INJ 20 ML 20 ML VIAL ONE (11:06)
[2018-01-05] MEDS ORDERED: MIDAZOLAM 2 MG/2 ML (VERSED) VIAL ONE (11:21)
[2018-01-05] MEDS ORDERED: ONDANSETRON 4 MG/2 ML (SDV) Z0FRAN ONE (11:21)
[2018-01-05] MEDS ORDERED: PROPOFOL INJECTION 50 ML IV ONE (11:21)
--- NOTE | 2018-01-05 12:09 | Discharge Inst-Simple/Standard ---
Discharge Inst-Standard Patient Instructions/Follow Up Plan of Care/Instructions/FU: 12-14 days sav Activity as Tolerated: No Discharge Diet: Regular Diet Other Inst to Patient Follow up Appt: Make appointment for 12-14 days Instructions: No lifting greater than 10 pounds. No strenuous activity. May shower in 24 hours, no tub bath or soaking. Use incentive spirometer at home as directed. No Smoking Skin/Wound Care: May remove bandages on for 24 hours. Keep clean and dry. Symptoms to Report: Appetite Changes, Extremity Discoloration, Numbness/Tingling, Swelling Increased , Bleeding Excessive, Eyesight Changes, Pain Increased, Urine Color Change, Constipation(Persistent), Fever over 101 degree F, Pain/Pressure in chest, Urinating Difficulty, Cough Up/Vomit Blood, Heart Beat Irreg/Pounding, Pain/ Pressure in jaw, Vaginal Bleeding Increase, Cramps in feet or legs, Lightheadedness, Pain/Pressure in shoulder, Diarrhea(Persistent), Memory Changes Suddenly, Questions/Concerns, Weight gain consecutive days, Dizziness/ Fainting, Nausea/Vomiting, Shortness of Breath, Weight gain over 2 pounds If questions or concerns contact your physician Or seek help at emergency department. MORIAH DEL ANGEL DO Jan 05, 2018 12:09
--- NOTE | 2018-01-05 12:10 | Progress Note-Post Operative ---
Post-Operative Progess Note Surgeon (s)/Manager R D (s) Surgeon MORIAH DEL ANGEL DO Manager R D: na Pre-Operative Diagnosis left hand skin lesion Post-Operative Diagnosis same Procedure & Operative Findings Date of Procedure 01/05/18 Procedure Performed/Findings excision skin lesion left hand 3.5 x 1.9 cm Anesthesia Type mac c local Estimated Blood Loss Estimated blood loss (mL): min Specimens/Packing Specimens Removed skin lesion left hand MORIAH DEL ANGEL DO Jan 05, 2018 12:10
[2018-01-05] MEDS ORDERED: ONDANSETRON 4 MG/2 ML (SDV) Z0FRAN IVP PRN (12:15)
[2018-01-05] MEDS ORDERED: morphine INJ 10 MG/ML 1ML (SYR OR VIAL) IVP ONE (12:15)
[2018-01-05] MEDS ORDERED: MEPERIDINE (DEMEROL) INJ 50 MG/ML IVP ONE (12:15)
[2018-01-05 12:50] VITALS: BP 116/67
--- NOTE | 2018-01-05 13:15 | Anesthesia-General Post-Op ---
MAC Patient Condition Mental Status/LOC: Same as Preop Cardiovascular: Satisfactory Nausea/Vomiting: Absent Respiratory: Satisfactory Pain: Controlled Complications: Absent Post Op Complications Complications None Follow Up Care/Instructions Patient Instructions None needed. Anesthesiology Discharge Order Discharge Order Patient was seen after the procedure and he was doing well, no complaints, stable vital signs, no apparent adverse anesthesia problems. CEDRIC ZAVALA DO Jan 05, 2018 13:15
[2018-01-05 13:20] VITALS: BP 120/73
[2018-01-05 13:40] VITALS: BP 121/74
[2018-01-05 13:50] VITALS: BP 121/74
--- NOTE | 2018-01-08 18:22 | OPERATIVE REPORT ---
DATE OF SERVICE: 01/05/2018 PREOPERATIVE DIAGNOSIS: Skin lesion left hand. POSTOPERATIVE DIAGNOSIS: Skin lesion left hand. PROCEDURE: Excision of left hand skin lesion 3.5 x 1.9 cm. SURGEON: Moriah Felix DO. ANESTHESIA: MAC with local. ESTIMATED BLOOD LOSS: Minimal. COMPLICATIONS: None. INDICATIONS: The patient is a 62-year-old male with a large skin lesion in left hand. He was explained risks and benefits of having removed. He wishes to proceed with procedure. Consent was signed in the chart. DESCRIPTION OF PROCEDURE: The patient was taken to the operating suite, was prepped and draped in sterile fashion. Timeout was performed. Local anesthetic was infiltrated around the lesion. An elliptical incision measuring 3.5 x 1.9 cm was made around the lesion and the skin and subcutaneous tissues were removed. Specimen was labeled short suture superior, long suture lateral. Hemostasis was achieved. The skin was then closed using 3-0 nylon in a simple interrupted fashion. The area was washed and dried, sterile bandage was applied. The patient tolerated the procedure well and was sent to recovery room in stable condition. Job ID: [id number] DocumentID: [id number] Dictated Date: 01/08/2018 14:01:37 Padder Cushion Date: 01/08/2018 18:21:24 Dictated By: MORIAH FELIX DO
== END 2018-01-05 13:50 | disposition home or self-care (01) ==
LOC: SDC 09:07
PROVIDERS: ATTEND Surgery
DX: C44.629 Squamous cell carcinoma of skin of left upper limb, including shoulder (principal); I13.0 Hypertensive heart and chronic kidney disease with heart failure and stage 1 through stage 4 chronic kidney disease, or unspecified chronic kidney disease; I50.9 Heart failure, unspecified; N18.3 Chronic kidney disease, stage 3 (moderate); E11.22 Type 2 diabetes mellitus with diabetic chronic kidney disease; E11.43 Type 2 diabetes mellitus with diabetic autonomic (poly)neuropathy; I25.10 Atherosclerotic heart disease of native coronary artery without angina pectoris; C90.00 Multiple myeloma not having achieved remission; C67.8 Malignant neoplasm of overlapping sites of bladder; Z79.01 Long term (current) use of anticoagulants; Z79.82 Long term (current) use of aspirin; Z79.899 Other long term (current) drug therapy; Z86.73 Personal history of transient ischemic attack (TIA), and cerebral infarction without residual deficits; Z95.5 Presence of coronary angioplasty implant and graft
CPT/HCPCS: 82962; 87081

== ENCOUNTER → 2018-02-13 | Outpatient (CLI) | payer MEDICARE ==
[~2018-02-13] MED LIST changes: +PANT40TA2 PO; +PROC5TAB52 PO
--- NOTE | 2018-02-13 14:38 | Diagnostic Imaging Report ---
PROCEDURE: US carotid duplex, bilateral. TECHNIQUE: Multiple real-time grayscale images were obtained over the carotid arteries in various projections, bilaterally. Additional spectral analysis and color Doppler duplex images were also obtained. INDICATION: Diabetes and tobaccoism and carotid artery stenosis. Parameters based on the consensus panel Costa-Scale and Doppler ultrasound criteria published January 2003, Radiology, Volume 229. DOPPLER (peak systolic velocity M/S Right Left CCA .86 .99 ICA Proximal .73 1.04 ICA Mid 1.03 .94 ICA Distal 1.14 .87 RATIO 1.3 1.0 ECA .75 .72 VERT .57 .79 FINDINGS: Mild plaquing at the carotid bifurcations is seen bilaterally. Velocities are normal bilaterally. No velocity elevation or stenosis is identified. Both vertebral arteries show antegrade flow. IMPRESSION: Mild bilateral carotid plaque. There is no evidence of a hemodynamically significant stenosis. Dictated by: Dictated on workstation # [id number]
--- NOTE | 2018-02-13 14:56 | Diagnostic Imaging Report ---
INDICATION: Abdominal aortic aneurysm. Proximal aorta measures 2.3 cm AP by 2.5 cm transverse. Mid aorta is not well seen. Distal aorta is 1.5 cm AP by 1.7 cm transverse. No periaortic fluid collection is seen. Impression: No evidence of abdominal aortic aneurysm. Dictated by: Dictated on workstation # [id number]
== END ==
LOC: RAD 09:58
PROVIDERS: ATTEND Internal Medicine Interventional Cardiology
DX: I65.23 Occlusion and stenosis of bilateral carotid arteries (principal); I71.4 Abdominal aortic aneurysm, without rupture; E11.9 Type 2 diabetes mellitus without complications; F17.200 Nicotine dependence, unspecified, uncomplicated
CPT/HCPCS: 76775; 93880

== ENCOUNTER → 2018-04-03 | Outpatient (CLI) | payer MEDICARE ==
[~2018-04-03] MED LIST changes: -AMLO10TA6 PO; +AMLO10TA7 PO; -AMLO5TAB7 PO; +AMLO5TAB9 PO
--- NOTE | 2018-04-03 10:13 | Diagnostic Imaging Report ---
PROCEDURE: CT chest without contrast. INDICATION: History of tobacco use. History of bladder carcinoma, melanoma, skin cancer. Shortness of breath. TECHNIQUE: Noncontrast, low-dose CT imaging performed. COMPARISON: None FINDINGS: HEART/MEDIASTINUM: Heart size is enlarged. Trace pericardial effusion. There is rather significant areas of dense coronary artery calcification. Left-sided pacemaker is present with metallic artifact. Thoracic aortic contour unremarkable. Few mildly prominent but non-pathologically enlarged mediastinal lymph nodes are present. EG junction relatively unremarkable. LUNGS: There is rather prominent severity emphysematous change about the lung parenchyma. No focal consolidating infiltrate. There is presence of small bilateral pleural effusions layering dependently. Maximum thickness up to slightly greater than 2 cm. Asymmetric pleural thickening left lung apex as well as along the fissure plane of the left lung base. MEASURED PULMONARY NODULES: There is presence of multiple scattered calcified as well as noncalcified nodules within both lung rubio. The marker noncalcified nodules as follows: Right upper lobe (image 80 series 2), solid nodule 5 mm. Right middle lobe (image 146 series 2), 2 adjacent small nodules, largest at 4 mm. Left upper lobe (image 51 series 2) faint predominantly solid nodule at 4 mm. Left lower lobe (image 190 series 2), solid nodule subpleural region 5 mm. Left lower lobe (image 227 series 2), solid nodule 6 mm. OTHER: None. IMPRESSION: 1. Advanced emphysematous change about the lung parenchyma. 2. Multiple small predominantly 4-6 mm in size nodules within both lung rubio along with calcified granulomas. 3. Advanced coronary artery atherosclerosis. 4. Small lateral pleural effusions, nonspecific as to etiology or significance. LUNG-RADS CATEGORY: 3 LUNG SCREENING MANAGEMENT/RECOMMENDATIONS: Continued annual screening with low dose CT in 6 months. Notes: It is noted that this is a low dose CT examination. As a technical result, the examination is limited in overall assessment compared to a conventional CT examination of the chest. Dictated by: Dictated on workstation # [id number]
== END ==
LOC: RAD 08:28
PROVIDERS: ATTEND Nurse Practitioner Adult Health
DX: J43.9 Emphysema, unspecified (principal); R91.8 Other nonspecific abnormal finding of lung field; J84.10 Pulmonary fibrosis, unspecified; I25.10 Atherosclerotic heart disease of native coronary artery without angina pectoris; J90 Pleural effusion, not elsewhere classified; Z87.891 Personal history of nicotine dependence; Z85.51 Personal history of malignant neoplasm of bladder; Z85.820 Personal history of malignant melanoma of skin; Z77.22 Contact with and (suspected) exposure to environmental tobacco smoke (acute) (chronic)
CPT/HCPCS: 71250

== ENCOUNTER 2018-05-31 11:09 | Outpatient (RCR) | payer MEDICARE ==
[2018-03-29 09:53] LABS: BASOPHILS # (AUTO) 0.1 10^3/uL (0.0-0.1); BASOPHILS % (AUTO) 1 % (0-10); EOSINOPHILS # (AUTO) 0.3 10^3/uL (0.0-0.3); EOSINOPHILS % (AUTO) 6 % (0-10); HEMATOCRIT 32 % (40-54); HEMOGLOBIN 9.9 G/DL (13.3-17.7); LYMPHOCYTES % (AUTO) 22 % (12-44); MEAN CORPUSCULAR HEMOGLOBIN 33 PG (25-34); MEAN CORPUSCULAR HGB CONC 31 G/DL (32-36); MEAN CORPUSCULAR VOLUME 106 FL (80-99); MEAN PLATELET VOLUME 10.4 FL (7.4-10.4); MONOCYTES # (AUTO) 0.6 X 10^3 (0.0-1.0); MONOCYTES % (AUTO) 13 % (0-12); NEUTROPHILS # (AUTO) 2.6 X 10^3 (1.8-7.8); NEUTROPHILS % (AUTO) 58 % (42-75); PLATELET COUNT 193 10^3/uL (130-400); RED CELL DISTRIBUTION WIDTH 16.4 % (10.0-14.5); WHITE BLOOD COUNT 4.5 10^3/uL (4.3-11.0)
[2018-03-29 10:12] LABS: ALBUMIN 3.7 GM/DL (3.2-4.5); BILIRUBIN,TOTAL 1.1 MG/DL (0.1-1.0); CALCIUM 8.7 MG/DL (8.5-10.1); CREATININE SERUM 2.16 MG/DL (0.60-1.30); POTASSIUM 3.6 MMOL/L (3.6-5.0)
[2018-05-31 11:29] LABS: BASOPHILS # (AUTO) 0.1 10^3/uL (0.0-0.1); BASOPHILS % (AUTO) 1 % (0-10); EOSINOPHILS # (AUTO) 0.2 10^3/uL (0.0-0.3); EOSINOPHILS % (AUTO) 4 % (0-10); HEMATOCRIT 36 % (40-54); HEMOGLOBIN 11.2 G/DL (13.3-17.7); LYMPHOCYTES % (AUTO) 17 % (12-44); MEAN CORPUSCULAR HEMOGLOBIN 31 PG (25-34); MEAN CORPUSCULAR HGB CONC 31 G/DL (32-36); MEAN CORPUSCULAR VOLUME 101 FL (80-99); MEAN PLATELET VOLUME 9.9 FL (7.4-10.4); MONOCYTES # (AUTO) 0.6 X 10^3 (0.0-1.0); MONOCYTES % (AUTO) 10 % (0-12); NEUTROPHILS # (AUTO) 3.8 X 10^3 (1.8-7.8); NEUTROPHILS % (AUTO) 67 % (42-75); PLATELET COUNT 234 10^3/uL (130-400); RED CELL DISTRIBUTION WIDTH 16.3 % (10.0-14.5); WHITE BLOOD COUNT 5.6 10^3/uL (4.3-11.0)
[2018-05-31 11:56] LABS: ALBUMIN 3.9 GM/DL (3.2-4.5); BILIRUBIN,TOTAL 0.8 MG/DL (0.1-1.0); CALCIUM 8.6 MG/DL (8.5-10.1); CREATININE SERUM 2.22 MG/DL (0.60-1.30); POTASSIUM 3.6 MMOL/L (3.6-5.0); TOTAL PROTEIN 7.2 GM/DL (6.4-8.2)
[2018-06-01 06:51] LABS: HEPATITIS C ANTIBODY C Non-Reactive (Non-Reactive)
== END 2018-06-27 | disposition home or self-care (01) ==
LOC: ONC 11:09
PROVIDERS: ATTEND Internal Medicine Hematology & Oncology
DX: C90.00 Multiple myeloma not having achieved remission (principal); C67.8 Malignant neoplasm of overlapping sites of bladder; E11.22 Type 2 diabetes mellitus with diabetic chronic kidney disease; I12.9 Hypertensive chronic kidney disease with stage 1 through stage 4 chronic kidney disease, or unspecified chronic kidney disease; N18.3 Chronic kidney disease, stage 3 (moderate); E78.00 Pure hypercholesterolemia, unspecified; Z79.899 Other long term (current) drug therapy; Z79.82 Long term (current) use of aspirin; Z72.0 Tobacco use
CPT/HCPCS: 36415; 80053; 80074; 82232; 82784; 83615; 83883; 84155; 84165; 85025; 99213

== ENCOUNTER 2018-09-19 13:33 | Outpatient (RCR) | payer MEDICARE ==
[~2018-09-19 13:33] MED LIST changes: -DULO30CA48 PO; +DULO30CA49 PO; -DULO60CA58 PO; +DULO60CA59 PO
[2018-09-19 14:17] LABS: BASOPHILS % (AUTO) 1 % (0-10); EOSINOPHILS # (AUTO) 0.1 10^3/uL (0.0-0.3); EOSINOPHILS % (AUTO) 1 % (0-10); HEMATOCRIT 31 % (40-54); HEMOGLOBIN 9.2 G/DL (13.3-17.7); LYMPHOCYTES # (AUTO) 0.9 X 10^3 (1.0-4.0); LYMPHOCYTES % (AUTO) 14 % (12-44); MEAN CORPUSCULAR HGB CONC 30 G/DL (32-36); MEAN CORPUSCULAR VOLUME 101 FL (80-99); MEAN PLATELET VOLUME 10.1 FL (7.4-10.4); MONOCYTES # (AUTO) 0.9 X 10^3 (0.0-1.0); MONOCYTES % (AUTO) 14 % (0-12); NEUTROPHILS # (AUTO) 4.3 X 10^3 (1.8-7.8); NEUTROPHILS % (AUTO) 70 % (42-75); PLATELET COUNT 252 10^3/uL (130-400); RED CELL DISTRIBUTION WIDTH 17.9 % (10.0-14.5); WHITE BLOOD COUNT 6.2 10^3/uL (4.3-11.0)
[2018-09-19 14:18] LABS: MEAN CORPUSCULAR HEMOGLOBIN 30 PG (25-34)
[2018-09-19 14:37] LABS: ALBUMIN 3.7 GM/DL (3.2-4.5); BILIRUBIN,TOTAL 0.5 MG/DL (0.1-1.0); CALCIUM 9.1 MG/DL (8.5-10.1); CREATININE SERUM 2.2 MG/DL (0.60-1.30); POTASSIUM 4.9 MMOL/L (3.6-5.0); TOTAL PROTEIN 6.8 GM/DL (6.4-8.2)
== END 2018-12-18 | disposition home or self-care (01) ==
LOC: ONC 13:33
PROVIDERS: ATTEND Internal Medicine Hematology & Oncology
DX: C90.00 Multiple myeloma not having achieved remission (principal); C67.8 Malignant neoplasm of overlapping sites of bladder; E11.22 Type 2 diabetes mellitus with diabetic chronic kidney disease; I12.9 Hypertensive chronic kidney disease with stage 1 through stage 4 chronic kidney disease, or unspecified chronic kidney disease; N18.3 Chronic kidney disease, stage 3 (moderate); E78.00 Pure hypercholesterolemia, unspecified; Z79.899 Other long term (current) drug therapy; Z79.82 Long term (current) use of aspirin; Z72.0 Tobacco use
CPT/HCPCS: 36415; 80053; 82232; 82784; 83883; 84155; 84165; 85025; 99213

== ENCOUNTER 2019-01-01 10:46 | Outpatient (RCR) | payer MEDICARE ==
[~2019-01-01 10:46] MED LIST changes: -ALB0.5V IH; +ALB0.5V NEB; -GLIM4TAB PO; +GLIM4TAB3 PO; -PYRI100T2 PO; +PYRI100T4 PO; -TRAM50TA2 PO; +TRM50T PO
[2019-01-01 10:57] LABS: BASOPHILS % (AUTO) 0 % (0-10); EOSINOPHILS % (AUTO) 0 % (0-10); HEMATOCRIT 41 % (40-54); HEMOGLOBIN 12.3 G/DL (13.3-17.7); LYMPHOCYTES # (AUTO) 1.1 X 10^3 (1.0-4.0); LYMPHOCYTES % (AUTO) 6 % (12-44); MEAN CORPUSCULAR HEMOGLOBIN 28 PG (25-34); MEAN CORPUSCULAR HGB CONC 30 G/DL (32-36); MEAN CORPUSCULAR VOLUME 93 FL (80-99); MEAN PLATELET VOLUME 10.5 FL (7.4-10.4); MONOCYTES # (AUTO) 1.3 X 10^3 (0.0-1.0); MONOCYTES % (AUTO) 8 % (0-12); NEUTROPHILS % (AUTO) 86 % (42-75); PLATELET COUNT 280 10^3/uL (130-400); RED CELL DISTRIBUTION WIDTH 19.5 % (10.0-14.5); WHITE BLOOD COUNT 17.4 10^3/uL (4.3-11.0)
[2019-01-01 11:17] LABS: ALBUMIN 4.1 GM/DL (3.2-4.5); BILIRUBIN,TOTAL 0.7 MG/DL (0.1-1.0); CREATININE SERUM 1.73 MG/DL (0.60-1.30); POTASSIUM 3.9 MMOL/L (3.6-5.0); TOTAL PROTEIN 7.5 GM/DL (6.4-8.2)
[2019-01-30] MEDS ORDERED: PANT40TA3 PO (15:26)
[2019-01-30] MEDS ORDERED: PROC5TAB9 PO (15:26)
[2019-01-30] MEDS ORDERED: BUPR150T14 PO (15:26)
[2019-01-30] MEDS ORDERED: POTA20TA15 PO (15:26)
[2019-01-30] MEDS ORDERED: ATOR80TA76 PO (15:26)
[2019-01-30] MEDS ORDERED: ALLO100T PO (15:26)
[2019-01-30] MEDS ORDERED: MONT10TA24 PO (15:26)
[2019-01-30] MEDS ORDERED: CLOP75TA28 PO (15:26)
[2019-01-30] MEDS ORDERED: ASPI-983 PO (15:31)
[2019-01-30] MEDS ORDERED: MAGN400T39 PO (15:32)
== END 2019-04-01 | disposition home or self-care (01) ==
LOC: ONC 10:46
PROVIDERS: ATTEND Internal Medicine Hematology & Oncology
DX: C90.00 Multiple myeloma not having achieved remission (principal); C67.8 Malignant neoplasm of overlapping sites of bladder; E11.22 Type 2 diabetes mellitus with diabetic chronic kidney disease; I12.9 Hypertensive chronic kidney disease with stage 1 through stage 4 chronic kidney disease, or unspecified chronic kidney disease; N18.3 Chronic kidney disease, stage 3 (moderate); E78.00 Pure hypercholesterolemia, unspecified; Z79.899 Other long term (current) drug therapy; Z79.82 Long term (current) use of aspirin; Z72.0 Tobacco use; J43.9 Emphysema, unspecified; I25.10 Atherosclerotic heart disease of native coronary artery without angina pectoris; Z87.891 Personal history of nicotine dependence; Z85.51 Personal history of malignant neoplasm of bladder; Z85.820 Personal history of malignant melanoma of skin
CPT/HCPCS: 36415; 80053; 82232; 82784; 83883; 84155; 84165; 85025; 99213

== ENCOUNTER 2019-01-30 12:44 | Inpatient (IN) | payer MEDICARE ==
[~2019-01-30] VITALS: Ht 182.9 cm; Wt 88.2 kg
[~2019-01-30 12:44] MED LIST changes: +GLIM4TAB PO; -GLIM4TAB3 PO; +PYRI100T2 PO; -PYRI100T4 PO; +TRAM50TA2 PO; -TRM50T PO
[2019-01-30] MEDS: NITROGLYCERIN 0.4 MG SL TABS BTL 25'S SL PRN ×2 (13:11→13:18)
[2019-01-30 13:14] LABS: BASOPHILS % (AUTO) 0 % (0-10); EOSINOPHILS # (AUTO) 0.1 10^3/uL (0.0-0.3); EOSINOPHILS % (AUTO) 1 % (0-10); HEMATOCRIT 35 % (40-54); HEMOGLOBIN 10.6 G/DL (13.3-17.7); LYMPHOCYTES # (AUTO) 1.1 X 10^3 (1.0-4.0); LYMPHOCYTES % (AUTO) 9 % (12-44); MEAN CORPUSCULAR HEMOGLOBIN 28 PG (25-34); MEAN CORPUSCULAR HGB CONC 30 G/DL (32-36); MEAN CORPUSCULAR VOLUME 92 FL (80-99); MEAN PLATELET VOLUME 9.8 FL (7.4-10.4); MONOCYTES # (AUTO) 1.5 X 10^3 (0.0-1.0); MONOCYTES % (AUTO) 12 % (0-12); NEUTROPHILS # (AUTO) 9.5 X 10^3 (1.8-7.8); NEUTROPHILS % (AUTO) 78 % (42-75); PLATELET COUNT 249 10^3/uL (130-400); RED CELL DISTRIBUTION WIDTH 20.7 % (10.0-14.5); WHITE BLOOD COUNT 12.2 10^3/uL (4.3-11.0)
[2019-01-30] MEDS ORDERED: CLOPIDOGREL 75 MG (PLAVIX) TABLET PO ONE (13:15)
[2019-01-30] MEDS ORDERED: ASPIRIN 81 MG CHEW (CHILDREN'S ASA) PO ONE (13:15)
[2019-01-30 13:28] LABS: INR 1.1 (0.8-1.4)
[2019-01-30 13:38] LABS: BILIRUBIN,TOTAL 0.9 MG/DL (0.1-1.0); CREATININE SERUM 2.26 MG/DL (0.60-1.30); MAGNESIUM 1.8 MG/DL (1.6-2.4); POTASSIUM 4.1 MMOL/L (3.6-5.0); TOTAL PROTEIN 7.1 GM/DL (6.4-8.2)
--- NOTE | 2019-01-30 13:45 | Diagnostic Imaging Report ---
INDICATION: Chest discomfort and shortness of breath. TECHNIQUE/COMPARISON: A frontal chest was obtained at 1:26 PM and compared to 11/16/2017. FINDINGS: There is mild cardiomegaly. The pacemaker is unchanged. There is worsening central vascular congestion with worsening interstitial edema and bibasilar infiltrates. There is question of some posterior layering pleural fluid on the left side. IMPRESSION: Cardiomegaly. Worsening central vascular congestion and interstitial edema compared to 11/16/2017. The findings are compatible with CHF. There are worsening bibasilar alveolar infiltrates as well as question of some posterior layering pleural fluid on the left side. Dictated by: Dictated on workstation # [id number]
--- NOTE | 2019-01-30 13:48 | ED Chest Pain ---
General Chief Complaint: Chest Pain Stated Complaint: SOA Nursing Triage Note: Pt to room #6 via ED w/c by ED staff with c/o chest discomfort associated with SOA. Pt reports he was scheduled for cardiac ultrasound on this day, but began to experience increase in symptoms. Pt reports he has been feeling SOA for approx x2wks. Pt reports chest discomfort described as "tight." Nursing Sepsis Screen: No Definite Risk Source: patient, old records Exam Limitations: no limitations History of Present Illness Date Seen by Provider: Jan 30, 2019 Time Seen by Provider: 13:02 Initial Comments This 63-year-old man presents to the emergency room with complaints of dyspnea and chest pressure and tightness. He states shortness of air has been ongoing for about 2 weeks. He has had progressive dyspnea with exertion and yesterday could not walk across the house. Exertion causes shortness of breath and chest tightness and pressure follows the shortness of breath. He has history of coronary artery disease and was last stented in January 2017. He continues to smoke. He denies drugs or alcohol. He did not take any of his medications today. 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 Coe. His primary care provider is Ewa Eisenberg in [place]. Allergies and Home Medications Allergies Coded Allergies: Penicillins (Verified Allergy, Severe, THROAT SWELLS SHUT, 01/04/18) codeine (Verified Allergy, Intermediate, ITCHING, Pt has received Lortab & Hydromorphone w/o issue, 01/05/18) tramadol (Verified Allergy, Intermediate, HIVES, 01/04/18) adhesive (Unverified Allergy, Unknown, RASH, 01/04/18) Home Medications Albuterol Sulfate 2.5 Mg/0.5 Ml Vial.neb, 2.5 MG IH Q4H PRN for SHORTNESS OF BREATH, (Reported) Allopurinol 300 Mg Tablet, 300 MG PO HS, (Reported) Aspirin 81 Mg Tab.chew, 81 MG PO DAILY, (Reported) Atenolol 50 Mg Tablet, 50 MG PO BID, (Reported) Atorvastatin Calcium 80 Mg Tablet, 80 MG PO HS, (Reported) Bupropion HCl 150 Mg Tab.er.24h, 150 MG PO HS, (Reported) Cetirizine HCl 10 Mg Tablet, 10 MG PO DAILY, (Reported) Cyanocobalamin (Vitamin B-12) 1,000 Mcg Tablet, 1,000 MCG PO BID, (Reported) Duloxetine HCl 60 Mg Capsule.dr, 60 MG PO DAILY, (Reported) Furosemide 20 Mg Tablet, 20 MG PO Q48H, (Reported) Glipizide 2.5 Mg Tab, 2.5 MG PO DAILY, (Reported) Lenalidomide 2.5 Mg Capsule, 2.5 MG PO DAILY, (Reported) Pantoprazole Sodium 40 Mg Tablet.dr, 40 MG PO DAILY, (Reported) Potassium Chloride 20 Meq Tablet.er, 20 MEQ PO Q48H, (Reported) Pregabalin 75 Mg Capsule, 75 MG PO BID, (Reported) Prochlorperazine Maleate 5 Mg Tablet, 5 MG PO Q6H, (Reported) Pyridoxine HCl 100 Mg Tablet, 100 MG PO BID, (Reported) Ticagrelor 90 Mg Tablet, 90 MG PO BID, (Reported) Patient Home Medication List Home Medication List Reviewed: Yes Review of Systems Review of Systems Constitutional: no symptoms reported EENTM: No Symptoms Reported Respiratory: See HPI Cardiovascular: See HPI Gastrointestinal: No Symptoms Reported Genitourinary: No Symptoms Reported Musculoskeletal: no symptoms reported Skin: no symptoms reported Psychiatric/Neurological: No Symptoms Reported Endocrine: No Symptoms Reported Hematologic/Lymphatic: No Symptoms Reported Past Rjftigp-Qkyigc-Efhkef Hx Past Med/Social Hx: Reviewed and Corrections made Patient Social History Alcohol Use: Denies Use Recreational Drug Use: No Smoking Status: Current Everyday Smoker Type Used: Cigarettes Former Smoker, Quit: Jan 16, 2017 2nd Hand Smoke Exposure: Yes Recent Foreign Travel: No Contact w/Someone Who Travel: No Recent Infectious Disease Expo: No Recent Hopitalizations: Yes (NOV 2017-PACEMAKER) Immunizations Up To Date Date of Pneumonia Vaccine: Dec 20, 2016 Date of Influenza Vaccine: Dec 20, 2016 Seasonal Allergies Seasonal Allergies: Yes Past Medical History Surgeries: Yes (lap lillian, collarbone fx, neuroma's removed from both feet, knee scop) Cardiac, Defibrillator, Orthopedic, Pacemaker, Renal Respiratory: No Cardiac: Yes (STENTS) Coronary Artery Disease, High Cholesterol, Hypertension Neurological: Yes (STATES HE HAS HAD "7 STROKES", LAST ONE IN 2009) Stroke Reproductive Disorders: No Sexually Transmitted Disease: No Genitourinary: Yes (bladder cancer s/p resection with anteior bladder bag) Renal Failure Gastrointestinal: No Musculoskeletal: Yes Arthritis Endocrine: Yes Diabetes, Non-Insulin dep Are Your Blood Sugars Over 250: Yes HEENT: No Cancer: Yes (multiple myeloma) Bladder, Skin Did You Recieve Any Treatments: Yes What Type of Treatment Did You: Chemotherapy, Radiation, Surgical Intervention Psychosocial: No Integumentary: Yes (skin lesion) Blood Disorders: Yes (UNSURE WHAT POSS CANCER SOMETHING TO DO W/ PROTEIN IN BLOOD) Family Medical History Heart Disease, CAD Over 55 Years Old Physical Exam Vital Signs Vital Signs - First Documented 01/30/19 01/30/19 12:45 13:05 Temp 36.8 Pulse 90 Resp 40 B/P (MAP) 132/79 (96) Pulse Ox 94 O2 Delivery Room Air O2 Flow Rate 2.00 Capillary Refill : Less Than 3 Seconds Height, Weight, BMI Height: 6'0.00" Weight: 198lbs. 0.0oz. 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 Norm as Tested Skin: Normal Color, Warm/Dry Progress/Results/Core Measures Results/Orders Lab Results Laboratory Tests Test 01/30/19 13:04 Range/Units White Blood Count 12.2 H 4.3-11.0 10^3/uL Red Blood Count 3.80 L 4.35-5.85 10^6/uL Hemoglobin 10.6 L 13.3-17.7 G/DL Hematocrit 35 L 40-54 % Mean Corpuscular Volume 92 80-99 FL Mean Corpuscular Hemoglobin 28 25-34 PG Mean Corpuscular Hemoglobin Concent 30 L 32-36 G/DL Red Cell Distribution Width 20.7 H 10.0-14.5 % Platelet Count 249 130-400 10^3/uL Mean Platelet Volume 9.8 7.4-10.4 FL Neutrophils (%) (Auto) 78 H 42-75 % Lymphocytes (%) (Auto) 9 L 12-44 % Monocytes (%) (Auto) 12 0-12 % Eosinophils (%) (Auto) 1 0-10 % Basophils (%) (Auto) 0 0-10 % Neutrophils # (Auto) 9.5 H 1.8-7.8 X 10^3 Lymphocytes # (Auto) 1.1 1.0-4.0 X 10^3 Monocytes # (Auto) 1.5 H 0.0-1.0 X 10^3 Eosinophils # (Auto) 0.1 0.0-0.3 10^3/uL Basophils # (Auto) 0.0 0.0-0.1 10^3/uL Prothrombin Time 15.0 H 12.2-14.7 SEC INR Comment 1.1 0.8-1.4 Activated Partial Thromboplast Time 33 24-35 SEC Sodium Level 137 135-145 MMOL/L Potassium Level 4.1 3.6-5.0 MMOL/L Chloride Level 107 98-107 MMOL/L Carbon Dioxide Level 21 21-32 MMOL/L Anion Gap 9 5-14 MMOL/L Blood Urea Nitrogen 26 H 7-18 MG/DL Creatinine 2.26 H 0.60-1.30 MG/DL Estimat Glomerular Filtration Rate 29 BUN/Creatinine Ratio 12 Glucose Level 158 H 70-105 MG/DL Calcium Level 9.0 8.5-10.1 MG/DL Corrected Calcium 9.0 8.5-10.1 MG/DL Magnesium Level 1.8 1.6-2.4 MG/DL Total Bilirubin 0.9 0.1-1.0 MG/DL Aspartate Amino Transf (AST/SGOT) 18 5-34 U/L Alanine Aminotransferase (ALT/SGPT) 26 0-55 U/L Alkaline Phosphatase 97 40-136 U/L Myoglobin 77.9 10.0-92.0 NG/ML C-Reactive Protein High Sensitivity 2.04 H 0.00-0.50 MG/DL B-Type Natriuretic Peptide 2101.4 H <100.0 PG/ML Total Protein 7.1 6.4-8.2 GM/DL Albumin 4.0 3.2-4.5 GM/DL Lipase 14 8-78 U/L My Orders Orders - SALLIE POLLARD MD BNP (01/30/19 13:03) Nitroglycerin 0.4 Mg Btl 25's (Nitrostat (01/30/19 13:15) Clopidogrel Tablet (Plavix Tablet) (01/30/19 13:15) Lipase (01/30/19 13:16) Hs C Reactive Protein (01/30/19 14:04) Furosemide Injection (Lasix Injection) (01/30/19 14:15) Troponin I (01/30/19 14:20) Medications Given in ED Current Medications Medications Dose Ordered Sig/Nasir Route Start Time Stop Time Status Last Admin Dose Admin Aspirin 324 mg ONCE ONCE PO 01/30/19 13:15 01/30/19 13:16 DC 01/30/19 13:08 324 MG Clopidogrel Bisulfate 75 mg ONCE ONCE PO 01/30/19 13:15 01/30/19 13:16 DC 01/30/19 13:09 75 MG Furosemide 40 mg ONCE ONCE IVP 01/30/19 14:15 01/30/19 14:16 DC 01/30/19 14:28 40 MG Nitroglycerin 0.4 mg UD PRN SL 01/30/19 13:15 01/30/19 13:18 0.4 MG Vital Signs/I&O 01/30/19 01/30/19 01/30/19 12:45 12:45 13:05 Temp 36.8 Pulse 90 Resp 40 B/P (MAP) 132/79 (96) Pulse Ox 94 96 O2 Delivery Room Air Room Air Nasal Cannula O2 Flow Rate 2.00 Blood Pressure Mean: 96 POS Progress Progress Note : Progress Note Cardiac workup was pursued. Chest pain was relieved by nitroglycerin 2. Patient was given aspirin 324 mg and Plavix 75 mg. Chest x-ray showed evidence of congestion and a BNP was elevated. After discussion with Dr. Coe, Lasix 40 mg IV was ordered. CRP was obtained to help in sure no presence of bacterial infection. Initial ECG Impression Date: Jan 30, 2019 Initial ECG Impression Time: 12:54 Initial ECG Rate: 87 Initial ECG Rhythm: Normal Sinus Initial ECG Intervals: Normal Initial ECG Impression: Normal Comment Normal sinus rhythm with no ST elevation or depression. No abnormal intervals or axis deviation. Diagnostic Imaging Diagonstic Imaging: Xray Plain Films/CT/US/NM/MRI: chest Comments Chest x-ray viewed by me and report reviewed. See report below: NAME: [facility] REC#: [id number] PT STATUS: REG ER : 1955 PHYSICIAN: RACHEL ROMAN APRN ADMIT DATE: 01/30/19/ER Draft Date of Exam:01/30/19 CHEST 1 VIEW, AP/PA ONLY INDICATION: Chest discomfort and shortness of breath. TECHNIQUE/COMPARISON: A frontal chest was obtained at 1:26 PM and compared to 11/16/2017. FINDINGS: There is mild cardiomegaly. The pacemaker is unchanged. There is worsening central vascular congestion with worsening interstitial edema and bibasilar infiltrates. There is question of some posterior layering pleural fluid on the left side. IMPRESSION: Cardiomegaly. Worsening central vascular congestion and interstitial edema compared to 11/16/2017. The findings are compatible with CHF. There are worsening bibasilar alveolar infiltrates as well as question of some posterior layering pleural fluid on the left side. Dictated on workstation # [id number] Dict: 01/30/19 1342 Trans: 01/30/19 1344 [id number] Interpreted by: CHRISTINA SCHULER MD Departure Communication (Admissions) Time/Spoke to Admitting Phy: 14:20 Dr. Dominguez Time/Spoke to Consulting Phy: 14:10 Dr. Coe Impression Primary Impression: Chest wall pain Additional Impression: Congestive heart failure Qualified Codes: I50.33 - Acute on chronic diastolic (congestive) heart failure Disposition: ADMITTED INPATIENT Condition: Improved Admissions Decision to Admit Reason: Admit from ER (General) Decision to Admit/Date: Jan 30, 2019 Time/Decision to Admit Time: 13:10 Departure-Patient Inst. Referrals: NO,LOCAL PHYSICIAN (PCP) Primary Care Physician EWA EISENBERG (Family) Primary Care Physician SALLIE POLLARD MD Jan 30, 2019 13:48 POS
[2019-01-30] MEDS ORDERED: FUROSEMIDE 40 MG/4 ML INJ (LASIX) IVP ONE (14:15)
--- NOTE | 2019-01-30 15:00 | NUR ---
Patient arrived from ED via wheelchair at 1500. VSS. Pt alert and oriented. Report received from SISI Degroot
[2019-01-30] MEDS ORDERED: ONDANSETRON 4 MG/2 ML (SDV) Z0FRAN IV PRN (15:15)
[2019-01-30] MEDS ORDERED: NITROGLYCERIN 0.4 MG SL TABS BTL 25'S SL PRN (15:15)
[2019-01-30] MEDS ORDERED: ALLO100T PO (15:26)
[2019-01-30] MEDS ORDERED: PANT40TA3 PO (15:26)
[2019-01-30] MEDS ORDERED: ATOR80TA76 PO (15:26)
[2019-01-30] MEDS ORDERED: MONT10TA24 PO (15:26)
[2019-01-30] MEDS ORDERED: POTA20TA15 PO (15:26)
[2019-01-30] MEDS ORDERED: BUPR150T14 PO (15:26)
[2019-01-30] MEDS ORDERED: PROC5TAB9 PO (15:26)
[2019-01-30] MEDS ORDERED: CLOP75TA28 PO (15:26)
[2019-01-30] MEDS ORDERED: CATHETER FLUSH 10 ML SYR IV PRN ×2 (15:30)
[2019-01-30] MEDS ORDERED: morphine INJ 4 MG/ML 1 ML (VIAL/SYRINGE) IV PRN (15:30)
[2019-01-30] MEDS ORDERED: FLU QUADRIvalent (5+ YOA) 2019-2020 (AFLURIA) 0.5 ML IM ONE (15:30)
[2019-01-30] MEDS ORDERED: ASPI-983 PO (15:31)
[2019-01-30] MEDS ORDERED: MAGN400T39 PO (15:32)
--- NOTE | 2019-01-30 15:40 | NUR ---
SPOKE WITH THE PATIENT ABOUT HIS MEDICATIONS. WE WENT OVER THE EXT MED HX AND HE VERIFIED HOW HE TAKES THEM. HE HAS FILLED TWO DIFFERENT DOSES OF ALLOPURINOL. HE STATES HE TAKES 150MG DAILY WETHER IT IS 1/2 OF A 300 OR 1 & 1/2 OF THE 100. HE ALSO STATES HE USES ALBUTEROL NEBULIZER SOLUTION QID. OTC MEDS: ASPIRIN 81MG DAILY ZYRTEC 10MG DAILY B12 BID MAGNESIUM DAILY B6 BID
[2019-01-30 16:00] VITALS: BP 126/89
--- NOTE | 2019-01-30 16:13 | History & Physical-Hospitalist ---
History of Present Illness HPI/Chief Complaint Patient is 63-year-old male with past mental: History of cardiomyopathy with AICD placement, hypertension, yem-itwzgoz-obxzkeaga type II diabetes, multiple myeloma, bladder cancer who presented to the emergency department with a chief complaint of 2 weeks history of shortness of breath. He states it's continued to worsen over those 2 weeks and has had significant dyspnea on exertion. On exertion he would get chest pain as well. 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 He denies any palpitations. He does have leg swelling that he originally related to a bug bite on one of his legs. Source: patient Date Seen 01/30/19 Time Seen by a Provider: 15:15 Attending Physician Monique Dominguez MD PCP No,Local Physician Referring Physician Date of Admission Jan 30, 2019 at 14:38 Home Medications & Allergies Home Medications Reviewed patient Home Medication Reconciliation performed by pharmacy medication reconciliations health record technician and/or nursing. Patients Allergies have been reviewed. Allergies Allergies Coded Allergies Penicillins (Verified Allergy, Severe, THROAT SWELLS SHUT, 01/04/18) codeine (Verified Allergy, Intermediate, ITCHING, Pt has received Lortab & Hydromorphone w/o issue, 01/05/18) tramadol (Verified Allergy, Intermediate, HIVES, 01/04/18) adhesive (Unverified Allergy, Unknown, RASH, 01/04/18) Past Wkzkzym-Dntnoo-Rksuag Hx Past Med/Social Hx: Reviewed and Corrections made Patient Social History Marrital Status: Alcohol Use: Denies Use Recreational Drug Use: No Smoking Status: Current Everyday Smoker Type Used: Cigarettes 2nd Hand Smoke Exposure: Yes Recent Foreign Travel: No Contact w/other who traveled: No Recent Hopitalizations: Yes (NOV 2017-PACEMAKER) Recent Infectious Disease Expo: No Immunizations Up To Date Date of Pneumonia Vaccine: Jan 30, 2017 Date of Influenza Vaccine: Dec 20, 2016 Seasonal Allergies Seasonal Allergies: Yes Past Medical History Surgeries: Cardiac, Coronary Stent, Cystectomy, Defibrillator, Orthopedic, Pacemaker, Renal Respiratory: COPD Cardiac: Coronary Artery Disease, High Cholesterol, Hypertension Neurological: Stroke Reproductive: No Sexually Transmitted Disease: No Genitourinary: Renal Failure Musculoskeletal: Arthritis Endocrine: Diabetes, Non-Insulin dep Are Your Blood Sugars Over 250: Yes Cancer: Bladder, Skin Did You Recieve Any Treatments: Yes What Type of Treatment Did You: Chemotherapy, Radiation, Surgical Intervention History of Blood Disorders: Yes (UNSURE WHAT POSS CANCER SOMETHING TO DO W/ PROTEIN IN BLOOD) Family History Reviewed Nursing Family Hx Heart Disease, CAD Over 55 Years Old Review of Systems Constitutional: malaise EENTM: no symptoms reported Respiratory: dyspnea on exertion, short of breath Cardiovascular: chest pain, edema, Hx of Intervention, vascular heart diseas Gastrointestinal: no symptoms reported Genitourinary: no symptoms reported Musculoskeletal: no symptoms reported Skin: no symptoms reported Psychiatric/Neurological: No Symptoms Reported Physical Exam Physical Exam Vital Signs Vital Signs - First Documented 01/30/19 01/30/19 12:45 13:05 Temp 36.8 Pulse 90 Resp 40 B/P (MAP) 132/79 (96) Pulse Ox 94 O2 Delivery Room Air O2 Flow Rate 2.00 Capillary Refill : Less Than 3 Seconds Height, Weight, BMI Height: 6'0.00" Weight: 198lbs. 0.0oz. 89.557908lp; 26.00 BMI Method:Stated General Appearance: No Apparent Distress, Chronically ill HEENT: Moist Mucous Membranes; No Scleral Icterus (L), No Scleral Icterus (R) Neck: Normal Inspection, Supple, JVD Respiratory: No Accessory Muscle Use, No Respiratory Distress, Decreased Breath Sounds Cardiovascular: Regular Rate, Rhythm, No Murmur Gastrointestinal: Normal Bowel Sounds, Non Tender, Soft Genital/Rectal: Other (cystostomy in place) Extremity: Pedal Edema, Swelling Neurologic/Psychiatric: Alert, Oriented x3, Normal Mood/Affect Skin: Normal Color, Warm/Dry Results Results/Procedures Labs Laboratory Tests 01/30/19 13:04 01/31/19 04:50 Patient resulted labs reviewed. Imaging: Reviewed Imaging Report Imaging Date of Exam:01/30/19 CHEST 1 VIEW, AP/PA ONLY INDICATION: Chest discomfort and shortness of breath. TECHNIQUE/COMPARISON: A frontal chest was obtained at 1:26 PM and compared to 11/16/2017. FINDINGS: There is mild cardiomegaly. The pacemaker is unchanged. There is worsening central vascular congestion with worsening interstitial edema and bibasilar infiltrates. There is question of some posterior layering pleural fluid on the left side. IMPRESSION: Cardiomegaly. Worsening central vascular congestion and interstitial edema compared to 11/16/2017. The findings are compatible with CHF. There are worsening bibasilar alveolar infiltrates as well as question of some posterior layering pleural fluid on the left side. Assessment/Plan Admission Diagnosis CHF Exacerbation Admission Status: Inpatient Order (span 2 midnights) Reason for Inpatient Admission: ON oxygen, fludi overload, needs IV diuresis Assessment and Plan CHF Exacerbation CAD CHF Continue lasix troponin negative Cardiology consulted Last echo shows EF of 25% I/Os CKD Creatinine slightly above baseline of 2 Trend with diuresis NIDDMII SSI Multiple Myeloma h/o Bladder CA h/o skin CA Has cystostomy in place Anemia of Chronic Disease Has wondering baseline Has been from 8-12 in the last few months Trend MONIQUE DOMINGUEZ MD Jan 30, 2019 16:13 POS
--- NOTE | 2019-01-30 16:37 | NUR ---
This nurse received a telephone order from for 8,000u. heparin injection Q8H.
[2019-01-30 17:00] VITALS: BP 123/87
[2019-01-30 18:00] VITALS: BP 120/92
--- NOTE | 2019-01-30 18:03 | Consultation-Cardiology ---
HPI-Cardiology Cardiology Consultation: Date of Consultation 01/30/19 Date of Admission Attending Physician Bette Dominguez MD Admitting Physician No,Local Physician Consulting Physician Bg COE MD HPI: Time Seen by a Provider: 16:10 Chief Complaint: shortness of breath This is a 63-year-old gentleman who I have seen in the office previously with a history of cardiomyopathy and ICD placement. He has history of hypertension, diabetes, multiple myeloma, bladder cancer. He complains of 2 weeks history of shortness of breath. Gradually worsening. Denies any significant weight gain. He also complains of mild chest pain. He denies any other significant complaints including syncope, near-syncope, palpitations. Review of Systems-Cardiology Review of Systems Constitutional: As described under HPI; No As described under HPI, No no symptoms reported, No chills, No fever, No lightheadedness Eyes: No As described under HPI, No no symptoms reported, No blindness, No blurred vision, No contact lenses, No drainage, No decreased acuity, No foreign body sensation, No pain, No vision change Ears/Nose/Throat: No As described under HPI, No no symptoms reported, No chronic hearing loss, No ear discharge, No ear pain, No nasal drainage, No ulcerations Respiratory: No no symptoms reported; As described under HPI; No As described under HPI, No cough, No orthopnea; shortness of breath; No SOB with excertion Cardiovascular: No no symptoms reported; As described under HPI; No As described under HPI; chest pain; No edema, No irregular heart rate, No lightheadedness, No palpitations Gastrointestinal: No no symptoms reported, No As described under HPI, No abdomen distended, No abdominal pain, No blood streaked bowels, No constipation, No diarrhea, No nausea, No vomiting, No stool coloration changes Genitourinary: No As described under HPI, No burning, No dysuria, No discharge, No frequency, No flank pain, No hematuria, No urgency Skin: No rash, No skin related problems, No ulcerations Psychiatric/Neurological: No anxiety, No depression, No seizure, No focal weakness, No syncope Hematologic: No bleeding abnormalities GRD-[id number]-Fwaadj Hx Patient Social History Marrital Status: Alcohol Use: Denies Use Recreational Drug Use: No Smoking Status: Current Everyday Smoker Type Used: Cigarettes 2nd Hand Smoke Exposure: Yes Recent Foreign Travel: No Recent Infectious Disease Expo: No Hospitalization with Isolation: Denies Immunizations Up To Date Date of Pneumonia Vaccine: Jan 30, 2017 Date of Influenza Vaccine: Dec 20, 2016 Past Medical History PMH As described under Assessment. Family Medical History Family Medical History: He reports a fam h/o of CAD in both parents and h/o CHF and stroke for his father Allergies and Home Medications Allergies Coded Allergies: Penicillins (Verified Allergy, Severe, THROAT SWELLS SHUT, 01/04/18) codeine (Verified Allergy, Intermediate, ITCHING, Pt has received Lortab & Hydromorphone w/o issue, 01/05/18) tramadol (Verified Allergy, Intermediate, HIVES, 01/04/18) adhesive (Unverified Allergy, Unknown, RASH, 01/04/18) Home Medications Albuterol Sulfate 2.5 Mg/0.5 Ml Vial.neb, 2.5 MG NEB QID, (Reported) Allopurinol 100 Mg Tablet, 150 MG PO HS, (Reported) TAKES 1 & 1/2 (100MG) TABLET Aspirin 81 Mg Tablet.dr, 81 MG PO DAILY, (Reported) Atenolol 50 Mg Tablet, 50 MG PO BID, (Reported) Atorvastatin Calcium 80 Mg Tablet, 80 MG PO HS, (Reported) Bupropion HCl 150 Mg Tablet.er, 150 MG PO HS, (Reported) Cetirizine HCl 10 Mg Tablet, 10 MG PO DAILY, (Reported) Clopidogrel Bisulfate 75 Mg Tablet, 75 MG PO DAILY, (Reported) Cyanocobalamin (Vitamin B-12) 1,000 Mcg Tablet, 1,000 MCG PO BID, (Reported) Duloxetine HCl 60 Mg Capsule.dr, 60 MG PO DAILY, (Reported) Furosemide 20 Mg Tablet, 20 MG PO DAILY PRN for SWELLING, (Reported) Glipizide 2.5 Mg Tab, 2.5 MG PO DAILY, (Reported) Magnesium Oxide 400 Mg Tablet, 400 MG PO DAILY, (Reported) Montelukast Sodium 10 Mg Tablet, 10 MG PO HS, (Reported) Pantoprazole Sodium 40 Mg Tablet.dr, 40 MG PO DAILY, (Reported) Potassium Chloride 20 Meq Tab.er.prt, 20 MEQ PO DAILY PRN for WHEN TAKING FUROSEMIDE, (Reported) Pregabalin 75 Mg Capsule, 75 MG PO BID, (Reported) Prochlorperazine Maleate 5 Mg Tablet, 5 MG PO Q6H PRN for NAUSEA/VOMITING-4TH LINE, (Reported) Pyridoxine HCl 100 Mg Tablet, 100 MG PO BID, (Reported) Patient Home Medication List Home Medication List Reviewed: Yes Physical Exam-Cardiology Physical Exam Vital Signs/I&O 01/30/19 01/30/19 01/30/19 01/30/19 12:45 12:45 13:05 14:55 Temp 36.8 36.8 Pulse 90 79 Resp 40 19 B/P (MAP) 132/79 (96) 127/82 (96) Pulse Ox 94 96 98 O2 Delivery Room Air Room Air Nasal Cannula Room Air O2 Flow Rate 2.00 01/30/19 01/30/19 01/30/19 15:12 16:00 16:45 Temp 36.8 Pulse 79 87 Resp 16 B/P (MAP) 126/89 (101) Pulse Ox 92 96 O2 Delivery Room Air Room Air Capillary Refill : Less Than 3 Seconds Constitutional: appears stated age, AAO x 3; No apparent distress; well- developed, well-nourished HEENT: PERRL; No discharge; hearing is well preserved, oral hygience is good; No ulceration, No xanthelasmas are seen Neck: No carotid bruit; carotid pulses are 2 + bilaterally Respiratory: chest is bilaterally symmetric, lungs clear to auscultation Cardiovascular: regular rate-rhythm, S1 and S2 Gastrointestinal: soft, audible bowel sounds; No spleenomegaly Rectal: deferred Extremities: normal range of motion, non-tender, normal inspection; No clubbing, No cyanosis; no lower extremity edema bilateral; No significant edema Neurologic/Psychiatric: no motor/sensory deficits, alert, normal mood/affect, oriented x 3, power is 5/5 both on sides Skin: No rash, No ulcerations Data Review Labs Laboratory Tests 01/30/19 13:04: White Blood Count 12.2H, Red Blood Count 3.80L, Hemoglobin 10.6L, Hematocrit 35L , Mean Corpuscular Volume 92, Mean Corpuscular Hemoglobin 28, Mean Corpuscular Hemoglobin Concent 30L, Red Cell Distribution Width 20.7H, Platelet Count 249, Mean Platelet Volume 9.8, Neutrophils (%) (Auto) 78H, Lymphocytes (%) (Auto) 9L, Monocytes (%) (Auto) 12, Eosinophils (%) (Auto) 1, Basophils (%) (Auto) 0, Neutrophils # (Auto) 9.5H, Lymphocytes # (Auto) 1.1, Monocytes # (Auto) 1.5H, Eosinophils # (Auto) 0.1, Basophils # (Auto) 0.0, Prothrombin Time 15.0H, INR Comment 1.1, Activated Partial Thromboplast Time 33, Sodium Level 137, Potassium Level 4.1, Chloride Level 107, Carbon Dioxide Level 21, Anion Gap 9, Blood Urea Nitrogen 26H, Creatinine 2.26H, Estimat Glomerular Filtration Rate 29, BUN/Creatinine Ratio 12, Glucose Level 158H, Calcium Level 9.0, Corrected Calcium 9.0, Magnesium Level 1.8, Total Bilirubin 0.9, Aspartate Amino Transf (AST/SGOT) 18, Alanine Aminotransferase (ALT/SGPT) 26, Alkaline Phosphatase 97, Myoglobin 77.9, Troponin I < 0.028, C-Reactive Protein High Sensitivity 2.04H, B-Type Natriuretic Peptide 2101.4H, Total Protein 7.1, Albumin 4.0, Lipase 14 01/30/19 16:40: Glucometer 111H A/P-Cardiology Assessment/Admission Diagnosis Ischemic cardiomyopathy, Acute on chronic congestive heart failure, ICD in place, Multiple myeloma, Chest pain, Chronic kidney disease Plan Elevated BNP. Will recommend an echocardiogram. IV Lasix. Chest pain: First set of troponin is negative. Serial troponin will be done. ICD- no acute issues. Chronic kidney disease: Defer to the primary team. Multiple myeloma likely the cause of chronic kidney disease. Thank you for your consultation. Please call me if you have any questions. Aviva Coe MD, FACP, FACC, FSCAI, FHRS, CCDS Interventional Cardiology Cardiac Electrophysiology Vascular Medicine and Endovascular Interventions Clinical Quality Measures DVT/VTE Risk/Contraindication: Risk Factor Score Per Nursin RFS Level Per Nursing on Admit: 4+=Very High Bg COE MD Jan 30, 2019 18:03 POS
[2019-01-30 20:00] VITALS: BP 142/92
[2019-01-30] MEDS: ATENOLOL 50 MG (TENORMIN) TAB PO SCH (20:30)
[2019-01-30] MEDS: CATHETER FLUSH 10 ML SYR IV SCH (20:30)
[2019-01-31] VITALS: BP 125/85
[2019-01-31 04:00] VITALS: BP 127/82
[2019-01-31 05:55] LABS: CHOLESTEROL 69 MG/DL (< 200); HDL CHOLESTEROL 27 MG/DL (40-60); TRIGLYCERIDES 94 MG/DL (<150); VLDL CHOLESTEROL 19 MG/DL (5-40)
[2019-01-31] MEDS: CATHETER FLUSH 10 ML SYR IV SCH ×2 (06:10→12:53)
[2019-01-31 07:50] LABS: CALCIUM 9.1 MG/DL (8.5-10.1); CREATININE SERUM 1.99 MG/DL (0.60-1.30); POTASSIUM 4.1 MMOL/L (3.6-5.0)
[2019-01-31 08:00] VITALS: BP 141/91
--- NOTE | 2019-01-31 08:34 | Progress Note - Hospitalist ---
Subjective HPI/CC On Admission Date Seen by Provider: Jan 31, 2019 Time Seen by Provider: 08:32 Patient is 63-year-old male with past mental: History of cardiomyopathy with AICD placement, hypertension, [id number] type II diabetes, multiple myeloma, bladder cancer who presented to the emergency department with a chief complaint of 2 weeks history of shortness of breath. He states it's continued to worsen over those 2 weeks and has had significant dyspnea on exertion. On exertion he would get chest pain as well. 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 He denies any palpitations. He does have leg swelling that he originally related to a bug bite on one of his legs. Subjective/Events-last exam Pt repors feeling better. breathing better. Has not yet gotten up but would like to try to ambulate. Objective Exam Vital Signs Vital Signs Date Time Temp Pulse Resp B/P (MAP) Pulse Ox O2 Delivery O2 Flow Rate FiO2 01/31/19 07:00 81 01/31/19 04:00 36.9 Nasal Cannula 2.00 01/31/19 04:00 18 96 Capillary Refill : Less Than 3 Seconds General Appearance: No Apparent Distress, Chronically ill Respiratory: Lungs Clear, No Accessory Muscle Use, No Respiratory Distress Cardiovascular: Regular Rate, Rhythm, No Murmur Gastrointestinal: Normal Bowel Sounds, Non Tender, Soft Neurologic/Psychiatric: Alert, Oriented x3 Results/Procedures Lab Laboratory Tests 01/30/19 13:04 01/31/19 04:50 Patient resulted labs reviewed. Imaging: Reviewed Imaging Report Assessment/Plan Assessment and Plan Assess & Plan/Chief Complaint CHF Exacerbation CAD CHF Continue lasix troponin negative Cardiology consulted, appreciate recs Last echo shows EF of 25% from 2018- repeat ordered I/Os- negative 2L Per patient possible cardiac cath today- defer to cardiology CKD Creatinine back to baseline Trend with diuresis NIDDMII SSI Multiple Myeloma h/o Bladder CA h/o skin CA Has cystostomy in place Anemia of Chronic Disease Has wondering baseline Has been from 8-12 in the last few months Diagnosis/Problems Diagnosis/Problems (1) Congestive heart failure Status: Acute Qualifiers: Heart failure type: combined systolic and diastolic Heart failure chronicity: acute on chronic Qualified Codes: I50.43 - Acute on chronic combi sol systolic (congestive) and diastolic (congestive) heart failure (2) Ischemic cardiomyopathy (3) CKD (chronic kidney disease) stage 4, GFR 15-29 ml/min Status: Chronic (4) Tobacco abuse disorder Status: Chronic (5) Non-insulin dependent type 2 diabetes mellitus Status: Chronic (6) History of bladder cancer Status: Chronic (7) Essential (primary) hypertension Status: Chronic Clinical Quality Measures DVT/VTE Risk/Contraindication: Risk Factor Score Per Nursin RFS Level Per Nursing on Admit: 4+=Very High MONIQUE RICKS MD Jan 31, 2019 08:34 POS
[2019-01-31] MEDS: ATENOLOL 50 MG (TENORMIN) TAB PO SCH (08:36)
[2019-01-31] MEDS ORDERED: ASPIRIN E.C. 81 MG (ECOTRIN) TAB PO SCH (09:00)
[2019-01-31] MEDS ORDERED: CLOPIDOGREL 75 MG (PLAVIX) TABLET PO SCH (09:00)
[2019-01-31] MEDS ORDERED: REGADENOSON 0.4 MG/5 ML SYR (LEXISCAN) IV ONE ×2 (09:30→12:45)
--- NOTE | 2019-01-31 10:26 | Cardiology Progress Note ---
Cardiology SOAP Progress Note Subjective: Significantly improved shortness of breath after IV Lasix. Objective: I&O/Vital Signs 01/30/19 01/31/19 01/31/19 01/31/19 23:10 00:00 01:00 04:00 Temp 37.0 Pulse 65 65 68 Resp 18 18 B/P (MAP) 125/85 (98) 127/82 (97) Pulse Ox 96 96 O2 Delivery Nasal Cannula Nasal Cannula Nasal Cannula O2 Flow Rate 2.00 2.00 2.00 01/31/19 01/31/19 01/31/19 01/31/19 04:00 07:00 08:00 08:00 Temp 36.9 36.8 Pulse 81 74 Resp 18 B/P (MAP) 141/91 (108) Pulse Ox 96 96 O2 Delivery Nasal Cannula Nasal Cannula Nasal Cannula O2 Flow Rate 2.00 1.50 1.50 01/31/19 00:00 Intake Total 150 ml Output Total 1975 ml Balance -1825 ml Weight (Pounds): 198 Weight (Ounces): 0.0 Weight (Calculated Kilograms): [id number] Constitutional: appears stated age, AAO x 3; No apparent distress; well- developed, well-nourished Respiratory: chest is bilaterally symmetric, lungs clear to auscultation Cardiovascular: regular rate-rhythm, S1 and S2 Gastrointestional: soft, audible bowel sounds; No spleenomegaly Extremities: normal range of motion, non-tender, normal inspection; No c lubbing, No cyanosis; no lower extremity edema bilateral; No significant edema Neurologic/Psychiatric: no motor/sensory deficits, alert, normal mood/affect, oriented x 3, power is 5/5 both on sides Skin: No rash, No ulcerations Results/Procedures: Labs Laboratory Tests 01/30/19 13:04: White Blood Count 12.2H, Red Blood Count 3.80L, Hemoglobin 10.6L, Hematocrit 35L , Mean Corpuscular Volume 92, Mean Corpuscular Hemoglobin 28, Mean Corpuscular Hemoglobin Concent 30L, Red Cell Distribution Width 20.7H, Platelet Count 249, Mean Platelet Volume 9.8, Neutrophils (%) (Auto) 78H, Lymphocytes (%) (Auto) 9L, Monocytes (%) (Auto) 12, Eosinophils (%) (Auto) 1, Basophils (%) (Auto) 0, Neutrophils # (Auto) 9.5H, Lymphocytes # (Auto) 1.1, Monocytes # (Auto) 1.5H, Eosinophils # (Auto) 0.1, Basophils # (Auto) 0.0, Prothrombin Time 15.0H, INR Comment 1.1, Activated Partial Thromboplast Time 33, Sodium Level 137, Potassium Level 4.1, Chloride Level 107, Carbon Dioxide Level 21, Anion Gap 9, Blood Urea Nitrogen 26H, Creatinine 2.26H, Estimat Glomerular Filtration Rate 29, BUN/Creatinine Ratio 12, Glucose Level 158H, Calcium Level 9.0, Corrected Calcium 9.0, Magnesium Level 1.8, Total Bilirubin 0.9, Aspartate Amino Transf (AST/SGOT) 18, Alanine Aminotransferase (ALT/SGPT) 26, Alkaline Phosphatase 97, Myoglobin 77.9, Troponin I < 0.028, C-Reactive Protein High Sensitivity 2.04H, B-Type Natriuretic Peptide 2101.4H, Total Protein 7.1, Albumin 4.0, Lipase 14 01/30/19 16:40: Glucometer 111H 01/30/19 19:01: Troponin I < 0.028 01/31/19 04:50: Sodium Level 140, Potassium Level 4.1, Chloride Level 107, Carbon Dioxide Level 20L, Anion Gap 13, Blood Urea Nitrogen 27H, Creatinine 1.99H, Estimat Glomerular Filtration Rate 34, BUN/Creatinine Ratio 14, Glucose Level 100, Calcium Level 9.1, Triglycerides Level 94, Cholesterol Level 69, LDL Cholesterol Direct 29, VLDL Cholesterol 19, HDL Cholesterol 27L A/P: Assessment/Dx: Ischemic cardiomyopathy, Acute on chronic congestive heart failure, ICD in place, Multiple myeloma, Chest pain, Chronic kidney disease Plan: Elevated BNP. Will recommend an echocardiogram. IV Lasix. Significantly improved after IV Lasix. He was on Lasix 20 mg at home. I will give him Lasix 80 mg for the next 3 days with potassium supplementation. Then he will be on Lasix 40 mg long-term. Discussed with the patient. Chest pain: Serial troponin negative. However due to multivessel PCI and complains of prolonged chest pressure, I will go ahead and do nuclear stress te st. ICD- no acute issues. Chronic kidney disease: Defer to the primary team. Creatinine is over 2.0. The patient follows with nephrology as an outpatient. Multiple myeloma likely the cause of chronic kidney disease. Thank you for your consultation. Please call me if you have any questions. Aviva Coe MD, FACP, FACC, FSCAI, FHRS, CCDS Interventional Cardiology Cardiac Electrophysiology Vascular Medicine and Endovascular Interventions Bg COE MD Jan 31, 2019 10:26 am POS
[2019-01-31 12:00] VITALS: BP 155/94
--- NOTE | 2019-01-31 12:00 | NUR ---
PT LEAVING UNIT VIA WC ACCOMPANIED BY NUCLEAR MED STAFF. WILL WAIT FOR PT TO RETURN TO ROOM.
[2019-01-31 12:50] VITALS: BP 161/90
--- NOTE | 2019-01-31 13:50 | NUR ---
PT BACK TO ROOM VIA WC ACCOMPANIED BY NUCLEAR MED STAFF.
== END 2019-01-31 15:15 | disposition home or self-care (01) | DRG 291 ==
LOC: EDUNIT# 12:44 → ER 12:45 → ICU 14:38
PROVIDERS: ADMIT Family Medicine; ATTEND Family Medicine
DX: I13.0 Hypertensive heart and chronic kidney disease with heart failure and stage 1 through stage 4 chronic kidney disease, or unspecified chronic kidney disease (principal); I50.33 Acute on chronic diastolic (congestive) heart failure; N18.4 Chronic kidney disease, stage 4 (severe); I25.10 Atherosclerotic heart disease of native coronary artery without angina pectoris; E11.9 Type 2 diabetes mellitus without complications; I25.5 Ischemic cardiomyopathy; J44.9 Chronic obstructive pulmonary disease, unspecified; E78.00 Pure hypercholesterolemia, unspecified; C90.00 Multiple myeloma not having achieved remission; F17.210 Nicotine dependence, cigarettes, uncomplicated; M19.91 Primary osteoarthritis, unspecified site; Z93.50 Unspecified cystostomy status; Z95.810 Presence of automatic (implantable) cardiac defibrillator; Z95.5 Presence of coronary angioplasty implant and graft; Z86.73 Personal history of transient ischemic attack (TIA), and cerebral infarction without residual deficits; Z85.51 Personal history of malignant neoplasm of bladder; Z23 Encounter for immunization
CPT/HCPCS: 36415; 71045; 78452; 80048; 80053; 80061; 82962; 83690; 83735; 83874; 83880; 84484; 85025; 85610; 85730; 86141; 93005; 93017; 93041; 93306; 96374

== ENCOUNTER → 2019-07-18 | Outpatient (CLI) | payer MEDICARE ==
[~2019-07-18] MED LIST changes: +ALLO100T PO; +ASPI-983 PO; +BUPR150T14 PO; -CETI10TA20 PO; +CETI10TA21 PO; +CLOP75TA28 PO; -GLIM4TAB PO; +GLIM4TAB5 PO; +MAGN400T39 PO; +MONT10TA26 PO; -ONDA8TAB12 PO; +ONDA8TAB15 PO; +PANT40TA3 PO; +POTA20TA15 PO; +PROC5TAB9 PO; +PYRI100T10 PO; -PYRI100T2 PO; -TRAM50TA2 PO; +TRM50T PO
[2019-07-18 13:52] LABS: BASOPHILS % (AUTO) 0 % (0-10); EOSINOPHILS # (AUTO) 0.1 10^3/uL (0.0-0.3); EOSINOPHILS % (AUTO) 1 % (0-10); HEMATOCRIT 37 % (40-54); HEMOGLOBIN 11.3 G/DL (13.3-17.7); LYMPHOCYTES % (AUTO) 11 % (12-44); MEAN CORPUSCULAR HEMOGLOBIN 30 PG (25-34); MEAN CORPUSCULAR HGB CONC 31 G/DL (32-36); MEAN CORPUSCULAR VOLUME 96 FL (80-99); MEAN PLATELET VOLUME 9.9 FL (7.4-10.4); MONOCYTES # (AUTO) 0.7 X 10^3 (0.0-1.0); MONOCYTES % (AUTO) 8 % (0-12); NEUTROPHILS # (AUTO) 6.9 X 10^3 (1.8-7.8); NEUTROPHILS % (AUTO) 79 % (42-75); PLATELET COUNT 222 10^3/uL (130-400); WHITE BLOOD COUNT 8.7 10^3/uL (4.3-11.0)
[2019-07-18 14:13] LABS: ALBUMIN 3.9 GM/DL (3.2-4.5); BILIRUBIN,TOTAL 0.4 MG/DL (0.1-1.0); CALCIUM 8.7 MG/DL (8.5-10.1); CREATININE SERUM 2.17 MG/DL (0.60-1.30); POTASSIUM 4.2 MMOL/L (3.6-5.0); TOTAL PROTEIN 7.1 GM/DL (6.4-8.2)
== END ==
LOC: EDSTATUS 04-02 16:23 → ONC 13:38
PROVIDERS: ATTEND Internal Medicine Hematology & Oncology
DX: C90.00 Multiple myeloma not having achieved remission (principal); C67.8 Malignant neoplasm of overlapping sites of bladder; E11.22 Type 2 diabetes mellitus with diabetic chronic kidney disease; I12.9 Hypertensive chronic kidney disease with stage 1 through stage 4 chronic kidney disease, or unspecified chronic kidney disease; N18.3 Chronic kidney disease, stage 3 (moderate); E78.00 Pure hypercholesterolemia, unspecified; Z79.899 Other long term (current) drug therapy; Z79.82 Long term (current) use of aspirin; Z72.0 Tobacco use; J43.9 Emphysema, unspecified; I25.10 Atherosclerotic heart disease of native coronary artery without angina pectoris; Z87.891 Personal history of nicotine dependence; Z85.51 Personal history of malignant neoplasm of bladder; Z85.820 Personal history of malignant melanoma of skin
CPT/HCPCS: 80053; 82232; 82784; 83883; 84155; 84165; 85025; 99213

== ENCOUNTER → 2019-09-11 | Outpatient (CLI) | payer MEDICARE | LOC: CARD 08:18 | PROVIDERS: ATTEND Internal Medicine Interventional Cardiology | DX: I42.9 Cardiomyopathy, unspecified (principal); I50.22 Chronic systolic (congestive) heart failure; I34.0 Nonrheumatic mitral (valve) insufficiency; I51.7 Cardiomegaly | CPT/HCPCS: 93306 ==

== ENCOUNTER → 2019-10-29 | Outpatient (CLI) | payer MEDICARE | LOC: ONC 10:06 | PROVIDERS: ATTEND Internal Medicine Hematology & Oncology | DX: C90.00 Multiple myeloma not having achieved remission (principal); C67.8 Malignant neoplasm of overlapping sites of bladder; M89.8X6 Other specified disorders of bone, lower leg; Z98.890 Other specified postprocedural states; Z90.6 Acquired absence of other parts of urinary tract; Z92.21 Personal history of antineoplastic chemotherapy | CPT/HCPCS: 99213 ==

== ENCOUNTER → 2019-11-05 | Outpatient (CLI) | payer MEDICARE ==
--- NOTE | 2019-11-05 16:02 | Diagnostic Imaging Report ---
INDICATION: Multiple myeloma, subsequent restaging and recurrence detection. TECHNIQUE: Serum blood glucose level at the time of injection is 140 mg/dL. The patient was administered 14.1 mCi F-18 FDG intravenously in the right forearm and whole body PET imaging was performed. Noncontrast CT was also performed for attenuation correction and anatomic correlation. COMPARISON: No prior imaging is available for comparison. FINDINGS: There is symmetric activity throughout the brain. Physiologic activity within the soft tissues of the neck is noted. No hypermetabolic lymph nodes in the mediastinum or mellisa are identified. No pulmonary parenchymal hypermetabolism is identified. Physiologic activity in the GI and tracts is noted. There is an ostomy in the right abdomen with probable ileal conduit. Patient appears to be status post cystectomy. No osseous abnormalities are detected. Imaging of the lower extremities is unremarkable. No suspicious focus of hypermetabolism is identified. IMPRESSION: Essentially unremarkable whole body PET/CT study. No suspicious hypermetabolism is identified. Dictated by: Dictated on workstation # [id number]
== END ==
LOC: RAD 12:47
PROVIDERS: ATTEND Internal Medicine Hematology & Oncology
DX: C90.00 Multiple myeloma not having achieved remission (principal); M89.8X9 Other specified disorders of bone, unspecified site; Z98.890 Other specified postprocedural states
CPT/HCPCS: 78816; A9552

== ENCOUNTER 2020-01-15 12:44 | Outpatient (RCR) | payer MEDICARE ==
[2019-11-04 12:28] LABS: BASOPHILS % (AUTO) 0 % (0-10); EOSINOPHILS # (AUTO) 0.1 10^3/uL (0.0-0.3); EOSINOPHILS % (AUTO) 1 % (0-10); HEMATOCRIT 42 % (40-54); HEMOGLOBIN 13.3 G/DL (13.3-17.7); LYMPHOCYTES # (AUTO) 0.9 X 10^3 (1.0-4.0); LYMPHOCYTES % (AUTO) 8 % (12-44); MEAN CORPUSCULAR HEMOGLOBIN 30 PG (25-34); MEAN CORPUSCULAR HGB CONC 32 G/DL (32-36); MEAN CORPUSCULAR VOLUME 94 FL (80-99); MEAN PLATELET VOLUME 9.8 FL (7.4-10.4); MONOCYTES # (AUTO) 1.3 X 10^3 (0.0-1.0); MONOCYTES % (AUTO) 11 % (0-12); NEUTROPHILS % (AUTO) 80 % (42-75); PLATELET COUNT 248 10^3/uL (130-400); WHITE BLOOD COUNT 11.3 10^3/uL (4.3-11.0)
[2019-11-04 12:49] LABS: ALBUMIN 4.2 GM/DL (3.2-4.5); BILIRUBIN,TOTAL 0.7 MG/DL (0.1-1.0); CREATININE SERUM 2.23 MG/DL (0.60-1.30); POTASSIUM 4.2 MMOL/L (3.6-5.0); TOTAL PROTEIN 7.7 GM/DL (6.4-8.2)
[2019-11-06 16:27] LABS: ABSOLUTE RETIC # 63 10e9/L (24-90); BASOPHILS % (AUTO) 0 % (0-10); EOSINOPHILS # (AUTO) 0.1 10^3/uL (0.0-0.3); EOSINOPHILS % (AUTO) 1 % (0-10); HEMATOCRIT 40 % (40-54); HEMOGLOBIN 12.9 G/DL (13.3-17.7); LYMPHOCYTES % (AUTO) 11 % (12-44); MEAN CORPUSCULAR HEMOGLOBIN 30 PG (25-34); MEAN CORPUSCULAR HGB CONC 32 G/DL (32-36); MEAN CORPUSCULAR VOLUME 94 FL (80-99); MEAN PLATELET VOLUME 9.9 FL (7.4-10.4); MONOCYTES % (AUTO) 10 % (0-12); NEUTROPHILS # (AUTO) 7.1 X 10^3 (1.8-7.8); NEUTROPHILS % (AUTO) 78 % (42-75); PLATELET COUNT 212 10^3/uL (130-400); RETICULOCYTE % 1.48 % (0.50-2.40); WHITE BLOOD COUNT 9.1 10^3/uL (4.3-11.0)
[2019-11-06 16:42] LABS: ANISOCYTOSIS SLIGHT; BAND NEUTROPHILS 1 %; BASOPHILS % (MANUAL) 0 %; ELLIPT/OVALOCYTES SLIGHT; EOSINOPHILS % (MANUAL) 0 %; HYPOCHROMASIA SLIGHT; LYMPHOCYTES % (MANUAL) 7 %; MONOCYTES % (MANUAL) 8 %; NEUTROPHILS % (MANUAL) 83 %; POLYCHROMASIA SLIGHT; REACTIVE LYMPHOCYTES 1 %
[~2020-01-15 12:44] MED LIST changes: +AMLO-250 PO; +AMLO-251 PO; -AMLO10TA7 PO; -AMLO5TAB9 PO; +ASPI-1238 PO; -ASPI-983 PO; -CETI10TA21 PO; +CETI10TA49 PO; +LIDOCAINE PF 1% 5 ML (XYLOCAINE) AMP INJ ONE; -PANT40TA3 PO; +PANT40TA52 PO
[2020-01-15 13:17] LABS: BASOPHILS % (AUTO) 0 % (0-10); EOSINOPHILS # (AUTO) 0.1 10^3/uL (0.0-0.3); EOSINOPHILS % (AUTO) 2 % (0-10); HEMATOCRIT 38 % (40-54); HEMOGLOBIN 12.3 g/dL (13.3-17.7); LYMPHOCYTES # (AUTO) 0.8 10^3/uL (1.0-4.0); LYMPHOCYTES % (AUTO) 10 % (12-44); MEAN CORPUSCULAR HEMOGLOBIN 31 pg (25-34); MEAN CORPUSCULAR HGB CONC 32 g/dL (32-36); MEAN CORPUSCULAR VOLUME 97 fL (80-99); MEAN PLATELET VOLUME 9.7 fL (9.0-12.2); MONOCYTES # (AUTO) 0.7 10^3/uL (0.0-1.0); MONOCYTES % (AUTO) 9 % (0-12); NEUTROPHILS # (AUTO) 6.3 10^3/uL (1.8-7.8); NEUTROPHILS % (AUTO) 79 % (42-75); PLATELET COUNT 206 10^3/uL (130-400)
[2020-01-15 13:42] LABS: BILIRUBIN,TOTAL 0.6 MG/DL (0.1-1.0); CALCIUM 8.8 MG/DL (8.5-10.1); CREATININE SERUM 2.21 MG/DL (0.60-1.30); POTASSIUM 4.4 MMOL/L (3.6-5.0); TOTAL PROTEIN 7.1 GM/DL (6.4-8.2)
== END 2020-02-02 | disposition home or self-care (01) ==
LOC: ONC 12:44
PROVIDERS: ATTEND Internal Medicine Hematology & Oncology
DX: C90.00 Multiple myeloma not having achieved remission (principal); M89.8X9 Other specified disorders of bone, unspecified site; C67.8 Malignant neoplasm of overlapping sites of bladder
CPT/HCPCS: 38221; 80053; 82232; 82784; 83615; 83883; 84155; 84165; 85007; 85025; 85027; 85045; 88184; 88185; 88305; 88311; 88313; 99213

== ENCOUNTER → 2020-03-25 | Outpatient (CLI) | payer MEDICARE ==
[~2020-03-25] MED LIST changes: -CLIN300C11 PO; +CLIN300C12 PO; -LIDOCAINE PF 1% 5 ML (XYLOCAINE) AMP INJ ONE; -MONT10TA26 PO; +MONT10TA97 PO
[2020-03-25 14:30] LABS: POTASSIUM 4.3 MMOL/L (3.6-5.0)
[2020-03-25 14:31] LABS: CALCIUM 8.5 MG/DL (8.5-10.1)
[2020-03-25 14:35] LABS: CREATININE SERUM 2.73 MG/DL (0.60-1.30); PHOSPHORUS 2.6 MG/DL (2.3-4.7)
== END ==
LOC: LAB 13:48
PROVIDERS: ATTEND Internal Medicine Nephrology
DX: N18.4 Chronic kidney disease, stage 4 (severe) (principal)
CPT/HCPCS: 36415; 80069

== ENCOUNTER 2020-04-14 13:06 | Outpatient (RCR) | payer MEDICARE ==
[~2020-04-14 13:06] MED LIST changes: +BUPR150T24 PO; -BUPR150T7 PO; -LISI10TA2 PO; +LISI10TA25 PO; -LISI40TA PO; +LISI40TA9 PO; +MONT10TA32 PO; -MONT10TA97 PO; +SERT-414 PO; -SERT100T8 PO
[2020-04-14 13:18] LABS: BASOPHILS % (AUTO) 0 % (0-10); EOSINOPHILS # (AUTO) 0.1 10^3/uL (0.0-0.3); EOSINOPHILS % (AUTO) 1 % (0-10); HEMATOCRIT 41 % (40-54); HEMOGLOBIN 12.8 g/dL (13.3-17.7); LYMPHOCYTES # (AUTO) 0.8 10^3/uL (1.0-4.0); LYMPHOCYTES % (AUTO) 9 % (12-44); MEAN CORPUSCULAR HEMOGLOBIN 32 pg (25-34); MEAN CORPUSCULAR HGB CONC 31 g/dL (32-36); MEAN CORPUSCULAR VOLUME 101 fL (80-99); MEAN PLATELET VOLUME 9.8 fL (9.0-12.2); MONOCYTES # (AUTO) 0.8 10^3/uL (0.0-1.0); MONOCYTES % (AUTO) 9 % (0-12); NEUTROPHILS # (AUTO) 7.3 10^3/uL (1.8-7.8); NEUTROPHILS % (AUTO) 81 % (42-75); PLATELET COUNT 221 10^3/uL (130-400)
[2020-04-14 13:56] LABS: ALBUMIN 3.9 GM/DL (3.2-4.5); BILIRUBIN,TOTAL 0.5 MG/DL (0.1-1.0); CREATININE SERUM 2.27 MG/DL (0.60-1.30); POTASSIUM 4.3 MMOL/L (3.6-5.0); TOTAL PROTEIN 7.2 GM/DL (6.4-8.2)
== END 2020-07-13 | disposition home or self-care (01) ==
LOC: ONC 13:06
PROVIDERS: ATTEND Internal Medicine Hematology & Oncology
DX: C90.00 Multiple myeloma not having achieved remission (principal); C44.92 Squamous cell carcinoma of skin, unspecified; C79.11 Secondary malignant neoplasm of bladder; E11.22 Type 2 diabetes mellitus with diabetic chronic kidney disease; N18.4 Chronic kidney disease, stage 4 (severe); E78.2 Mixed hyperlipidemia; I25.10 Atherosclerotic heart disease of native coronary artery without angina pectoris; Z98.890 Other specified postprocedural states; Z90.79 Acquired absence of other genital organ(s); Z90.6 Acquired absence of other parts of urinary tract; Z92.21 Personal history of antineoplastic chemotherapy
CPT/HCPCS: 80053; 82232; 82784 ×3; 83615; 83883; 85025; G0463; 99213

== ENCOUNTER → 2020-05-25 | Outpatient (CLI) | payer MEDICARE | LOC: CARD 09:52 | PROVIDERS: ATTEND Internal Medicine Cardiovascular Disease | DX: I25.10 Atherosclerotic heart disease of native coronary artery without angina pectoris (principal); I51.7 Cardiomegaly; I34.0 Nonrheumatic mitral (valve) insufficiency | CPT/HCPCS: 93306 ==

== ENCOUNTER 2020-07-29 10:02 | Outpatient (RCR) | payer MEDICARE ==
[~2020-07-29 10:02] MED LIST changes: -CYAN50008 PO; +CYAN50009 PO
[2020-07-29 10:20] LABS: BASOPHILS % (AUTO) 0 % (0-10); EOSINOPHILS # (AUTO) 0.1 10^3/uL (0.0-0.3); EOSINOPHILS % (AUTO) 1 % (0-10); HEMATOCRIT 46 % (40-54); HEMOGLOBIN 14.8 g/dL (13.3-17.7); LYMPHOCYTES # (AUTO) 0.8 10^3/uL (1.0-4.0); LYMPHOCYTES % (AUTO) 7 % (12-44); MEAN CORPUSCULAR HEMOGLOBIN 32 pg (25-34); MEAN CORPUSCULAR HGB CONC 32 g/dL (32-36); MEAN CORPUSCULAR VOLUME 99 fL (80-99); MEAN PLATELET VOLUME 9.5 fL (9.0-12.2); MONOCYTES # (AUTO) 0.7 10^3/uL (0.0-1.0); MONOCYTES % (AUTO) 6 % (0-12); NEUTROPHILS % (AUTO) 86 % (42-75); PLATELET COUNT 258 10^3/uL (130-400); WHITE BLOOD COUNT 11.7 10^3/uL (4.3-11.0)
[2020-07-29 10:44] LABS: ALBUMIN 3.9 GM/DL (3.2-4.5); BILIRUBIN,TOTAL 0.6 MG/DL (0.1-1.0); CALCIUM 8.8 MG/DL (8.5-10.1); CREATININE SERUM 2.18 MG/DL (0.60-1.30); POTASSIUM 3.8 MMOL/L (3.6-5.0); TOTAL PROTEIN 7.4 GM/DL (6.4-8.2)
== END 2020-10-27 | disposition home or self-care (01) ==
LOC: ONC 10:02
PROVIDERS: ATTEND Internal Medicine Hematology & Oncology
DX: C90.00 Multiple myeloma not having achieved remission (principal); C44.92 Squamous cell carcinoma of skin, unspecified; C79.11 Secondary malignant neoplasm of bladder; E11.22 Type 2 diabetes mellitus with diabetic chronic kidney disease; I13.0 Hypertensive heart and chronic kidney disease with heart failure and stage 1 through stage 4 chronic kidney disease, or unspecified chronic kidney disease; N18.4 Chronic kidney disease, stage 4 (severe); I50.22 Chronic systolic (congestive) heart failure; E78.00 Pure hypercholesterolemia, unspecified; F32.9 Major depressive disorder, single episode, unspecified; J06.9 Acute upper respiratory infection, unspecified; F17.210 Nicotine dependence, cigarettes, uncomplicated; I25.10 Atherosclerotic heart disease of native coronary artery without angina pectoris; Z98.890 Other specified postprocedural states; Z90.79 Acquired absence of other genital organ(s); Z90.6 Acquired absence of other parts of urinary tract; Z92.21 Personal history of antineoplastic chemotherapy; Z79.84 Long term (current) use of oral hypoglycemic drugs; Z79.899 Other long term (current) drug therapy
CPT/HCPCS: 80053; 82232; 82784 ×3; 83615; 83883; 85025; G0463; 99213

== ENCOUNTER → 2020-12-15 | Outpatient (CLI) | payer MEDICARE ==
[2020-12-15 15:31] LABS: BASOPHILS % (AUTO) 1 % (0-10); EOSINOPHILS # (AUTO) 0.1 10^3/uL (0.0-0.3); EOSINOPHILS % (AUTO) 1 % (0-10); HEMATOCRIT 44 % (40-54); HEMOGLOBIN 14.4 g/dL (13.3-17.7); LYMPHOCYTES # (AUTO) 1.1 X 10^3 (1.0-4.0); LYMPHOCYTES % (AUTO) 13 % (12-44); MEAN CORPUSCULAR HEMOGLOBIN 33 pg (25-34); MEAN CORPUSCULAR HGB CONC 33 g/dL (32-36); MEAN CORPUSCULAR VOLUME 101 fL (80-99); MEAN PLATELET VOLUME 9.4 fL (9.0-12.2); MONOCYTES # (AUTO) 0.8 X 10^3 (0.0-1.0); MONOCYTES % (AUTO) 9 % (0-12); NEUTROPHILS # (AUTO) 6.6 X 10^3 (1.8-7.8); NEUTROPHILS % (AUTO) 77 % (42-75); PLATELET COUNT 216 10^3/uL (130-400); WHITE BLOOD COUNT 8.6 10^3/uL (4.3-11.0)
[2020-12-15 15:46] LABS: BILIRUBIN,TOTAL 0.7 MG/DL (0.1-1.0); CALCIUM 9.5 MG/DL (8.5-10.1); CREATININE SERUM 2.16 MG/DL (0.60-1.30); TOTAL PROTEIN 7.3 GM/DL (6.4-8.2)
== END ==
LOC: EDSTATUS 11-25 15:15 → ONC 15:17
PROVIDERS: ATTEND Internal Medicine Hematology & Oncology
DX: C90.00 Multiple myeloma not having achieved remission (principal); E11.22 Type 2 diabetes mellitus with diabetic chronic kidney disease; I13.0 Hypertensive heart and chronic kidney disease with heart failure and stage 1 through stage 4 chronic kidney disease, or unspecified chronic kidney disease; N18.4 Chronic kidney disease, stage 4 (severe); Z94.84 Stem cells transplant status; I50.22 Chronic systolic (congestive) heart failure; I25.10 Atherosclerotic heart disease of native coronary artery without angina pectoris; F32.9 Major depressive disorder, single episode, unspecified; Z92.21 Personal history of antineoplastic chemotherapy; Z85.51 Personal history of malignant neoplasm of bladder; Z85.828 Personal history of other malignant neoplasm of skin; Z90.6 Acquired absence of other parts of urinary tract; Z98.890 Other specified postprocedural states; Z72.0 Tobacco use
CPT/HCPCS: 80053; 82232; 82784 ×3; 83615; 83883; 85025; G0463; 99213

== ENCOUNTER 2021-09-18 19:10 | Observation (INO) | payer MEDICARE ==
[~2021-09-18] VITALS: Ht 182 cm; Wt 96.6 kg
[~2021-09-18 19:10] MED LIST changes: +BUPR-105 PO; -BUPR150T14 PO; +CLIN-144 PO; -CLIN300C12 PO; +CYAN2000 PO; +MONT-40 PO; -MONT10TA32 PO; +ONDA-106 PO; -ONDA8TAB15 PO; +POTA-179 PO; -POTA20TA15 PO; -[UNRECOGNIZED DRUG - CODE] PO
--- NOTE | 2021-09-18 19:53 | ED General ---
General Chief Complaint: Altered Mental Status Stated Complaint: AMS Nursing Triage Note: Pt here with altered mental status; onset of lethargy this morning and dark urine. Source of Information: Patient, EMS Exam Limitations: No Limitations History of Present Illness Date Seen by Provider: Sep 18, 2021 Time Seen by Provider: 19:35 Initial Comments Patient is a 66yo male brought to the ER with a complaint of increased lethargy and weakness. Apparently family found that he was poorly responsive at home this evening - patient does not think he passed out today. He states he's been feeling weak since yesterday. No appetite today - has not eaten all day he states. He thinks he's taking his medications as prescribed. Denies any over symptoms of illness - no fever, chills, no cough or SOB. no abdominal pain. no diarrhea. He has a ileostomy for urine to the right mid abdomen (he states history of cancer). No rashes, joint pains or swelling. All other ROS reviewed and neg except as stated. Timing/Duration: 24 Hours Severity: Severe Associated Systoms: Loss of Appetite, Malaise, Weakness Allergies and Home Medications Allergies Coded Allergies: Penicillins (Verified Allergy, Severe, THROAT SWELLS SHUT, 01/04/18) codeine (Verified Allergy, Intermediate, ITCHING, Pt has received Lortab & Hydromorphone w/o issue, 01/05/18) tramadol (Verified Allergy, Intermediate, HIVES, 01/04/18) adhesive (Unverified Allergy, Unknown, RASH, 01/04/18) Patient Home Medication List Home Medication List Reviewed: Yes Albuterol Sulfate (Albuterol Sulfate) 2.5 Mg/0.5 Ml Vial.neb, 2.5 MG NEB QID, (Reported) Entered as Reported by: HINA QUEZADA on 01/04/18 1230 Allopurinol (Allopurinol) 100 Mg Tablet, 150 MG PO HS, (Reported) Entered as Reported by: APRIL LEWIS on 01/30/19 1526 Aspirin (Aspirin EC) 81 Mg Tablet.dr, 81 MG PO DAILY, (Reported) Entered as Reported by: APRIL LEWIS on 01/30/19 1531 Atenolol (Atenolol) 50 Mg Tablet, 50 MG PO BID, (Reported) Entered as Reported by: APRIL LEWIS on 11/16/17 0905 Atorvastatin Calcium (Atorvastatin Calcium) 80 Mg Tablet, 80 MG PO HS, (Reported) Entered as Reported by: APRIL LEWIS on 01/30/19 152 Bupropion HCl (Bupropion HCl Sr) 150 Mg Tablet.er, 150 MG PO HS, (Reported) Entered as Reported by: APRIL LEWIS on 01/30/19 152 Cetirizine HCl (Zyrtec) 10 Mg Tablet, 10 MG PO DAILY, (Reported) Entered as Reported by: APRIL LEWIS on 01/25/17 1402 Clopidogrel Bisulfate (Clopidogrel) 75 Mg Tablet, 75 MG PO DAILY, (Reported) Entered as Reported by: APRIL LEWIS on 01/30/19 152 Cyanocobalamin (Vitamin B-12) (B-12) 1,000 Mcg Tablet, 1,000 MCG PO BID, (Reported) Entered as Reported by: APRIL LEWIS on 11/16/17 09 Duloxetine HCl (Duloxetine HCl) 60 Mg Capsule.dr, 60 MG PO DAILY, (Reported) Entered as Reported by: THUAN GALICIA on 06/26/15 1254 Furosemide (Furosemide) 20 Mg Tablet, 20 MG PO DAILY PRN for SWELLING, (Reported) Entered as Reported by: APRIL LEWIS on 11/16/17 1020 Glipizide (Glipizide ER) 2.5 Mg Tab, 2.5 MG PO DAILY, (Reported) Entered as Reported by: APRIL LEWIS on 11/16/17 1020 Magnesium Oxide (Magnesium) 400 Mg Tablet, 400 MG PO DAILY, (Reported) Entered as Reported by: APRIL LEWIS on 01/30/19 153 Montelukast Sodium (Montelukast Sodium) 10 Mg Tablet, 10 MG PO HS, (Reported) Entered as Reported by: APRIL LEWIS on 01/30/19 152 Pantoprazole Sodium (Pantoprazole Sodium) 40 Mg Tablet.dr, 40 MG PO DAILY, (Reported) Entered as Reported by: APRIL LEWIS on 01/30/19 152 Potassium Chloride (Potassium Chloride) 20 Meq Tab.er.prt, 20 MEQ PO DAILY PRN for WHEN TAKING FUROSEMIDE, (Reported) Entered as Reported by: APRIL LEWIS on 01/30/19 1526 Pregabalin (Lyrica) 75 Mg Capsule, 75 MG PO BID, (Reported) Entered as Reported by: APRIL LEWIS on 01/19/17 0801 Prochlorperazine Maleate (Prochlorperazine Maleate) 5 Mg Tablet, 5 MG PO Q6H PRN for NAUSEA/VOMITING-4TH LINE, (Reported) Entered as Reported by: APRIL LEWIS on 01/30/19 1526 Pyridoxine HCl (Vitamin B-6) 100 Mg Tablet, 100 MG PO BID, (Reported) Entered as Reported by: THUAN GALICIA on 06/26/15 1254 Review of Systems Review of Systems Constitutional: malaise, weakness EENTM: no symptoms reported Respiratory: no symptoms reported Cardiovascular: no symptoms reported Gastrointestinal: no symptoms reported Genitourinary: other (dark urine) Musculoskeletal: no symptoms reported Skin: no symptoms reported All Other Systems Reviewed Negative Unless Noted: Yes Past Qabuuxx-Cilhru-Sngogx Hx Seasonal Allergies Seasonal Allergies: Yes Past Medical History Surgeries: Yes (lap lillian, collarbone fx, neuroma's removed from both feet, knee scop) Cardiac, Coronary Stent, Cystectomy, Defibrillator, Orthopedic, Pacemaker, Renal Respiratory: No Cardiac: Yes (STENTS) Coronary Artery Disease, High Cholesterol, Hypertension Neurological: Yes (STATES HE HAS HAD "7 STROKES", LAST ONE IN 2009) Stroke Reproductive Disorders: No Sexually Transmitted Disease: No Genitourinary: Yes (bladder cancer s/p resection with anteior bladder bag) Renal Failure Gastrointestinal: No Musculoskeletal: Yes Arthritis Endocrine: Yes Diabetes, Non-Insulin dep HEENT: No Cancer: Yes (multiple myeloma) Bladder, Skin Did You Recieve Any Treatments: Yes What Type of Treatment Did You: Chemotherapy, Radiation, Surgical Intervention Psychosocial: No Integumentary: Yes (skin lesion) Blood Disorders: Yes (UNSURE WHAT POSS CANCER SOMETHING TO DO W/ PROTEIN IN BLOOD) Family Medical History Heart Disease, CAD Over 55 Years Old Physical Exam Vital Signs Vital Signs - First Documented 09/18/21 19:16 Temp 35.3 Pulse 67 Resp 16 B/P (MAP) 156/97 (116) Pulse Ox 96 O2 Delivery Room Air Capillary Refill : Less Than 3 Seconds Height, Weight, BMI Height: 6'0.00" Weight: 198lbs. 0.0oz. 89.059804bx; 30.00 BMI Method:Stated General Appearance: No Apparent Distress, WD/WN Eyes: Bilateral Eye Normal Inspection, Bilateral Eye PERRL, Bilateral Eye EOMI HEENT: PERRL/EOMI, Other (dry mucous membranes) Neck: Normal Inspection Respiratory: Lungs Clear, Normal Breath Sounds, No Accessory Muscle Use, No Respiratory Distress Cardiovascular: Regular Rate, Rhythm, Normal Peripheral Pulses Gastrointestinal: Non Tender, Soft Extremity: Normal Capillary Refill, Normal Inspection, Normal Range of Motion, No Calf Tenderness, No Pedal Edema Neurologic/Psychiatric: Alert, Oriented x3, No Motor/Sensory Deficits, Normal Mood/Affect Skin: Normal Color, Warm/Dry Progress/Results/Core Measures Suspected Sepsis SIRS Temperature: Pulse: 67 Respiratory Rate: 16 Laboratory Tests 09/18/21 19:20: White Blood Count 11.8H Blood Pressure 156 /97 Mean: 116 Laboratory Tests 09/18/21 19:20: Creatinine 2.74H, Platelet Count 165, Total Bilirubin 0.7 Results/Orders Lab Results Laboratory Tests Test 09/18/21 19:20 09/18/21 20:15 09/18/21 21:32 Range/Units White Blood Count 11.8 H 4.3-11.0 10^3/uL Red Blood Count 4.23 L 4.30-5.52 10^6/uL Hemoglobin 14.9 13.3-17.7 g/dL Hematocrit 45 40-54 % Mean Corpuscular Volume 105 H 80-99 fL Mean Corpuscular Hemoglobin 35 H 25-34 pg Mean Corpuscular Hemoglobin Concent 33 32-36 g/dL Red Cell Distribution Width 13.8 10.0-14.5 % Platelet Count 165 130-400 10^3/uL Mean Platelet Volume 9.6 9.0-12.2 fL Immature Granulocyte % (Auto) 0 % Neutrophils (%) (Auto) 83 H 42-75 % Lymphocytes (%) (Auto) 9 L 12-44 % Monocytes (%) (Auto) 7 0-12 % Eosinophils (%) (Auto) 0 0-10 % Basophils (%) (Auto) 0 0-10 % Neutrophils # (Auto) 9.7 H 1.8-7.8 10^3/uL Lymphocytes # (Auto) 1.1 1.0-4.0 10^3/uL Monocytes # (Auto) 0.8 0.0-1.0 10^3/uL Eosinophils # (Auto) 0.1 0.0-0.3 10^3/uL Basophils # (Auto) 0.0 0.0-0.1 10^3/uL Immature Granulocyte # (Auto) 0.1 0.0-0.1 10^3/uL Sodium Level 141 135-145 MMOL/L Potassium Level 4.8 3.6-5.0 MMOL/L Chloride Level 108 H 98-107 MMOL/L Carbon Dioxide Level 19 L 21-32 MMOL/L Anion Gap 14 5-14 MMOL/L Blood Urea Nitrogen 28 H 7-18 MG/DL Creatinine 2.74 H 0.60-1.30 MG/DL Estimat Glomerular Filtration Rate 24 BUN/Creatinine Ratio 10 Glucose Level 162 H 70-105 MG/DL Calcium Level 9.0 8.5-10.1 MG/DL Corrected Calcium 9.1 8.5-10.1 MG/DL Total Bilirubin 0.7 0.1-1.0 MG/DL Aspartate Amino Transf (AST/SGOT) 19 5-34 U/L Alanine Aminotransferase (ALT/SGPT) 29 0-55 U/L Alkaline Phosphatase 74 40-136 U/L Troponin I < 0.028 <0.028 NG/ML C-Reactive Protein High Sensitivity 0.20 0.00-0.50 MG/DL Total Protein 6.9 6.4-8.2 GM/DL Albumin 3.9 3.2-4.5 GM/DL Urine Color BROWN H Urine Clarity CLOUDY Urine pH >=9.0 5-9 Urine Specific [place] <=1.005 1.016-1.022 Urine Protein 3+ H NEGATIVE Urine Glucose (UA) NEGATIVE NEGATIVE Urine Ketones TRACE H NEGATIVE Urine Nitrite NEGATIVE NEGATIVE Urine Bilirubin 1+ H NEGATIVE Urine Urobilinogen 1.0 < = 1.0 MG/DL Urine Leukocyte Esterase 3+ H NEGATIVE Urine RBC (Auto) 2+ H NEGATIVE Urine RBC 5-10 H /HPF Urine WBC 5-10 H /HPF Urine Squamous Epithelial Cells NONE /HPF Urine Renal Epithelial Cells NONE /HPF Urine Crystals NONE /LPF Urine Bacteria LARGE H /HPF Urine Casts NONE /LPF Urine Mucus NEGATIVE /LPF Urine Culture Indicated YES Urine Opiates Screen NEGATIVE NEGATIVE Urine Oxycodone Screen NEGATIVE NEGATIVE Urine Methadone Screen NEGATIVE NEGATIVE Urine Propoxyphene Screen NEGATIVE NEGATIVE Urine Barbiturates Screen NEGATIVE NEGATIVE Ur Tricyclic Antidepressants Screen NEGATIVE NEGATIVE Urine Phencyclidine Screen NEGATIVE NEGATIVE Urine Amphetamines Screen NEGATIVE NEGATIVE Urine Methamphetamines Screen NEGATIVE NEGATIVE Urine Benzodiazepines Screen NEGATIVE NEGATIVE Urine Cocaine Screen NEGATIVE NEGATIVE Urine Cannabinoids Screen NEGATIVE NEGATIVE Magnesium Level 2.0 1.6-2.4 MG/DL Ammonia 13 11-32 UMOL/L My Orders Orders - AMANDA IVAN MD Ekg Tracing (09/18/21 19:29) Cbc With Automated Diff (09/18/21 19:51) Comprehensive Metabolic Panel (09/18/21 19:51) Chest 1 View, Ap/Pa Only (09/18/21 19:51) Hs C Reactive Protein (09/18/21 19:51) Troponin I Nicholas (09/18/21 19:51) Ua Culture If Indicated (09/18/21 19:51) Urine Culture (09/18/21 20:15) Drug Screen Stat (Urine) (09/18/21 21:13) Magnesium (09/18/21 21:13) Ct Head Wo (09/18/21 21:13) Ammonia (09/18/21 21:13) Ns Iv 1000 Ml (Sodium Chloride 0.9%) (09/18/21 21:30) Vital Signs/I&O 09/18/21 19:16 Temp 35.3 Pulse 67 Resp 16 B/P (MAP) 156/97 (116) Pulse Ox 96 O2 Delivery Room Air Capillary Refill : Less Than 3 Seconds Blood Pressure Mean: 116 Progress Note #1: Time: 20:29 Progress Note patient is not having any chest pain, pressure, tightness, heaviness at all - he does feel a mild amount of nausea and slight SOB. I do not think thie EKG obtained at 1932 reflects STEMI as reflected on the auto-read. Progress Note #2: Time: 21:15 Progress Note Patient's son arrived - states that he was not present for any episode that occurred at the house earlier - son states that his step mom called him and told him that Cata had "been asleep for 24 hours and no one could wake him up" and then hung up on him. He states that the last time he saw him "normal" was September 13. He notes that his dad is twitching and jerking in bilat UE and that "that is not normal". Will CT head. he is also twitching in LLE. is still globally weak. Normally can ambulate. Son states previous stroke affecting left side. Never known to have seizures before. ECG Initial ECG Impression Date: Sep 18, 2021 Initial ECG Impression Time: 19:32 Initial ECG Rate: 69 Initial ECG Rhythm: Normal Sinus Initial ECG Intervals UT 177 QRS 97 QTc 439 Comment poor r wave progression over the precordial leads (all); ST elevation of 1mm in V1-V5 (patient is not having any anginal equivalent) no reciprocal depression Diagnostic Imaging Comments [facility]. [place] NAME: CATA SNELL [facility] REC#: [id number] PT STATUS: REG ER : 1955 PHYSICIAN: AMANDA IVAN MD ADMIT DATE: 09/18/21/ER Signed Date of Exam:09/18/21 CT HEAD WO PROCEDURE: CT head without contrast. TECHNIQUE: Multiple contiguous axial images were obtained through the brain without the use of intravenous contrast. Auto Exposure Controls were utilized during the CT exam to meet ALARA standards for radiation dose reduction. INDICATION: Altered mental status and abnormal twitching. FINDINGS: There is prominence of the ventricles and sulci. There is no hydrocephalus or cerebral edema. There is no midline shift or mass-effect. There is no intracranial mass, hemorrhage, or extra-axial fluid collection. There is some diffuse decreased attenuation of the periventricular white matter which is nonspecific. The visualized paranasal sinuses and mastoid air cells are clear. There are no regional areas of decreased attenuation appreciated to suggest an acute CVA. IMPRESSION: 1. No acute intracranial process. 2. Age-appropriate atrophy. 3. Decreased attenuation of the periventricular white matter which is nonspecific, however, likely reflects senescent change and/or chronic small vessel ischemic disease. Dictated by: Dictated on workstation # [id number] Dict: 09/18/215 Trans: 09/18/212206 [facility] [id number] Interpreted by: GRIFFIN ALVARADO MD Electronically signed by: GRIFFIN ALVARADO MD 09/18/212206 Diagonstic Imaging: Xray Plain Films/CT/US/NM/MRI: chest Comments [facility]. [place] NAME: CATA SNELL [facility] REC#: [id number] PT STATUS: REG ER : 1955 PHYSICIAN: AMANDA IVAN MD ADMIT DATE: 09/18/21/ER Signed Date of Exam:09/18/21 CHEST 1 VIEW, AP/PA ONLY INDICATION: Weakness. COMPARISON: Prior examination from 01/30/2019. FINDINGS: Heart size is normal. There is some venous congestion. There is no pleural effusion or pneumothorax. The mediastinum is unremarkable. Pacemaker overlies the left hemithorax. IMPRESSION: There is some mid central pulmonary venous congestion somewhat improved when compared to the prior examination. Dictated by: Dictated on workstation # [id number] Dict: 09/18/212057 Trans: 09/18/212129 [facility] [id number] Interpreted by: GRIFFIN ALVARADO MD Electronically signed by: GRIFFIN ALVARADO MD 09/18/212129 Departure Communication (Admissions) Time/Spoke to Admitting Phy: 23:[address] Sawant Impression Primary Impression: Altered mental status Qualified Codes: R40.0 - Somnolence Additional Impressions: UTI (urinary tract infection) Qualified Codes: N39.0 - Urinary tract infection, site not specified; R31.9 - Hematuria, unspecified Ttysy-lp-vyubisd kidney injury Qualified Codes: N17.9 - Acute kidney failure, unspecified; N18.9 - Chronic kidney disease, unspecified Dehydration Tremor of left hand Disposition: ADMITTED INPATIENT Condition: Stable Admissions Decision to Admit Reason: Admit from ER (General) Decision to Admit/Date: Sep 18, 2021 Time/Decision to Admit Time: 23:06 Departure-Patient Inst. Referrals: NO,LOCAL PHYSICIAN (PCP) Primary Care Physician TRI EISENBERG (Family) Primary Care Physician AMANDA IVAN MD Sep 18, 2021 19:53
[2021-09-18 19:58] LABS: BASOPHILS % (AUTO) 0 % (0-10); EOSINOPHILS # (AUTO) 0.1 10^3/uL (0.0-0.3); EOSINOPHILS % (AUTO) 0 % (0-10); HEMATOCRIT 45 % (40-54); HEMOGLOBIN 14.9 g/dL (13.3-17.7); LYMPHOCYTES # (AUTO) 1.1 10^3/uL (1.0-4.0); LYMPHOCYTES % (AUTO) 9 % (12-44); MEAN CORPUSCULAR HEMOGLOBIN 35 pg (25-34); MEAN CORPUSCULAR HGB CONC 33 g/dL (32-36); MEAN CORPUSCULAR VOLUME 105 fL (80-99); MEAN PLATELET VOLUME 9.6 fL (9.0-12.2); MONOCYTES # (AUTO) 0.8 10^3/uL (0.0-1.0); MONOCYTES % (AUTO) 7 % (0-12); NEUTROPHILS # (AUTO) 9.7 10^3/uL (1.8-7.8); NEUTROPHILS % (AUTO) 83 % (42-75); PLATELET COUNT 165 10^3/uL (130-400); WHITE BLOOD COUNT 11.8 10^3/uL (4.3-11.0)
[2021-09-18 20:10] LABS: ALANINE AMINOTRANSFERASE 29 U/L (0-55); ALBUMIN 3.9 GM/DL (3.2-4.5); ALKALINE PHOSPHATASE 74 U/L (40-136); BILIRUBIN,TOTAL 0.7 MG/DL (0.1-1.0); BUN/CREATININE RATIO 10; CARBON DIOXIDE 19 MMOL/L (21-32); CHLORIDE 108 MMOL/L (98-107); CREATININE SERUM 2.74 MG/DL (0.60-1.30); GFR ESTIMATED 24; GLUCOSE 162 MG/DL (70-105); POTASSIUM 4.8 MMOL/L (3.6-5.0); SODIUM 141 MMOL/L (135-145); TOTAL PROTEIN 6.9 GM/DL (6.4-8.2)
[2021-09-18 20:22] LABS: BILIRUBIN,URINE 1+ (NEGATIVE); CLARITY,URINE CLOUDY; COLOR,URINE BROWN; GLUCOSE, URINE (UA) NEGATIVE (NEGATIVE); KETONES,URINE TRACE (NEGATIVE); LEUKOCYTE ESTERASE ,URINE 3+ (NEGATIVE); NITRITE,URINE NEGATIVE (NEGATIVE); PH,URINE >=9.0 (5-9); PROTEIN,URINE 3+ (NEGATIVE)
[2021-09-18 20:27] LABS: BACTERIA,URINE LARGE /HPF
--- NOTE | 2021-09-18 21:02 | Diagnostic Imaging Report ---
INDICATION: Weakness. COMPARISON: Prior examination from 01/30/2019. FINDINGS: Heart size is normal. There is some venous congestion. There is no pleural effusion or pneumothorax. The mediastinum is unremarkable. Pacemaker overlies the left hemithorax. IMPRESSION: There is some mid central pulmonary venous congestion somewhat improved when compared to the prior examination. Dictated by: Dictated on workstation # [id number]
[2021-09-18 21:30] LABS: AMPHETAMINE SCREEN, URINE NEGATIVE (NEGATIVE); BARBITURATE SCREEN URINE NEGATIVE (NEGATIVE); BENZODIAZEPINES SCREEN URINE NEGATIVE (NEGATIVE); CANNABINOID SCREEN, URINE NEGATIVE (NEGATIVE); COCAINE SCREEN URINE NEGATIVE (NEGATIVE); METHADONE STAT NEGATIVE (NEGATIVE); OPIATE SCREEN URINE NEGATIVE (NEGATIVE); OXYCODONE STAT NEGATIVE (NEGATIVE); PROPOXYPHENE STAT NEGATIVE (NEGATIVE); TRICYCLIC ANTIDEPRESSANTS SCRE NEGATIVE (NEGATIVE)
--- NOTE | 2021-09-18 21:51 | Diagnostic Imaging Report ---
PROCEDURE: CT head without contrast. TECHNIQUE: Multiple contiguous axial images were obtained through the brain without the use of intravenous contrast. Auto Exposure Controls were utilized during the CT exam to meet ALARA standards for radiation dose reduction. INDICATION: Altered mental status and abnormal twitching. FINDINGS: There is prominence of the ventricles and sulci. There is no hydrocephalus or cerebral edema. There is no midline shift or mass-effect. There is no intracranial mass, hemorrhage, or extra-axial fluid collection. There is some diffuse decreased attenuation of the periventricular white matter which is nonspecific. The visualized paranasal sinuses and mastoid air cells are clear. There are no regional areas of decreased attenuation appreciated to suggest an acute CVA. IMPRESSION: 1. No acute intracranial process. 2. Age-appropriate atrophy. 3. Decreased attenuation of the periventricular white matter which is nonspecific, however, likely reflects senescent change and/or chronic small vessel ischemic disease. Dictated by: Dictated on workstation # [id number]
[2021-09-18] MEDS: NS IV 1000 ML 1,000 ML IV SCH ×2 (22:00→22:01)
[2021-09-18] MEDS ORDERED: cefTRIAXone 1 GM PRE-MIX 50 ML IV ONE (23:15)
[2021-09-19] VITALS (7 sets, daily range): BP systolic 142–163; BP diastolic 77–97
[2021-09-19] MEDS: NS IV 1000 ML 1,000 ML IV SCH ×3 (00:56→20:11)
[2021-09-19] MEDS ORDERED: RT-ALBUTEROL SULF 2.5 MG/3 ML PRE-MIX VIAL INH PRN (01:15)
[2021-09-19 06:34] LABS: BASOPHILS % (AUTO) 0 % (0-10); EOSINOPHILS # (AUTO) 0.1 10^3/uL (0.0-0.3); EOSINOPHILS % (AUTO) 1 % (0-10); HEMATOCRIT 43 % (40-54); HEMOGLOBIN 14.1 g/dL (13.3-17.7); LYMPHOCYTES % (AUTO) 10 % (12-44); MEAN CORPUSCULAR HEMOGLOBIN 35 pg (25-34); MEAN CORPUSCULAR HGB CONC 33 g/dL (32-36); MEAN CORPUSCULAR VOLUME 107 fL (80-99); MEAN PLATELET VOLUME 9.5 fL (9.0-12.2); MONOCYTES # (AUTO) 0.7 10^3/uL (0.0-1.0); MONOCYTES % (AUTO) 7 % (0-12); NEUTROPHILS % (AUTO) 81 % (42-75); PLATELET COUNT 142 10^3/uL (130-400); WHITE BLOOD COUNT 9.9 10^3/uL (4.3-11.0)
[2021-09-19 07:09] LABS: CALCIUM 8.4 MG/DL (8.5-10.1)
[2021-09-19] MEDS: inSUlin ASPART (NovoLOG) 1 UNIT/0.01 ML (CHARGE PER UNIT) SC SCH ×5 (07:10→20:42)
[2021-09-19 07:13] LABS: CREATININE SERUM 2.11 MG/DL (0.60-1.30)
--- NOTE | 2021-09-19 17:41 | History & Physical-Hospitalist ---
History of Present Illness HPI/Chief Complaint Lázaro Bee is a 66 year old male with PMH HTN, T2DM, HLD, HFrEF, CAD, history of CVA, CKD 3b, GERD, history of Gillian, history of bladder cancer, multiple myeloma, urostomy, who presented with altered mental status. According to family, he was not acting like himself. He was weak and lethargic. His appetite has been decreased. He has not had any fevers or chills. He has not had shortness of breath or cough. He has not had chest pain. He has not had abdominal pain, nausea, vomiting, or diarrhea. He is feeling a bit better this morning. He denies pain. He is oriented to person and place. He has no complaints. Source: patient Exam Limitations: clinical condition Date Seen 09/19/21 Time Seen by a Provider: 12:10 Attending Physician No,Local Physician PCP Admitting Physician: Katina Clarke MD Attending Physician: Katina Clarke MD Referring Physician Date of Admission Sep 18, 2021 at 22:57 Home Medications & Allergies Home Medications Reviewed patient Home Medication Reconciliation performed by pharmacy medication reconciliations set up mold technician and/or nursing. Patients Allergies have been reviewed. Allergies Allergies Coded Allergies Penicillins (Verified Allergy, Severe, THROAT SWELLS SHUT, 01/04/18) codeine (Verified Allergy, Intermediate, ITCHING, Pt has received Lortab & Hydromorphone w/o issue, 01/05/18) tramadol (Verified Allergy, Intermediate, HIVES, 01/04/18) adhesive (Unverified Allergy, Unknown, RASH, 01/04/18) Past Mgrgzsj-Jdvhfi-Lhnagx Hx Patient Social History Tobacco Use?: No Smoking Status: Never a Smoker Smokeless Tobacco Frequency: Never a User Use of E-Cig and/or Vaping Simone: Never a User Substance use?: No Alcohol Use?: No Pt feels they are or have been: No Immunizations Up To Date Date of Influenza Vaccine: Dec 20, 2016 Date of Pneumonia Vaccine: Jan 30, 2017 Seasonal Allergies Seasonal Allergies: Yes Current Status Communicates: Verbally Primary Language: Slovak Past Medical History Surgeries: Cardiac, Coronary Stent, Cystectomy, Defibrillator, Orthopedic, Pacemaker, Renal Coronary Artery Disease, High Cholesterol, Hypertension Stroke Sexually Transmitted Disease: No Renal Failure Arthritis Diabetes, Non-Insulin dep Bladder, Skin Did You Recieve Any Treatments: Yes What Type of Treatment Did You: Chemotherapy, Radiation, Surgical Intervention Blood Disorders: Yes (UNSURE WHAT POSS CANCER SOMETHING TO DO W/ PROTEIN IN BLOOD) Family Medical History Heart Disease, CAD Over 55 Years Old Review of Systems Constitutional: weakness EENTM: no symptoms reported Respiratory: no symptoms reported Cardiovascular: no symptoms reported Gastrointestinal: no symptoms reported Genitourinary: no symptoms reported Musculoskeletal: no symptoms reported Skin: no symptoms reported Physical Exam Physical Exam Vital Signs Vital Signs - First Documented 09/18/21 09/19/21 19:16 01:06 Temp 35.3 Pulse 67 Resp 16 B/P (MAP) 156/97 (116) Pulse Ox 96 O2 Delivery Room Air FiO2 21 Capillary Refill : Less Than 3 Seconds Height, Weight, BMI Height: 6'0.00" Weight: 198lbs. 0.0oz. 89.480890ah; 29.16 BMI Method:Stated General Appearance: No Apparent Distress, Chronically ill HEENT: PERRL/EOMI, Pharynx Normal Neck: Normal Inspection, Supple Respiratory: Lungs Clear, No Respiratory Distress Cardiovascular: Regular Rate, Rhythm, No Murmur Gastrointestinal: Normal Bowel Sounds, Non Tender, Soft, Other (urostomy) Extremity: Normal Inspection, Pedal Edema Neurologic/Psychiatric: Alert, Disoriented (to date), Other (flat affect) Results Results/Procedures Labs Laboratory Tests 09/18/21 19:20 09/19/21 06:22 Patient resulted labs reviewed. Imaging: Reviewed Imaging Report Assessment/Plan Admission Diagnosis Altered mental status Admission Status: Observation Assessment and Plan Acute encephalopathy Urinary tract infection DEBRA on CKD 3b Kidney function worsened from baseline IV fluids Urine culture with probable Pseudomonas Transition to Merrem due to severe penicillin allergy T2DM Sliding scale insulin HFrEF CAD HTN HLD Bladder cancer Urostomy Multiple myeloma Continue home meds DVT prophylaxis: Lovenox Diagnosis/Problems Diagnosis/Problems (1) Altered mental status Status: Acute Qualifiers: Altered mental status type: somnolence Qualified Codes: R40.0 - Somnolence (2) UTI (urinary tract infection) Status: Acute Qualifiers: Urinary tract infection type: site unspecified Hematuria presence: with hematuria Qualified Codes: N39.0 - Urinary tract infection, site not specified; R31.9 - Hematuria, unspecified (3) Acute kidney injury superimposed on chronic kidney disease Status: Acute KATINA CLARKE MD Sep 19, 2021 17:41
[2021-09-19] MEDS: PREGABALIN 75 MG (LYRICA) CAP PO SCH (20:11)
[2021-09-19] MEDS: ALLOPURINOL 300 MG (ZYLOPRIM) TAB PO SCH (20:11)
[2021-09-19] MEDS: MONTELUKAST 10 MG (SINGULAIR) TAB PO SCH (20:11)
[2021-09-19] MEDS: buPROPion SR 150 MG (WELLBUTRIN SR) TAB PO SCH (20:12)
[2021-09-19] MEDS: MEROPENEM 500 MG in NS (IVPB) 100 ML IV SCH (20:12)
[2021-09-19] MEDS ORDERED: cefTRIAXone 1 GM IV (PRE-MIX) 50 ML IV SCH (22:00)
[2021-09-20] VITALS (7 sets, daily range): BP systolic 130–165; BP diastolic 81–98
[2021-09-20] MEDS: NS IV 1000 ML 1,000 ML IV SCH ×2 (05:11→16:20)
[2021-09-20] MEDS: MEROPENEM 500 MG in NS (IVPB) 100 ML IV SCH ×3 (05:11→22:48)
[2021-09-20] MEDS: inSUlin ASPART (NovoLOG) 1 UNIT/0.01 ML (CHARGE PER UNIT) SC SCH ×5 (05:20→22:22)
[2021-09-20] MEDS: DULoxetine 30 MG (CYMBALTA) CAP PO SCH (08:58)
[2021-09-20] MEDS: ALLOPURINOL 300 MG (ZYLOPRIM) TAB PO SCH ×2 (08:58→18:11)
[2021-09-20] MEDS: PREGABALIN 75 MG (LYRICA) CAP PO SCH ×2 (08:58→20:12)
[2021-09-20] MEDS: SACUBITRIL/VALSARTAN 24/26 MG (ENTRESTO) TABLET PO SCH ×2 (08:58→20:12)
[2021-09-20] MEDS: CLOPIDOGREL 75 MG (PLAVIX) TABLET PO SCH (08:58)
--- NOTE | 2021-09-20 13:49 | Progress Note - Hospitalist ---
Subjective HPI/CC On Admission Date Seen by Provider: Sep 20, 2021 Time Seen by Provider: 13:46 Lázaro Bee is a 66 year old male with PMH HTN, T2DM, HLD, HFrEF, CAD, history of CVA, CKD 3b, GERD, history of Gillian, history of bladder cancer, multiple myeloma, urostomy, who presented with altered mental status. According to family, he was not acting like himself. He was weak and lethargic. His appetite has been decreased. He has not had any fevers or chills. He has not had shortness of breath or cough. He has not had chest pain. He has not had abdominal pain, nausea, vomiting, or diarrhea. He is feeling a bit better this morning. He denies pain. He is oriented to person and place. He has no complaints. Subjective/Events-last exam Pt reports doing "crappy" but when asked specifically feels better than yesterday. Declines offer to get out of bed. No family at bedside. RN reports attempting to call family with no answer. Objective Exam Vital Signs Vital Signs Date Time Temp Pulse Resp B/P (MAP) Pulse Ox O2 Delivery O2 Flow Rate FiO2 09/20/21 12:45 36.7 82 18 130/98 (109) 94 Room Air 09/19/21 01:06 21 Capillary Refill : Less Than 3 Seconds General Appearance: No Apparent Distress, Chronically ill, Thin Respiratory: Lungs Clear, No Respiratory Distress Cardiovascular: Regular Rate, Rhythm, No Murmur Gastrointestinal: Normal Bowel Sounds, Soft Neurologic/Psychiatric: Alert, Oriented x3 (major details) Results/Procedures Lab Patient resulted labs reviewed. Imaging: Reviewed Imaging Report Assessment/Plan Assessment and Plan Assess & Plan/Chief Complaint Acute encephalopathy Urinary tract infection DEBRA on CKD 3b Kidney improving, near baseline IV fluids Urine culture with probable Pseudomonas- awaiting sensitivities Continue Merrem due to severe penicillin allergy T2DM Sliding scale insulin HFrEF CAD HTN HLD Bladder cancer Urostomy Multiple myeloma Continue home meds DVT prophylaxis: MONIQUE Velazquez MD Sep 20, 2021 13:49
[2021-09-20] MEDS ORDERED: BUSP10TA95 PO (14:00)
[2021-09-20] MEDS ORDERED: SACU1TAB7 PO (14:01)
[2021-09-20] MEDS ORDERED: AMLO-250 PO (14:01)
[2021-09-20] MEDS ORDERED: LIRA0.6P3 SC (14:02)
[2021-09-20] MEDS: buPROPion SR 150 MG (WELLBUTRIN SR) TAB PO SCH (20:12)
[2021-09-20] MEDS: MONTELUKAST 10 MG (SINGULAIR) TAB PO SCH (20:12)
[2021-09-21 04:05] VITALS: BP 167/86
[2021-09-21] MEDS: MEROPENEM 500 MG in NS (IVPB) 100 ML IV SCH ×2 (05:58→14:00)
[2021-09-21] MEDS: inSUlin ASPART (NovoLOG) 1 UNIT/0.01 ML (CHARGE PER UNIT) SC SCH ×2 (06:04→11:24)
[2021-09-21 07:40] LABS: HEMATOCRIT 42 % (40-54); HEMOGLOBIN 14.2 g/dL (13.3-17.7); MEAN CORPUSCULAR HEMOGLOBIN 35 pg (25-34); MEAN CORPUSCULAR HGB CONC 34 g/dL (32-36); MEAN CORPUSCULAR VOLUME 103 fL (80-99); MEAN PLATELET VOLUME 9.4 fL (9.0-12.2); PLATELET COUNT 132 10^3/uL (130-400); WHITE BLOOD COUNT 8.2 10^3/uL (4.3-11.0)
[2021-09-21 08:09] LABS: ALBUMIN 3.7 GM/DL (3.2-4.5); BILIRUBIN,DIRECT 0.4 MG/DL (0.0-0.3); BILIRUBIN,INDIRECT 0.3 MG/DL; BILIRUBIN,TOTAL 0.7 MG/DL (0.1-1.0); CALCIUM 8.6 MG/DL (8.5-10.1); CREATININE SERUM 1.72 MG/DL (0.60-1.30); POTASSIUM 3.3 MMOL/L (3.6-5.0); TOTAL PROTEIN 6.2 GM/DL (6.4-8.2)
[2021-09-21 08:12] VITALS: BP 174/93
[2021-09-21] MEDS: ALLOPURINOL 300 MG (ZYLOPRIM) TAB PO SCH (08:16)
[2021-09-21] MEDS: CLOPIDOGREL 75 MG (PLAVIX) TABLET PO SCH (08:16)
[2021-09-21] MEDS: PREGABALIN 75 MG (LYRICA) CAP PO SCH (08:16)
[2021-09-21] MEDS: SACUBITRIL/VALSARTAN 24/26 MG (ENTRESTO) TABLET PO SCH (08:16)
[2021-09-21] MEDS: DULoxetine 30 MG (CYMBALTA) CAP PO SCH (08:16)
--- NOTE | 2021-09-21 09:37 | Physical Therapy Evaluation ---
PT Evaluation-General Medical Diagnosis Admission Date Sep 18, 2021 at 22:57 Medical Diagnosis: AMS/UTI/DM/HTN Onset Date: Sep 18, 2021 Therapy Diagnosis Therapy Diagnosis: generalized weakness/debility Height/Weight Height (Feet): 6 Height (Inches): 0.00 Weight (Pounds): 198 Weight (Ounces): 0.0 Precautions Precautions/Isolations: Fall Prevention, Standard Precautions Referral Physician: Angelica Reason for Referral: Evaluation/Treatment Medical History Pertinent Medical History: CAD, CVA, DM, HTN, Renal Insufficiency Additional Medical History bladder cancer Current History ER via family secondary to lethargy and dark urine Reviewed History: Yes Social History Home: Apartment Current Living Status: Alone Entry Into Home: Level Entry Prior Prior Level of Function SCALE: Activities may be completed with or without assistive devices. 6-Ezobufqoio-cbjjufb completes the activity by him/herself with no assistance from a helper. 5-Set-up or Clean-up Assistance-helper sets up or cleans up; patient completes activity. [place] assists only prior to or following the activity. 4-Supervision or Touching Assistance-helper provides verbal cues and/or touching/steadying and/or contact guard assistance as patient completes activity. Assistance may be provided throughout the activity or intermittently. 3-Partial/Moderate Assistance-helper does LESS THAN HALF the effort. [place] lifts, holds or supports trunk or limbs, but provides less than half the effort. 2-Substantial/Maximal Assistance-helper does MORE THAN HALF the effort. [place] lifts or holds trunk or limbs and provides more than half the effort. 3-Miabxyhqh-cuespj does ALL the effort. Patient does none of the effort to complete the activity. Or, the assistance of 2 or more helpers is required for the patient to complete the activity. If activity was not attempted, code reason: 7-Patient Refused. 9-Not Applicable-not attempted and the patient did not perform the activity before the current illness, exacerbation or injury. 10-Not Attempted due to Environmental Limitations-(lack of equipment, weather restraints, etc.). 88-Not Attempted due to Medical Conditions or Safety Concerns. Bed Mobility: 6 Transfers (B,C,W/C): 6 Gait: 6 Indoor Mobility (Ambulation): Independent Prior Devices Use: Walker (PRN) PT Evaluation-Current Subjective Patient agrees to PT. He reports, "I haven't been up for a while." Objective Patient Orientation: Normal For Age Attachments: Lua Catheter, IV ROM/Strength ROM Lower Extremities bilateral LE WFL Strength Lower Extremities 4-/5 grossly bilateral LE Integumentary/Posture Integumentary refer to nursing notes Bowel Incontinence: Yes Bladder Incontinence: Lua Cath Posture WFL Neuromuscular (Tone, Coordination, Reflexes) slightly diminished coordination due to inactivity Sensory Vision: Functional Hearing: Functional Transfers Lying to Sitting/Side of Bed(Q: 4 Sit to Stand (QC): 4 Chair/Qjv-lg-Qzrzq Xfer(QC): 4 Toilet Transfer (QC): 4 Gait Mode of Locomotion: Walk Anticipated Mode of Locomotion: Walk Walk 10 feet (QC): 4 Walk 50 ft with 2 Turns(QC): 4 Walk 150 ft (QC): 4 Distance: 175' Gait Assistive Device: FWW Comments/Gait Description slightly unsteady gait sequence with self correct with CGA of PT for safety Balance Sitting Static: Normal Sitting Dynamic: Normal Standing Static: Fair Standing Dynamic: Fair Assessment/Needs 66 y.o. male, will benefit from short term skilled PT to address functional strength and mobility to improve current LOF to safely return to home at maximum LOF. Rehab Potential: Fair PT Telemetry Rn Goals Telemetry Rn Goals PT Telemetry Rn Goals Time Frame: Oct 02, 2021 Roll Left & Right (QC): 6 Sit to Lying (QC): 6 Lying-Sitting on Side/Bed(QC): 6 Sit to Stand (QC): 6 Chair/Fpp-bx-Btdmg Xfer(QC): 6 Toilet Transfer (QC): 6 Walk 10 feet (QC): 6 Walk 50ft with 2 Turns (QC): 6 Walk 150 ft (QC): 6 PT Plan Problem List Problem List: Activity Tolerance, Functional Strength, Safety, Balance, Gait, Transfer Treatment/Plan Treatment Plan: Continue Plan of Care Treatment Plan: Bed Mobility, Education, Functional Activity Violetta, Functional Strength, Gait, Safety, Therapeutic Exercise, Transfers Treatment Duration: Oct 02, 2021 Frequency: 6 times per week Estimated Hrs Per Day: .25 hour per day Patient and/or Family Agrees t: Yes Time/GCodes Time In: 905 Time Out: 915 Total Billed Treatment Time: 10 Total Billed Treatment 1 visit EVMod 10 min YESSICA PORTER PT Sep 21, 2021 09:37
[2021-09-21] MEDS ORDERED: SULF1TAB38 PO (11:47)
--- NOTE | 2021-09-21 11:50 | D/C HH Face to Face Order ---
D/C HH Face to Face Orders Reconcile Patient Problems Problems Reviewed?: Yes Instructions for Patient Via [facility], Patient Instructions/FollowUp: PCP Walker in one week Physician to follow Patient: Walker Discharge Diet for Home: No Restrictions Patient Data-Allergies,Ht & Wt Patient Allergies: Coded Allergies: Penicillins (Verified Allergy, Severe, THROAT SWELLS SHUT, 01/04/18) codeine (Verified Allergy, Intermediate, ITCHING, Pt has received Lortab & Hydromorphone w/o issue, 01/05/18) tramadol (Verified Allergy, Intermediate, HIVES, 01/04/18) adhesive (Unverified Allergy, Unknown, RASH, 01/04/18) Height (Feet): 6 Height (Inches): 0.00 Weight (Pounds): 198 Weight (Ounces): 0.0 Home Health Need/Face to Face Date of Face to Face: Sep 21, 2021 Clinical Findings: Generalized weakness and fatigue, Instability, Muscle weakness, Unsteady gait I have seen Pt wojc-hj-kjec: Yes Discharged To: Home Diagnosis/Conditions: UTI DEBRA on CKD HTN T2DM CAD Problems/Diagnosis/Condition: (1) UTI (urinary tract infection) (2) Acute kidney injury superimposed on chronic kidney disease (3) Non-insulin dependent type 2 diabetes mellitus (4) Essential (primary) hypertension Patient is Homebound due to: Alexandra fall risk due to instabilty, Muscle weakness Homebound Status Due to the above stated illness, injury or surgical procedure (medical condition or diagnosis) and associated clinical findings, the patient is homebound because of his/her inability to leave home except with aid of a supportive device and/or person AND leaving the home requires a considerable and taxing effort or is medically contraindicated. Pt req the following assistanc: Aid of another person, Walker Home Health Nursing Orders Home Health Services Order: Nursing Services, Polystyrene Bead Molder-Evaluate & Treat, Physical Therapy-Evaluate & Treat Therapy Orders Therapy Orders: OT (must have SN or PT order), Physical Therapy Therapy Specific Orders: Eval assistive deivces, Teach enviro modifications/safety, Gait training, Increase strength/endurance Certify Stmt I certify that this patient is under my care and that I, a nurse practitioner or a physician; a assistant store manager operations working with me, had a face to face encounter that - meets the physician face to face encounter requirements with this patient as dated. KATINA CLARKE MD Sep 21, 2021 11:50
[2021-09-21 11:52] VITALS: BP 143/85
[2021-09-21 14:53] VITALS: BP 143/85
--- NOTE | 2021-09-21 17:18 | Discharge Summary ---
Discharge Summary Hospital Course Problems/Dx: (1) Altered mental status Status: Acute Qualifiers: Qualified Codes: R40.0 - Somnolence (2) UTI (urinary tract infection) Status: Acute Qualifiers: Qualified Codes: N39.0 - Urinary tract infection, site not specified; R31.9 - Hematuria, unspecified (3) Acute kidney injury superimposed on chronic kidney disease Status: Acute Hospital Course Date of Admission: Sep 18, 2021 at 22:57 Admission Diagnosis : Acute encephalopathy Family Physician/Provider: Ewa Gan Date of Discharge: 09/21/21 Discharge Diagnosis: Acute encephalopathy, UTI, DEBRA on CKD Hospital Course: Lázaro Bee is a 66 year old male who presented with altered mental status and was admitted with acute encephalopathy due to UTI. He was treated with IV antibiotics. HIs urine culture returned with Proteus and he was transitioned to Bactrim. His confusion resolved. He was set up with home health care. He should follow up with his PCP in about a week. He was discharged home in stable condition. Labs and Pending Lab Test: Laboratory Tests 09/20/21 20:06: Glucometer 151H 09/21/21 06:04: Glucometer 124H 09/21/21 07:33: White Blood Count 8.2, Red Blood Count 4.07L, Hemoglobin 14.2, Hematocrit 42, Mean Corpuscular Volume 103H, Mean Corpuscular Hemoglobin 35H, Mean Corpuscular Hemoglobin Concent 34, Red Cell Distribution Width 13.4, Platelet Count 132, Mean Platelet Volume 9.4, Sodium Level 139, Potassium Level 3.3L, Chloride Level 111H, Carbon Dioxide Level 17L, Anion Gap 11, Blood Urea Nitrogen 18, Creatinine 1.72H, Estimat Glomerular Filtration Rate 43, BUN/Creatinine Ratio 10, Glucose Level 118H, Calcium Level 8.6, Total Bilirubin 0.7, Direct Bilirubin 0.4H, Indirect Bilirubin 0.3, Aspartate Amino Transf (AST/SGOT) 15, Alanine Aminotransferase (ALT/SGPT) 21, Alkaline Phosphatase 71, Total Protein 6.2L, Albumin 3.7 09/21/21 11:13: Glucometer 124H Microbiology 09/18/21 Urine Culture - Final, Complete Proteus mirabilis Mixed Bacterial Teresa Home Meds Active Bactrim Ds Tablet (Sulfamethoxazole/Trimethoprim) 1 Each Tablet 1 Each PO BID 7 Days Reported Victoza 3-Desean (Liraglutide) 0.6 Mg/0.1 Ml (18 Mg/3 Ml) Pen.injctr 1.8 Mg SC DAILY Entresto 49 mg-51 mg Tablet (Sacubitril/Valsartan) 49 Mg-51 Mg Tablet 1 Each PO BID Amlodipine Besylate 5 Mg Tablet 5 Mg PO DAILY Buspirone HCl 10 Mg Tablet 10 Mg PO BID Atorvastatin Calcium 80 Mg Tablet 80 Mg PO HS Montelukast Sodium 10 Mg Tablet 10 Mg PO HS Pantoprazole Sodium 40 Mg Tablet.dr 40 Mg PO DAILY Clopidogrel (Clopidogrel Bisulfate) 75 Mg Tablet 75 Mg PO DAILY Lyrica (Pregabalin) 75 Mg Capsule 75 Mg PO BID Duloxetine HCl 60 Mg Capsule.dr 60 Mg PO DAILY Assessment/Pt Instructions Take medications as prescribed. Complete your course of antibiotics even if you are feeling better. You are being set up with home health. Follow up with your PCP in about a week. Return with worsening symptoms. Discharge Planning: >30 minutes discharge planning Discharge Instructions Discharge Diet: No Restrictions Activity as Tolerated: Yes Discharge Physical Examination Vital Signs Vital Signs Date Time Temp Pulse Resp B/P (MAP) Pulse Ox O2 Delivery O2 Flow Rate FiO2 09/21/21 14:53 36.1 97 19 143/85 94 Room Air 09/19/21 01:06 21 General Appearance: No Apparent Distress, WD/WN Respiratory: Lungs Clear, No Respiratory Distress Cardiovascular: Regular Rate, Rhythm, No Murmur Gastrointestinal: Normal Bowel Sounds, Soft Extremity: Normal Inspection, No Pedal Edema Neurologic/Psychiatric: Alert, Normal Mood/Affect Allergies: Coded Allergies: Penicillins (Verified Allergy, Severe, THROAT SWELLS SHUT, 01/04/18) codeine (Verified Allergy, Intermediate, ITCHING, Pt has received Lortab & Hydromorphone w/o issue, 01/05/18) tramadol (Verified Allergy, Intermediate, HIVES, 01/04/18) adhesive (Unverified Allergy, Unknown, RASH, 01/04/18) Discharge Summary Date of Admission Sep 18, 2021 at 22:57 Date of Discharge Sep 21, 2021 at 14:58 Discharge Date: Sep 21, 2021 Discharge Time: 1500 Admission Diagnosis Altered mental status Discharge Diagnosis Acute encephalopathy Urinary tract infection DEBRA on CKD 3b (1) Altered mental status Status: Acute Qualifiers: Qualified Codes: R40.0 - Somnolence (2) UTI (urinary tract infection) Status: Acute Qualifiers: Qualified Codes: N39.0 - Urinary tract infection, site not specified; R31.9 - Hematuria, unspecified (3) Acute kidney injury superimposed on chronic kidney disease Status: Acute KATINA CLARKE MD Sep 21, 2021 17:18
== END 2021-09-21 14:58 | disposition home health service (06) ==
LOC: EDUNIT# 19:10 → ER 19:11 → 4TH 22:57
PROVIDERS: ADMIT Internal Medicine; ATTEND Internal Medicine
DX: N39.0 Urinary tract infection, site not specified (principal); B96.4 Proteus (mirabilis) (morganii) as the cause of diseases classified elsewhere; G93.40 Encephalopathy, unspecified; N17.9 Acute kidney failure, unspecified; I13.0 Hypertensive heart and chronic kidney disease with heart failure and stage 1 through stage 4 chronic kidney disease, or unspecified chronic kidney disease; E11.22 Type 2 diabetes mellitus with diabetic chronic kidney disease; N18.32 Chronic kidney disease, stage 3b; I50.20 Unspecified systolic (congestive) heart failure; E86.0 Dehydration; R25.1 Tremor, unspecified; K21.9 Gastro-esophageal reflux disease without esophagitis; Z93.2 Ileostomy status; Z79.84 Long term (current) use of oral hypoglycemic drugs; Z88.5 Allergy status to narcotic agent; Z88.0 Allergy status to penicillin; Z79.82 Long term (current) use of aspirin; Z85.51 Personal history of malignant neoplasm of bladder; C90.00 Multiple myeloma not having achieved remission
CPT/HCPCS: 36415; 70450; 71045; 80048; 80053; 80076; 80306; 81000; 82140; 82947; 83735; 84484; 85025; 85027; 86141; 87077; 87088; 87186; 93005; 96361; 96366; 96375; 96376; G0378

== ENCOUNTER → 2021-12-07 | Outpatient (CLI) | payer MEDICARE ==
[~2021-12-07] MED LIST changes: +BUSP10TA95 PO; +LIRA0.6P3 SC; +SACU1TAB7 PO; +SULF1TAB38 PO
== END ==
LOC: CARD 09:30
PROVIDERS: ATTEND Internal Medicine Cardiovascular Disease
DX: I35.1 Nonrheumatic aortic (valve) insufficiency (principal); I25.10 Atherosclerotic heart disease of native coronary artery without angina pectoris; I11.9 Hypertensive heart disease without heart failure
CPT/HCPCS: 93306

== ENCOUNTER → 2022-01-05 | Outpatient (CLI) | payer MEDICARE ==
[~2022-01-05] MED LIST changes: +REGADENOSON 0.4 MG/5 ML SYR (LEXISCAN) IV ONE
[2022-01-05] MEDS: CATHETER FLUSH 10 ML SYR IVP PRN ×2 (11:45→13:16)
[2022-01-05 13:15] VITALS: BP 158/103
--- NOTE | 2022-01-06 08:38 | Cardiology Stress Test Report ---
Stress Test Report Date of Procedure/Referring: Date of Procedure: Jan 05, 2022 PCP No,Local Physician Admitting Physician Admitting Physician: Attending Physician: Lily Beltran MD Indications: CAD Baseline Heart Rate: 73 Baseline Blood Pressure: Blood Pressure Systolic: 158 Blood Pressure Diastolic: 103 Baseline Vitals Vital Signs Date Time Temp Pulse Resp B/P (MAP) Pulse Ox O2 Delivery O2 Flow Rate FiO2 01/05/22 13:15 81 16 158/103 (121) 95 Room Air Baseline EKG: Baseline EKG: NSR Summary After explaining the procedure to the patient, he signed a consent and then brought to the stress nuclear laboratory. Patient received 0.4 mg Lexiscan for stress test, ECG, heart rate and blood pressure were monitored continuously. Resting and stress dose of radio tracer were injected, imaging was acquired and reviewed in short axis, horizontal long axis and vertical long axis views. TID: 0.99 SSS: 43 SDS: 0 EF: 21 1. Patient tolerated Lexiscan well 2. Total infarction of the anterior wall and anterior apex with no reversibility 3. Diffuse left ventricular hypokinesia, more pronounced in the anterior wall, akinesia to dyskinesia of the apex, ejection fraction 21% Consider viability study LILY BELTRAN MD Jan 06, 2022 08:38
== END ==
LOC: CARD 11:21
PROVIDERS: ATTEND Internal Medicine Cardiovascular Disease
DX: I25.10 Atherosclerotic heart disease of native coronary artery without angina pectoris (principal); I10 Essential (primary) hypertension
CPT/HCPCS: 78452; 93017; A9502